=== PATIENT | female | born 1940 | race Caucasian/White ===

== ENCOUNTER 2018-02-16 20:41 | Inpatient (IN) | payer MEDICARE, MEDICAID ==
--- NOTE | 2018-02-16 21:35 | ED Physician Chart ---
ED Chief Complaint/HPI - Patient Information Date Seen:: 02/16/18 Time Seen:: 21:00 Chief Complaint:: POOR ORAL INTAKE FAILURE TO THRIVE History of Present Illness:: 77 YR OLD FEMALE WITH TWO DAUGHTERES WITH FAILURE TO THRIVE AND WEAKNESS POOR ORAL INTAKE Allergies:: Allergies Allergy/AdvReac Type Severity Reaction Status Date / Time Iodine and Iodide Containing Allergy Verified 02/16/18 21:01 Produc Vitals:: Vital Signs - 8 hr 02/16/18 20:45 Temp 98.3 F HR 62 RR 18 BP 157/52 O2 Sat % 96 Historian:: Family Member ED Review of Systems - Review of Systems General/Constitutional: No fever, No chills, No weight loss, No weakness, No diaphoresis, No edema, No loss of appetite Skin: No skin lesions, No rash, No bruising Head: No headache, No light-headedness Eyes: No loss of vision, No pain, No diplopia ENT: No earache, No nasal drainage, No sore throat, No tinnitus Neck: No neck pain, No swelling, No thyromegaly, No stiffness, No mass noted Cardio Vascular: No chest pain, No palpitations, No PND, No orthopnea, No edema Pulmonary: No SOB, No cough, No sputum, No wheezing GI: No nausea, No vomiting, No diarrhea, No pain, No melena, No hematochezia, No constipation, No hematemesis G/U: No dysuria, No frequency, No hematuria Musculoskeletal: No bone or joint pain, No back pain, No muscle pain, Other ( WEAKNESS LT LEG) Endocrine: No polyuria, No polydipsia Psychiatric: No prior psych history, No depression, No anxiety, No suicidal ideation Hematopoietic: No bruising, No lymphadenopathy Allergic/Immuno: No urticaria, No angioedema Neurological: No syncope, No focal symptoms, No weakness, No paresthesia, No headache, No seizure, No dizziness, No confusion, No vertigo ED Past Medical History - Past Medical History Past Medical History: DM Family Medical History - Family Member Mother History Unknown: Yes ED Physical Exam - Physical Examination General/Constitutional: Awake, Well-developed, well-nourished, Alert, No distress, GCS 15, Non-toxic appearing, Ambulatory Head: Atraumatic Eyes: Lids, conjuctiva normal, PERRL, EOMI Skin: Nl inspection, No rash, No skin lesions, No ecchymosis, Well hydrated, No lymphadenopathy ENMT: External ears, nose nl, Nasal exam nl, Lips, teeth, gums nl Neck: Nontender, Full ROM w/o pain, No JVD, No nuchal rigidity, No bruit, No mass, No stridor Respiratory: Nl effort/Exclusion, Clear to Auscultation, No Wheeze/Rhonchi/Rales Cardio Vascular: RRR, No murmur, gallop, rubs, NL S1 S2 GI: No tenderness/rebounding/guarding, No organomegaly, No hernia, Normal BS's, Nondistended, No mass/bruits, No McBurney tenderness : No CVA tenderness Extremities: No tenderness or effusion, No edema, Normal digits & nails Other Neuro/Psych comments:: PT HAS EPISODES OF CONFUSION AND LIMP LIKE EPISODES Misc: Normal back, No paraspinal tenderness ED Assessment - Assessment General Assessment: FAILURE TO THRIVE ED Septic Shock - . Is Septic Shock (SBP<90, OR Lactate>4 mmol\L) present?: No - <6hrs of presentation: Vital Signs: Vital Signs - 8 hr 02/16/18 20:45 Temp 98.3 F HR 62 RR 18 BP 157/52 O2 Sat % 96 ED Discharge Plan - Patient Disposition Admit/Discharge/Transfer: Acute Care w/in this hosp Condition at Disposition: Stable
[2018-02-16 22:12] LABS: ALB/GLOB RATIO 1.2 (1.0-1.8); ALBUMIN 3.7 gm/dL (3.7-5.3); ALKALINE PHOSPHATASE 90 U/L (34-104); ANION GAP 10.7 (7.0-16.0); BILIRUBIN,TOTAL 0.3 mg/dL (0.3-1.0); BUN - UREA NITROGEN 38 mg/dL (7-25); CALCIUM SERUM 9.1 mg/dL (8.6-10.3); CARBON DIOXIDE 24.9 mEq/L (21.0-31.0); CHLORIDE 104 mEq/L (98-107); CREATININE - SERUM 1.2 mg/dL (0.6-1.2); GLUCOSE 299 mg/dL (70-105); POTASSIUM SERUM 4.6 mEq/L (3.5-5.1); SGOT 16 U/L (13-39); SGPT/ALT 9 U/L (7-52); SODIUM SERUM 135 mEq/L (136-145); TOTAL PROTEIN,SERUM 6.8 gm/dL (6.0-8.3)
[2018-02-16] MEDS: Sodium Chloride 0.45% 1,000 ML IV SCH (23:46)
[2018-02-17] MEDS: INSULIN ASPART SLIDING SCALE 100 UNITS/ML UNIT SUBQ SCH ×4 (06:53→21:22)
[2018-02-17 07:35] LABS: % BASOPHILS 0.5 % (0.0-2.0); % EOSINOPHILS 2.6 % (0.0-5.0); % LYMPHOCYTES 42.4 % (20.0-50.0); % MONOCYTES 10.2 % (2.0-10.0); % NEUTROPHILS 44.3 % (40.0-80.0); EOSINOPHILE ABSOLUTE 0.2 Th/cmm (0.1-0.4); HEMATOCRIT 32.7 % (41.0-60); HEMOGLOBIN 11.2 gm/dL (12-16); LYMPHOCYTE ABSOLUTE 2.6 Th/cmm (1.5-3.0); MEAN CELL VOLUME 92.1 fl (81-100); MEAN CORPUSCULAR HEMOGLOBIN 31.6 pg (27.0-31.0); MEAN CORPUSCULAR HGB CONC 34.3 pg (28.0-36.0); MEAN PLATELET VOLUME 8.4 fl; MONOCYTE ABSOLUTE 0.6 Th/cmm (0.3-1.0); NEUTROPHILE ABSOLUTE 2.7 Th/cmm (1.8-8.0); PLATELET COUNT 221 Th/cmm (150-400); RED BLOOD COUNT 3.55 Mil/cmm (3.80-5.20); RED CELL DISTRIBUTION WIDTH 13.4 % (11.5-20.0); WHITE BLOOD COUNT 6.1 Th/cmm (4.8-10.8)
[2018-02-17 08:06] LABS: ANION GAP 9.9 (7.0-16.0); BUN - UREA NITROGEN 34 mg/dL (7-25); CALCIUM SERUM 9.1 mg/dL (8.6-10.3); CARBON DIOXIDE 23.2 mEq/L (21.0-31.0); CHLORIDE 107 mEq/L (98-107); CHOLESTEROL 116 mg/dL (<200); CREATININE - SERUM 1.1 mg/dL (0.6-1.2); HDL -HIGH DENSITY LIPOPROTEIN 43 mg/dL (23-92); POTASSIUM SERUM 4.1 mEq/L (3.5-5.1); SODIUM SERUM 136 mEq/L (136-145); TRIGLYCERIDES 73 mg/dL (<150)
[2018-02-17 08:25] LABS: GLUCOSE 130 mg/dL (70-105)
[2018-02-17] MEDS ORDERED: TOPIRAMATE 50 MG PO SCH (09:00)
[2018-02-17] MEDS ORDERED: ROSUVASTATIN CALCIUM 10 MG PO SCH (09:00)
[2018-02-17] MEDS ORDERED: Atenolol 100mg Tab PO SCH (09:00)
[2018-02-17] MEDS ORDERED: Non-Formulary Item 1 EA (Cholecalciferol (Vitamin D3) [Vitamin D3] 1 CAP) PO SCH (09:00)
[2018-02-17] MEDS ORDERED: INSULIN NPH HUMAN ISOPHANE 20 UNIT SQ SCH (09:00)
[2018-02-17] MEDS ORDERED: Non-Formulary Item 1 EA (Isosorbide Mononitrate [Isosorbide Mononitrate Er] 60 MG) PO SCH (09:00)
[2018-02-17] MEDS ORDERED: ATENOLOL 50 MG PO SCH (09:00)
[2018-02-17] MEDS: INSULIN HUMAN ISOPHANE (NPH) 100 UNITS/ML SUBQ SCH ×3 (09:27→21:21)
--- NOTE | 2018-02-17 10:34 | Diagnostic Imaging Report ---
CT scan of the brain without contrast History: ALOC Total DLP equals 647 CTDI equals 34.8 Axial sections were obtained from the base of the skull to the vertex. There is a normal ventricular system size. No focal parenchymal lesions are seen. No evidence of any mass effect or shift of midline structures. No extra-axial masses or abnormal fluid collections. Prominence of cerebral sulci and ventricles consistent with atrophy. Impression: Negative examination, atrophy.
[2018-02-17] MEDS ORDERED: INSULIN HUMAN REGULAR 100 UNITS/ML UNIT SUBQ SCH (11:30)
[2018-02-17] MEDS ORDERED: INSULIN ASPART, RECOMBINANT 100 UNITS/ML SUBQ SCH (11:30)
[2018-02-17] MEDS: Sodium Chloride 0.45% 1,000 ML IV SCH (12:58)
--- NOTE | 2018-02-17 17:05 | History and Physical ---
History of Present Illness - HPI Chief Complaint: poor oral intake HPI: This is a 77 year old female who is a resident of [facility] admitted to the telemetry unit due to a 1 day history of poor oral intake. Patient has been refusing to eat at the snf and was also noted with weakness. Vital Signs: Last Vital Signs Temp 97.2 F 02/17/18 16:00 Pulse 50 02/17/18 16:00 Resp 18 02/17/18 16:00 BP 132/49 02/17/18 16:00 Pulse Ox 97 02/17/18 04:00 Past Medical History Other History: dm htn hypercholesteremia dementia Family Medical History - Family Member Mother History Unknown: Yes Social History Smoke: No Alcohol: None Drugs: None Lives: Assisted - Medications Home Medications: Home Medication Medication Instructions Recorded Type Acetaminophen 650 mg PO Q6HR PRN 02/16/18 History Amlodipine Besylate 5 mg PO DAILY 02/16/18 History Aspirin [Adult Low Dose Aspirin EC] 81 mg PO DAILY 02/16/18 History Atenolol [Tenormin] 50 mg PO DAILY 02/16/18 History Cholecalciferol (Vitamin D3) 1 cap PO DAILY 02/16/18 History [Vitamin D3] DULoxetine DR [Cymbygta] 30 mg PO DAILY 02/16/[address] [Depakote DR] 250 mg PO HS 02/16/18 History Gabapentin 100 mg PO TID 02/16/18 History Insulin NPH Human Isophane 20 unit SQ QAM 02/16/18 History [Humulin N Kwikpen] Insulin NPH Human Isophane 30 unit SQ HS 02/16/18 History [Humulin N Kwikpen] Insulin Regular, Human [Humulin R] 1 unit SUBQ ACHS 02/16/18 History Isosorbide Mononitrate [Isosorbide 60 mg PO DAILY 02/16/18 History Mononitrate ER] Memantine [Namenda] 10 mg PO BID 02/16/18 History Nitroglycerin 0.4 mg SL Q5MIN PRN 02/16/18 History QUEtiapine Fumarate [SEROquel] 25 mg PO HS 02/16/18 History Rosuvastatin Calcium 10 mg PO DAILY 02/16/18 History Topiramate 50 mg PO BID 02/16/18 History Valsartan [Diovan] 80 mg PO DAILY 02/16/18 History lamoTRIgine [laMICtal] 25 mg PO HS 02/16/18 History - Allergies Allergies/Adverse Reactions: Allergies Allergy/AdvReac Type Severity Reaction Status Date / Time Iodine and Iodide Containing Allergy Verified 02/16/18 21:01 Produc Review of Systems - Review of Systems Constitutional: Report: Weakness Eyes: Report: No Significant ENT: Report: No Significant Respiratory: Report: No Significant Cardiovascular: Report: No Significant Neurological: Report: Weakness Physical Exam - Physical Exam HEENT: Report: Ears Nose Throat within normal limits Neck: Report: Within normal limits Cardiovascular Systems: Report: +s1/s2 noted, Regular, Rate and Rhythm Respiratory: Report: Breath Sounds are within normal limits Skin: Report: Color of skin is within normal limits Neuro/Psych: Report: Mood affect is within normal limits - Lab Results All Lab Results last 24 hours: Laboratory Results - last 24 hr 02/16/18 02/17/18 02/17/18 21:52 00:02 06:44 WBC RBC Hgb Hct MCV MCH MCHC Differential RDW Plt Count MPV Neutrophils % Lymphocytes % Monocytes % Eosinophils % Basophils % Sodium 135 L Potassium 4.6 Chloride 104 Carbon Dioxide 24.9 Anion Gap 10.7 BUN 38 H Creatinine 1.2 Est GFR ( Amer) TNP Est GFR (Non-Af Amer) TNP BUN/Creatinine Ratio 31.7 Glucose 299 H POC Glucose 261 H 135 H Calcium 9.1 Total Bilirubin 0.3 AST 16 ALT 9 Alkaline Phosphatase 90 Total Protein 6.8 Albumin 3.7 Globulin 3.1 Albumin/Globulin Ratio 1.2 Triglycerides Cholesterol LDL Cholesterol Direct HDL Cholesterol TSH 02/17/18 02/17/18 02/17/18 07:15 07:15 07:15 WBC 6.1 RBC 3.55 L Hgb 11.2 L Hct 32.7 L MCV 92.1 MCH 31.6 H MCHC Differential 34.3 RDW 13.4 Plt Count 221 MPV 8.4 Neutrophils % 44.3 Lymphocytes % 42.4 Monocytes % 10.2 H Eosinophils % 2.6 Basophils % 0.5 Sodium 136 Potassium 4.1 Chloride 107 Carbon Dioxide 23.2 Anion Gap 9.9 BUN 34 H Creatinine 1.1 Est GFR ( Amer) TNP Est GFR (Non-Af Amer) TNP BUN/Creatinine Ratio 30.9 Glucose 130 H D POC Glucose Calcium 9.1 Total Bilirubin AST ALT Alkaline Phosphatase Total Protein Albumin Globulin Albumin/Globulin Ratio Triglycerides 73 Cholesterol 116 LDL Cholesterol Direct 60 L HDL Cholesterol 43 TSH 0.65 02/17/18 12:23 WBC RBC Hgb Hct MCV MCH MCHC Differential RDW Plt Count MPV Neutrophils % Lymphocytes % Monocytes % Eosinophils % Basophils % Sodium Potassium Chloride Carbon Dioxide Anion Gap BUN Creatinine Est GFR ( Amer) Est GFR (Non-Af Amer) BUN/Creatinine Ratio Glucose POC Glucose 189 H Calcium Total Bilirubin AST ALT Alkaline Phosphatase Total Protein Albumin Globulin Albumin/Globulin Ratio Triglycerides Cholesterol LDL Cholesterol Direct HDL Cholesterol TSH - Assessment Assessment: failure to thrive htn hypercholesteremia dm dementia - Plan Plan: calorie count accucheck with sliding scale ivf for hydration monitor electrolytes gi consultation continue the rest of the orders
[2018-02-17 17:54] LABS: A1C % 7.2 % (4.0-6.0)
[2018-02-17] MEDS ORDERED: INSULIN NPH HUMAN ISOPHANE 30 UNIT SQ SCH (21:00)
[2018-02-18 05:58] LABS: % BASOPHILS 0.7 % (0.0-2.0); % EOSINOPHILS 2.6 % (0.0-5.0); % LYMPHOCYTES 41.6 % (20.0-50.0); % MONOCYTES 9.7 % (2.0-10.0); % NEUTROPHILS 45.4 % (40.0-80.0); EOSINOPHILE ABSOLUTE 0.2 Th/cmm (0.1-0.4); HEMATOCRIT 34.6 % (41.0-60); HEMOGLOBIN 11.5 gm/dL (12-16); LYMPHOCYTE ABSOLUTE 2.9 Th/cmm (1.5-3.0); MEAN CELL VOLUME 92.6 fl (81-100); MEAN CORPUSCULAR HEMOGLOBIN 30.8 pg (27.0-31.0); MEAN CORPUSCULAR HGB CONC 33.3 pg (28.0-36.0); MEAN PLATELET VOLUME 8.6 fl; MONOCYTE ABSOLUTE 0.7 Th/cmm (0.3-1.0); NEUTROPHILE ABSOLUTE 3.2 Th/cmm (1.8-8.0); PLATELET COUNT 229 Th/cmm (150-400); RED BLOOD COUNT 3.74 Mil/cmm (3.80-5.20); RED CELL DISTRIBUTION WIDTH 13.5 % (11.5-20.0)
[2018-02-18 06:26] LABS: BUN - UREA NITROGEN 30 mg/dL (7-25); CARBON DIOXIDE 21.2 mEq/L (21.0-31.0); CHLORIDE 105 mEq/L (98-107); CREATININE - SERUM 1.1 mg/dL (0.6-1.2); GLUCOSE 127 mg/dL (70-105); POTASSIUM SERUM 4.2 mEq/L (3.5-5.1); SODIUM SERUM 134 mEq/L (136-145)
[2018-02-18] MEDS: INSULIN ASPART SLIDING SCALE 100 UNITS/ML UNIT SUBQ SCH ×4 (07:51→23:37)
[2018-02-18] MEDS: INSULIN HUMAN ISOPHANE (NPH) 100 UNITS/ML SUBQ SCH ×2 (08:23→23:42)
--- NOTE | 2018-02-18 10:27 | General Progress Note ---
Subjective - Review of Systems Events since last encounter: patient with poor oral intake + generalized weakness Objective - Results Result Diagrams: 02/18/18 05:20 02/18/18 05:20 Recent Labs: Laboratory Last Values WBC 7.0 Th/cmm (4.8-10.8) 02/18/18 05:20 RBC 3.74 Mil/cmm (3.80-5.20) L 02/18/18 05:20 Hgb 11.5 gm/dL (12-16) L 02/18/18 05:20 Hct 34.6 % (41.0-60) L 02/18/18 05:20 MCV 92.6 fl (81-100) 02/18/18 05:20 MCH 30.8 pg (27.0-31.0) 02/18/18 05:20 MCHC Differential 33.3 pg (28.0-36.0) 02/18/18 05:20 RDW 13.5 % (11.5-20.0) 02/18/18 05:20 Plt Count 229 Th/cmm (150-400) 02/18/18 05:20 MPV 8.6 fl 02/18/18 05:20 Neutrophils % 45.4 % (40.0-80.0) 02/18/18 05:20 Lymphocytes % 41.6 % (20.0-50.0) 02/18/18 05:20 Monocytes % 9.7 % (2.0-10.0) 02/18/18 05:20 Eosinophils % 2.6 % (0.0-5.0) 02/18/18 05:20 Basophils % 0.7 % (0.0-2.0) 02/18/18 05:20 Sodium 134 mEq/L (136-145) L 02/18/18 05:20 Potassium 4.2 mEq/L (3.5-5.1) 02/18/18 05:20 Chloride 105 mEq/L (98-107) 02/18/18 05:20 Carbon Dioxide 21.2 mEq/L (21.0-31.0) 02/18/18 05:20 Anion Gap 12.0 (7.0-16.0) 02/18/18 05:20 BUN 30 mg/dL (7-25) H 02/18/18 05:20 Creatinine 1.1 mg/dL (0.6-1.2) 02/18/18 05:20 Est GFR ( Amer) TNP 02/18/18 05:20 Est GFR (Non-Af Amer) TNP 02/18/18 05:20 BUN/Creatinine Ratio 27.3 02/18/18 05:20 Glucose 127 mg/dL (70-105) H 02/18/18 05:20 POC Glucose 175 MG/DL (70 - 105) H 02/17/18 17:08 Hemoglobin A1c % 7.2 % (4.0-6.0) H 02/16/18 21:51 Calcium 9.0 mg/dL (8.6-10.3) 02/18/18 05:20 Total Bilirubin 0.3 mg/dL (0.3-1.0) 02/16/18 21:52 AST 16 U/L (13-39) 02/16/18 21:52 ALT 9 U/L (7-52) 02/16/18 21:52 Alkaline Phosphatase 90 U/L (34-104) 02/16/18 21:52 Total Protein 6.8 gm/dL (6.0-8.3) 02/16/18 21:52 Albumin 3.7 gm/dL (3.7-5.3) 02/16/18 21:52 Globulin 3.1 gm/dL 02/16/18 21:52 Albumin/Globulin Ratio 1.2 (1.0-1.8) 02/16/18 21:52 Triglycerides 73 mg/dL (<150) 02/17/18 07:15 Cholesterol 116 mg/dL (<200) 02/17/18 07:15 LDL Cholesterol Direct 60 mg/dL (75-193) L 02/17/18 07:15 HDL Cholesterol 43 mg/dL (23-92) 02/17/18 07:15 TSH 0.65 uIU/ml (0.34-5.60) 02/17/18 07:15 - Physical Exam Vitals and I&O: Vital Signs Temp 97.6 F 02/18/18 08:00 Pulse 56 02/18/18 09:59 Resp 18 02/18/18 08:00 BP 147/57 02/18/18 09:59 Pulse Ox 96 02/18/18 08:00 Intake & Output 02/17/18 02/18/18 02/18/18 18:59 06:59 18:59 Intake Total 1410 50 Balance 1410 50 Weight (lbs) 72.575 kg 72.575 kg Intake: Intake, IV Amount 990 Sodium Chloride 0.45% 1, 990 000 ml @ 75 mls/hr IV . [id number] [facility] Rx#:[id number] Oral 420 50 Other: # Voids 3 1 # Bowel Movements 0 0 Weight Source Bedscale Bedscale Active Medications: Current Medications Acetaminophen (Tylenol) 650 mg PO Q6HR PRN PRN Reason: Pain (Mild) Stop: 04/18/18 08:11 Amlodipine Besylate (Norvasc) 5 mg PO DAILY [facility] Stop: 04/18/18 08:59 Last Admin: 02/18/18 09:59 Dose: 5 mg Aspirin (Ecotrin) 81 mg PO DAILY [facility] Stop: 04/18/18 08:59 Last Admin: 02/18/18 09:59 Dose: 81 mg Atorvastatin Calcium (Lipitor) 40 mg PO [facility] Stop: 04/18/18 20:59 Last Admin: 02/17/18 21:11 Dose: 40 mg Cholecalciferol (Vitamin D3) 5,000 iu PO DAILY [facility] Stop: 04/18/18 08:59 Last Admin: 02/18/18 09:58 Dose: 5,000 iu Divalproex Sodium (Depakote Dr) 250 mg PO HS [facility]; Protocol Stop: 04/18/18 20:59 Duloxetine HCl (Cymbalta) 30 mg PO DAILY [facility]; Protocol Stop: 04/18/18 08:59 Last Admin: 02/18/18 09:58 Dose: 30 mg Gabapentin (Neurontin) 100 mg PO TID [facility] Stop: 04/18/18 08:59 Last Admin: 02/18/18 09:59 Dose: 100 mg Sodium Chloride (Nacl 0.45%) 1,000 mls @ 75 mls/hr IV .[id number] [facility] Stop: 04/17/18 23:26 Last Admin: 02/17/18 12:58 Dose: 75 mls/hr Insulin Aspart (Novolog Insulin Sliding Scale) 0 units SUBQ ACHS [facility]; Protocol Stop: 04/18/18 07:29 Last Admin: 02/18/18 07:51 Dose: Not Given Insulin Human NPH (Novolin N) 20 units SUBQ QAM [facility] Stop: 04/18/18 08:59 Last Admin: 02/18/18 08:23 Dose: Not Given Insulin Human NPH (Novolin N) 30 units SUBQ HS [facility] Stop: 04/18/18 20:59 Last Admin: 02/17/18 21:21 Dose: Not Given Lamotrigine (Lamictal) 25 mg PO [facility]; Protocol Stop: 04/18/18 20:59 Memantine (Namenda) 10 mg PO BID [facility] Stop: 04/18/18 08:59 Last Admin: 02/18/18 09:59 Dose: 10 mg Nitroglycerin (Nitrostat) 0.4 mg SL Q5MIN PRN PRN Reason: Chest Pain Stop: 04/18/18 08:11 Quetiapine Fumarate (Seroquel) 25 mg PO [facility]; Protocol Stop: 04/18/18 20:59 Valsartan (Diovan) 160 mg PO DAILY [facility] Stop: 04/19/18 08:59 Last Admin: 02/18/18 09:59 Dose: 160 mg General: No acute distress HEENT: Atraumatic Neck: Supple Cardiovascular: Regular rate, Normal S1, Normal S2 Lungs: Clear to auscultation Abdomen: Bowel sounds Extremities: no Clubbing Neurological: Normal gait Assessment/Plan - Problem List Patient Problems: All Active Problems Dementia (Acute) F03.90 Diabetes (Acute) E11.9 Failure to thrive (Acute) [id number] HTN (hypertension) (Acute) I10 - Plan Plan: cpm Nutritional Asmnt/Malnutr-PDOC - Dietary Evaluation Malnutrition Findings (Please click <Entered> for more info): Nutritional Asmnt/Malnutrition Start: 02/17/18 14: 03 Text: Status: Complete Freq: Protocol: Document 02/17/18 14:03 [facility] (Rec: 02/17/18 14:16 [email or web address]) Nutritional Asmnt/Malnutrition Patient General Information Nutritional Screening High Risk Consult Diagnosis Poor PO intake, Failure to Thrive Pertinent Medical Hx/Surgical Hx DM Subjective Information Consult received for BG 261 at admission; calorie count ordered. PO intake 50-75% per EMR. Patient seen in room; attempted to interview patient but patient turns away after a couple of minutes. Per RN, patient can communicate one minute but suddenly stops. Patient appears well-nourished but c/o no appetite and does not want to eat per family. Current Diet Order/ Nutrition Support CCHO - 45g Patient / S.O Not Indicated Pertinent Medications Vit D3, Novolog/Novolin, seroquel, NaCl Pertinent Labs 02/17/18: Gluc 130, POC 135-261, BUN 34, Cre 1.1 02/16/18: Gluc 299, Alb 3.1 Nutritional Hx/Data Height 1.55 m Height (Calculated Centimeters) 154.9 Current Weight (lbs) 72.575 kg Weight (Calculated Kilograms) 72.6 Weight (Calculated Grams) 50671.8 [place] Body Weight 105 % [place] Body Weight 152 Body Mass Index (BMI) 30.2 Weight Status Obese GI Symptoms Last BM none recorded in EMR Cultural/Ethnic/Advent Belief unknown Usual diet at home unknown Skin Integrity/Comment: Katherinedorothy 17 Current %PO Fair (50-74%) Estimated Nutritional Goals BEE in Kcals: Adj wt of IBW Calories/Kcals/Kg 25-30 Kcals/Kg Kcals Calculated 7736-0576 Kcals/day` Protein: Adj wt of IBW Protein g/k-1.2g/Kg Protein Calculated 54-65g/day Fluid: ml 5887-0212 mL/day (1mL/Kcal) Nutritional Problem 2. Problem Problem Altered nutrition-related labs Etiology insulin resistance Signs/Symptoms: hx DM, elevated POC 135-261 1. Problem Problem Obesity Etiology excessive Kcal intake Signs/Symptoms: BMI 30.2 Intervention/Recommendation Comments 1. Recommend continuing current diet order. Encourage adequate PO intake. 2. If PO intake <50% for more than 1 week, recommmend adding Boost Glucose control. 3. MD to adjust insulin regimen to minimize hyperglycemia. Expected Outcomes/Goals Expected Outcomes/Goals Goal: PO intake to meet at least 75% of nutritional needs . Monitor PO intake, wt, labs and skin integrity F/U as high risk in 2-3 days, 02/19-02/20
--- NOTE | 2018-02-18 10:28 | Diagnostic Imaging Report ---
CT abdomen and pelvis without intravenous contrast Indication: Abdominal pain Comparison: None, Technique: Axial images were obtained from the lung bases to the bilateral proximal femurs without IV contrast. Coronal reconstructions were made. total DLP: 670, CTDI12.5 FINDINGS: Hypoventilatory atelectatic changes of the lung bases are noted. Right basal subsegmental atelectasis versus scarring is noted. There is irregular 2.5 cm lesion within the left breast. Neoplastic process cannot be excluded. Assessment of the solid organs is limited due to lack of IV contrast. No nodes of focal hepatic or focal splenic lesions. Punctate calcification is seen along the pancreatic head measuring 3 mm. No evidence of adrenal lesions. No evidence of hydronephrosis. There is fullness of the right ureter. There is severely distended urinary bladder. A moderate stool is seen throughout the colon without evidence of bowel obstruction. The appendix is not well-visualized. No evidence of free fluid or free air. Moderate atherosclerosis is noted. Degenerative changes of the spine are noted. Osteopenia is noted. A few lucencies are seen within the vertebral bodies. IMPRESSION: Severely distended urinary bladder. Consider Wiseman catheter placement. There is also fullness of the right ureter. No evidence of hydronephrosis. Moderate stool throughout the colon. No evidence of bowel obstruction. 3 mm calcification along the pancreatic head. A 3 mm stone within the distal common bile duct in this region cannot be excluded. Incidentally noted 2.5 cm irregular lesion of the left breast. Neoplastic process cannot be excluded and correlation with ultrasound and mammograms is also recommended. Atherosclerotic vascular disease. A few lucencies within the vertebral bodies. Not findings are nonspecific and may be due to osteopenia, however other lesions such as hemangiomas or neoplastic process cannot be excluded. If indicated follow-up nuclear medicine bone scan may or MRI also be obtained for further assessment.
[2018-02-18 13:06] LABS: URINE MICROSCOPIC INDICATED? YES; URINE SOURCE CATH
[2018-02-18 13:10] LABS: URINE BILIRUBIN NEGATIVE (NEGATIVE); URINE BLOOD NEGATIVE (NEGATIVE); URINE GLUCOSE (UA) 100 mg/dL (NEGATIVE); URINE KETONE NEGATIVE (NEGATIVE); URINE LEUKOCYTE ESTERASE NEGATIVE (NEGATIVE); URINE NITRATE NEGATIVE (NEGATIVE); URINE PH 6.5 (4.6 - 8.0); URINE PROTEIN NEGATIVE (NEGATIVE); URINE UROBILINOGEN 0.2 E.U./dL (0.2 - 1.0)
[2018-02-18 13:14] LABS: URINE CLARITY CLEAR (CLEAR); URINE COLOR YELLOW
[2018-02-19 06:04] LABS: % BASOPHILS 0.8 % (0.0-2.0); % MONOCYTES 11.3 % (2.0-10.0); % NEUTROPHILS 54.9 % (40.0-80.0); BASOPHILE ABSOLUTE 0.1 Th/cumm (0-0.2); EOSINOPHILE ABSOLUTE 0.1 Th/cmm (0.1-0.4); HEMATOCRIT 29.6 % (41.0-60); LYMPHOCYTE ABSOLUTE 2.3 Th/cmm (1.5-3.0); MEAN CELL VOLUME 91.3 fl (81-100); MEAN CORPUSCULAR HEMOGLOBIN 30.7 pg (27.0-31.0); MEAN CORPUSCULAR HGB CONC 33.6 pg (28.0-36.0); MEAN PLATELET VOLUME 8.5 fl; MONOCYTE ABSOLUTE 0.8 Th/cmm (0.3-1.0); NEUTROPHILE ABSOLUTE 4.1 Th/cmm (1.8-8.0); PLATELET COUNT 188 Th/cmm (150-400); RED BLOOD COUNT 3.25 Mil/cmm (3.80-5.20); RED CELL DISTRIBUTION WIDTH 13.5 % (11.5-20.0); WHITE BLOOD COUNT 7.4 Th/cmm (4.8-10.8)
[2018-02-19 06:25] LABS: ALB/GLOB RATIO 1.2 (1.0-1.8); ALKALINE PHOSPHATASE 74 U/L (34-104); ANION GAP 9.6 (7.0-16.0); BILIRUBIN,TOTAL 0.4 mg/dL (0.3-1.0); BUN - UREA NITROGEN 28 mg/dL (7-25); CALCIUM SERUM 8.5 mg/dL (8.6-10.3); CARBON DIOXIDE 21.4 mEq/L (21.0-31.0); CHLORIDE 105 mEq/L (98-107); CREATININE - SERUM 1.1 mg/dL (0.6-1.2); GLUCOSE 127 mg/dL (70-105); LIPASE 9 U/L (11-82); SGOT 16 U/L (13-39); SGPT/ALT 5 U/L (7-52); SODIUM SERUM 132 mEq/L (136-145); TOTAL PROTEIN,SERUM 5.6 gm/dL (6.0-8.3)
[2018-02-19 07:20] LABS: INR 1.06 (0.5-1.4)
[2018-02-19 08:25] LABS: URINE BACTERIA OCCASIONAL /hpf (NONE SEEN); URINE EPITHELIAL CELLS FEW /lpf (FEW); URINE RBC 0-2 /hpf (0-5); URINE WBC 0-2 /hpf (0-5)
[2018-02-19] MEDS: INSULIN ASPART SLIDING SCALE 100 UNITS/ML UNIT SUBQ SCH ×4 (08:34→22:01)
[2018-02-19] MEDS: INSULIN HUMAN ISOPHANE (NPH) 100 UNITS/ML SUBQ SCH ×2 (08:36→22:01)
[2018-02-19] MEDS: D5-0.45NS 1,000 ML IV SCH (10:30)
--- NOTE | 2018-02-19 11:17 | General Progress Note ---
Subjective - Review of Systems Events since last encounter: no new changes weak Objective - Results Result Diagrams: 02/19/18 05:50 02/19/18 05:50 Recent Labs: Laboratory Last Values WBC 7.4 Th/cmm (4.8-10.8) 02/19/18 05:50 RBC 3.25 Mil/cmm (3.80-5.20) L 02/19/18 05:50 Hgb 10.0 gm/dL (12-16) L 02/19/18 05:50 Hct 29.6 % (41.0-60) L 02/19/18 05:50 MCV 91.3 fl (81-100) 02/19/18 05:50 MCH 30.7 pg (27.0-31.0) 02/19/18 05:50 MCHC Differential 33.6 pg (28.0-36.0) 02/19/18 05:50 RDW 13.5 % (11.5-20.0) 02/19/18 05:50 Plt Count 188 Th/cmm (150-400) 02/19/18 05:50 MPV 8.5 fl 02/19/18 05:50 Neutrophils % 54.9 % (40.0-80.0) 02/19/18 05:50 Lymphocytes % 31.0 % (20.0-50.0) 02/19/18 05:50 Monocytes % 11.3 % (2.0-10.0) H 02/19/18 05:50 Eosinophils % 2.0 % (0.0-5.0) 02/19/18 05:50 Basophils % 0.8 % (0.0-2.0) 02/19/18 05:50 PT 11.0 SECONDS (9.5-11.5) 02/19/18 05:50 INR 1.06 (0.5-1.4) 02/19/18 05:50 PTT (Actin FS) 25.0 SECONDS (26.0-38.0) L 02/19/18 05:50 Sodium 132 mEq/L (136-145) L 02/19/18 05:50 Potassium 4.0 mEq/L (3.5-5.1) 02/19/18 05:50 Chloride 105 mEq/L (98-107) 02/19/18 05:50 Carbon Dioxide 21.4 mEq/L (21.0-31.0) 02/19/18 05:50 Anion Gap 9.6 (7.0-16.0) 02/19/18 05:50 BUN 28 mg/dL (7-25) H 02/19/18 05:50 Creatinine 1.1 mg/dL (0.6-1.2) 02/19/18 05:50 Est GFR ( Amer) TNP 02/19/18 05:50 Est GFR (Non-Af Amer) TNP 02/19/18 05:50 BUN/Creatinine Ratio 25.5 02/19/18 05:50 Glucose 127 mg/dL (70-105) H 02/19/18 05:50 POC Glucose 175 MG/DL (70 - 105) H 02/17/18 17:08 Hemoglobin A1c % 7.2 % (4.0-6.0) H 02/16/18 21:51 Calcium 8.5 mg/dL (8.6-10.3) L 02/19/18 05:50 Total Bilirubin 0.4 mg/dL (0.3-1.0) 02/19/18 05:50 AST 16 U/L (13-39) 02/19/18 05:50 ALT 5 U/L (7-52) L 02/19/18 05:50 Alkaline Phosphatase 74 U/L (34-104) 02/19/18 05:50 Total Protein 5.6 gm/dL (6.0-8.3) L 02/19/18 05:50 Albumin 3.0 gm/dL (3.7-5.3) L 02/19/18 05:50 Globulin 2.6 gm/dL 02/19/18 05:50 Albumin/Globulin Ratio 1.2 (1.0-1.8) 02/19/18 05:50 Triglycerides 73 mg/dL (<150) 02/17/18 07:15 Cholesterol 116 mg/dL (<200) 02/17/18 07:15 LDL Cholesterol Direct 60 mg/dL (75-193) L 02/17/18 07:15 HDL Cholesterol 43 mg/dL (23-92) 02/17/18 07:15 Lipase 9 U/L (11-82) L 02/19/18 05:50 TSH 0.65 uIU/ml (0.34-5.60) 02/17/18 07:15 Urine Source CATH 02/18/18 12:00 Urine Color YELLOW 02/18/18 12:00 Urine Clarity CLEAR (CLEAR) 02/18/18 12:00 Urine pH 6.5 (4.6 - 8.0) 02/18/18 12:00 Ur Specific [place] 1.015 (1.005-1.030) 02/18/18 12:00 Urine Protein NEGATIVE mg/dL (NEGATIVE) 02/18/18 12:00 Urine Glucose (UA) 100 mg/dL (NEGATIVE) H 02/18/18 12:00 Urine Ketones NEGATIVE mg/dL (NEGATIVE) 02/18/18 12:00 Urine Blood NEGATIVE (NEGATIVE) 02/18/18 12:00 Urine Nitrate NEGATIVE (NEGATIVE) 02/18/18 12:00 Urine Bilirubin NEGATIVE (NEGATIVE) 02/18/18 12:00 Urine Urobilinogen 0.2 E.U./dL (0.2 - 1.0) 02/18/18 12:00 Ur Leukocyte Esterase NEGATIVE (NEGATIVE) 02/18/18 12:00 Urine RBC 0-2 /hpf (0-5) 02/18/18 12:00 Urine WBC 0-2 /hpf (0-5) 02/18/18 12:00 Ur Epithelial Cells FEW /lpf (FEW) 02/18/18 12:00 Urine Bacteria OCCASIONAL /hpf (NONE SEEN) 02/18/18 12:00 - Physical Exam Vitals and I&O: Vital Signs Temp 97.8 F 02/19/18 07:56 Pulse 79 02/19/18 08:41 Resp 18 02/19/18 10:00 BP 173/63 02/19/18 08:41 Pulse Ox 100 02/19/18 07:56 Intake & Output 02/18/18 02/19/18 02/19/18 18:59 06:59 18:59 Intake Total 400 1150 Output Total 1200 Balance -800 1150 Weight (lbs) 72.575 kg 72.575 kg Intake: Intake, IV Amount 1000 Sodium Chloride 0.45% 1, 1000 000 ml @ 75 mls/hr IV . [id number] [facility] Rx#:[id number] Oral 400 150 Output: Urine 1200 Other: # Voids 2 1 # Bowel Movements 0 Weight Source Bedscale Bedscale Active Medications: Current Medications Acetaminophen (Tylenol) 650 mg PO Q6HR PRN PRN Reason: Pain (Mild) Stop: 04/18/18 08:11 Amlodipine Besylate (Norvasc) 5 mg PO DAILY [facility] Stop: 04/18/18 08:59 Last Admin: 02/19/18 08:41 Dose: 5 mg Aspirin (Ecotrin) 81 mg PO DAILY [facility] Stop: 04/18/18 08:59 Last Admin: 02/19/18 08:36 Dose: Not Given Atorvastatin Calcium (Lipitor) 40 mg PO [facility] Stop: 04/18/18 20:59 Last Admin: 02/18/18 20:31 Dose: 40 mg Cholecalciferol (Vitamin D3) 5,000 iu PO DAILY [facility] Stop: 04/18/18 08:59 Last Admin: 02/19/18 08:36 Dose: Not Given Divalproex Sodium (Depakote Dr) 250 mg PO [facility]; Protocol Stop: 04/18/18 20:59 Last Admin: 02/18/18 20:33 Dose: 250 mg Duloxetine HCl (Cymbalta) 30 mg PO DAILY [facility]; Protocol Stop: 04/18/18 08:59 Last Admin: 02/19/18 08:37 Dose: Not Given Gabapentin (Neurontin) 100 mg PO TID [facility] Stop: 04/18/18 08:59 Last Admin: 02/19/18 08:35 Dose: Not Given Dextrose/Sodium Chloride (D5-0.45ns) 1,000 mls @ 50 mls/hr IV .Q20H [facility] Stop: 04/20/18 10:29 Insulin Aspart (Novolog Insulin Sliding Scale) 0 units SUBQ ACHS [facility]; Protocol Stop: 04/18/18 07:29 Last Admin: 02/19/18 08:34 Dose: Not Given Insulin Human NPH (Novolin N) 20 units SUBQ QAM [facility] Stop: 04/18/18 08:59 Last Admin: 02/19/18 08:36 Dose: Not Given Insulin Human NPH (Novolin N) 30 units SUBQ HS [facility] Stop: 04/18/18 20:59 Last Admin: 02/18/18 23:42 Dose: Not Given Lamotrigine (Lamictal) 25 mg PO [facility]; Protocol Stop: 04/18/18 20:59 Last Admin: 02/18/18 20:33 Dose: 25 mg Memantine (Namenda) 10 mg PO BID [facility] Stop: 04/18/18 08:59 Last Admin: 02/19/18 08:36 Dose: Not Given Nitroglycerin (Nitrostat) 0.4 mg SL Q5MIN PRN PRN Reason: Chest Pain Stop: 04/18/18 08:11 Quetiapine Fumarate (Seroquel) 25 mg PO HS [facility]; Protocol Stop: 04/18/18 20:59 Last Admin: 02/18/18 20:34 Dose: 25 mg Valsartan (Diovan) 160 mg PO DAILY [facility] Stop: 04/19/18 08:59 Last Admin: 02/19/18 08:40 Dose: 160 mg General: No acute distress HEENT: Atraumatic Neck: Supple Cardiovascular: Regular rate, Normal S1, Normal S2 Lungs: Clear to auscultation Abdomen: Bowel sounds Extremities: no Clubbing Neurological: Normal gait Assessment/Plan - Problem List Patient Problems: All Active Problems Dementia (Acute) F03.90 Diabetes (Acute) E11.9 Failure to thrive (Acute) [id number] HTN (hypertension) (Acute) I10 - Plan Plan: cpm Nutritional Asmnt/Malnutr-PDOC - Dietary Evaluation Malnutrition Findings (Please click <Entered> for more info): Nutritional Asmnt/Malnutrition Start: 02/17/18 14: 03 Text: Status: Complete Freq: Protocol: Document 02/17/18 14:03 [facility] (Rec: 02/17/18 14:16 [id number] [email or web address]) Nutritional Asmnt/Malnutrition Patient General Information Nutritional Screening High Risk Consult Diagnosis Poor PO intake, Failure to Thrive Pertinent Medical Hx/Surgical Hx DM Subjective Information Consult received for BG 261 at admission; calorie count ordered. PO intake 50-75% per EMR. Patient seen in room; attempted to interview patient but patient turns away after a couple of minutes. Per RN, patient can communicate one minute but suddenly stops. Patient appears well-nourished but c/o no appetite and does not want to eat per family. Current Diet Order/ Nutrition Support CCHO - 45g Patient / S.O Not Indicated Pertinent Medications Vit D3, Novolog/Novolin, seroquel, NaCl Pertinent Labs 02/17/18: Gluc 130, POC 135-261, BUN 34, Cre 1.1 02/16/18: Gluc 299, Alb 3.1 Nutritional Hx/Data Height 1.55 m Height (Calculated Centimeters) 154.9 Current Weight (lbs) 72.575 kg Weight (Calculated Kilograms) 72.6 Weight (Calculated Grams) 68248.8 [place] Body Weight 105 % [place] Body Weight 152 Body Mass Index (BMI) 30.2 Weight Status Obese GI Symptoms Last BM none recorded in EMR Cultural/Ethnic/Hoahaoism Belief unknown Usual diet at home unknown Skin Integrity/Comment: dorothy Murphy 17 Current %PO Fair (50-74%) Estimated Nutritional Goals BEE in Kcals: Adj wt of IBW Calories/Kcals/Kg 25-30 Kcals/Kg Kcals Calculated 4786-2474 Kcals/day` Protein: Adj wt of IBW Protein g/k-1.2g/Kg Protein Calculated 54-65g/day Fluid: ml 8874-7626 mL/day (1mL/Kcal) Nutritional Problem 2. Problem Problem Altered nutrition-related labs Etiology insulin resistance Signs/Symptoms: hx DM, elevated POC 135-261 1. Problem Problem Obesity Etiology excessive Kcal intake Signs/Symptoms: BMI 30.2 Intervention/Recommendation Comments 1. Recommend continuing current diet order. Encourage adequate PO intake. 2. If PO intake <50% for more than 1 week, recommmend adding Boost Glucose control. 3. MD to adjust insulin regimen to minimize hyperglycemia. Expected Outcomes/Goals Expected Outcomes/Goals Goal: PO intake to meet at least 75% of nutritional needs . Monitor PO intake, wt, labs and skin integrity F/U as high risk in 2-3 days, 02/19-02/20
[2018-02-19] MEDS ORDERED: ceFAZolin 1 GM in Sodium Chloride 0.9% 50 ML IV ONE (12:30)
[2018-02-19] MEDS ORDERED: Morphine 10 mg/5 ml 5mL UDC ONE (16:04)
[2018-02-19] MEDS: Morphine Sulfate 4 mg/mL 1mL Syr IVP PRN ×3 (16:12→23:54)
--- NOTE | 2018-02-19 19:19 | GI Progress Note ---
Subjective - Review of Systems Service Date: 02/19/18 Subjective: Pt unresponsive for short 3-5 min periods, followed by lucid intervals. Denies abd pain. Objective - Results Result Diagrams: 02/19/18 05:50 02/19/18 05:50 Recent Labs: Laboratory Last Values WBC 7.4 Th/cmm (4.8-10.8) 02/19/18 05:50 RBC 3.25 Mil/cmm (3.80-5.20) L 02/19/18 05:50 Hgb 10.0 gm/dL (12-16) L 02/19/18 05:50 Hct 29.6 % (41.0-60) L 02/19/18 05:50 MCV 91.3 fl (81-100) 02/19/18 05:50 MCH 30.7 pg (27.0-31.0) 02/19/18 05:50 MCHC Differential 33.6 pg (28.0-36.0) 02/19/18 05:50 RDW 13.5 % (11.5-20.0) 02/19/18 05:50 Plt Count 188 Th/cmm (150-400) 02/19/18 05:50 MPV 8.5 fl 02/19/18 05:50 Neutrophils % 54.9 % (40.0-80.0) 02/19/18 05:50 Lymphocytes % 31.0 % (20.0-50.0) 02/19/18 05:50 Monocytes % 11.3 % (2.0-10.0) H 02/19/18 05:50 Eosinophils % 2.0 % (0.0-5.0) 02/19/18 05:50 Basophils % 0.8 % (0.0-2.0) 02/19/18 05:50 PT 11.0 SECONDS (9.5-11.5) 02/19/18 05:50 INR 1.06 (0.5-1.4) 02/19/18 05:50 PTT (Actin FS) 25.0 SECONDS (26.0-38.0) L 02/19/18 05:50 Sodium 132 mEq/L (136-145) L 02/19/18 05:50 Potassium 4.0 mEq/L (3.5-5.1) 02/19/18 05:50 Chloride 105 mEq/L (98-107) 02/19/18 05:50 Carbon Dioxide 21.4 mEq/L (21.0-31.0) 02/19/18 05:50 Anion Gap 9.6 (7.0-16.0) 02/19/18 05:50 BUN 28 mg/dL (7-25) H 02/19/18 05:50 Creatinine 1.1 mg/dL (0.6-1.2) 02/19/18 05:50 Est GFR ( Amer) TNP 02/19/18 05:50 Est GFR (Non-Af Amer) TNP 02/19/18 05:50 BUN/Creatinine Ratio 25.5 02/19/18 05:50 Glucose 127 mg/dL (70-105) H 02/19/18 05:50 POC Glucose 175 MG/DL (70 - 105) H 02/17/18 17:08 Hemoglobin A1c % 7.2 % (4.0-6.0) H 02/16/18 21:51 Calcium 8.5 mg/dL (8.6-10.3) L 02/19/18 05:50 Total Bilirubin 0.4 mg/dL (0.3-1.0) 02/19/18 05:50 AST 16 U/L (13-39) 02/19/18 05:50 ALT 5 U/L (7-52) L 02/19/18 05:50 Alkaline Phosphatase 74 U/L (34-104) 02/19/18 05:50 Total Protein 5.6 gm/dL (6.0-8.3) L 02/19/18 05:50 Albumin 3.0 gm/dL (3.7-5.3) L 02/19/18 05:50 Globulin 2.6 gm/dL 02/19/18 05:50 Albumin/Globulin Ratio 1.2 (1.0-1.8) 02/19/18 05:50 Triglycerides 73 mg/dL (<150) 02/17/18 07:15 Cholesterol 116 mg/dL (<200) 02/17/18 07:15 LDL Cholesterol Direct 60 mg/dL (75-193) L 02/17/18 07:15 HDL Cholesterol 43 mg/dL (23-92) 02/17/18 07:15 Lipase 9 U/L (11-82) L 02/19/18 05:50 TSH 0.65 uIU/ml (0.34-5.60) 02/17/18 07:15 Urine Source CATH 02/18/18 12:00 Urine Color YELLOW 02/18/18 12:00 Urine Clarity CLEAR (CLEAR) 02/18/18 12:00 Urine pH 6.5 (4.6 - 8.0) 02/18/18 12:00 Ur Specific [place] 1.015 (1.005-1.030) 02/18/18 12:00 Urine Protein NEGATIVE mg/dL (NEGATIVE) 02/18/18 12:00 Urine Glucose (UA) 100 mg/dL (NEGATIVE) H 02/18/18 12:00 Urine Ketones NEGATIVE mg/dL (NEGATIVE) 02/18/18 12:00 Urine Blood NEGATIVE (NEGATIVE) 02/18/18 12:00 Urine Nitrate NEGATIVE (NEGATIVE) 02/18/18 12:00 Urine Bilirubin NEGATIVE (NEGATIVE) 02/18/18 12:00 Urine Urobilinogen 0.2 E.U./dL (0.2 - 1.0) 02/18/18 12:00 Ur Leukocyte Esterase NEGATIVE (NEGATIVE) 02/18/18 12:00 Urine RBC 0-2 /hpf (0-5) 02/18/18 12:00 Urine WBC 0-2 /hpf (0-5) 02/18/18 12:00 Ur Epithelial Cells FEW /lpf (FEW) 02/18/18 12:00 Urine Bacteria OCCASIONAL /hpf (NONE SEEN) 02/18/18 12:00 - Physical Exam Vitals and I&O: Vital Signs Temp 99.2 F 02/19/18 15:24 Pulse 65 02/19/18 15:24 Resp 20 02/19/18 17:38 BP 156/65 02/19/18 15:24 Pulse Ox 98 02/19/18 15:24 Intake & Output 02/19/18 02/19/18 02/20/18 06:59 18:59 06:59 Intake Total 1150 100 Balance 1150 100 Weight (lbs) 72.575 kg 86.183 kg Intake: Intake, IV Amount 1000 Sodium Chloride 0.45% 1, 1000 000 ml @ 75 mls/hr IV . [id number] [facility] Rx#:[id number] Oral 150 100 Other: # Voids 1 2 # Bowel Movements 0 Weight Source Bedscale Bedscale Active Medications: Current Medications Acetaminophen (Tylenol) 650 mg PO Q6HR PRN PRN Reason: Pain (Mild) Stop: 04/18/18 08:11 Amlodipine Besylate (Norvasc) 10 mg PO DAILY [facility] Stop: 04/21/18 08:59 Aspirin (Ecotrin) 81 mg PO DAILY [facility] Stop: 04/18/18 08:59 Last Admin: 02/19/18 08:36 Dose: Not Given Atorvastatin Calcium (Lipitor) 40 mg PO [facility] Stop: 04/18/18 20:59 Last Admin: 02/18/18 20:31 Dose: 40 mg Cholecalciferol (Vitamin D3) 5,000 iu PO DAILY [facility] Stop: 04/18/18 08:59 Last Admin: 02/19/18 08:36 Dose: Not Given Divalproex Sodium (Depakote Dr) 250 mg PO [facility]; Protocol Stop: 04/18/18 20:59 Last Admin: 02/18/18 20:33 Dose: 250 mg Duloxetine HCl (Cymbalta) 30 mg PO DAILY [facility]; Protocol Stop: 04/18/18 08:59 Last Admin: 02/19/18 08:37 Dose: Not Given Gabapentin (Neurontin) 100 mg PO TID [facility] Stop: 04/18/18 08:59 Last Admin: 02/19/18 16:13 Dose: Not Given Dextrose/Sodium Chloride (D5-0.45ns) 1,000 mls @ 50 mls/hr IV .Q20H [facility] Stop: 04/20/18 10:29 Last Admin: 02/19/18 10:30 Dose: 50 mls/hr Insulin Aspart (Novolog Insulin Sliding Scale) 0 units SUBQ ACHS [facility]; Protocol Stop: 04/18/18 07:29 Last Admin: 02/19/18 16:33 Dose: Not Given Insulin Human NPH (Novolin N) 20 units SUBQ QAM [facility] Stop: 04/18/18 08:59 Last Admin: 02/19/18 08:36 Dose: Not Given Insulin Human NPH (Novolin N) 30 units SUBQ HS [facility] Stop: 04/18/18 20:59 Last Admin: 02/18/18 23:42 Dose: Not Given Lamotrigine (Lamictal) 25 mg PO [facility]; Protocol Stop: 04/18/18 20:59 Last Admin: 02/18/18 20:33 Dose: 25 mg Memantine (Namenda) 10 mg PO BID [facility] Stop: 04/18/18 08:59 Last Admin: 02/19/18 16:12 Dose: Not Given Morphine Sulfate (Morphine) 2 mg IVP Q4HR PRN PRN Reason: moderate pain Stop: 04/20/18 15:57 Last Admin: 02/19/18 19:08 Dose: 2 mg Nitroglycerin (Nitrostat) 0.4 mg SL Q5MIN PRN PRN Reason: Chest Pain Stop: 04/18/18 08:11 Quetiapine Fumarate (Seroquel) 25 mg PO HS [facility]; Protocol Stop: 04/18/18 20:59 Last Admin: 02/18/18 20:34 Dose: 25 mg Valsartan (Diovan) 320 mg PO DAILY [facility] Stop: 04/21/18 08:59 General: Alert HEENT: Atraumatic Neck: Supple Cardiovascular: Regular rate Abdomen: Bowel sounds, Soft, no Tender, no Distended, no Rebound Extremities: no Clubbing Neurological: Normal gait Assessment/Plan - Problem List Patient Problems: All Active Problems Dementia (Acute) F03.90 Diabetes (Acute) E11.9 Failure to thrive (Acute) [id number] HTN (hypertension) (Acute) I10 - Assessment Assessment: # Abd pain # Poor oral intake # Altered mental status EGD initially planned today, but pt showed possible seizure activity this afternoon with cycling periods of unresponsiveness. Vitals stable, and neurology has been consulted by primary hospitalist. Plan: - will postpone EGD given she is unstable neurologically at the moment. Pt will be given one dose of Keppra now, and remaining management as per neuro - reschedule EGD once more stable from a neurological standpoint. - cont diet as tolerated
[2018-02-19] MEDS ORDERED: Levetiracetam 500 mg/5mL 5mL Vial IV ONE (23:24)
--- NOTE | 2018-02-20 05:20 | Consultation ---
DATE OF CONSULTATION: 02/17/[address] Cisneros. HISTORY AND PHYSICAL: This is a 77-year-old female patient who apparently stopped eating at the custodial. Hence, the patient was transferred to [facility]. In the hospital, the patient developed sinus bradycardia, rate of 46 per minute. Hence, cardiac consult is requested. PAST MEDICAL HISTORY: Hypertension, diabetes mellitus type 2, hyperlipidemia, dementia and osteoporosis. FAMILY HISTORY: Unremarkable. SOCIAL HISTORY: No history of smoking, alcohol abuse. ALLERGIES: No known allergies. PHYSICAL EXAMINATION: VITAL SIGNS: Blood pressure 170/60, pulse is 46, respirations 28. HEAD: Normocephalic. No lumps or bumps. EYES: Pupils equal, reactive to light. Fundi show AV nicking, sclerae white, conjunctivae pink. NECK: Carotid 2+. Normal upstroke. JVD flat. Thyroid not palpable. Lymph nodes not palpable. CHEST: Shows increased AP diameter. No kyphosis, scoliosis. LUNGS: Bilateral bronchovesicular breath sounds. HEART: PMI fifth intercostal space with lateral to midclavicular line. S1, S2. No S3, S4, soft systolic murmur. ABDOMEN: Soft. Liver, spleen not palpable. No organomegaly. Bowel sounds active. NEUROLOGIC: No focal neurological deficit. EXTREMITIES: Peripheral pulses 2+. No pedal edema. CLINICAL IMPRESSION: Bradycardia, most likely secondary to atenolol, hypertension, diabetes mellitus type 2, hyperlipidemia, dementia and osteoporosis. PLAN: At the present time, we will stop the atenolol and monitor the patient in view of arrhythmia. JOB# [id number]
[2018-02-20 07:10] LABS: BUN - UREA NITROGEN 27 mg/dL (7-25); CALCIUM SERUM 8.4 mg/dL (8.6-10.3); CARBON DIOXIDE 21.9 mEq/L (21.0-31.0); CHLORIDE 108 mEq/L (98-107); CREATININE - SERUM 1.1 mg/dL (0.6-1.2); GLUCOSE 217 mg/dL (70-105); POTASSIUM SERUM 3.9 mEq/L (3.5-5.1); SODIUM SERUM 135 mEq/L (136-145)
--- NOTE | 2018-02-20 09:30 | Consultation ---
DATE OF CONSULTATION: 02/20/2018 PSYCHIATRIC CONSULT PATIENT'S AGE: 77. SEX: Female. PHYSICIAN: Dr. Cisneros. CONDUCTOR/ENGINEER: Dr. Walton. TYPE OF THE REPORT: Psychiatric consult. REASON FOR THE CONSULT: Poor appetite and depression and adjusting psychotropic medications. HISTORY OF PRESENT ILLNESS: The patient is a 77-year-old female with history of depression and also history of dementia. The patient was admitted to the hospital because of failure to thrive as well as poor oral intake. The patient has been depressed and has been taking Cymbalta 30 mg with not much help. The patient also has been taking Seroquel, Depakote, Lamictal. She also has been taking Namenda because of her memory issues. The patient is still unable to eat and appetite is still poor. PAST PSYCHIATRIC HISTORY: The patient has dementia and depression. PAST MEDICAL HISTORY: As mentioned above. SOCIAL HISTORY: The patient lives in [facility]. No known alcohol or drug use. ALLERGIES: No known allergies. MENTAL STATUS EXAM: The patient appears his stated age. Forgetful. Anxious. Depressed mood. Thought processes are circumstantial. ASSESSMENT: Depressive disorder, severe, unspecified. TREATMENT PLAN: We will discontinue Depakote and we will also discontinue Cymbalta and will start the patient on Remeron in a dose of 15 mg at bedtime. Also, we will follow her behavior and her condition closely. Thanks to Dr. Cisneros and we will follow with you. [facility]# [id number]
[2018-02-20] MEDS: INSULIN ASPART SLIDING SCALE 100 UNITS/ML UNIT SUBQ SCH ×4 (11:28→21:04)
[2018-02-20] MEDS: INSULIN HUMAN ISOPHANE (NPH) 100 UNITS/ML SUBQ SCH ×2 (11:29→21:03)
--- NOTE | 2018-02-20 14:16 | GI Progress Note ---
Subjective - Review of Systems Service Date: 02/20/18 Events since last encounter: Few seizures Subjective: No abd pain, N/V Objective - Results Result Diagrams: 02/19/18 05:50 02/20/18 06:05 Recent Labs: Laboratory Last Values WBC 7.4 Th/cmm (4.8-10.8) 02/19/18 05:50 RBC 3.25 Mil/cmm (3.80-5.20) L 02/19/18 05:50 Hgb 10.0 gm/dL (12-16) L 02/19/18 05:50 Hct 29.6 % (41.0-60) L 02/19/18 05:50 MCV 91.3 fl (81-100) 02/19/18 05:50 MCH 30.7 pg (27.0-31.0) 02/19/18 05:50 MCHC Differential 33.6 pg (28.0-36.0) 02/19/18 05:50 RDW 13.5 % (11.5-20.0) 02/19/18 05:50 Plt Count 188 Th/cmm (150-400) 02/19/18 05:50 MPV 8.5 fl 02/19/18 05:50 Neutrophils % 54.9 % (40.0-80.0) 02/19/18 05:50 Lymphocytes % 31.0 % (20.0-50.0) 02/19/18 05:50 Monocytes % 11.3 % (2.0-10.0) H 02/19/18 05:50 Eosinophils % 2.0 % (0.0-5.0) 02/19/18 05:50 Basophils % 0.8 % (0.0-2.0) 02/19/18 05:50 PT 11.0 SECONDS (9.5-11.5) 02/19/18 05:50 INR 1.06 (0.5-1.4) 02/19/18 05:50 PTT (Actin FS) 25.0 SECONDS (26.0-38.0) L 02/19/18 05:50 Sodium 135 mEq/L (136-145) L 02/20/18 06:05 Potassium 3.9 mEq/L (3.5-5.1) 02/20/18 06:05 Chloride 108 mEq/L (98-107) H 02/20/18 06:05 Carbon Dioxide 21.9 mEq/L (21.0-31.0) 02/20/18 06:05 Anion Gap 9.0 (7.0-16.0) 02/20/18 06:05 BUN 27 mg/dL (7-25) H 02/20/18 06:05 Creatinine 1.1 mg/dL (0.6-1.2) 02/20/18 06:05 Est GFR ( Amer) TNP 02/20/18 06:05 Est GFR (Non-Af Amer) TNP 02/20/18 06:05 BUN/Creatinine Ratio 24.5 02/20/18 06:05 Glucose 217 mg/dL (70-105) H 02/20/18 06:05 POC Glucose 175 MG/DL (70 - 105) H 02/17/18 17:08 Hemoglobin A1c % 7.2 % (4.0-6.0) H 02/16/18 21:51 Calcium 8.4 mg/dL (8.6-10.3) L 02/20/18 06:05 Total Bilirubin 0.4 mg/dL (0.3-1.0) 02/19/18 05:50 AST 16 U/L (13-39) 02/19/18 05:50 ALT 5 U/L (7-52) L 02/19/18 05:50 Alkaline Phosphatase 74 U/L (34-104) 02/19/18 05:50 Total Protein 5.6 gm/dL (6.0-8.3) L 02/19/18 05:50 Albumin 3.0 gm/dL (3.7-5.3) L 02/19/18 05:50 Globulin 2.6 gm/dL 02/19/18 05:50 Albumin/Globulin Ratio 1.2 (1.0-1.8) 02/19/18 05:50 Triglycerides 73 mg/dL (<150) 02/17/18 07:15 Cholesterol 116 mg/dL (<200) 02/17/18 07:15 LDL Cholesterol Direct 60 mg/dL (75-193) L 02/17/18 07:15 HDL Cholesterol 43 mg/dL (23-92) 02/17/18 07:15 Lipase 9 U/L (11-82) L 02/19/18 05:50 TSH 0.65 uIU/ml (0.34-5.60) 02/17/18 07:15 Urine Source CATH 02/18/18 12:00 Urine Color YELLOW 02/18/18 12:00 Urine Clarity CLEAR (CLEAR) 02/18/18 12:00 Urine pH 6.5 (4.6 - 8.0) 02/18/18 12:00 Ur Specific [place] 1.015 (1.005-1.030) 02/18/18 12:00 Urine Protein NEGATIVE mg/dL (NEGATIVE) 02/18/18 12:00 Urine Glucose (UA) 100 mg/dL (NEGATIVE) H 02/18/18 12:00 Urine Ketones NEGATIVE mg/dL (NEGATIVE) 02/18/18 12:00 Urine Blood NEGATIVE (NEGATIVE) 02/18/18 12:00 Urine Nitrate NEGATIVE (NEGATIVE) 02/18/18 12:00 Urine Bilirubin NEGATIVE (NEGATIVE) 02/18/18 12:00 Urine Urobilinogen 0.2 E.U./dL (0.2 - 1.0) 02/18/18 12:00 Ur Leukocyte Esterase NEGATIVE (NEGATIVE) 02/18/18 12:00 Urine RBC 0-2 /hpf (0-5) 02/18/18 12:00 Urine WBC 0-2 /hpf (0-5) 02/18/18 12:00 Ur Epithelial Cells FEW /lpf (FEW) 02/18/18 12:00 Urine Bacteria OCCASIONAL /hpf (NONE SEEN) 02/18/18 12:00 - Physical Exam Vitals and I&O: Vital Signs Temp 97.2 F 02/20/18 12:02 Pulse 52 02/20/18 12:02 Resp 19 02/20/18 12:02 BP 117/65 02/20/18 12:02 Pulse Ox 99 02/20/18 12:02 Intake & Output 02/19/18 02/20/18 02/20/18 18:59 06:59 18:59 Intake Total 100 346 Output Total 1800 Balance 100 -1454 Weight (lbs) 86.183 kg 84.414 kg Intake: Intake, IV Amount 106 Levetiracetam 600 mg In 106 Sodium Chloride 0.9% 100 ml @ 400 mls/hr IV Q12HR [facility] Rx#:[id number] Oral 100 240 Output: Urine 1800 Other: # Voids 2 # Bowel Movements 0 1 Stool Characteristics Soft Formed Brown Weight Source Bedscale Bedscale Active Medications: Current Medications Acetaminophen (Tylenol) 650 mg PO Q6HR PRN PRN Reason: Pain (Mild) Stop: 04/18/18 08:11 Amlodipine Besylate (Norvasc) 10 mg PO DAILY [facility] Stop: 04/21/18 08:59 Last Admin: 02/20/18 09:13 Dose: 10 mg Aspirin (Ecotrin) 81 mg PO DAILY [facility] Stop: 04/18/18 08:59 Last Admin: 02/20/18 09:14 Dose: 81 mg Atorvastatin Calcium (Lipitor) 40 mg PO [facility] Stop: 04/18/18 20:59 Last Admin: 02/19/18 20:50 Dose: 40 mg Cholecalciferol (Vitamin D3) 5,000 iu PO DAILY [facility] Stop: 04/18/18 08:59 Last Admin: 02/20/18 09:15 Dose: 5,000 iu Docusate Sodium (Colace) 100 mg PO DAILY [facility] Stop: 04/20/18 19:29 Last Admin: 02/20/18 09:14 Dose: 100 mg Gabapentin (Neurontin) 100 mg PO TID [facility] Stop: 04/18/18 08:59 Last Admin: 02/20/18 11:26 Dose: Not Given Dextrose/Sodium Chloride (D5-0.45ns) 1,000 mls @ 50 mls/hr IV .Q20H [facility] Stop: 04/20/18 10:29 Last Admin: 02/19/18 10:30 Dose: 50 mls/hr Levetiracetam 600 mg/ Sodium (Chloride) 106 mls @ 400 mls/hr IV Q12HR [facility] Stop: 04/20/18 20:59 Last Admin: 02/20/18 09:23 Dose: 400 mls/hr Insulin Aspart (Novolog Insulin Sliding Scale) 0 units SUBQ ACHS [facility]; Protocol Stop: 04/18/18 07:29 Last Admin: 02/20/18 11:28 Dose: Not Given Insulin Human NPH (Novolin N) 20 units SUBQ QAM [facility] Stop: 04/18/18 08:59 Last Admin: 02/20/18 11:29 Dose: Not Given Insulin Human NPH (Novolin N) 30 units SUBQ HS [facility] Stop: 04/18/18 20:59 Last Admin: 02/19/18 22:01 Dose: Not Given Lamotrigine (Lamictal) 25 mg PO [facility]; Protocol Stop: 04/18/18 20:59 Last Admin: 02/19/18 20:49 Dose: 25 mg Memantine (Namenda) 10 mg PO BID [facility] Stop: 04/18/18 08:59 Last Admin: 02/20/18 09:14 Dose: 10 mg Mirtazapine (Remeron) 15 mg PO [facility]; Protocol Stop: 04/21/18 20:59 Morphine Sulfate (Morphine) 2 mg IVP Q4HR PRN PRN Reason: moderate pain Stop: 04/20/18 15:57 Last Admin: 02/19/18 23:54 Dose: 2 mg Nitroglycerin (Nitrostat) 0.4 mg SL Q5MIN PRN PRN Reason: Chest Pain Stop: 04/18/18 08:11 Quetiapine Fumarate (Seroquel) 25 mg PO [facility]; Protocol Stop: 04/18/18 20:59 Last Admin: 02/19/18 20:49 Dose: 25 mg Valsartan (Diovan) 320 mg PO DAILY [facility] Stop: 04/21/18 08:59 Last Admin: 02/20/18 09:14 Dose: 320 mg General: Alert HEENT: Atraumatic Neck: Supple Cardiovascular: Regular rate Lungs: Clear to auscultation Abdomen: Bowel sounds, Soft, no Tender, no Distended, no Rebound Extremities: no Clubbing Neurological: Normal gait Assessment/Plan - Problem List Patient Problems: All Active Problems Dementia (Acute) F03.90 Diabetes (Acute) E11.9 Failure to thrive (Acute) [id number] HTN (hypertension) (Acute) I10 - Assessment Assessment: Failure to thrive (Acute) [id number] # Abd pain # Poor oral intake # Altered mental status - Plan Plan: Dementia (Acute) F03.90 Diabetes (Acute) E11.9 Failure to thrive (Acute) [id number] HTN (hypertension) (Acute) I10 - Assessment Assessment: # Abd pain # Poor oral intake # Altered mental status EGD tomorrow D/W anaethesia - cont diet as tolerated
[2018-02-20] MEDS: D5-0.45NS 1,000 ML IV SCH (17:09)
--- NOTE | 2018-02-20 22:01 | General Progress Note ---
Subjective - Review of Systems Service Date: 02/20/18 Subjective: feels weak, nad Objective - Results Result Diagrams: 02/19/18 05:50 02/20/18 06:05 Recent Labs: Laboratory Last Values WBC 7.4 Th/cmm (4.8-10.8) 02/19/18 05:50 RBC 3.25 Mil/cmm (3.80-5.20) L 02/19/18 05:50 Hgb 10.0 gm/dL (12-16) L 02/19/18 05:50 Hct 29.6 % (41.0-60) L 02/19/18 05:50 MCV 91.3 fl (81-100) 02/19/18 05:50 MCH 30.7 pg (27.0-31.0) 02/19/18 05:50 MCHC Differential 33.6 pg (28.0-36.0) 02/19/18 05:50 RDW 13.5 % (11.5-20.0) 02/19/18 05:50 Plt Count 188 Th/cmm (150-400) 02/19/18 05:50 MPV 8.5 fl 02/19/18 05:50 Neutrophils % 54.9 % (40.0-80.0) 02/19/18 05:50 Lymphocytes % 31.0 % (20.0-50.0) 02/19/18 05:50 Monocytes % 11.3 % (2.0-10.0) H 02/19/18 05:50 Eosinophils % 2.0 % (0.0-5.0) 02/19/18 05:50 Basophils % 0.8 % (0.0-2.0) 02/19/18 05:50 PT 11.0 SECONDS (9.5-11.5) 02/19/18 05:50 INR 1.06 (0.5-1.4) 02/19/18 05:50 PTT (Actin FS) 25.0 SECONDS (26.0-38.0) L 02/19/18 05:50 Sodium 135 mEq/L (136-145) L 02/20/18 06:05 Potassium 3.9 mEq/L (3.5-5.1) 02/20/18 06:05 Chloride 108 mEq/L (98-107) H 02/20/18 06:05 Carbon Dioxide 21.9 mEq/L (21.0-31.0) 02/20/18 06:05 Anion Gap 9.0 (7.0-16.0) 02/20/18 06:05 BUN 27 mg/dL (7-25) H 02/20/18 06:05 Creatinine 1.1 mg/dL (0.6-1.2) 02/20/18 06:05 Est GFR ( Amer) TNP 02/20/18 06:05 Est GFR (Non-Af Amer) TNP 02/20/18 06:05 BUN/Creatinine Ratio 24.5 02/20/18 06:05 Glucose 217 mg/dL (70-105) H 02/20/18 06:05 POC Glucose 161 MG/DL (70 - 105) H 02/20/18 20:34 Hemoglobin A1c % 7.2 % (4.0-6.0) H 02/16/18 21:51 Calcium 8.4 mg/dL (8.6-10.3) L 02/20/18 06:05 Total Bilirubin 0.4 mg/dL (0.3-1.0) 02/19/18 05:50 AST 16 U/L (13-39) 02/19/18 05:50 ALT 5 U/L (7-52) L 02/19/18 05:50 Alkaline Phosphatase 74 U/L (34-104) 02/19/18 05:50 Total Protein 5.6 gm/dL (6.0-8.3) L 02/19/18 05:50 Albumin 3.0 gm/dL (3.7-5.3) L 02/19/18 05:50 Globulin 2.6 gm/dL 02/19/18 05:50 Albumin/Globulin Ratio 1.2 (1.0-1.8) 02/19/18 05:50 Triglycerides 73 mg/dL (<150) 02/17/18 07:15 Cholesterol 116 mg/dL (<200) 02/17/18 07:15 LDL Cholesterol Direct 60 mg/dL (75-193) L 02/17/18 07:15 HDL Cholesterol 43 mg/dL (23-92) 02/17/18 07:15 Lipase 9 U/L (11-82) L 02/19/18 05:50 TSH 0.65 uIU/ml (0.34-5.60) 02/17/18 07:15 Urine Source CATH 02/18/18 12:00 Urine Color YELLOW 02/18/18 12:00 Urine Clarity CLEAR (CLEAR) 02/18/18 12:00 Urine pH 6.5 (4.6 - 8.0) 02/18/18 12:00 Ur Specific [place] 1.015 (1.005-1.030) 02/18/18 12:00 Urine Protein NEGATIVE mg/dL (NEGATIVE) 02/18/18 12:00 Urine Glucose (UA) 100 mg/dL (NEGATIVE) H 02/18/18 12:00 Urine Ketones NEGATIVE mg/dL (NEGATIVE) 02/18/18 12:00 Urine Blood NEGATIVE (NEGATIVE) 02/18/18 12:00 Urine Nitrate NEGATIVE (NEGATIVE) 02/18/18 12:00 Urine Bilirubin NEGATIVE (NEGATIVE) 02/18/18 12:00 Urine Urobilinogen 0.2 E.U./dL (0.2 - 1.0) 02/18/18 12:00 Ur Leukocyte Esterase NEGATIVE (NEGATIVE) 02/18/18 12:00 Urine RBC 0-2 /hpf (0-5) 02/18/18 12:00 Urine WBC 0-2 /hpf (0-5) 02/18/18 12:00 Ur Epithelial Cells FEW /lpf (FEW) 02/18/18 12:00 Urine Bacteria OCCASIONAL /hpf (NONE SEEN) 02/18/18 12:00 - Physical Exam Vitals and I&O: Vital Signs Temp 97.7 F 02/20/18 20:00 Pulse 57 02/20/18 20:00 Resp 17 02/20/18 20:00 BP 168/42 02/20/18 20:00 Pulse Ox 100 02/20/18 20:00 Intake & Output 02/20/18 02/20/18 02/21/18 06:59 18:59 06:59 Intake Total 1346 106 50 Output Total 1800 Balance -454 106 50 Weight (lbs) 84.414 kg 84.368 kg 84.368 kg Intake: Intake, IV Amount 1106 106 D5-0.45NS 1,000 ml @ 50 1000 mls/hr IV .Q20H [facility] Rx#: [id number] Levetiracetam 600 mg In 106 106 Sodium Chloride 0.9% 100 ml @ 400 mls/hr IV Q12HR [facility] Rx#:[id number] Oral 240 50 Output: Urine 1800 Other: # Bowel Movements 1 Stool Characteristics Soft Soft Formed Formed Brown Brown Weight Source Bedscale Estimated Estimated Active Medications: Current Medications Acetaminophen (Tylenol) 650 mg PO Q6HR PRN PRN Reason: Pain (Mild) Stop: 04/18/18 08:11 Amlodipine Besylate (Norvasc) 10 mg PO DAILY [facility] Stop: 04/21/18 08:59 Last Admin: 02/20/18 09:13 Dose: 10 mg Aspirin (Ecotrin) 81 mg PO DAILY [facility] Stop: 04/18/18 08:59 Last Admin: 02/20/18 09:14 Dose: 81 mg Atorvastatin Calcium (Lipitor) 40 mg PO HS [facility] Stop: 04/18/18 20:59 Last Admin: 02/20/18 20:50 Dose: 40 mg Cholecalciferol (Vitamin D3) 5,000 iu PO DAILY [facility] Stop: 04/18/18 08:59 Last Admin: 02/20/18 09:15 Dose: 5,000 iu Docusate Sodium (Colace) 100 mg PO DAILY [facility] Stop: 04/20/18 19:29 Last Admin: 02/20/18 09:14 Dose: 100 mg Gabapentin (Neurontin) 100 mg PO TID [facility] Stop: 04/18/18 08:59 Last Admin: 02/20/18 20:49 Dose: 100 mg Dextrose/Sodium Chloride (D5-0.45ns) 1,000 mls @ 50 mls/hr IV .Q20H [facility] Stop: 04/20/18 10:29 Last Admin: 02/20/18 17:09 Dose: 50 mls/hr Levetiracetam 600 mg/ Sodium (Chloride) 106 mls @ 400 mls/hr IV Q12HR [facility] Stop: 04/20/18 20:59 Last Admin: 02/20/18 20:51 Dose: 400 mls/hr Insulin Aspart (Novolog Insulin Sliding Scale) 0 units SUBQ ACHS [facility]; Protocol Stop: 04/18/18 07:29 Last Admin: 02/20/18 21:04 Dose: Not Given Insulin Human NPH (Novolin N) 20 units SUBQ QAM [facility] Stop: 04/18/18 08:59 Last Admin: 02/20/18 11:29 Dose: Not Given Insulin Human NPH (Novolin N) [address] [facility] Stop: 04/18/18 20:59 Last Admin: 02/20/18 21:03 Dose: Not Given Lamotrigine (Lamictal) [address] [facility]; Protocol Stop: 04/18/18 20:59 Last Admin: 02/20/18 20:50 Dose: 25 mg Memantine (Namenda) 10 mg PO BID [facility] Stop: 04/18/18 08:59 Last Admin: 02/20/18 17:08 Dose: 10 mg Mirtazapine (Remeron) [address] [facility]; Protocol Stop: 04/21/18 20:59 Last Admin: 02/20/18 20:49 Dose: 15 mg Morphine Sulfate (Morphine) 2 mg IVP Q4HR PRN PRN Reason: moderate pain Stop: 04/20/18 15:57 Last Admin: 02/19/18 23:54 Dose: 2 mg Nitroglycerin (Nitrostat) 0.4 mg SL Q5MIN PRN PRN Reason: Chest Pain Stop: 04/18/18 08:11 Quetiapine Fumarate (Seroquel) [address] [facility]; Protocol Stop: 04/18/18 20:59 Last Admin: 02/20/18 20:50 Dose: 25 mg Valsartan (Diovan) 320 mg PO DAILY [facility] Stop: 04/21/18 08:59 Last Admin: 02/20/18 09:14 Dose: 320 mg General: Alert HEENT: Atraumatic Neck: Supple Cardiovascular: Regular rate Lungs: Clear to auscultation Abdomen: Bowel sounds, Soft, no Tender, no Distended, no Rebound Extremities: no Clubbing Neurological: Normal gait Assessment/Plan - Problem List Patient Problems: All Active Problems Dementia (Acute) F03.90 Diabetes (Acute) E11.9 Failure to thrive (Acute) [id number] HTN (hypertension) (Acute) I10 - Plan Plan: cpm Nutritional Asmnt/Malnutr-PDOC - Dietary Evaluation Malnutrition Findings (Please click <Entered> for more info): Nutritional Asmnt/Malnutrition Start: 02/17/18 14: 03 Text: Status: Complete Freq: Protocol: Document 02/17/18 14:03 [facility] (Rec: 02/17/18 14:16 [id number] [email or web address]) Nutritional Asmnt/Malnutrition Patient General Information Nutritional Screening High Risk Consult Diagnosis Poor PO intake, Failure to Thrive Pertinent Medical Hx/Surgical Hx DM Subjective Information Consult received for BG 261 at admission; calorie count ordered. PO intake 50-75% per EMR. Patient seen in room; attempted to interview patient but patient turns away after a couple of minutes. Per RN, patient can communicate one minute but suddenly stops. Patient appears well-nourished but c/o no appetite and does not want to eat per family. Current Diet Order/ Nutrition Support CCHO - 45g Patient / S.O Not Indicated Pertinent Medications Vit D3, Novolog/Novolin, seroquel, NaCl Pertinent Labs 02/17/18: Gluc 130, POC 135-261, BUN 34, Cre 1.1 02/16/18: Gluc 299, Alb 3.1 Nutritional Hx/Data Height 1.55 m Height (Calculated Centimeters) 154.9 Current Weight (lbs) 72.575 kg Weight (Calculated Kilograms) 72.6 Weight (Calculated Grams) 32313.8 [place] Body Weight 105 % [place] Body Weight 152 Body Mass Index (BMI) 30.2 Weight Status Obese GI Symptoms Last BM none recorded in EMR Cultural/Ethnic/Confucianist Belief unknown Usual diet at home unknown Skin Integrity/Comment: dorothy Murphy 17 Current %PO Fair (50-74%) Estimated Nutritional Goals BEE in Kcals: Adj wt of IBW Calories/Kcals/Kg 25-30 Kcals/Kg Kcals Calculated [id number] Kcals/day` Protein: Adj wt of IBW Protein g/k-1.2g/Kg Protein Calculated 54-65g/day Fluid: ml 6396-8900 mL/day (1mL/Kcal) Nutritional Problem 2. Problem Problem Altered nutrition-related labs Etiology insulin resistance Signs/Symptoms: hx DM, elevated POC 135-261 1. Problem Problem Obesity Etiology excessive Kcal intake Signs/Symptoms: BMI 30.2 Intervention/Recommendation Comments 1. Recommend continuing current diet order. Encourage adequate PO intake. 2. If PO intake <50% for more than 1 week, recommmend adding Boost Glucose control. 3. MD to adjust insulin regimen to minimize hyperglycemia. Expected Outcomes/Goals Expected Outcomes/Goals Goal: PO intake to meet at least 75% of nutritional needs . Monitor PO intake, wt, labs and skin integrity F/U as high risk in 2-3 days, 02/19-02/20
[2018-02-21] MEDS: INSULIN HUMAN ISOPHANE (NPH) 100 UNITS/ML SUBQ SCH ×2 (08:04→23:37)
[2018-02-21] MEDS: INSULIN ASPART SLIDING SCALE 100 UNITS/ML UNIT SUBQ SCH ×4 (08:04→23:32)
[2018-02-21 08:19] LABS: % BASOPHILS 0.8 % (0.0-2.0); % EOSINOPHILS 2.9 % (0.0-5.0); % LYMPHOCYTES 27.8 % (20.0-50.0); % NEUTROPHILS 59.5 % (40.0-80.0); BASOPHILE ABSOLUTE 0.1 Th/cumm (0-0.2); EOSINOPHILE ABSOLUTE 0.2 Th/cmm (0.1-0.4); HEMATOCRIT 32.4 % (41.0-60); HEMOGLOBIN 10.9 gm/dL (12-16); MEAN CELL VOLUME 91.9 fl (81-100); MEAN CORPUSCULAR HEMOGLOBIN 30.8 pg (27.0-31.0); MEAN CORPUSCULAR HGB CONC 33.6 pg (28.0-36.0); MEAN PLATELET VOLUME 8.7 fl; MONOCYTE ABSOLUTE 0.6 Th/cmm (0.3-1.0); NEUTROPHILE ABSOLUTE 4.3 Th/cmm (1.8-8.0); PLATELET COUNT 172 Th/cmm (150-400); RED BLOOD COUNT 3.53 Mil/cmm (3.80-5.20); RED CELL DISTRIBUTION WIDTH 13.3 % (11.5-20.0); WHITE BLOOD COUNT 7.2 Th/cmm (4.8-10.8)
[2018-02-21 08:50] LABS: ALB/GLOB RATIO 1.1 (1.0-1.8); ALKALINE PHOSPHATASE 82 U/L (34-104); ANION GAP 8.9 (7.0-16.0); BILIRUBIN,TOTAL 0.4 mg/dL (0.3-1.0); BUN - UREA NITROGEN 18 mg/dL (7-25); CALCIUM SERUM 8.6 mg/dL (8.6-10.3); CARBON DIOXIDE 21.9 mEq/L (21.0-31.0); CHLORIDE 110 mEq/L (98-107); CREATININE - SERUM 0.9 mg/dL (0.6-1.2); GLUCOSE 152 mg/dL (70-105); POTASSIUM SERUM 3.8 mEq/L (3.5-5.1); SGOT 17 U/L (13-39); SGPT/ALT 7 U/L (7-52); SODIUM SERUM 137 mEq/L (136-145); TOTAL PROTEIN,SERUM 5.7 gm/dL (6.0-8.3)
--- NOTE | 2018-02-21 09:40 | Consultation ---
DATE OF CONSULTATION: 02/20/2018 REASON FOR CONSULTATION: Abdominal pain, decreased oral intake. HISTORY OF PRESENT ILLNESS: This consult was obtained through the courtesy of Dr. Cisneros for this 77-year-old admitted to the hospital for poor oral intake and abdominal pain. Apparently, the patient stopped eating a day or two ago and was complaining of abdominal pain. The patient is not able to provide any history. Most of the information obtained through her sister who communicates with her. PAST MEDICAL HISTORY: Hypertension, diabetes, dementia, and hyperlipidemia. PAST SURGICAL HISTORY: Negative. SOCIAL HISTORY: Nonsmoker, nonalcoholic, non-IV drug abuser. FAMILY HISTORY: Noncontributory. MEDICATIONS: Tylenol, amlodipine, aspirin, atenolol, vitamin D, Cymbalta, gabapentin, Depakote, insulin, nitroglycerin, Namenda, topiramate, and valsartan. REVIEW OF SYSTEMS: No weight loss. No nausea or vomiting. There is abdominal pain. PHYSICAL EXAMINATION: GENERAL: The patient is awake, oriented to self, in no acute distress. VITAL SIGNS: Blood pressure was 126/59, heart rate was 56, respiratory rate was 18, and temperature was 98.3. HEAD AND NECK: Pupils reactive to light. Extraocular muscles could not be tested. Oral cavity, no lesion. NECK: Supple. CHEST: Good air entry. LUNGS: Clear to auscultation. CARDIOVASCULAR: Regular rate and rhythm. No murmur or gallop. ABDOMEN: Soft, positive bowel sounds. EXTREMITIES: Lower extremities, no edema. CENTRAL NERVOUS SYSTEM: Grossly nonfocal. LABORATORY DATA: H and H are 11.2 and 32.7. Glucose is 299. Hemoglobin A1c was 7.2. Liver enzymes were normal. IMPRESSION: A 77-year-old with abdominal pain, decreased oral intake. ASSESSMENT AND PLAN: 1. Abdominal pain could be peptic ulcer disease, could be upper GI malignancy, could be pancreatitis, pancreatic cancer, etc. RECOMMENDATIONS: 1. Recheck labs. 2. CT abdomen and pelvis. 3. If negative, then endoscopy. 4. Further recommendations to follow. 2. Decreased oral intake. RECOMMENDATIONS: 1. To encourage oral intake. 2. Repeat labs. 3. Check CT and then EGD on Monday. Other medical problems such as hypertension, diabetes, hyperlipidemia, etc., as per Dr. Cisneros. Thanks to Dr. Cisneros for allowing me to participate in the care of this patient. If you have any further questions, please let me know. JOB# [id number]
[2018-02-21] MEDS ORDERED: Lidocaine 2% Gel 5 mL TP ONE (14:40)
[2018-02-21] MEDS ORDERED: Propofol 10 mg/mL 20mL Vial **SURGERY USE ONLY IV ONE (14:40)
--- NOTE | 2018-02-21 15:48 | General Progress Note ---
Subjective - Review of Systems Service Date: 02/21/18 Subjective: alert feels weak, nad Objective - Results Result Diagrams: 02/21/18 07:35 02/21/18 07:35 Recent Labs: Laboratory Last Values WBC 7.2 Th/cmm (4.8-10.8) 02/21/18 07:35 RBC 3.53 Mil/cmm (3.80-5.20) L 02/21/18 07:35 Hgb 10.9 gm/dL (12-16) L 02/21/18 07:35 Hct 32.4 % (41.0-60) L 02/21/18 07:35 MCV 91.9 fl (81-100) 02/21/18 07:35 MCH 30.8 pg (27.0-31.0) 02/21/18 07:35 MCHC Differential 33.6 pg (28.0-36.0) 02/21/18 07:35 RDW 13.3 % (11.5-20.0) 02/21/18 07:35 Plt Count 172 Th/cmm (150-400) 02/21/18 07:35 MPV 8.7 fl 02/21/18 07:35 Neutrophils % 59.5 % (40.0-80.0) 02/21/18 07:35 Lymphocytes % 27.8 % (20.0-50.0) 02/21/18 07:35 Monocytes % 9.0 % (2.0-10.0) 02/21/18 07:35 Eosinophils % 2.9 % (0.0-5.0) 02/21/18 07:35 Basophils % 0.8 % (0.0-2.0) 02/21/18 07:35 PT 11.0 SECONDS (9.5-11.5) 02/19/18 05:50 INR 1.06 (0.5-1.4) 02/19/18 05:50 PTT (Actin FS) 25.0 SECONDS (26.0-38.0) L 02/19/18 05:50 Sodium 137 mEq/L (136-145) 02/21/18 07:35 Potassium 3.8 mEq/L (3.5-5.1) 02/21/18 07:35 Chloride 110 mEq/L (98-107) H 02/21/18 07:35 Carbon Dioxide 21.9 mEq/L (21.0-31.0) 02/21/18 07:35 Anion Gap 8.9 (7.0-16.0) 02/21/18 07:35 BUN 18 mg/dL (7-25) 02/21/18 07:35 Creatinine 0.9 mg/dL (0.6-1.2) 02/21/18 07:35 Est GFR ( Amer) TNP 02/21/18 07:35 Est GFR (Non-Af Amer) TNP 02/21/18 07:35 BUN/Creatinine Ratio 20.0 02/21/18 07:35 Glucose 152 mg/dL (70-105) H 02/21/18 07:35 POC Glucose 175 MG/DL (70 - 105) H 02/21/18 13:20 Hemoglobin A1c % 7.2 % (4.0-6.0) H 02/16/18 21:51 Calcium 8.6 mg/dL (8.6-10.3) 02/21/18 07:35 Total Bilirubin 0.4 mg/dL (0.3-1.0) 02/21/18 07:35 AST 17 U/L (13-39) 02/21/18 07:35 ALT 7 U/L (7-52) 02/21/18 07:35 Alkaline Phosphatase 82 U/L (34-104) 02/21/18 07:35 Total Protein 5.7 gm/dL (6.0-8.3) L 02/21/18 07:35 Albumin 3.0 gm/dL (3.7-5.3) L 02/21/18 07:35 Globulin 2.7 gm/dL 02/21/18 07:35 Albumin/Globulin Ratio 1.1 (1.0-1.8) 02/21/18 07:35 Triglycerides 73 mg/dL (<150) 02/17/18 07:15 Cholesterol 116 mg/dL (<200) 02/17/18 07:15 LDL Cholesterol Direct 60 mg/dL (75-193) L 02/17/18 07:15 HDL Cholesterol 43 mg/dL (23-92) 02/17/18 07:15 Lipase 9 U/L (11-82) L 02/19/18 05:50 TSH 0.65 uIU/ml (0.34-5.60) 02/17/18 07:15 Urine Source CATH 02/18/18 12:00 Urine Color YELLOW 02/18/18 12:00 Urine Clarity CLEAR (CLEAR) 02/18/18 12:00 Urine pH 6.5 (4.6 - 8.0) 02/18/18 12:00 Ur Specific [place] 1.015 (1.005-1.030) 02/18/18 12:00 Urine Protein NEGATIVE mg/dL (NEGATIVE) 02/18/18 12:00 Urine Glucose (UA) 100 mg/dL (NEGATIVE) H 02/18/18 12:00 Urine Ketones NEGATIVE mg/dL (NEGATIVE) 02/18/18 12:00 Urine Blood NEGATIVE (NEGATIVE) 02/18/18 12:00 Urine Nitrate NEGATIVE (NEGATIVE) 02/18/18 12:00 Urine Bilirubin NEGATIVE (NEGATIVE) 02/18/18 12:00 Urine Urobilinogen 0.2 E.U./dL (0.2 - 1.0) 02/18/18 12:00 Ur Leukocyte Esterase NEGATIVE (NEGATIVE) 02/18/18 12:00 Urine RBC 0-2 /hpf (0-5) 02/18/18 12:00 Urine WBC 0-2 /hpf (0-5) 02/18/18 12:00 Ur Epithelial Cells FEW /lpf (FEW) 02/18/18 12:00 Urine Bacteria OCCASIONAL /hpf (NONE SEEN) 02/18/18 12:00 - Physical Exam Vitals and I&O: Vital Signs Temp 97.8 F 02/21/18 12:08 Pulse 58 02/21/18 12:08 Resp 19 02/21/18 12:08 BP 148/70 02/21/18 12:08 Pulse Ox 99 02/21/18 12:08 Intake & Output 02/20/18 02/21/18 02/21/18 18:59 06:59 18:59 Intake Total 106 156 Balance 106 156 Weight (lbs) 84.368 kg 86.183 kg Intake: Intake, IV Amount 106 106 Levetiracetam 600 mg In 106 106 Sodium Chloride 0.9% 100 ml @ 400 mls/hr IV Q12HR [facility] Rx#:[id number] Oral 50 Other: Stool Characteristics Soft Formed Brown Weight Source Estimated Bedscale Active Medications: Current Medications Acetaminophen (Tylenol) 650 mg PO Q6HR PRN PRN Reason: Pain (Mild) Stop: 04/18/18 08:11 Amlodipine Besylate (Norvasc) 10 mg PO DAILY [facility] Stop: 04/21/18 08:59 Last Admin: 02/21/18 08:05 Dose: Not Given Aspirin (Ecotrin) 81 mg PO DAILY [facility] Stop: 04/18/18 08:59 Last Admin: 02/21/18 08:05 Dose: Not Given Atorvastatin Calcium (Lipitor) 40 mg PO [facility] Stop: 04/18/18 20:59 Last Admin: 02/20/18 20:50 Dose: 40 mg Cholecalciferol (Vitamin D3) 5,000 iu PO DAILY [facility] Stop: 04/18/18 08:59 Last Admin: 02/21/18 08:05 Dose: Not Given Docusate Sodium (Colace) 100 mg PO DAILY [facility] Stop: 04/20/18 19:29 Last Admin: 02/21/18 08:05 Dose: Not Given Gabapentin (Neurontin) 100 mg PO TID [facility] Stop: 04/18/18 08:59 Last Admin: 02/21/18 13:23 Dose: Not Given Dextrose/Sodium Chloride (D5-0.45ns) 1,000 mls @ 50 mls/hr IV .Q20H [facility] Stop: 04/20/18 10:29 Last Admin: 02/20/18 17:09 Dose: 50 mls/hr Insulin Aspart (Novolog Insulin Sliding Scale) 0 units SUBQ ACHS [facility]; Protocol Stop: 04/18/18 07:29 Last Admin: 02/21/18 13:23 Dose: Not Given Insulin Human NPH (Novolin N) 20 units SUBQ QAM [facility] Stop: 04/18/18 08:59 Last Admin: 02/21/18 08:04 Dose: Not Given Insulin Human NPH (Novolin N) 30 units SUBQ HS [facility] Stop: 04/18/18 20:59 Last Admin: 02/20/18 21:03 Dose: Not Given Lamotrigine (Lamictal) 25 mg PO [facility]; Protocol Stop: 04/18/18 20:59 Last Admin: 02/20/18 20:50 Dose: 25 mg Memantine (Namenda) 10 mg PO BID [facility] Stop: 04/18/18 08:59 Last Admin: 02/21/18 08:05 Dose: Not Given Mirtazapine (Remeron) 15 mg PO HS [facility]; Protocol Stop: 04/21/18 20:59 Last Admin: 02/20/18 20:49 Dose: 15 mg Morphine Sulfate (Morphine) 2 mg IVP Q4HR PRN PRN Reason: moderate pain Stop: 04/20/18 15:57 Last Admin: 02/19/18 23:54 Dose: 2 mg Nitroglycerin (Nitrostat) 0.4 mg SL Q5MIN PRN PRN Reason: Chest Pain Stop: 04/18/18 08:11 Quetiapine Fumarate (Seroquel) 25 mg PO HS [facility]; Protocol Stop: 04/18/18 20:59 Last Admin: 02/20/18 20:50 Dose: 25 mg Valsartan (Diovan) 320 mg PO DAILY [facility] Stop: 04/21/18 08:59 Last Admin: 02/21/18 08:06 Dose: Not Given General: Alert HEENT: Atraumatic Neck: Supple Cardiovascular: Regular rate Lungs: Clear to auscultation Abdomen: Bowel sounds, Soft, no Tender, no Distended, no Rebound Extremities: no Clubbing Neurological: Normal gait Assessment/Plan - Problem List Patient Problems: All Active Problems Dementia (Acute) F03.90 Diabetes (Acute) E11.9 Failure to thrive (Acute) [id number] HTN (hypertension) (Acute) I10 - Plan Plan: cpm monitor vitals Nutritional Asmnt/Malnutr-PDOC - Dietary Evaluation Malnutrition Findings (Please click <Entered> for more info): Nutritional Asmnt/Malnutrition Start: 02/17/18 14: 03 Text: Status: Complete Freq: Protocol: Document 02/17/18 14:03 [facility] (Rec: 02/17/18 14:16 [email or web address]) Nutritional Asmnt/Malnutrition Patient General Information Nutritional Screening High Risk Consult Diagnosis Poor PO intake, Failure to Thrive Pertinent Medical Hx/Surgical Hx DM Subjective Information Consult received for BG 261 at admission; calorie count ordered. PO intake 50-75% per EMR. Patient seen in room; attempted to interview patient but patient turns away after a couple of minutes. Per RN, patient can communicate one minute but suddenly stops. Patient appears well-nourished but c/o no appetite and does not want to eat per family. Current Diet Order/ Nutrition Support CCHO - 45g Patient / S.O Not Indicated Pertinent Medications Vit D3, Novolog/Novolin, seroquel, NaCl Pertinent Labs 02/17/18: Gluc 130, POC 135-261, BUN 34, Cre 1.1 02/16/18: Gluc 299, Alb 3.1 Nutritional Hx/Data Height 1.55 m Height (Calculated Centimeters) 154.9 Current Weight (lbs) 72.575 kg Weight (Calculated Kilograms) 72.6 Weight (Calculated Grams) 07606.8 [place] Body Weight 105 % [place] Body Weight 152 Body Mass Index (BMI) 30.2 Weight Status Obese GI Symptoms Last BM none recorded in EMR Cultural/Ethnic/Latter-Day Belief unknown Usual diet at home unknown Skin Integrity/Comment: dorothy Murphy 17 Current %PO Fair (50-74%) Estimated Nutritional Goals BEE in Kcals: Adj wt of IBW Calories/Kcals/Kg 25-30 Kcals/Kg Kcals Calculated 9571-1730 Kcals/day` Protein: Adj wt of IBW Protein g/k-1.2g/Kg Protein Calculated 54-65g/day Fluid: ml 9601-7999 mL/day (1mL/Kcal) Nutritional Problem 2. Problem Problem Altered nutrition-related labs Etiology insulin resistance Signs/Symptoms: hx DM, elevated POC 135-261 1. Problem Problem Obesity Etiology excessive Kcal intake Signs/Symptoms: BMI 30.2 Intervention/Recommendation Comments 1. Recommend continuing current diet order. Encourage adequate PO intake. 2. If PO intake <50% for more than 1 week, recommmend adding Boost Glucose control. 3. MD to adjust insulin regimen to minimize hyperglycemia. Expected Outcomes/Goals Expected Outcomes/Goals Goal: PO intake to meet at least 75% of nutritional needs . Monitor PO intake, wt, labs and skin integrity F/U as high risk in 2-3 days, 02/19-02/20
--- NOTE | 2018-02-21 18:17 | Operative Report ---
DATE OF SURGERY: 02/21/2018 PROCEDURE PERFORMED: EGD with biopsy. ENDOSCOPIST: Balwinder Cage MD PREOPERATIVE DIAGNOSIS: Abdominal pain. POSTOPERATIVE DIAGNOSIS: Gastritis, gastric polyps, and irregular Z-line. INDICATIONS: The patient is a 77-year-old female who has been admitted to the hospital with abdominal pain as well as seizure activity. The patient is scheduled for EGD today to further investigate her abdominal pain issues. CONSENT: Informed consent was obtained from the patient's family, namely the patient's son. Risks and benefits of the procedure were discussed include but not limited to infection, bleeding, perforation, need for surgery, cardiopulmonary complications, missed pathology, and . The patient's son indicated understanding of these risks and wished to go forward with the procedure and signed a consent form. ANESTHESIA: The procedure was performed in the main operating room under the care of the general anesthesiologist. PROCEDURE IN DETAIL: The patient was hooked up for the appropriate monitoring devices including blood pressure, pulse, and pulse oximetry. General anesthesia was applied. Next, the mouthpiece was inserted and secured, a gastroscope was introduced into the mouth and guided under direct visualization into the level of the esophagus, stomach, and duodenum. The scope was slowly and carefully withdrawn making sure to examine the entire mucosa in a careful and systematic fashion. Retroflexion was performed in the stomach prior to scope straightening and withdrawal from the body. There was no obvious sign of complication at the end the procedure. FINDINGS: ESOPHAGUS: The GE junction was located at 37 cm from the incisors. There were several tongues of columnar appearing mucosa that extended 1 cm from the GE junction and thus this area was biopsied in 4 quadrants for Ovalles's esophagus evaluation. There was no evidence of any esophagitis or esophageal lesion. STOMACH PORTION: There was mild gastritis and moderate amount of gastritis in the antrum. There were also scattered small gastric polyps along the lesser curve of the gastric body as well as the fundus. Several of these polyps were biopsied for histology, although she has had a benign fundic gland appearance. There was no discrete mass lesion and there was no stomach ulcer. DUODENUM: The duodenal bulb and second portion had a normal endoscopic appearance. Biopsies were taken from the second portion of the duodenum to evaluate for celiac disease. IMPRESSION: 1. Irregular Z line, status post biopsies. 2. Gastritis, most prominent in the antrum, status post biopsy. 3. Several gastric polyps, status post biopsy. RECOMMENDATIONS: 1. We will follow up the biopsy results. If there is any H. pylori found, the patient will be given appropriate amount of antibiotics. 2. If celiac disease is found, we will adjust the diet accordingly. 3. We will follow up the biopsy results of the polyps although expect these to be benign fundic gland polyps, needing no further action. 4. Can restart the patient's diet with full liquids and advance as tolerated by the patient. We will continue to follow this patient. Thank you for allowing us to participate in her care. Please call with any further questions. JOB# [id number]
--- NOTE | 2018-02-22 03:18 | Progress Notes ---
DATE: 02/21/2018 PSYCHIATRIC PROGRESS NOTE SUBJECTIVE: Chart reviewed and the patient interviewed. Also discussed the patient's condition with the staff and reviewed records and labs. The patient's affect is slightly brighter, but the patient still seems to be in a depressed mood. The patient also is interacting minimally with peers and with others. The patient started on Remeron yesterday, hopefully to help with her appetite. Otherwise, no behavioral issues. ASSESSMENT: The patient is still depressed. TREATMENT PLAN: Continue to monitor her behavior and continue Remeron same dose and we will continue to follow up with her behavior and her condition closely. [facility]# [id number]
[2018-02-22] MEDS: INSULIN ASPART SLIDING SCALE 100 UNITS/ML UNIT SUBQ SCH ×3 (07:32→17:04)
[2018-02-22] MEDS: INSULIN HUMAN ISOPHANE (NPH) 100 UNITS/ML SUBQ SCH (08:34)
--- NOTE | 2018-02-22 12:29 | General Progress Note ---
Subjective - Review of Systems Service Date: 02/22/18 Subjective: alert weakness no fever Objective - Results Result Diagrams: 02/21/18 07:35 02/21/18 07:35 Recent Labs: Laboratory Last Values WBC 7.2 Th/cmm (4.8-10.8) 02/21/18 07:35 RBC 3.53 Mil/cmm (3.80-5.20) L 02/21/18 07:35 Hgb 10.9 gm/dL (12-16) L 02/21/18 07:35 Hct 32.4 % (41.0-60) L 02/21/18 07:35 MCV 91.9 fl (81-100) 02/21/18 07:35 MCH 30.8 pg (27.0-31.0) 02/21/18 07:35 MCHC Differential 33.6 pg (28.0-36.0) 02/21/18 07:35 RDW 13.3 % (11.5-20.0) 02/21/18 07:35 Plt Count 172 Th/cmm (150-400) 02/21/18 07:35 MPV 8.7 fl 02/21/18 07:35 Neutrophils % 59.5 % (40.0-80.0) 02/21/18 07:35 Lymphocytes % 27.8 % (20.0-50.0) 02/21/18 07:35 Monocytes % 9.0 % (2.0-10.0) 02/21/18 07:35 Eosinophils % 2.9 % (0.0-5.0) 02/21/18 07:35 Basophils % 0.8 % (0.0-2.0) 02/21/18 07:35 PT 11.0 SECONDS (9.5-11.5) 02/19/18 05:50 INR 1.06 (0.5-1.4) 02/19/18 05:50 PTT (Actin FS) 25.0 SECONDS (26.0-38.0) L 02/19/18 05:50 Sodium 137 mEq/L (136-145) 02/21/18 07:35 Potassium 3.8 mEq/L (3.5-5.1) 02/21/18 07:35 Chloride 110 mEq/L (98-107) H 02/21/18 07:35 Carbon Dioxide 21.9 mEq/L (21.0-31.0) 02/21/18 07:35 Anion Gap 8.9 (7.0-16.0) 02/21/18 07:35 BUN 18 mg/dL (7-25) 02/21/18 07:35 Creatinine 0.9 mg/dL (0.6-1.2) 02/21/18 07:35 Est GFR ( Amer) TNP 02/21/18 07:35 Est GFR (Non-Af Amer) TNP 02/21/18 07:35 BUN/Creatinine Ratio 20.0 02/21/18 07:35 Glucose 152 mg/dL (70-105) H 02/21/18 07:35 POC Glucose 157 MG/DL (70 - 105) H 02/22/18 11:27 Hemoglobin A1c % 7.2 % (4.0-6.0) H 02/16/18 21:51 Calcium 8.6 mg/dL (8.6-10.3) 02/21/18 07:35 Total Bilirubin 0.4 mg/dL (0.3-1.0) 02/21/18 07:35 AST 17 U/L (13-39) 02/21/18 07:35 ALT 7 U/L (7-52) 02/21/18 07:35 Alkaline Phosphatase 82 U/L (34-104) 02/21/18 07:35 Total Protein 5.7 gm/dL (6.0-8.3) L 02/21/18 07:35 Albumin 3.0 gm/dL (3.7-5.3) L 02/21/18 07:35 Globulin 2.7 gm/dL 02/21/18 07:35 Albumin/Globulin Ratio 1.1 (1.0-1.8) 02/21/18 07:35 Triglycerides 73 mg/dL (<150) 02/17/18 07:15 Cholesterol 116 mg/dL (<200) 02/17/18 07:15 LDL Cholesterol Direct 60 mg/dL (75-193) L 02/17/18 07:15 HDL Cholesterol 43 mg/dL (23-92) 02/17/18 07:15 Lipase 9 U/L (11-82) L 02/19/18 05:50 TSH 0.65 uIU/ml (0.34-5.60) 02/17/18 07:15 Urine Source CATH 02/18/18 12:00 Urine Color YELLOW 02/18/18 12:00 Urine Clarity CLEAR (CLEAR) 02/18/18 12:00 Urine pH 6.5 (4.6 - 8.0) 02/18/18 12:00 Ur Specific [place] 1.015 (1.005-1.030) 02/18/18 12:00 Urine Protein NEGATIVE mg/dL (NEGATIVE) 02/18/18 12:00 Urine Glucose (UA) 100 mg/dL (NEGATIVE) H 02/18/18 12:00 Urine Ketones NEGATIVE mg/dL (NEGATIVE) 02/18/18 12:00 Urine Blood NEGATIVE (NEGATIVE) 02/18/18 12:00 Urine Nitrate NEGATIVE (NEGATIVE) 02/18/18 12:00 Urine Bilirubin NEGATIVE (NEGATIVE) 02/18/18 12:00 Urine Urobilinogen 0.2 E.U./dL (0.2 - 1.0) 02/18/18 12:00 Ur Leukocyte Esterase NEGATIVE (NEGATIVE) 02/18/18 12:00 Urine RBC 0-2 /hpf (0-5) 02/18/18 12:00 Urine WBC 0-2 /hpf (0-5) 02/18/18 12:00 Ur Epithelial Cells FEW /lpf (FEW) 02/18/18 12:00 Urine Bacteria OCCASIONAL /hpf (NONE SEEN) 02/18/18 12:00 - Physical Exam Vitals and I&O: Vital Signs Temp 97.4 F 02/22/18 11:35 Pulse 70 02/22/18 11:35 Resp 19 02/22/18 11:35 BP 126/71 02/22/18 11:35 Pulse Ox 98 02/22/18 11:35 Intake & Output 02/21/18 02/22/18 02/22/18 18:59 06:59 18:59 Intake Total 10 100 Output Total 1300 Balance -1290 100 Weight (lbs) 86.183 kg 86.183 kg Intake: Oral 10 100 Output: Urine 1300 Other: # Voids 2 # Bowel Movements 1 0 Weight Source Bedscale Bedscale Active Medications: Current Medications Acetaminophen (Tylenol) 650 mg PO Q6HR PRN PRN Reason: Pain (Mild) Stop: 04/18/18 08:11 Amlodipine Besylate (Norvasc) 10 mg PO DAILY [facility] Stop: 04/21/18 08:59 Last Admin: 02/22/18 08:07 Dose: 10 mg Aspirin (Ecotrin) 81 mg PO DAILY [facility] Stop: 04/18/18 08:59 Last Admin: 02/22/18 08:08 Dose: 81 mg Atorvastatin Calcium (Lipitor) 40 mg PO [facility] Stop: 04/18/18 20:59 Last Admin: 02/21/18 22:27 Dose: 40 mg Cholecalciferol (Vitamin D3) 5,000 iu PO DAILY [facility] Stop: 04/18/18 08:59 Last Admin: 02/22/18 08:07 Dose: 5,000 iu Docusate Sodium (Colace) 100 mg PO DAILY [facility] Stop: 04/20/18 19:29 Last Admin: 02/22/18 08:08 Dose: 100 mg Gabapentin (Neurontin) 100 mg PO TID [facility] Stop: 04/18/18 08:59 Last Admin: 02/22/18 08:07 Dose: 100 mg Dextrose/Sodium Chloride (D5-0.45ns) 1,000 mls @ 50 mls/hr IV .Q20H [facility] Stop: 04/20/18 10:29 Last Admin: 02/20/18 17:09 Dose: 50 mls/hr Insulin Aspart (Novolog Insulin Sliding Scale) 0 units SUBQ ACHS [facility]; Protocol Stop: 04/18/18 07:29 Last Admin: 02/22/18 07:32 Dose: Not Given Insulin Human NPH (Novolin N) 20 units SUBQ QAM [facility] Stop: 04/18/18 08:59 Last Admin: 02/22/18 08:34 Dose: 20 unit Insulin Human NPH (Novolin N) 30 units SUBQ HS [facility] Stop: 04/18/18 20:59 Last Admin: 02/21/18 23:37 Dose: 30 units Lamotrigine (Lamictal) 25 mg PO [facility]; Protocol Stop: 04/18/18 20:59 Last Admin: 02/21/18 22:27 Dose: 25 mg Memantine (Namenda) 10 mg PO BID [facility] Stop: 04/18/18 08:59 Last Admin: 02/22/18 08:08 Dose: 10 mg Mirtazapine (Remeron) 15 mg PO [facility]; Protocol Stop: 04/21/18 20:59 Last Admin: 02/21/18 22:28 Dose: 15 mg Morphine Sulfate (Morphine) 2 mg IVP Q4HR PRN PRN Reason: moderate pain Stop: 04/20/18 15:57 Last Admin: 02/19/18 23:54 Dose: 2 mg Nitroglycerin (Nitrostat) 0.4 mg SL Q5MIN PRN PRN Reason: Chest Pain Stop: 04/18/18 08:11 Quetiapine Fumarate (Seroquel) 25 mg PO HS [facility]; Protocol Stop: 04/18/18 20:59 Last Admin: 02/21/18 22:33 Dose: 25 mg Valsartan (Diovan) 320 mg PO DAILY [facility] Stop: 04/21/18 08:59 Last Admin: 02/22/18 08:07 Dose: 320 mg General: Alert HEENT: Atraumatic Neck: Supple Cardiovascular: Regular rate Lungs: Clear to auscultation Abdomen: Bowel sounds, Soft, no Tender, no Distended, no Rebound Extremities: no Clubbing Neurological: Normal gait Assessment/Plan - Problem List Patient Problems: All Active Problems Dementia (Acute) F03.90 Diabetes (Acute) E11.9 Failure to thrive (Acute) [id number] HTN (hypertension) (Acute) I10 - Plan Plan: monitor vitals cpm Nutritional Asmnt/Malnutr-PDOC - Dietary Evaluation Malnutrition Findings (Please click <Entered> for more info): Nutritional Asmnt/Malnutrition Start: 02/17/18 14: 03 Text: Status: Complete Freq: Protocol: Document 02/17/18 14:03 [facility] (Rec: 02/17/18 14:16 [email or web address]) Nutritional Asmnt/Malnutrition Patient General Information Nutritional Screening High Risk Consult Diagnosis Poor PO intake, Failure to Thrive Pertinent Medical Hx/Surgical Hx DM Subjective Information Consult received for BG 261 at admission; calorie count ordered. PO intake 50-75% per EMR. Patient seen in room; attempted to interview patient but patient turns away after a couple of minutes. Per RN, patient can communicate one minute but suddenly stops. Patient appears well-nourished but c/o no appetite and does not want to eat per family. Current Diet Order/ Nutrition Support CCHO - 45g Patient / S.O Not Indicated Pertinent Medications Vit D3, Novolog/Novolin, seroquel, NaCl Pertinent Labs 02/17/18: Gluc 130, POC 135-261, BUN 34, Cre 1.1 02/16/18: Gluc 299, Alb 3.1 Nutritional Hx/Data Height 1.55 m Height (Calculated Centimeters) 154.9 Current Weight (lbs) 72.575 kg Weight (Calculated Kilograms) 72.6 Weight (Calculated Grams) 04749.8 [place] Body Weight 105 % [place] Body Weight 152 Body Mass Index (BMI) 30.2 Weight Status Obese GI Symptoms Last BM none recorded in EMR Cultural/Ethnic/Zoroastrian Belief unknown Usual diet at home unknown Skin Integrity/Comment: Intact, dorothy 17 Current %PO Fair (50-74%) Estimated Nutritional Goals BEE in Kcals: Adj wt of IBW Calories/Kcals/Kg 25-30 Kcals/Kg Kcals Calculated 0450-7156 Kcals/day` Protein: Adj wt of IBW Protein g/k-1.2g/Kg Protein Calculated 54-65g/day Fluid: ml 0830-9931 mL/day (1mL/Kcal) Nutritional Problem 2. Problem Problem Altered nutrition-related labs Etiology insulin resistance Signs/Symptoms: hx DM, elevated POC 135-261 1. Problem Problem Obesity Etiology excessive Kcal intake Signs/Symptoms: BMI 30.2 Intervention/Recommendation Comments 1. Recommend continuing current diet order. Encourage adequate PO intake. 2. If PO intake <50% for more than 1 week, recommmend adding Boost Glucose control. 3. MD to adjust insulin regimen to minimize hyperglycemia. Expected Outcomes/Goals Expected Outcomes/Goals Goal: PO intake to meet at least 75% of nutritional needs . Monitor PO intake, wt, labs and skin integrity F/U as high risk in 2-3 days, 02/19-02/20
[2018-02-22] MEDS: Morphine Sulfate 4 mg/mL 1mL Syr IVP PRN (12:49)
--- NOTE | 2018-02-23 02:50 | Progress Notes ---
DATE: 02/22/2018 SUBJECTIVE: Chart reviewed and the patient interviewed. Also discussed the patient's condition with the staff and reviewed records and labs. The patient's affect is brighter. The patient seems to be sleeping slightly better and her appetite seems to be slightly improved. The patient also has been cooperative with the staff and has been compliant with taking her medications. The patient also is denying any intention to harm herself or others. ASSESSMENT: The patient is showing improvement. TREATMENT PLAN: We will continue to monitor her behavior and continue to work on her ineffective coping and adjusting psychotropic medications. JOB# [id number]
--- NOTE | 2018-02-23 08:51 | Diagnostic Imaging Report ---
MRI thoracic spine without IV contrast History: Mass. Comparison: CT abdomen and pelvis on 02/17/18 and MRI lumbar spine on 02/22/2018 Technique/procedure: Multiplanar T1, T2, and STIR-weighted sequences of the thoracic spine were obtained without IV contrast. Findings: No evidence of an acute compression fracture or subluxation. Multilevel mild disc desiccation is noted. No significant focal disc bulge identified. Multiple ill-defined low low T1 signal intensity lesions with high signal on STIR-weighted images are seen throughout the vertebral bodies the largest located T12 replacing most of the vertebral body at this level. No definite evidence of epidural extension. There also appears to be a vertebral body hemangioma at T10 measuring 1.2 cm. No focal spinal cord abnormality identified. No evidence of spinal stenosis. Incidentally noted are areas of signal loss along the dorsal subarachnoid space. Small bilateral pleural effusions are incidentally noted. There appears to be dilated common bile duct. IMPRESSION: Multiple ill-defined lesions throughout the vertebral bodies most pronounced at T12. Findings may be due to underlying osseous metastatic disease. Origin is uncertain. Clinical correlation and follow-up recommended Limited exam due to lack of IV contrast, however, no epidural extension identified. No evidence of spinal stenosis. Serpiginous areas of decreased signal seen along the dorsal subarachnoid space. Findings may be due to CSF flow artifact phenomena. Vascular anomaly is considered less likely. Consider follow-up if indicated. There appears to be dilated common bile duct. Please correlate with clinical findings.
--- NOTE | 2018-02-23 09:00 | Diagnostic Imaging Report ---
MRI lumbar spine without IV contrast History: Mass. Comparison: MRI thoracic spine performed the same day Technique: Multiplanar T1, T2, and STIR-weighted images of the lumbar spine were obtained without IV contrast. Findings: There are multiple ill-defined low T1 signal intensity lesions within the vertebral bodies the largest at L2 measuring 1.5 cm. No acute compression fracture identified. Multilevel disc desiccation is noted. There is focal high signal seen along the inferior endplate of the T12 vertebral body on fluid sensitive images which is probably due to edema. There is subtle linear signal along the inferior endplate of T12 which may be due to mild compression fracture. There is 2-3 and a 2 mm anterolisthesis of L4 on L5 likely due to facet arthropathy. Level by level: L1/L2: Mild facet degenerative changes. No spinal canal and neural foraminal narrowing L2/L3: Mild facet degenerative changes. No spinal canal and neural foraminal narrowing L3/L4: 1 to 2 mm broad-based disc bulge Mild facet degenerative changes. No spinal canal or neural foraminal narrowing. L4/L5: Moderate facet degenerative changes with fluid in the facet joints. 2 mm broad-based disc bulge. There is mild spinal canal narrowing and mild bilateral neural foraminal narrowing. L5/S1: 2 mm focal protrusion and mild to moderate facet degenerative changes. No spinal canal narrowing. There is mild bilateral neural foraminal narrowing. Exam is limited due to lack of IV contrast however no epidural lesions identified. Nerve root redundancy seen. There is also 2 cm cystic lesion at S3 with mild mass effect and slight scalloping of the posterior aspect S3 vertebral body likely due to a chronic etiology.. Incidentally noted is a dilated common bile duct. IMPRESSION: Multilevel ill-defined lesions of the lumbar spine suggestive of metastatic disease, origin uncertain, correlate clinically. Mild edema along the inferior aspect of the T12 vertebral body with mild compression along the endplate and linear line also noted. This may be due to a recent acute to subacute compression fracture, possibly pathologic. Moderate degenerative changes greatest at L4/L5 with 1-2 mm anterolisthesis at this level likely due to facet arthropathy. Please refer to above report for details. 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 Associated mass effect and slight scalloping of the anterior vertebral body is noted likely chronic in etiology. Mildly prominent common bile duct. Clinical correlation recommended.
--- NOTE | 2018-02-23 16:14 | Pathology Report ---
[id number] Collection Date: 02/21/2018 Surgeon: Dr. Ladarius Cage Specimen Description: 1. Duodenum biopsy 2. Antrum biopsy 3. Gastric polyp biopsy 4. Z-line biopsy Gross Description: Part I: Received in formalin is a 0.1 cm garsia soft tissue fragment. Totally submitted in one cassette labeled A. Gross Description: Part II: Received in formalin are three garsia soft tissue fragments, ranging from 0.1 to 0.2 cm in greatest dimension. Totally submitted in one cassette labeled B. Gross Description: Part III: Received in formalin are two garsia soft tissue fragments, ranging from 0.1 to 0.2 cm in greatest dimension. Totally submitted in one cassette labeled C. Gross Description: Part IV: Received in formalin are two garsia soft tissue fragments, ranging from 0.1 to 0.2 cm in greatest dimension. Totally submitted in one cassette labeled D. Microscopic Description: Part I: The histologic sections show duodenal mucosa with intact intestinal villi, showing no evidence for villous abnormality. Diagnosis: Part I: No evidence for celiac disease/sprue (duodenal biopsy). Microscopic Description: Part II: The histologic sections show gastric mucosa with mild to moderate chronic inflammation present, consisting of lymphocytes and plasma cells. The Giemsa stain shows no evidence for Helicobacter pylori. Diagnosis: Part II: 1. Chronic gastritis, antrum biopsy. 2. The Giemsa stain is negative for Helicobacter pylori. Microscopic Description: Part III: The histologic sections show polypoid fragments of gastric mucosa with several cystically dilated gastric glands identified, consistent with benign hyperplastic polyp. There is also chronic inflammation present consisting of lymphocytes and plasma cells. The Giemsa stain shows no evidence for Helicobacter pylori. Diagnosis: Part III: 1. Benign hyperplastic gastric polyp, gastric polyp biopsy. 2. There is also chronic gastritis present. 3. The Giemsa stain is negative for Helicobacter pylori. Microscopic Description: Part IV: The histologic sections show benign glandular mucosa with mild chronic inflammation present, consisting of lymphocytes and plasma cells. There is no evidence for ulceration. The Alcian blue stain shows no significant abnormalities. The PAS stain shows no evidence for fungal organisms. Diagnosis: Part IV: Benign glandular mucosa showing chronic inflammation, consistent with chronic esophagogastritis (Z-line biopsy). [facility]# [id number]
== END 2018-02-22 20:15 | DRG 393 ==
LOC: ER 20:41 → TELE 21:20 → MSI 02-22 17:12
PROVIDERS: ADMIT Internal Medicine; ATTEND Internal Medicine
PROC: 0DB98ZX Excision of Duodenum, Via Natural or Artificial Opening Endoscopic, Diagnostic (ICD-10-PCS; principal; 2018-02-21)
PROC: 0DB68ZX Excision of Stomach, Via Natural or Artificial Opening Endoscopic, Diagnostic (ICD-10-PCS; 2018-02-21)
PROC: 0DB48ZX Excision of Esophagogastric Junction, Via Natural or Artificial Opening Endoscopic, Diagnostic (ICD-10-PCS; 2018-02-21)
DX: K31.7 Polyp of stomach and duodenum (principal); G93.41 Metabolic encephalopathy; F32.2 Major depressive disorder, single episode, severe without psychotic features; K29.70 Gastritis, unspecified, without bleeding; R62.7 Adult failure to thrive; I10 Essential (primary) hypertension; E78.00 Pure hypercholesterolemia, unspecified; M81.0 Age-related osteoporosis without current pathological fracture; R00.1 Bradycardia, unspecified; E78.5 Hyperlipidemia, unspecified; E11.9 Type 2 diabetes mellitus without complications; F03.90 Unspecified dementia, unspecified severity, without behavioral disturbance, psychotic disturbance, mood disturbance, and anxiety; Z91.041 Radiographic dye allergy status; Z79.899 Other long term (current) drug therapy
CPT/HCPCS: 36415-UA; 70450-TC; 80048-TC; 80053-TC; 80061-TC; 81001-TC; 82948-90; 83036-90; 83690-TC; 84443-TC; 85025-TC; 85610-TC; 85730-TC; 87086-90; 88305-90; 88312-90; 90799; 93005; J0690; J1815; J1953; J2001; J2704; J7030; J7042; X3401; Z7610; Z7610-TC

== ENCOUNTER 2018-03-30 21:07 | Inpatient (IN) | payer MEDICARE, MEDICAID ==
[2018-03-30 22:33] LABS: % BASOPHILS 0.7 % (0.0-2.0); % EOSINOPHILS 4.5 % (0.0-5.0); % LYMPHOCYTES 26.9 % (20.0-50.0); % MONOCYTES 8.6 % (2.0-10.0); % NEUTROPHILS 59.3 % (40.0-80.0); BASOPHILE ABSOLUTE 0.1 Th/cumm (0-0.2); EOSINOPHILE ABSOLUTE 0.3 Th/cmm (0.1-0.4); HEMATOCRIT 29.2 % (41.0-60); HEMOGLOBIN 9.7 gm/dL (12-16); LYMPHOCYTE ABSOLUTE 2.1 Th/cmm (1.5-3.0); MEAN CELL VOLUME 88.8 fl (81-100); MEAN CORPUSCULAR HEMOGLOBIN 29.4 pg (27.0-31.0); MEAN CORPUSCULAR HGB CONC 33.1 pg (28.0-36.0); MEAN PLATELET VOLUME 7.5 fl; MONOCYTE ABSOLUTE 0.7 Th/cmm (0.3-1.0); NEUTROPHILE ABSOLUTE 4.5 Th/cmm (1.8-8.0); PLATELET COUNT 494 Th/cmm (150-400); RED BLOOD COUNT 3.29 Mil/cmm (3.80-5.20); RED CELL DISTRIBUTION WIDTH 14.2 % (11.5-20.0); WHITE BLOOD COUNT 7.7 Th/cmm (4.8-10.8)
--- NOTE | 2018-03-30 22:42 | ED Physician Chart ---
ED Chief Complaint/HPI - Patient Information Date Seen:: 03/30/18 Time Seen:: 22:00 Chief Complaint:: generalized weakness failure to thrive History of Present Illness:: 77 yr old female with failure to thrive Allergies:: Allergies Allergy/AdvReac Type Severity Reaction Status Date / Time Iodine and Iodide Containing Allergy Verified 02/16/18 21:01 Produc Vitals:: Vital Signs - 8 hr 03/30/18 21:10 Temp 98.2 F HR 85 RR 18 BP 145/62 O2 Sat % 98 ED Review of Systems - Review of Systems General/Constitutional: No fever, No chills, No weight loss, No weakness, No diaphoresis, No edema, No loss of appetite Skin: No skin lesions, No rash, No bruising Head: No headache, No light-headedness Eyes: No loss of vision, No pain, No diplopia ENT: No earache, No nasal drainage, No sore throat, No tinnitus Neck: No neck pain, No swelling, No thyromegaly, No stiffness, No mass noted Cardio Vascular: No chest pain, No palpitations, No PND, No orthopnea, No edema Pulmonary: No SOB, No cough, No sputum, No wheezing GI: Pain G/U: No dysuria, No frequency, No hematuria Musculoskeletal: No bone or joint pain, No back pain, No muscle pain Endocrine: No polyuria, No polydipsia Psychiatric: No prior psych history, No depression, No anxiety, No suicidal ideation Hematopoietic: No bruising, No lymphadenopathy Allergic/Immuno: No urticaria, No angioedema Neurological: No syncope, No focal symptoms, No weakness, No paresthesia, No headache, No seizure, No dizziness, No confusion, No vertigo ED Past Medical History - Past Medical History Obtainable: No Past Medical History: DM, Dementia (blood disorfer muscle wasting), Other ( muscle wais\\\\\\\\\\\\\\\\\\\\\\\\\\\\\\\\\\\\\\\\\\\\\\\\\\\\\\\\\\\\\\\\\\\\\ \\\\\\\\\\\\\\\\\\\\\\\\\\\\\\\\\\\\\\\\\\\\\\\\\\\\\\\\\\\\\\\\\\\\\\\\\\) Family Medical History - Family Member Mother History Unknown: Yes ED Physical Exam - Physical Examination General/Constitutional: Awake Skin: No rash, No skin lesions ENMT: External ears, nose nl Neck: Nontender, No JVD Respiratory: Nl effort/Exclusion ED Labs/Radiology/EKG Results - Lab Results Results: Laboratory Tests 03/30/18 22:24 WBC 7.7 RBC 3.29 L Hgb 9.7 L Hct 29.2 L MCV 88.8 MCH 29.4 MCHC Differential 33.1 RDW 14.2 Plt Count 494 H MPV 7.5 Neutrophils % 59.3 Lymphocytes % 26.9 Monocytes % 8.6 Eosinophils % 4.5 Basophils % 0.7 ED Assessment - Assessment General Assessment: UREO SEPSIS ED Septic Shock - . Is Septic Shock (SBP<90, OR Lactate>4 mmol\L) present?: No - <6hrs of presentation: Vital Signs: Vital Signs - 8 hr 03/30/18 21:10 Temp 98.2 F HR 85 RR 18 BP 145/62 O2 Sat % 98 ED Discharge Plan - Patient Disposition Admit/Discharge/Transfer: Acute Care w/in this hosp
[2018-03-30 22:57] LABS: URINE MICROSCOPIC INDICATED? YES; URINE SOURCE CLEAN C
[2018-03-30 22:59] LABS: URINE BILIRUBIN NEGATIVE (NEGATIVE); URINE BLOOD LARGE (NEGATIVE); URINE GLUCOSE (UA) NEGATIVE (NEGATIVE); URINE KETONE NEGATIVE (NEGATIVE); URINE LEUKOCYTE ESTERASE MODERATE (NEGATIVE); URINE NITRATE POSITIVE (NEGATIVE); URINE PH 5.5 (4.6 - 8.0); URINE PROTEIN 100 mg/dL (NEGATIVE); URINE UROBILINOGEN 0.2 E.U./dL (0.2 - 1.0)
[2018-03-30 23:10] LABS: URINE CLARITY CLOUDY (CLEAR); URINE COLOR YELLOW
[2018-03-30 23:11] LABS: URINE RBC 25-50 /hpf (0-5)
[2018-03-30 23:13] LABS: URINE BACTERIA MANY /hpf (NONE SEEN); URINE EPITHELIAL CELLS FEW /lpf (FEW); URINE WBC 25-50 /hpf (0-5)
[2018-03-30 23:32] LABS: ALBUMIN 3.2 gm/dL (3.7-5.3); ALKALINE PHOSPHATASE 66 U/L (34-104); ANION GAP 11.8 (7.0-16.0); BILIRUBIN,TOTAL 0.4 mg/dL (0.3-1.0); BUN - UREA NITROGEN 36 mg/dL (7-25); CALCIUM SERUM 8.9 mg/dL (8.6-10.3); CARBON DIOXIDE 17.5 mEq/L (21.0-31.0); CHLORIDE 110 mEq/L (98-107); CREATININE - SERUM 0.9 mg/dL (0.6-1.2); GLUCOSE 165 mg/dL (70-105); POTASSIUM SERUM 4.3 mEq/L (3.5-5.1); SGOT 20 U/L (13-39); SGPT/ALT 13 U/L (7-52); SODIUM SERUM 135 mEq/L (136-145); TOTAL PROTEIN,SERUM 6.5 gm/dL (6.0-8.3)
[2018-03-31] MEDS ORDERED: Sodium Chloride 0.45% 1,000 ML IV SCH ×2 (00:30→00:47)
[2018-03-31] MEDS ORDERED: Levofloxacin 500mg/100mL 500 MG/100 ML BAG IV ONE (02:00)
[2018-03-31] MEDS ORDERED: Pneumococcal Vaccine 0.5 mL Vial IM ONE (05:19)
[2018-03-31 05:56] LABS: % BASOPHILS 0.4 % (0.0-2.0); % EOSINOPHILS 4.4 % (0.0-5.0); % LYMPHOCYTES 29.9 % (20.0-50.0); % MONOCYTES 9.5 % (2.0-10.0); % NEUTROPHILS 55.8 % (40.0-80.0); EOSINOPHILE ABSOLUTE 0.3 Th/cmm (0.1-0.4); HEMATOCRIT 28.4 % (41.0-60); HEMOGLOBIN 9.5 gm/dL (12-16); LYMPHOCYTE ABSOLUTE 1.9 Th/cmm (1.5-3.0); MEAN CORPUSCULAR HEMOGLOBIN 29.6 pg (27.0-31.0); MEAN CORPUSCULAR HGB CONC 33.3 pg (28.0-36.0); MEAN PLATELET VOLUME 7.8 fl; MONOCYTE ABSOLUTE 0.6 Th/cmm (0.3-1.0); NEUTROPHILE ABSOLUTE 3.4 Th/cmm (1.8-8.0); PLATELET COUNT 468 Th/cmm (150-400); RED CELL DISTRIBUTION WIDTH 14.1 % (11.5-20.0); WHITE BLOOD COUNT 6.2 Th/cmm (4.8-10.8)
[2018-03-31 06:06] LABS: ALB/GLOB RATIO 0.9 (1.0-1.8); ALBUMIN 2.9 gm/dL (3.7-5.3); ALKALINE PHOSPHATASE 61 U/L (34-104); ANION GAP 11.8 (7.0-16.0); BILIRUBIN,TOTAL 0.4 mg/dL (0.3-1.0); BUN - UREA NITROGEN 34 mg/dL (7-25); CALCIUM SERUM 8.8 mg/dL (8.6-10.3); CARBON DIOXIDE 18.7 mEq/L (21.0-31.0); CHLORIDE 111 mEq/L (98-107); CREATININE - SERUM 0.9 mg/dL (0.6-1.2); GLUCOSE 137 mg/dL (70-105); POTASSIUM SERUM 4.5 mEq/L (3.5-5.1); SGOT 22 U/L (13-39); SGPT/ALT 12 U/L (7-52); SODIUM SERUM 137 mEq/L (136-145); TOTAL PROTEIN,SERUM 6.3 gm/dL (6.0-8.3)
--- NOTE | 2018-03-31 09:28 | Diagnostic Imaging Report ---
CHEST X-RAY: AP view INDICATION: Cough COMPARISON: CT abdomen and pelvis the same day FINDINGS: There is elevation of the right hemidiaphragm limiting assessment of the right lung base. Increased bibasilar lung markings are noted. No focal consolidation or gross effusions. Heart size is at the upper limits of normal. Degenerative changes of the spine are noted. IMPRESSION: Elevation of right hemidiaphragm limiting assessment of the right lung base. Increased bibasal lung markings are seen favoring atelectatic changes. No focal consolidation identified. If indicated, dedicated PA and lateral views may also be obtained.
--- NOTE | 2018-03-31 10:06 | Diagnostic Imaging Report ---
CT abdomen and pelvis without intravenous contrast Indication: Abdominal pain Comparison: CT abdomen and pelvis on 02/17/2018 Technique: Axial images were obtained from the lung bases to the bilateral proximal femurs without IV contrast. Coronal reconstructions were made. total DLP: [id number], [id number] FINDINGS: Chronic lung changes are seen with hypoventilatory and atelectatic changes. Exam is limited due to lack of IV contrast multiple and due to motion. There is elevation of the right hemidiaphragm. No evidence of focal hepatic or splenic lesions. No focal pancreatic or adrenal lesions. Nonspecific bilateral perinephric inflammatory changes noted. No renal stones. There is fullness of the bilateral renal collecting systems without vicki hydronephrosis. The urinary bladder is collapsed limiting its evaluation. There is suggestion of urinary bladder wall thickening with surrounding inflammatory changes. Mild edema is seen with small amount of fluid in the presacral soft tissues. Patient is status post hysterectomy. Moderate stool is seen with distal fecal impaction. A few pockets of gas are seen along the anterior subcutaneous moderate atherosclerotic vascular disease is noted. Degenerative changes of the spine and pelvis are noted. There is minimal anterolisthesis of L4 on L5 likely due to facet arthropathy. There is probably a Tarlov cyst of the sacrum. Mildly prominent left axillary lymph node is noted measuring 1.5 cm. Irregular breast nodule is also seen measuring 2.5 cm. IMPRESSION: Moderate amount of stool throughout the colon with mild distal fecal impaction. Presacral edema and trace free fluid in the pelvis in this region. Mildly prominent left axillary lymph node measuring 1.5 cm. Ill-defined Left breast nodule measuring 2.5 cm also seen on prior exam. Ultrasound and Mammography is recommended for further assessment of this finding. Neoplastic etiology cannot be excluded. Underdistended urinary with bladder probably urinary bladder wall thickening and inflammatory changes. Please correlate with clinical findings. Few pockets of air along the anterior abdominal wall which may be due to recent medication injection.
[2018-03-31] MEDS ORDERED: Fleet Enema 135 mL RC PRN (10:53)
[2018-03-31] MEDS ORDERED: Non-Formulary Item 1 EA (Non-Formulary Item [Non-Formulary Item] 1 EA) MC SCH (12:45)
[2018-03-31] MEDS: Multivitamin w/ Minerals Tab PO SCH (13:33)
[2018-03-31] MEDS: Enoxaparin 40 mg/0.4 mL 0.4mL Syr SUBQ SCH (13:33)
--- NOTE | 2018-03-31 14:38 | History & Physical ---
ADMIT DATE: 03/31/2018 CHIEF COMPLAINT: Generalized weakness and failure to thrive. HISTORY OF PRESENT ILLNESS: This is a 77-year-old female who was admitted from a nursing home facility to the Emergency Room due to failure to thrive with generalized weakness. REVIEW OF SYSTEMS: GENERAL: This is a 77-year-old female. Positive weakness. No fever. No chills. HEENT: No headache. No dizziness. EYES: No eye pain, no blurring of vision. NECK: No neck pain. No nuchal rigidity. CHEST: No chest pain. No palpitation. PULMONARY: No coughing. No shortness of breath. GASTROINTESTINAL: No vomiting. No constipation. No diarrhea. MUSCULOSKELETAL: No joint pain. No muscle pain. SOCIAL HISTORY: The patient lives in a nursing home facility prior to hospitalization. Denies smoking. Denies alcohol use. FAMILY HISTORY: Unremarkable. PAST SURGICAL HISTORY: Unremarkable. PAST MEDICAL HISTORY: Includes diabetes, osteoarthritis. PHYSICAL EXAMINATION: VITAL SIGNS: Temperature 97.3, heart rate of 70, blood pressure 121/61, respirations 17, 97% on room air. HEENT: Head is atraumatic, normocephalic. Eyes, bilateral conjunctivae are clear. Bilateral pupils are equally round and reactive. NECK: Supple. No JVD. CARDIOVASCULAR: S1 and S2, without murmur. PULMONARY: Clear to auscultation. GASTROINTESTINAL: Soft and nontender without guarding. Positive bowel sounds. MUSCULOSKELETAL: No clubbing. No cyanosis noted. ASSESSMENT: 1. Generalized weakness. 2. Failure to thrive. 3. Urinary retention. 4. Constipation. 5. Hyperlipidemia. 6. Hypertension. 7. Diabetes. 8. Dementia. PLAN: We will keep the patient inpatient to Med-Surg Unit. We will follow up with GI specialist and also with the urologist. We will put the patient on IV fluids and will do medication reconciliation accordingly. Treatment plans were discussed with the patient's nurse. Treatment plans were discussed with Dr. Cisneros. JOB# [id number]
[2018-03-31] MEDS: D5-0.45NS 1,000 ML IV SCH (15:29)
[2018-03-31] MEDS: INSULIN ASPART SLIDING SCALE 100 UNITS/ML UNIT SUBQ SCH ×2 (18:10→21:42)
[2018-03-31] MEDS: Levofloxacin 250mg/50mL 250 MG/50 ML BAG IV SCH (21:41)
[2018-04-01] MEDS: D5-0.45NS 1,000 ML IV SCH ×2 (04:49→19:47)
--- NOTE | 2018-04-01 07:47 | Diagnostic Imaging Report ---
Renal ultrasound HISTORY: Urinary retention COMPARISON: CT abdomen and pelvis on 03/30/2018 Technique: Sonography of the kidneys and urinary bladder was performed in multiple planes. FINDINGS: Exam is limited due to body habitus. The right kidney measures 9.2 x 4.8 cm. The right renal margin is not well-defined, however, no obvious focal lesions or evidence of hydronephrosis. The left kidney measures 9.8 x 4.8 cm. No evidence of focal lesions or hydronephrosis. Wiseman catheter seen within urinary bladder. The urinary bladder wall appears thickened measuring up to 9 mm. Prevoid bladder volume was 60 mL. IMPRESSION: Limited exam. No evidence of hydronephrosis. Thickened urinary bladder wall measuring up to 9 mm. Underlying infectious/inflammatory process cannot be excluded. Please correlate clinically. Wiseman catheter was also noted within the urinary bladder.
[2018-04-01] MEDS: INSULIN ASPART SLIDING SCALE 100 UNITS/ML UNIT SUBQ SCH ×4 (08:39→21:23)
[2018-04-01] MEDS: Enoxaparin 40 mg/0.4 mL 0.4mL Syr SUBQ SCH (08:39)
[2018-04-01] MEDS: Multivitamin w/ Minerals Tab PO SCH (08:47)
[2018-04-01] MEDS: INSULIN HUMAN ISOPHANE (NPH) 100 UNITS/ML SUBQ SCH (08:55)
[2018-04-01] MEDS ORDERED: VTE Chemical Prophylaxis Screen/Admission MC PRN (09:42)
[2018-04-01 12:22] LABS: INR 1.07 (0.5-1.4); PROTHROMBIN TIME (TEST) 11.1 SECONDS (9.5-11.5)
--- NOTE | 2018-04-01 13:09 | Consultation ---
DATE OF CONSULTATION: 04/01/2018 INPATIENT GASTROINTESTINAL CONSULTATION REFERRING PHYSICIAN: Dr. Cisneros. REASON FOR CONSULTATION: Failure to thrive. HISTORY OF PRESENT ILLNESS: A 77-year-old female from a skilled facility, she is not a great historian, but was not eating very much and they felt that she may need to go to the hospital for acute management. Again, she is a poor historian. PAST MEDICAL HISTORY: Include urinary retention, constipation, hyperlipidemia, hypertension, diabetes, dementia. PAST SURGICAL HISTORY: None to add recently. FAMILY HISTORY: Noncontributory. SOCIAL HISTORY: No tobacco, alcohol, or IV drug usage. Resident of skilled facility. ALLERGIES: Iodine. CURRENT MEDICATIONS: Tylenol, Norvasc, Ecotrin, Lipitor, vitamin D3, Colace, Lovenox, Neurontin, insulin, Lamictal, Levaquin, Namenda, Remeron, MS Contin, Nitrostat, Metamucil, Seroquel, Fleet Enema, Diovan. REVIEW OF SYSTEMS: Unobtainable. PHYSICAL EXAMINATION: VITAL SIGNS: Temperature is 97.3, breathing 17, pulse of 71, blood pressure 114/41, satting 97%. GENERAL: In no apparent distress. EYES: Anicteric. Normal conjunctivae. HEENT: Normocephalic and atraumatic. Moist mucous membranes. NECK: Soft, supple. CHEST: Clear. No effort. CARDIOVASCULAR: Regular rate and rhythm. ABDOMEN: Soft, nontender, nondistended. SKIN: Warm, dry. EXTREMITIES: Reveal no cyanosis. LABORATORY DATA: Labs show white count of 6.2, hemoglobin 9.5, platelets of 468. Creatinine 0.9. Total bilirubin 0.4, AST 22, ALT 12, alk phos 61. IMPRESSION: A 77-year-old female with failure to thrive, consider PEG if the agreeing libertarian would provide consent. Coags can be checked. The patient will also need antibiotics prior to the PEG. They also will need to hold the Lovenox. Thank you for allowing me to participate. Please call me if any questions. JOB# [id number]
--- NOTE | 2018-04-01 13:50 | General Progress Note ---
Subjective - Review of Systems Events since last encounter: in no distress admitted with failure to thrive Objective - Results Result Diagrams: 03/31/18 05:25 03/31/18 05:25 Recent Labs: Laboratory Last Values WBC 6.2 Th/cmm (4.8-10.8) 03/31/18 05:25 RBC 3.20 Mil/cmm (3.80-5.20) L 03/31/18 05:25 Hgb 9.5 gm/dL (12-16) L 03/31/18 05:25 Hct 28.4 % (41.0-60) L 03/31/18 05:25 MCV 89.0 fl (81-100) 03/31/18 05:25 MCH 29.6 pg (27.0-31.0) 03/31/18 05:25 MCHC Differential 33.3 pg (28.0-36.0) 03/31/18 05:25 RDW 14.1 % (11.5-20.0) 03/31/18 05:25 Plt Count 468 Th/cmm (150-400) H 03/31/18 05:25 MPV 7.8 fl 03/31/18 05:25 Neutrophils % 55.8 % (40.0-80.0) 03/31/18 05:25 Lymphocytes % 29.9 % (20.0-50.0) 03/31/18 05:25 Monocytes % 9.5 % (2.0-10.0) 03/31/18 05:25 Eosinophils % 4.4 % (0.0-5.0) 03/31/18 05:25 Basophils % 0.4 % (0.0-2.0) 03/31/18 05:25 PT 11.1 SECONDS (9.5-11.5) 04/01/18 12:06 INR 1.07 (0.5-1.4) 04/01/18 12:06 Sodium 137 mEq/L (136-145) 03/31/18 05:25 Potassium 4.5 mEq/L (3.5-5.1) 03/31/18 05:25 Chloride 111 mEq/L (98-107) H 03/31/18 05:25 Carbon Dioxide 18.7 mEq/L (21.0-31.0) L 03/31/18 05:25 Anion Gap 11.8 (7.0-16.0) 03/31/18 05:25 BUN 34 mg/dL (7-25) H 03/31/18 05:25 Creatinine 0.9 mg/dL (0.6-1.2) 03/31/18 05:25 Est GFR ( Amer) TNP 03/31/18 05:25 Est GFR (Non-Af Amer) TNP 03/31/18 05:25 BUN/Creatinine Ratio 37.8 03/31/18 05:25 Glucose 137 mg/dL (70-105) H 03/31/18 05:25 POC Glucose 148 MG/DL (70 - 105) H 04/01/18 11:24 Whole Bld Lactic Acid 1.06 mmol/L (0.60-1.99) 03/30/18 22:24 Calcium 8.8 mg/dL (8.6-10.3) 03/31/18 05:25 Total Bilirubin 0.4 mg/dL (0.3-1.0) 03/31/18 05:25 AST 22 U/L (13-39) 03/31/18 05:25 ALT 12 U/L (7-52) 03/31/18 05:25 Alkaline Phosphatase 61 U/L (34-104) 03/31/18 05:25 Total Protein 6.3 gm/dL (6.0-8.3) 03/31/18 05:25 Albumin 2.9 gm/dL (3.7-5.3) L 03/31/18 05:25 Globulin 3.4 gm/dL 03/31/18 05:25 Albumin/Globulin Ratio 0.9 (1.0-1.8) L 03/31/18 05:25 Urine Source CLEAN C 03/30/18 22:35 Urine Color YELLOW 03/30/18 22:35 Urine Clarity CLOUDY (CLEAR) H 03/30/18 22:35 Urine pH 5.5 (4.6 - 8.0) 03/30/18 22:35 Ur Specific [place] 1.025 (1.005-1.030) 03/30/18 22:35 Urine Protein 100 mg/dL (NEGATIVE) H 03/30/18 22:35 Urine Glucose (UA) NEGATIVE mg/dL (NEGATIVE) 03/30/18 22:35 Urine Ketones NEGATIVE mg/dL (NEGATIVE) 03/30/18 22:35 Urine Blood LARGE (NEGATIVE) H 03/30/18 22:35 Urine Nitrate POSITIVE (NEGATIVE) H 03/30/18 22:35 Urine Bilirubin NEGATIVE (NEGATIVE) 03/30/18 22:35 Urine Urobilinogen 0.2 E.U./dL (0.2 - 1.0) 03/30/18 22:35 Ur Leukocyte Esterase MODERATE (NEGATIVE) H 03/30/18 22:35 Urine RBC 25-50 /hpf (0-5) H 03/30/18 22:35 Urine WBC 25-50 /hpf (0-5) H 03/30/18 22:35 Ur Epithelial Cells FEW /lpf (FEW) 03/30/18 22:35 Urine Bacteria MANY /hpf (NONE SEEN) H 03/30/18 22:35 - Physical Exam Vitals and I&O: Vital Signs Temp 97.5 F 04/01/18 12:34 Pulse 67 04/01/18 12:34 Resp 17 04/01/18 12:34 BP 123/54 04/01/18 12:34 Pulse Ox 96 04/01/18 12:34 Intake & Output 03/31/18 04/01/18 04/01/18 18:59 06:59 18:59 Intake Total 1290 Output Total 1400 Balance -110 Weight (lbs) 78.925 kg Intake: Intake, IV Amount 1050 D5-0.45NS 1,000 ml @ 75 1000 mls/hr IV .[id number] ON LICENSE OF [facility] Rx #:[id number] Levofloxacin 250mg/50mL 50 250 mg In 50 ml @ 50 mls/ hr IV Q24HR@2100 ON LICENSE OF [facility] Rx#: [id number] Oral 240 Output: Urine 1400 Other: # Bowel Movements 0 Weight Source Bedscale Active Medications: Current Medications Acetaminophen (Tylenol) 650 mg PO Q6HR PRN PRN Reason: Pain (Mild) Stop: 05/30/18 12:38 Amlodipine Besylate (Norvasc) 10 mg PO DAILY ON LICENSE OF [facility] Stop: 05/30/18 12:44 Last Admin: 04/01/18 08:47 Dose: 10 mg Aspirin (Ecotrin) 81 mg PO QDPC ON LICENSE OF [facility] Stop: 05/30/18 12:44 Last Admin: 04/01/18 08:47 Dose: 81 mg Atorvastatin Calcium (Lipitor) 40 mg PO HS ON LICENSE OF [facility]; Protocol Stop: 05/30/18 20:59 Last Admin: 03/31/18 21:41 Dose: 40 mg Cholecalciferol (Vitamin D3) 5,000 iu PO DAILY ON [facility] OF [facility] Stop: 05/30/18 12:44 Last Admin: 04/01/18 08:45 Dose: 5,000 iu Docusate Sodium (Colace) 100 mg PO BID ON LICENSE OF [facility] Stop: 05/30/18 16:59 Last Admin: 04/01/18 08:47 Dose: 100 mg Enoxaparin Sodium (Lovenox) 40 mg SUBQ DAILY [facility] Stop: 05/30/18 12:44 Last Admin: 04/01/18 08:39 Dose: 40 mg Gabapentin (Neurontin) 100 mg PO TID ON LICENSE OF [facility] Stop: 05/30/18 13:59 Last Admin: 04/01/18 08:47 Dose: 100 mg Levofloxacin (Levaquin Pb) 250 mg in 50 mls @ 50 mls/hr IV Q24HR@2100 ON [facility] Stop: 05/30/18 20:59 Last Infusion: 04/01/18 05:54 Dose: Infused Dextrose/Sodium Chloride (D5-0.45ns) 1,000 mls @ 75 mls/hr IV .[id number] ON LICENSE OF [facility] Stop: 05/30/18 12:44 Last Admin: 04/01/18 04:49 Dose: 75 mls/hr Insulin Aspart (Novolog Insulin Sliding Scale) 0 units SUBQ ACHS ON LICENSE OF [facility]; Protocol Stop: 05/30/18 16:29 Last Admin: 04/01/18 12:02 Dose: Not Given Insulin Human NPH (Novolin N) 20 units SUBQ QAM ON LICENSE OF [facility]; Protocol Stop: 05/31/18 08:59 Last Admin: 04/01/18 08:55 Dose: 20 units Lamotrigine (Lamictal) 25 mg PO HS ON LICENSE OF [facility]; Protocol Stop: 05/30/18 20:59 Last Admin: 03/31/18 21:40 Dose: 25 mg Memantine (Namenda) 10 mg PO BID ON LICENSE OF [facility] Stop: 05/30/18 16:59 Last Admin: 04/01/18 08:47 Dose: 10 mg Mirtazapine (Remeron) 15 mg PO HS ON LICENSE OF [facility]; Protocol Stop: 09/12/18 20:59 Miscellaneous (Vte Chemical Prophylaxis Screen/ Admission) 1 ea MC PRN PRN PRN Reason: PROTOCOL Stop: 05/31/18 09:41 Morphine Sulfate (Ms-Contin) 15 mg PO Q4HR PRN PRN Reason: Pain (Moderate) Stop: 05/30/18 12:38 Last Admin: 04/01/18 08:52 Dose: 15 mg Nitroglycerin (Nitrostat) 0.4 mg SL Q5MIN PRN PRN Reason: Chest Pain Stop: 05/30/18 12:38 Psyllium Hydrophilic Mucilloid (Metamucil) 1 pkt PO HS ON LICENSE OF [facility] Stop: 05/30/18 20:59 Last Admin: 03/31/18 21:41 Dose: 1 pkt Quetiapine Fumarate (Seroquel) 12.5 mg PO HS [facility]; Protocol Stop: 05/30/18 20:59 Sodium Phosphate (Fleet Enema) 135 ml RC DAILY PRN PRN Reason: Constipation Stop: 05/30/18 10:52 Valsartan (Diovan) 320 mg PO DAILY ON LICENSE OF [facility] Stop: 05/30/18 12:44 Last Admin: 04/01/18 08:46 Dose: 320 mg - Procedures Procedures: Procedures Procedure Code Date EXCISION OF DUODENUM, ENDO, DIAGN [id number] 02/16/18 EXCISION OF ESOPHAGOGASTRIC JUNCTION, ENDO, DIAGN [id number] 02/16/18 EXCISION OF STOMACH, ENDO, DIAGN [id number] 02/16/18 Assessment/Plan - Problem List Patient Problems: All Active Problems Dementia (Acute) F03.90 Diabetes (Acute) E11.9 Failure to thrive (Acute) [id number] HTN (hypertension) (Acute) I10 - Plan Plan: cpm Nutritional Asmnt/Malnutr-PDOC - Dietary Evaluation Malnutrition Findings (Please click <Entered> for more info): Nutritional Asmnt/Malnutrition Start: 03/31/18 13: 02 Text: Status: Complete Freq: Protocol: Document 03/31/18 13:02 ALICIA (Rec: 03/31/18 13:11 ALICIA [email or web address]- FN) Nutritional Asmnt/Malnutrition Patient General Information Nutritional Screening High Risk Diagnosis Failure to thrive, UTI, inability to urinate Pertinent Medical Hx/Surgical Hx DEPRESSION DEMENTIA MOOD DISORDER PSYCHOSIS MUSCLE WASTING Subjective Information Patient [place] speaking. Admitted from SNF. Current Diet Order/ Nutrition Support Mechanical soft ground, BEBETO, CCD? Patient / S.O Not Indicated Pertinent Medications lipitor, vitamin D, D5-0.45 NS @ 75 ml/hr, colace, novolog, novolin, metamucil, fleet enema Pertinent Labs (03/31) BUN 34, albumin 2.9 Nutritional Hx/Data Height 1.63 m Height (Calculated Centimeters) 162.6 Current Weight (lbs) 78.925 kg Weight (Calculated Kilograms) 78.9 Weight (Calculated Grams) 64407.1 [place] Body Weight 120 % [place] Body Weight 145 Body Mass Index (BMI) 29.8 Recent Weight Change No Weight Status Overweight GI Symptoms GI Symptoms None Last BM prior to admission Difficult in: None Food Allergies Yes: fish Cultural/Ethnic/Buddhism Belief None indicated Usual diet at home unknown Skin Integrity/Comment: Intact, Yan 14 Current %PO Poor (25-49%) Estimated Nutritional Goals BEE in Kcals: Using Current wt Calories/Kcals/Kg 20-25 kcal/kg Kcals Calculated ~8354-6143 kcal/day Protein: Using Current wt Protein g/k.8 gm/kg Protein Calculated ~60 gm/day Fluid: ml ~5198-8713 ml/day (1 ml/kcal) Nutritional Problem 1. Problem Problem Inadequate oral intake related to Etiology possible poor appetite aeb Signs/Symptoms: oral intake <25% of meals Intervention/Recommendation Comments 1. Continue mechanical soft ground diet as tolerated by patient. 2. Consider checking HGA1C to determine need for 60 gm CCHO restriction. Remove BEBETO restriction. 3. Encourage oral intake and provide meal assistance as needed to improve intake. Expected Outcomes/Goals Expected Outcomes/Goals oral intake >75% of meals, weight stable or trend toward ideal body weight, nutrition related labs WNL F/U MR 04/03-
[2018-04-01] MEDS: Levofloxacin 250mg/50mL 250 MG/50 ML BAG IV SCH (21:14)
--- NOTE | 2018-04-02 00:04 | Consultation ---
Consult Note - Consult Note Service Date: 04/02/18 Referring Physician: Trish Cisneros Consult Note: PHYSICIAN Consultation Note: Date of Admission: 03/31/18 Purpose of Consultation: UTI. Chief Complaint: Patient GAREHT GABRIEL was admitted to location Medical/ Surgical Unit I with FAILURE TO THRIVE,UTI,INABILITY TO URINATE. History of Present Illness: 77 year old female with past medical history of diabetes mellitus type II, dementia, muscle weakness brought to the ER for failure to thrive. On initial evaluation, she was afebrile and WBC Count was 7,700. He urinalysis showed pyuria and bacteriuria. It has also showed hematuria. Renal US and CT abdomen and pelvis revealed some changes consistent of cystitis. Levaquin was started. Urine culture grew GNR. ID consult was called for antibiotic management. Past Medical History: diabetes mellitus type II, dementia, muscle weakness. Allergies Allergy/AdvReac Type Severity Reaction Status Date / Time Iodine and Iodide Containing Allergy Verified 02/16/18 21:01 Produc Vital Signs Temp 98.2 F 04/01/18 16:00 Pulse 65 04/01/18 16:00 Resp 17 04/01/18 16:00 BP 120/57 04/01/18 16:00 Pulse Ox 97 04/01/18 16:00 Intake & Output 04/01/18 04/01/18 04/02/18 06:59 18:59 06:59 Intake Total 1290 1050 Output Total 1400 1000 Balance -110 50 Weight (lbs) 78.925 kg 78.925 kg Intake: Intake, IV Amount 1050 1000 D5-0.45NS 1,000 ml @ 75 1000 1000 mls/hr IV .[id number] [facility] Rx #:[id number] Levofloxacin 250mg/50mL 50 250 mg In 50 ml @ 50 mls/ hr IV Q24HR@2100 [facility] Rx#: [id number] Oral 240 50 Output: Urine 1400 1000 Other: # Bowel Movements 0 0 Weight Source Bedscale Bedscale Laboratory Results - last 24 hr 04/01/18 04/01/18 04/01/18 06:32 11:24 12:06 PT 11.1 INR 1.07 POC Glucose 156 H 148 H 04/01/18 04/01/18 16:43 21:08 PT INR POC Glucose 143 H 165 H Home Medication Medication Instructions Recorded Type Acetaminophen [Tylenol] 650 mg PO Q6HR PRN tab 02/22/18 Rx Aspirin EC [Ecotrin] 81 mg PO DAILY ect 02/22/18 Rx Atorvastatin Calcium [Lipitor] 40 mg PO HS tab 02/22/18 Rx Cholecalciferol (Vit D3) [Vitamin 5,000 iu PO DAILY tab 02/22/18 Rx D3] Gabapentin [Neurontin*] 100 mg PO TID cap 02/22/18 Rx Insulin Aspart Sliding Scale 0 units SUBQ ACHS unit 02/22/18 Rx [NovoLOG INSULIN SLIDING SCALE] Insulin Human Isophane (NPH) 20 units SUBQ QAM unit 02/22/18 Rx [NovoLIN N] Insulin Human Isophane (NPH) 30 units SUBQ HS unit 02/22/18 Rx [NovoLIN N] Memantine [Namenda] 10 mg PO BID tab 02/22/18 Rx Mirtazapine [Remeron] 15 mg PO HS tab 02/22/18 Rx Nitroglycerin [Nitrostat*] 0.4 mg SL Q5MIN PRN tab 02/22/18 Rx Valsartan [Diovan] 320 mg PO DAILY tab 02/22/18 Rx amLODIPine Besylate [Norvasc*] 10 mg PO DAILY tab 02/22/18 Rx cloNIDine HCl [Catapres] 0.1 mg PO Q4H PRN tab 02/22/18 Rx lamoTRIgine [laMICtal] 25 mg PO HS tab 02/22/18 Rx Enoxaparin [Lovenox] 40 mg SUBQ DAILY 03/30/18 History Morphine ER [Ms-Contin*] 15 mg PO Q4HR PRN 03/30/18 History Multivitamin with Minerals 1 tab PO DAILY 03/30/18 History [Multivitamins with Minerals] Non-Formulary Item 1 ea MC DAILY 03/30/18 History QUEtiapine Fumarate [SEROquel] 12.5 mg PO HS 03/30/18 History Current Medications Generic Name Dose Route Start Last Admin Trade Name Freq PRN Reason Stop Dose Admin Acetaminophen 650 mg 03/31/18 12:39 Tylenol PO 05/30/18 12:38 Q6HR PRN Pain (Mild) Amlodipine Besylate 10 mg 03/31/18 12:45 04/01/18 08:47 Norvasc PO 05/30/18 12:44 10 mg DAILY [facility] Administration Aspirin 81 mg 03/31/18 12:45 04/01/18 08:47 Ecotrin PO 05/30/18 12:44 81 mg QDPC [facility] Administration Atorvastatin Calcium 40 mg 03/31/18 21:00 04/01/18 21:17 Lipitor PO 05/30/18 20:59 40 mg HS [facility] Administration Protocol Cholecalciferol 5,000 iu 03/31/18 12:45 04/01/18 08:45 Vitamin D3 PO 05/30/18 12:44 5,000 iu DAILY [facility] Administration Docusate Sodium 100 mg 03/31/18 17:00 04/01/18 16:27 Colace PO 05/30/18 16:59 100 mg BID [facility] Administration Enoxaparin Sodium 40 mg 03/31/18 12:45 04/01/18 08:39 Lovenox SUBQ 05/30/18 12:44 40 mg DAILY [facility] Administration Gabapentin 100 mg 03/31/18 14:00 04/01/18 21:17 Neurontin PO 05/30/18 13:59 100 mg TID [facility] Administration Levofloxacin 250 mg in 50 mls @ 50 mls/hr 03/31/18 21:00 04/01/18 21:14 Levaquin Pb IV 05/30/18 20:59 50 mls/hr Q24HR@2100 [facility] Administration Dextrose/Sodium Chloride 1,000 mls @ 75 mls/hr 03/31/18 12:45 04/01/18 19:47 D5-0.45ns IV 05/30/18 12:44 75 mls/hr .[id number] [facility] Administration Insulin Aspart 0 units 03/31/18 16:30 04/01/18 21:23 Novolog Insulin Sliding Scale SUBQ 05/30/18 16:29 2 units ACHS [facility] Administration Protocol Insulin Human NPH 20 units 04/01/18 09:00 04/01/18 08:55 Novolin N SUBQ 05/31/18 08:59 20 units QAM [facility] Administration Protocol Lamotrigine 25 mg 03/31/18 21:00 04/01/18 21:16 Lamictal PO 05/30/18 20:59 25 mg HS [facility] Administration Protocol Memantine 10 mg 03/31/18 17:00 04/01/18 16:27 Namenda PO 05/30/18 16:59 10 mg BID [facility] Administration Mirtazapine 15 mg 03/31/18 21:00 Remeron PO 05/30/18 20:59 HS [facility] Protocol Miscellaneous 1 ea 04/01/18 09:42 Vte Chemical Prophylaxis Screen/ Admission 05/31/18 09:41 PRN PRN PROTOCOL Morphine Sulfate 15 mg 03/31/18 12:39 04/01/18 08:52 Ms-Contin PO 05/30/18 12:38 15 mg Q4HR PRN Administration Pain (Moderate) Nitroglycerin 0.4 mg 03/31/18 12:39 Nitrostat SL 05/30/18 12:38 Q5MIN PRN Chest Pain Psyllium Hydrophilic Mucilloid 1 pkt 03/31/18 21:00 04/01/18 21:16 Metamucil PO 05/30/18 20:59 1 pkt HS [facility] Administration Quetiapine Fumarate 12.5 mg 03/31/18 21:00 Seroquel PO 05/30/18 20:59 HS [facility] Protocol Sodium Phosphate 135 ml 03/31/18 10:53 Fleet Enema RC 05/30/18 10:52 DAILY PRN Constipation Valsartan 320 mg 03/31/18 12:45 04/01/18 08:46 Diovan PO 05/30/18 12:44 320 mg DAILY [facility] Administration Review of Systems: A 12 point ROS was reviewed with the pertinent positive and negatives noted in the HPI. Social History Smoking Status Never smoker Drug Use No Alcohol Use No Family Medical History Family Medical History Start: 03/31/18 00: 23 Freq: ONCE Status: Active Protocol: Document 03/31/18 00:23 XHANG (Rec: 03/31/18 01:21 XHANG [id number]) Family Medical History Mother History Unknown Yes Physical Exam: General: Comfortable, not in an y acute distress. HEENT: HEAD: normocephalic, atraumatic. ORal cavity is moist, with pink tongue.EYE: Pallor absent. Pupil PERRLA. EOMI. Neck: Supple, no JVD, no Carotid bruit. Cardio: S1 and S2 WNL. no murmur, no gallope. Respiratory: CTAP Abdominal: Soft NT ND BS present. Genital/Urinary: Deferred Extremities: NCCE Neurological: AAOx3. Assessment: 1. UTI/Cystitis. Renal ultrasound negative for any acute abortive. 2. DM2. Plan: Continue levaquin. Thank you, Dr. Cisneros for involving me in taking care of this patient Signed, Tino Sommer M.D. 04/02/180002
[2018-04-02] MEDS: INSULIN ASPART SLIDING SCALE 100 UNITS/ML UNIT SUBQ SCH ×4 (08:22→22:00)
--- NOTE | 2018-04-02 08:24 | GI Progress Note ---
Subjective - Review of Systems Service Date: 04/02/18 Objective - Results Result Diagrams: 03/31/18 05:25 03/31/18 05:25 Recent Labs: Laboratory Last Values WBC 6.2 Th/cmm (4.8-10.8) 03/31/18 05:25 RBC 3.20 Mil/cmm (3.80-5.20) L 03/31/18 05:25 Hgb 9.5 gm/dL (12-16) L 03/31/18 05:25 Hct 28.4 % (41.0-60) L 03/31/18 05:25 MCV 89.0 fl (81-100) 03/31/18 05:25 MCH 29.6 pg (27.0-31.0) 03/31/18 05:25 MCHC Differential 33.3 pg (28.0-36.0) 03/31/18 05:25 RDW 14.1 % (11.5-20.0) 03/31/18 05:25 Plt Count 468 Th/cmm (150-400) H 03/31/18 05:25 MPV 7.8 fl 03/31/18 05:25 Neutrophils % 55.8 % (40.0-80.0) 03/31/18 05:25 Lymphocytes % 29.9 % (20.0-50.0) 03/31/18 05:25 Monocytes % 9.5 % (2.0-10.0) 03/31/18 05:25 Eosinophils % 4.4 % (0.0-5.0) 03/31/18 05:25 Basophils % 0.4 % (0.0-2.0) 03/31/18 05:25 PT 11.1 SECONDS (9.5-11.5) 04/01/18 12:06 INR 1.07 (0.5-1.4) 04/01/18 12:06 Sodium 137 mEq/L (136-145) 03/31/18 05:25 Potassium 4.5 mEq/L (3.5-5.1) 03/31/18 05:25 Chloride 111 mEq/L (98-107) H 03/31/18 05:25 Carbon Dioxide 18.7 mEq/L (21.0-31.0) L 03/31/18 05:25 Anion Gap 11.8 (7.0-16.0) 03/31/18 05:25 BUN 34 mg/dL (7-25) H 03/31/18 05:25 Creatinine 0.9 mg/dL (0.6-1.2) 03/31/18 05:25 Est GFR ( Amer) TNP 03/31/18 05:25 Est GFR (Non-Af Amer) TNP 03/31/18 05:25 BUN/Creatinine Ratio 37.8 03/31/18 05:25 Glucose 137 mg/dL (70-105) H 03/31/18 05:25 POC Glucose 133 MG/DL (70 - 105) H 04/02/18 05:40 Whole Bld Lactic Acid 1.06 mmol/L (0.60-1.99) 03/30/18 22:24 Calcium 8.8 mg/dL (8.6-10.3) 03/31/18 05:25 Total Bilirubin 0.4 mg/dL (0.3-1.0) 03/31/18 05:25 AST 22 U/L (13-39) 03/31/18 05:25 ALT 12 U/L (7-52) 03/31/18 05:25 Alkaline Phosphatase 61 U/L (34-104) 03/31/18 05:25 Total Protein 6.3 gm/dL (6.0-8.3) 03/31/18 05:25 Albumin 2.9 gm/dL (3.7-5.3) L 03/31/18 05:25 Globulin 3.4 gm/dL 03/31/18 05:25 Albumin/Globulin Ratio 0.9 (1.0-1.8) L 03/31/18 05:25 Urine Source CLEAN C 03/30/18 22:35 Urine Color YELLOW 03/30/18 22:35 Urine Clarity CLOUDY (CLEAR) H 03/30/18 22:35 Urine pH 5.5 (4.6 - 8.0) 03/30/18 22:35 Ur Specific [place] 1.025 (1.005-1.030) 03/30/18 22:35 Urine Protein 100 mg/dL (NEGATIVE) H 03/30/18 22:35 Urine Glucose (UA) NEGATIVE mg/dL (NEGATIVE) 03/30/18 22:35 Urine Ketones NEGATIVE mg/dL (NEGATIVE) 03/30/18 22:35 Urine Blood LARGE (NEGATIVE) H 03/30/18 22:35 Urine Nitrate POSITIVE (NEGATIVE) H 03/30/18 22:35 Urine Bilirubin NEGATIVE (NEGATIVE) 03/30/18 22:35 Urine Urobilinogen 0.2 E.U./dL (0.2 - 1.0) 03/30/18 22:35 Ur Leukocyte Esterase MODERATE (NEGATIVE) H 03/30/18 22:35 Urine RBC 25-50 /hpf (0-5) H 03/30/18 22:35 Urine WBC 25-50 /hpf (0-5) H 03/30/18 22:35 Ur Epithelial Cells FEW /lpf (FEW) 03/30/18 22:35 Urine Bacteria MANY /hpf (NONE SEEN) H 03/30/18 22:35 - Physical Exam Vitals and I&O: Vital Signs Temp 97.3 F 04/02/18 07:59 Pulse 81 04/02/18 07:59 Resp 18 04/02/18 07:59 BP 157/71 04/02/18 07:59 Pulse Ox 100 04/02/18 07:59 Intake & Output 04/01/18 04/02/18 04/02/18 18:59 06:59 18:59 Intake Total 1050 300 Output Total 1000 1100 Balance 50 -800 Weight (lbs) 78.925 kg 78.925 kg Intake: Intake, IV Amount 1000 50 D5-0.45NS 1,000 ml @ 75 1000 mls/hr IV .[id number] [facility] Rx #:[id number] Levofloxacin 250mg/50mL 50 250 mg In 50 ml @ 50 mls/ hr IV Q24HR@2100 [facility] Rx#: [id number] Oral 50 250 Output: Urine 1000 1100 Other: # Bowel Movements 0 Weight Source Bedscale Bedscale Active Medications: Current Medications Acetaminophen (Tylenol) 650 mg PO Q6HR PRN PRN Reason: Pain (Mild) Stop: 05/30/18 12:38 Amlodipine Besylate (Norvasc) 10 mg PO DAILY [facility] Stop: 05/30/18 12:44 Last Admin: 04/01/18 08:47 Dose: 10 mg Aspirin (Ecotrin) 81 mg PO QDPC [facility] Stop: 05/30/18 12:44 Last Admin: 04/01/18 08:47 Dose: 81 mg Atorvastatin Calcium (Lipitor) 40 mg PO HS [facility]; Protocol Stop: 05/30/18 20:59 Last Admin: 04/01/18 21:17 Dose: 40 mg Cholecalciferol (Vitamin D3) 5,000 iu PO DAILY [facility] Stop: 05/30/18 12:44 Last Admin: 04/01/18 08:45 Dose: 5,000 iu Docusate Sodium (Colace) 100 mg PO BID [facility] Stop: 05/30/18 16:59 Last Admin: 04/01/18 16:27 Dose: 100 mg Enoxaparin Sodium (Lovenox) 40 mg SUBQ DAILY [facility] Stop: 05/30/18 12:44 Last Admin: 04/01/18 08:39 Dose: 40 mg Gabapentin (Neurontin) 100 mg PO TID [facility] Stop: 05/30/18 13:59 Last Admin: 04/01/18 21:17 Dose: 100 mg Levofloxacin (Levaquin Pb) 250 mg in 50 mls @ 50 mls/hr IV Q24HR@2100 [facility] Stop: 05/30/18 20:59 Last Infusion: 04/01/18 22:14 Dose: Infused Dextrose/Sodium Chloride (D5-0.45ns) 1,000 mls @ 75 mls/hr IV .[id number] [facility] Stop: 05/30/18 12:44 Last Admin: 04/01/18 19:47 Dose: 75 mls/hr Insulin Aspart (Novolog Insulin Sliding Scale) 0 units SUBQ ACHS [facility]; Protocol Stop: 05/30/18 16:29 Last Admin: 04/01/18 21:23 Dose: 2 units Insulin Human NPH (Novolin N) 20 units SUBQ QAM [facility]; Protocol Stop: 05/31/18 08:59 Last Admin: 04/01/18 08:55 Dose: 20 units Lamotrigine (Lamictal) 25 mg PO HS [facility]; Protocol Stop: 05/30/18 20:59 Last Admin: 04/01/18 21:16 Dose: 25 mg Memantine (Namenda) 10 mg PO BID [facility] Stop: 05/30/18 16:59 Last Admin: 04/01/18 16:27 Dose: 10 mg Mirtazapine (Remeron) 15 mg PO HS [facility]; Protocol Stop: 05/30/18 20:59 Miscellaneous (Vte Chemical Prophylaxis Screen/ Admission) 1 ea MC PRN PRN PRN Reason: PROTOCOL Stop: 05/31/18 09:41 Morphine Sulfate (Ms-Contin) 15 mg PO Q4HR PRN PRN Reason: Pain (Moderate) Stop: 05/30/18 12:38 Last Admin: 04/01/18 08:52 Dose: 15 mg Nitroglycerin (Nitrostat) 0.4 mg SL Q5MIN PRN PRN Reason: Chest Pain Stop: 05/30/18 12:38 Psyllium Hydrophilic Mucilloid (Metamucil) 1 pkt PO HS [facility] Stop: 05/30/18 20:59 Last Admin: 04/01/18 21:16 Dose: 1 pkt Quetiapine Fumarate (Seroquel) 12.5 mg PO HS [facility]; Protocol Stop: 05/30/18 20:59 Sodium Phosphate (Fleet Enema) 135 ml RC DAILY PRN PRN Reason: Constipation Stop: 05/30/18 10:52 Valsartan (Diovan) 320 mg PO DAILY [facility] Stop: 05/30/18 12:44 Last Admin: 04/01/18 08:46 Dose: 320 mg General: Alert HEENT: Atraumatic Neck: Supple Cardiovascular: Regular rate Abdomen: Bowel sounds, Soft, no Tender, no Hepatomegaly, no Splenomegaly, no Distended, no Rebound Extremities: no Clubbing - Procedures Procedures: Procedures Procedure Code Date EXCISION OF DUODENUM, ENDO, DIAGN [id number] 02/16/18 EXCISION OF ESOPHAGOGASTRIC JUNCTION, ENDO, DIAGN [id number] 02/16/18 EXCISION OF STOMACH, ENDO, DIAGN [id number] 02/16/18 Assessment/Plan - Problem List Patient Problems: All Active Problems Dementia (Acute) F03.90 Diabetes (Acute) E11.9 Failure to thrive (Acute) [id number] HTN (hypertension) (Acute) I10 - Assessment Assessment: # Anorexia # Dementia Pt not eating well at her [facility] facility, noted to not be taking in adequate nutrition. Family is hesitant about alternative forms of feeding (ie G tube or NG tube), but are considering this Plan: - f/u swallow eval - G tube if family and patient consent (would need ancef prior to procedure) - mgmt of other chronic issues as per primary
[2018-04-02] MEDS: D5-0.45NS 1,000 ML IV SCH (09:39)
[2018-04-02] MEDS: Multivitamin w/ Minerals Tab PO SCH (09:41)
[2018-04-02] MEDS: Enoxaparin 40 mg/0.4 mL 0.4mL Syr SUBQ SCH (09:42)
[2018-04-02] MEDS: INSULIN HUMAN ISOPHANE (NPH) 100 UNITS/ML SUBQ SCH (09:42)
--- NOTE | 2018-04-02 16:13 | General Progress Note ---
Subjective - Review of Systems Events since last encounter: failure to thrive no signs of pain Objective - Results Result Diagrams: 03/31/18 05:25 03/31/18 05:25 Recent Labs: Laboratory Last Values WBC 6.2 Th/cmm (4.8-10.8) 03/31/18 05:25 RBC 3.20 Mil/cmm (3.80-5.20) L 03/31/18 05:25 Hgb 9.5 gm/dL (12-16) L 03/31/18 05:25 Hct 28.4 % (41.0-60) L 03/31/18 05:25 MCV 89.0 fl (81-100) 03/31/18 05:25 MCH 29.6 pg (27.0-31.0) 03/31/18 05:25 MCHC Differential 33.3 pg (28.0-36.0) 03/31/18 05:25 RDW 14.1 % (11.5-20.0) 03/31/18 05:25 Plt Count 468 Th/cmm (150-400) H 03/31/18 05:25 MPV 7.8 fl 03/31/18 05:25 Neutrophils % 55.8 % (40.0-80.0) 03/31/18 05:25 Lymphocytes % 29.9 % (20.0-50.0) 03/31/18 05:25 Monocytes % 9.5 % (2.0-10.0) 03/31/18 05:25 Eosinophils % 4.4 % (0.0-5.0) 03/31/18 05:25 Basophils % 0.4 % (0.0-2.0) 03/31/18 05:25 PT 11.1 SECONDS (9.5-11.5) 04/01/18 12:06 INR 1.07 (0.5-1.4) 04/01/18 12:06 Sodium 137 mEq/L (136-145) 03/31/18 05:25 Potassium 4.5 mEq/L (3.5-5.1) 03/31/18 05:25 Chloride 111 mEq/L (98-107) H 03/31/18 05:25 Carbon Dioxide 18.7 mEq/L (21.0-31.0) L 03/31/18 05:25 Anion Gap 11.8 (7.0-16.0) 03/31/18 05:25 BUN 34 mg/dL (7-25) H 03/31/18 05:25 Creatinine 0.9 mg/dL (0.6-1.2) 03/31/18 05:25 Est GFR ( Amer) TNP 03/31/18 05:25 Est GFR (Non-Af Amer) TNP 03/31/18 05:25 BUN/Creatinine Ratio 37.8 03/31/18 05:25 Glucose 137 mg/dL (70-105) H 03/31/18 05:25 POC Glucose 238 MG/DL (70 - 105) H 04/02/18 11:49 Whole Bld Lactic Acid 1.06 mmol/L (0.60-1.99) 03/30/18 22:24 Calcium 8.8 mg/dL (8.6-10.3) 03/31/18 05:25 Total Bilirubin 0.4 mg/dL (0.3-1.0) 03/31/18 05:25 AST 22 U/L (13-39) 03/31/18 05:25 ALT 12 U/L (7-52) 03/31/18 05:25 Alkaline Phosphatase 61 U/L (34-104) 03/31/18 05:25 Total Protein 6.3 gm/dL (6.0-8.3) 03/31/18 05:25 Albumin 2.9 gm/dL (3.7-5.3) L 03/31/18 05:25 Globulin 3.4 gm/dL 03/31/18 05:25 Albumin/Globulin Ratio 0.9 (1.0-1.8) L 03/31/18 05:25 Urine Source CLEAN C 03/30/18 22:35 Urine Color YELLOW 03/30/18 22:35 Urine Clarity CLOUDY (CLEAR) H 03/30/18 22:35 Urine pH 5.5 (4.6 - 8.0) 03/30/18 22:35 Ur Specific [place] 1.025 (1.005-1.030) 03/30/18 22:35 Urine Protein 100 mg/dL (NEGATIVE) H 03/30/18 22:35 Urine Glucose (UA) NEGATIVE mg/dL (NEGATIVE) 03/30/18 22:35 Urine Ketones NEGATIVE mg/dL (NEGATIVE) 03/30/18 22:35 Urine Blood LARGE (NEGATIVE) H 03/30/18 22:35 Urine Nitrate POSITIVE (NEGATIVE) H 03/30/18 22:35 Urine Bilirubin NEGATIVE (NEGATIVE) 03/30/18 22:35 Urine Urobilinogen 0.2 E.U./dL (0.2 - 1.0) 03/30/18 22:35 Ur Leukocyte Esterase MODERATE (NEGATIVE) H 03/30/18 22:35 Urine RBC 25-50 /hpf (0-5) H 03/30/18 22:35 Urine WBC 25-50 /hpf (0-5) H 03/30/18 22:35 Ur Epithelial Cells FEW /lpf (FEW) 03/30/18 22:35 Urine Bacteria MANY /hpf (NONE SEEN) H 03/30/18 22:35 - Physical Exam Vitals and I&O: Vital Signs Temp 97.6 F 04/02/18 12:00 Pulse 77 04/02/18 12:00 Resp 18 04/02/18 12:00 BP 132/64 04/02/18 12:00 Pulse Ox 98 04/02/18 12:00 Intake & Output 04/01/18 04/02/18 04/02/18 18:59 06:59 18:59 Intake Total 6171 219 5445 Output Total 1000 1100 Balance 50 -800 1000 Weight (lbs) 78.925 kg 78.925 kg Intake: Intake, IV Amount 1000 50 1000 D5-0.45NS 1,000 ml @ 75 1000 1000 mls/hr IV .[id number] [facility] Rx #:[id number] Levofloxacin 250mg/50mL 50 250 mg In 50 ml @ 50 mls/ hr IV Q24HR@2100 [facility] Rx#: [id number] Oral 50 250 Output: Urine 1000 1100 Other: # Bowel Movements 0 Weight Source Bedscale Bedscale Active Medications: Current Medications Acetaminophen (Tylenol) 650 mg PO Q6HR PRN PRN Reason: Pain (Mild) Stop: 05/30/18 12:38 Amlodipine Besylate (Norvasc) 10 mg PO DAILY [facility] Stop: 05/30/18 12:44 Last Admin: 04/02/18 09:41 Dose: 10 mg Aspirin (Ecotrin) 81 mg PO QDPC [facility] Stop: 05/30/18 12:44 Last Admin: 04/02/18 09:41 Dose: 81 mg Atorvastatin Calcium (Lipitor) 40 mg PO HS [facility]; Protocol Stop: 05/30/18 20:59 Last Admin: 04/01/18 21:17 Dose: 40 mg Cholecalciferol (Vitamin D3) 5,000 iu PO DAILY [facility] Stop: 05/30/18 12:44 Last Admin: 04/02/18 09:41 Dose: 5,000 iu Docusate Sodium (Colace) 100 mg PO BID T[facility]ELA Stop: 05/30/18 16:59 Last Admin: 04/02/18 09:42 Dose: 100 mg Enoxaparin Sodium (Lovenox) 40 mg SUBQ DAILY T[facility]ELA Stop: 05/30/18 12:44 Last Admin: 04/02/18 09:42 Dose: 40 mg Gabapentin (Neurontin) 100 mg PO TID [facility] Stop: 05/30/18 13:59 Last Admin: 04/02/18 14:23 Dose: 100 mg Levofloxacin (Levaquin Pb) 250 mg in 50 mls @ 50 mls/hr IV Q24HR@2100 [facility] Stop: 05/30/18 20:59 Last Infusion: 04/01/18 22:14 Dose: Infused Dextrose/Sodium Chloride (D5-0.45ns) 1,000 mls @ 75 mls/hr IV .[id number] [facility] Stop: 05/30/18 12:44 Last Admin: 04/02/18 09:39 Dose: 75 mls/hr Insulin Aspart (Novolog Insulin Sliding Scale) 0 units SUBQ ACHS [facility]; Protocol Stop: 05/30/18 16:29 Last Admin: 04/02/18 12:48 Dose: 4 units Insulin Human NPH (Novolin N) 20 units SUBQ QAM [facility]; Protocol Stop: 05/31/18 08:59 Last Admin: 04/02/18 09:42 Dose: 20 units Lamotrigine (Lamictal) 25 mg PO HS [facility]; Protocol Stop: 05/30/18 20:59 Last Admin: 04/01/18 21:16 Dose: 25 mg Memantine (Namenda) 10 mg PO BID [facility] Stop: 05/30/18 16:59 Last Admin: 04/02/18 09:41 Dose: 10 mg Mirtazapine (Remeron) 15 mg PO HS [facility]; Protocol Stop: 05/30/18 20:59 Miscellaneous (Vte Chemical Prophylaxis Screen/ Admission) 1 ea MC PRN PRN PRN Reason: PROTOCOL Stop: 05/31/18 09:41 Morphine Sulfate (Ms-Contin) 15 mg PO Q4HR PRN PRN Reason: Pain (Moderate) Stop: 05/30/18 12:38 Last Admin: 04/01/18 08:52 Dose: 15 mg Nitroglycerin (Nitrostat) 0.4 mg SL Q5MIN PRN PRN Reason: Chest Pain Stop: 05/30/18 12:38 Psyllium Hydrophilic Mucilloid (Metamucil) 1 pkt PO HS [facility] Stop: 05/30/18 20:59 Last Admin: 04/01/18 21:16 Dose: 1 pkt Quetiapine Fumarate (Seroquel) 12.5 mg PO HS [facility]; Protocol Stop: 05/30/18 20:59 Sodium Phosphate (Fleet Enema) 135 ml RC DAILY PRN PRN Reason: Constipation Stop: 05/30/18 10:52 Valsartan (Diovan) 320 mg PO DAILY [facility] Stop: 05/30/18 12:44 Last Admin: 04/02/18 09:40 Dose: 320 mg General: Alert HEENT: Atraumatic Neck: Supple Cardiovascular: Regular rate Abdomen: Bowel sounds, Soft, no Tender, no Hepatomegaly, no Splenomegaly, no Distended, no Rebound Extremities: no Clubbing - Procedures Procedures: Procedures Procedure Code Date EXCISION OF DUODENUM, ENDO, DIAGN [id number] 02/16/18 EXCISION OF ESOPHAGOGASTRIC JUNCTION, ENDO, DIAGN [id number] 02/16/18 EXCISION OF STOMACH, ENDO, DIAGN [id number] 02/16/18 Assessment/Plan - Problem List Patient Problems: All Active Problems Dementia (Acute) F03.90 Diabetes (Acute) E11.9 Failure to thrive (Acute) [id number] HTN (hypertension) (Acute) I10 - Plan Plan: cpm Nutritional Asmnt/Malnutr-PDOC - Dietary Evaluation Malnutrition Findings (Please click <Entered> for more info): Nutritional Asmnt/Malnutrition Start: 03/31/18 13: 02 Text: Status: Complete Freq: Protocol: Document 03/31/18 13:02 ALICIA (Rec: 03/31/18 13:11 ALICIA SEGURA- [email or web address]) Nutritional Asmnt/Malnutrition Patient General Information Nutritional Screening High Risk Diagnosis Failure to thrive, UTI, inability to urinate Pertinent Medical Hx/Surgical Hx DEPRESSION DEMENTIA MOOD DISORDER PSYCHOSIS MUSCLE WASTING Subjective Information Patient Vietnamese speaking. Admitted from SNF. Current Diet Order/ Nutrition Support Mechanical soft ground, BEBETO, CCD? Patient / S.O Not Indicated Pertinent Medications lipitor, vitamin D, D5-0.45 NS @ 75 ml/hr, colace, novolog, novolin, metamucil, fleet enema Pertinent Labs (03/31) BUN 34, albumin 2.9 Nutritional Hx/Data Height 1.63 m Height (Calculated Centimeters) 162.6 Current Weight (lbs) 78.925 kg Weight (Calculated Kilograms) 78.9 Weight (Calculated Grams) 96947.1 [place] Body Weight 120 % [place] Body Weight 145 Body Mass Index (BMI) 29.8 Recent Weight Change No Weight Status Overweight GI Symptoms GI Symptoms None Last BM prior to admission Difficult in: None Food Allergies Yes: fish Cultural/Ethnic/Taoism Belief None indicated Usual diet at home unknown Skin Integrity/Comment: Intact, Yan 14 Current %PO Poor (25-49%) Estimated Nutritional Goals BEE in Kcals: Using Current wt Calories/Kcals/Kg 20-25 kcal/kg Kcals Calculated ~7505-6887 kcal/day Protein: Using Current wt Protein g/k.8 gm/kg Protein Calculated ~60 gm/day Fluid: ml ~8984-8191 ml/day (1 ml/kcal) Nutritional Problem 1. Problem Problem Inadequate oral intake related to Etiology possible poor appetite aeb Signs/Symptoms: oral intake <25% of meals Intervention/Recommendation Comments 1. Continue mechanical soft ground diet as tolerated by patient. 2. Consider checking HGA1C to determine need for 60 gm CCHO restriction. Remove BEBETO restriction. 3. Encourage oral intake and provide meal assistance as needed to improve intake. Expected Outcomes/Goals Expected Outcomes/Goals oral intake >75% of meals, weight stable or trend toward ideal body weight, nutrition related labs WNL F/U MR 04/03-
[2018-04-02] MEDS: Levofloxacin 250mg/50mL 250 MG/50 ML BAG IV SCH (22:40)
[2018-04-03] MEDS: D5-0.45NS 1,000 ML IV SCH ×2 (01:22→15:52)
[2018-04-03] MEDS: INSULIN ASPART SLIDING SCALE 100 UNITS/ML UNIT SUBQ SCH ×3 (07:33→17:16)
--- NOTE | 2018-04-03 08:56 | Infectious Disease Prog Note ---
Infectious Disease Subjective - Review of Systems Service Date: 04/03/18 Subjective: No change, clinically, no fever. Infectious Disease Objective - Results Result Diagrams: 03/31/18 05:25 03/31/18 05:25 Recent Labs: Laboratory Last Values WBC 6.2 Th/cmm (4.8-10.8) 03/31/18 05:25 RBC 3.20 Mil/cmm (3.80-5.20) L 03/31/18 05:25 Hgb 9.5 gm/dL (12-16) L 03/31/18 05:25 Hct 28.4 % (41.0-60) L 03/31/18 05:25 MCV 89.0 fl (81-100) 03/31/18 05:25 MCH 29.6 pg (27.0-31.0) 03/31/18 05:25 MCHC Differential 33.3 pg (28.0-36.0) 03/31/18 05:25 RDW 14.1 % (11.5-20.0) 03/31/18 05:25 Plt Count 468 Th/cmm (150-400) H 03/31/18 05:25 MPV 7.8 fl 03/31/18 05:25 Neutrophils % 55.8 % (40.0-80.0) 03/31/18 05:25 Lymphocytes % 29.9 % (20.0-50.0) 03/31/18 05:25 Monocytes % 9.5 % (2.0-10.0) 03/31/18 05:25 Eosinophils % 4.4 % (0.0-5.0) 03/31/18 05:25 Basophils % 0.4 % (0.0-2.0) 03/31/18 05:25 PT 11.1 SECONDS (9.5-11.5) 04/01/18 12:06 INR 1.07 (0.5-1.4) 04/01/18 12:06 Sodium 137 mEq/L (136-145) 03/31/18 05:25 Potassium 4.5 mEq/L (3.5-5.1) 03/31/18 05:25 Chloride 111 mEq/L (98-107) H 03/31/18 05:25 Carbon Dioxide 18.7 mEq/L (21.0-31.0) L 03/31/18 05:25 Anion Gap 11.8 (7.0-16.0) 03/31/18 05:25 BUN 34 mg/dL (7-25) H 03/31/18 05:25 Creatinine 0.9 mg/dL (0.6-1.2) 03/31/18 05:25 Est GFR ( Amer) TNP 03/31/18 05:25 Est GFR (Non-Af Amer) TNP 03/31/18 05:25 BUN/Creatinine Ratio 37.8 03/31/18 05:25 Glucose 137 mg/dL (70-105) H 03/31/18 05:25 POC Glucose 138 MG/DL (70 - 105) H 04/03/18 06:52 Whole Bld Lactic Acid 1.06 mmol/L (0.60-1.99) 03/30/18 22:24 Calcium 8.8 mg/dL (8.6-10.3) 03/31/18 05:25 Total Bilirubin 0.4 mg/dL (0.3-1.0) 03/31/18 05:25 AST 22 U/L (13-39) 03/31/18 05:25 ALT 12 U/L (7-52) 03/31/18 05:25 Alkaline Phosphatase 61 U/L (34-104) 03/31/18 05:25 Total Protein 6.3 gm/dL (6.0-8.3) 03/31/18 05:25 Albumin 2.9 gm/dL (3.7-5.3) L 03/31/18 05:25 Globulin 3.4 gm/dL 03/31/18 05:25 Albumin/Globulin Ratio 0.9 (1.0-1.8) L 03/31/18 05:25 Urine Source CLEAN C 03/30/18 22:35 Urine Color YELLOW 03/30/18 22:35 Urine Clarity CLOUDY (CLEAR) H 03/30/18 22:35 Urine pH 5.5 (4.6 - 8.0) 03/30/18 22:35 Ur Specific [place] 1.025 (1.005-1.030) 03/30/18 22:35 Urine Protein 100 mg/dL (NEGATIVE) H 03/30/18 22:35 Urine Glucose (UA) NEGATIVE mg/dL (NEGATIVE) 03/30/18 22:35 Urine Ketones NEGATIVE mg/dL (NEGATIVE) 03/30/18 22:35 Urine Blood LARGE (NEGATIVE) H 03/30/18 22:35 Urine Nitrate POSITIVE (NEGATIVE) H 03/30/18 22:35 Urine Bilirubin NEGATIVE (NEGATIVE) 03/30/18 22:35 Urine Urobilinogen 0.2 E.U./dL (0.2 - 1.0) 03/30/18 22:35 Ur Leukocyte Esterase MODERATE (NEGATIVE) H 03/30/18 22:35 Urine RBC 25-50 /hpf (0-5) H 03/30/18 22:35 Urine WBC 25-50 /hpf (0-5) H 03/30/18 22:35 Ur Epithelial Cells FEW /lpf (FEW) 03/30/18 22:35 Urine Bacteria MANY /hpf (NONE SEEN) H 03/30/18 22:35 - Physical Exam Vitals and I&O: Vital Signs Temp 98.4 F 04/03/18 07:59 Pulse 69 04/03/18 07:59 Resp 19 04/03/18 07:59 BP 128/58 04/03/18 07:59 Pulse Ox 98 04/03/18 07:59 Intake & Output 04/02/18 04/03/18 04/03/18 18:59 06:59 18:59 Intake Total 1600 1000 Output Total 1100 Balance 500 1000 Weight (lbs) 77.247 kg Intake: Intake, IV Amount 1000 1000 D5-0.45NS 1,000 ml @ 75 1000 1000 mls/hr IV .[id number] [facility] Rx #:[id number] Oral 600 Output: Urine 1100 Other: # Bowel Movements 0 Weight Source Bedscale Active Medications: Current Medications Acetaminophen (Tylenol) 650 mg PO Q6HR PRN PRN Reason: Pain (Mild) Stop: 05/30/18 12:38 Amlodipine Besylate (Norvasc) 10 mg PO DAILY [facility] Stop: 05/30/18 12:44 Last Admin: 04/02/18 09:41 Dose: 10 [facility]: 05/30/18 12:44 Last Admin: 04/02/18 09:41 Dose: 81 mg Atorvastatin Calcium (Lipitor) 40 mg PO HS [facility]; Protocol Stop: 05/30/18 20:59 Last Admin: 04/02/18 22:43 Dose: 40 mg Cholecalciferol (Vitamin D3) 5,000 iu PO DAILY [facility] Stop: 05/30/18 12:44 Last Admin: 04/02/18 09:41 Dose: 5,000 iu Docusate Sodium (Colace) 100 mg PO BID T[facility]ELA Stop: 05/30/18 16:59 Last Admin: 04/02/18 16:51 Dose: 100 mg Enoxaparin Sodium (Lovenox) 40 mg SUBQ DAILY [facility] Stop: 05/30/18 12:44 Last Admin: 04/02/18 09:42 Dose: 40 mg Gabapentin (Neurontin) 100 mg PO TID [facility] Stop: 05/30/18 13:59 Last Admin: 04/02/18 22:44 Dose: 100 mg Levofloxacin (Levaquin Pb) 250 mg in 50 mls @ 50 mls/hr IV Q24HR@2100 [facility] Stop: 05/30/18 20:59 Last Admin: 04/02/18 22:40 Dose: 50 mls/hr Dextrose/Sodium Chloride (D5-0.45ns) 1,000 mls @ 75 mls/hr IV .[id number] [facility] Stop: 05/30/18 12:44 Last Admin: 04/03/18 01:22 Dose: 75 mls/hr Insulin Aspart (Novolog Insulin Sliding Scale) 0 units SUBQ ACHS [facility]; Protocol Stop: 05/30/18 16:29 Last Admin: 04/03/18 07:33 Dose: Not Given Insulin Human NPH (Novolin N) 20 units SUBQ QAM [facility]; Protocol Stop: 05/31/18 08:59 Last Admin: 04/02/18 09:42 Dose: 20 units Lamotrigine (Lamictal) 25 mg PO HS [facility]; Protocol Stop: 05/30/18 20:59 Last Admin: 04/02/18 22:44 Dose: 25 mg Memantine (Namenda) 10 mg PO BID [facility] Stop: 05/30/18 16:59 Last Admin: 04/02/18 16:51 Dose: 10 mg Mirtazapine (Remeron) 15 mg PO HS [facility]; Protocol Stop: 05/30/18 20:59 Miscellaneous (Vte Chemical Prophylaxis Screen/ Admission) 1 ea MC PRN PRN PRN Reason: PROTOCOL Stop: 05/31/18 09:41 Morphine Sulfate (Ms-Contin) 15 mg PO Q4HR PRN PRN Reason: Pain (Moderate) Stop: 05/30/18 12:38 Last Admin: 04/01/18 08:52 Dose: 15 mg Nitroglycerin (Nitrostat) 0.4 mg SL Q5MIN PRN PRN Reason: Chest Pain Stop: 05/30/18 12:38 Psyllium Hydrophilic Mucilloid (Metamucil) 1 pkt PO HS [facility] Stop: 05/30/18 20:59 Last Admin: 04/02/18 22:43 Dose: 1 pkt Quetiapine Fumarate (Seroquel) 12.5 mg PO HS [facility]; Protocol Stop: 05/30/18 20:59 Sodium Phosphate (Fleet Enema) 135 ml RC DAILY PRN PRN Reason: Constipation Stop: 05/30/18 10:52 Valsartan (Diovan) 320 mg PO DAILY [facility] Stop: 05/30/18 12:44 Last Admin: 04/02/18 09:40 Dose: 320 mg General: no acute distress, well developed, well nourished HEENT: atraumatic, normocephalic, PERRLA, EOMI Neck: supple, no thyromegaly Cardiovascular: S1S2, regular Lungs: clear to auscultation bilaterally, clear to percussion Abdomen: soft, no tender Extremities: no cyanosis, no clubbing, no edema - Procedures Procedures: Procedures Procedure Code Date EXCISION OF DUODENUM, ENDO, DIAGN [id number] 02/16/18 EXCISION OF ESOPHAGOGASTRIC JUNCTION, ENDO, DIAGN [id number] 02/16/18 EXCISION OF STOMACH, ENDO, DIAGN [id number] 02/16/18 Infectious Disease Assmt/Plan - Problem List Patient Problems: All Active Problems Dementia (Acute) F03.90 Diabetes (Acute) E11.9 Failure to thrive (Acute) [id number] HTN (hypertension) (Acute) I10 - Assessment Assessment: UTI - Plan Plan: CPm. Nutritional Asmnt/Malnutr-PDOC - Dietary Evaluation Malnutrition Findings (Please click <Entered> for more info): Nutritional Asmnt/Malnutrition Start: 03/31/18 13: 02 Text: Status: Complete Freq: Protocol: Document 03/31/18 13:02 [email or web address] (Rec: 03/31/18 13:11 ALICIA COLTON- [email or web address]) Nutritional Asmnt/Malnutrition Patient General Information Nutritional Screening High Risk Diagnosis Failure to thrive, UTI, inability to urinate Pertinent Medical Hx/Surgical Hx DEPRESSION DEMENTIA MOOD DISORDER PSYCHOSIS MUSCLE WASTING Subjective Information Patient Slovak speaking. Admitted from SNF. Current Diet Order/ Nutrition Support Mechanical soft ground, BEBETO, CCD? Patient / S.O Not Indicated Pertinent Medications lipitor, vitamin D, D5-0.45 NS @ 75 ml/hr, colace, novolog, novolin, metamucil, fleet enema Pertinent Labs (03/31) BUN 34, albumin 2.9 Nutritional Hx/Data Height 1.63 m Height (Calculated Centimeters) 162.6 Current Weight (lbs) 78.925 kg Weight (Calculated Kilograms) 78.9 Weight (Calculated Grams) 41239.1 [place] Body Weight 120 % [place] Body Weight 145 Body Mass Index (BMI) 29.8 Recent Weight Change No Weight Status Overweight GI Symptoms GI Symptoms None Last BM prior to admission Difficult in: None Food Allergies Yes: fish Cultural/Ethnic/Latter Day Belief None indicated Usual diet at home unknown Skin Integrity/Comment: [place] 14 Current %PO Poor (25-49%) Estimated Nutritional Goals BEE in Kcals: Using Current wt Calories/Kcals/Kg 20-25 kcal/kg Kcals Calculated ~8567-9055 kcal/day Protein: Using Current wt Protein g/k.8 gm/kg Protein Calculated ~60 gm/day Fluid: ml ~3572-1181 ml/day (1 ml/kcal) Nutritional Problem 1. Problem Problem Inadequate oral intake related to Etiology possible poor appetite aeb Signs/Symptoms: oral intake <25% of meals Intervention/Recommendation Comments 1. Continue mechanical soft ground diet as tolerated by patient. 2. Consider checking HGA1C to determine need for 60 gm CCHO restriction. Remove BEBETO restriction. 3. Encourage oral intake and provide meal assistance as needed to improve intake. Expected Outcomes/Goals Expected Outcomes/Goals oral intake >75% of meals, weight stable or trend toward ideal body weight, nutrition related labs WNL F/U MR 04/03-
--- NOTE | 2018-04-03 09:06 | GI Progress Note ---
Subjective - Review of Systems Service Date: 04/03/18 Subjective: Eating better by report. Refusing G tube Objective - Results Result Diagrams: 03/31/18 05:25 03/31/18 05:25 Recent Labs: Laboratory Last Values WBC 6.2 Th/cmm (4.8-10.8) 03/31/18 05:25 RBC 3.20 Mil/cmm (3.80-5.20) L 03/31/18 05:25 Hgb 9.5 gm/dL (12-16) L 03/31/18 05:25 Hct 28.4 % (41.0-60) L 03/31/18 05:25 MCV 89.0 fl (81-100) 03/31/18 05:25 MCH 29.6 pg (27.0-31.0) 03/31/18 05:25 MCHC Differential 33.3 pg (28.0-36.0) 03/31/18 05:25 RDW 14.1 % (11.5-20.0) 03/31/18 05:25 Plt Count 468 Th/cmm (150-400) H 03/31/18 05:25 MPV 7.8 fl 03/31/18 05:25 Neutrophils % 55.8 % (40.0-80.0) 03/31/18 05:25 Lymphocytes % 29.9 % (20.0-50.0) 03/31/18 05:25 Monocytes % 9.5 % (2.0-10.0) 03/31/18 05:25 Eosinophils % 4.4 % (0.0-5.0) 03/31/18 05:25 Basophils % 0.4 % (0.0-2.0) 03/31/18 05:25 PT 11.1 SECONDS (9.5-11.5) 04/01/18 12:06 INR 1.07 (0.5-1.4) 04/01/18 12:06 Sodium 137 mEq/L (136-145) 03/31/18 05:25 Potassium 4.5 mEq/L (3.5-5.1) 03/31/18 05:25 Chloride 111 mEq/L (98-107) H 03/31/18 05:25 Carbon Dioxide 18.7 mEq/L (21.0-31.0) L 03/31/18 05:25 Anion Gap 11.8 (7.0-16.0) 03/31/18 05:25 BUN 34 mg/dL (7-25) H 03/31/18 05:25 Creatinine 0.9 mg/dL (0.6-1.2) 03/31/18 05:25 Est GFR ( Amer) TNP 03/31/18 05:25 Est GFR (Non-Af Amer) TNP 03/31/18 05:25 BUN/Creatinine Ratio 37.8 03/31/18 05:25 Glucose 137 mg/dL (70-105) H 03/31/18 05:25 POC Glucose 138 MG/DL (70 - 105) H 04/03/18 06:52 Whole Bld Lactic Acid 1.06 mmol/L (0.60-1.99) 03/30/18 22:24 Calcium 8.8 mg/dL (8.6-10.3) 03/31/18 05:25 Total Bilirubin 0.4 mg/dL (0.3-1.0) 03/31/18 05:25 AST 22 U/L (13-39) 03/31/18 05:25 ALT 12 U/L (7-52) 03/31/18 05:25 Alkaline Phosphatase 61 U/L (34-104) 03/31/18 05:25 Total Protein 6.3 gm/dL (6.0-8.3) 03/31/18 05:25 Albumin 2.9 gm/dL (3.7-5.3) L 03/31/18 05:25 Globulin 3.4 gm/dL 03/31/18 05:25 Albumin/Globulin Ratio 0.9 (1.0-1.8) L 03/31/18 05:25 Urine Source CLEAN C 03/30/18 22:35 Urine Color YELLOW 03/30/18 22:35 Urine Clarity CLOUDY (CLEAR) H 03/30/18 22:35 Urine pH 5.5 (4.6 - 8.0) 03/30/18 22:35 Ur Specific [place] 1.025 (1.005-1.030) 03/30/18 22:35 Urine Protein 100 mg/dL (NEGATIVE) H 03/30/18 22:35 Urine Glucose (UA) NEGATIVE mg/dL (NEGATIVE) 03/30/18 22:35 Urine Ketones NEGATIVE mg/dL (NEGATIVE) 03/30/18 22:35 Urine Blood LARGE (NEGATIVE) H 03/30/18 22:35 Urine Nitrate POSITIVE (NEGATIVE) H 03/30/18 22:35 Urine Bilirubin NEGATIVE (NEGATIVE) 03/30/18 22:35 Urine Urobilinogen 0.2 E.U./dL (0.2 - 1.0) 03/30/18 22:35 Ur Leukocyte Esterase MODERATE (NEGATIVE) H 03/30/18 22:35 Urine RBC 25-50 /hpf (0-5) H 03/30/18 22:35 Urine WBC 25-50 /hpf (0-5) H 03/30/18 22:35 Ur Epithelial Cells FEW /lpf (FEW) 03/30/18 22:35 Urine Bacteria MANY /hpf (NONE SEEN) H 03/30/18 22:35 - Physical Exam Vitals and I&O: Vital Signs Temp 98.4 F 04/03/18 07:59 Pulse 69 04/03/18 07:59 Resp 19 04/03/18 07:59 BP 128/58 04/03/18 07:59 Pulse Ox 98 04/03/18 07:59 Intake & Output 04/02/18 04/03/18 04/03/18 18:59 06:59 18:59 Intake Total 1600 1000 Output Total 1100 Balance 500 1000 Weight (lbs) 77.247 kg Intake: Intake, IV Amount 1000 1000 D5-0.45NS 1,000 ml @ 75 1000 1000 mls/hr IV .[id number] [facility] Rx #:[id number] Oral 600 Output: Urine 1100 Other: # Bowel Movements 0 Weight Source Bedscale Active Medications: Current Medications Acetaminophen (Tylenol) 650 mg PO Q6HR PRN PRN Reason: Pain (Mild) Stop: 05/30/18 12:38 Amlodipine Besylate (Norvasc) 10 mg PO DAILY [facility] Stop: 05/30/18 12:44 Last Admin: 04/02/18 09:41 Dose: 10 mg Aspirin (Ecotrin) 81 mg PO QDPC [facility] Stop: 05/30/18 12:44 Last Admin: 04/02/18 09:41 Dose: 81 mg Atorvastatin Calcium (Lipitor) 40 mg PO [facility]; Protocol Stop: 05/30/18 20:59 Last Admin: 04/02/18 22:43 Dose: 40 mg Cholecalciferol (Vitamin D3) 5,000 iu PO DAILY [facility] Stop: 05/30/18 12:44 Last Admin: 04/02/18 09:41 Dose: 5,000 iu Docusate Sodium (Colace) 100 mg PO BID [facility] Stop: 05/30/18 16:59 Last Admin: 04/02/18 16:51 Dose: 100 mg Enoxaparin Sodium (Lovenox) 40 mg SUBQ DAILY [facility] Stop: 05/30/18 12:44 Last Admin: 04/02/18 09:42 Dose: 40 mg Gabapentin (Neurontin) 100 mg PO TID [facility] Stop: 05/30/18 13:59 Last Admin: 04/02/18 22:44 Dose: 100 mg Levofloxacin (Levaquin Pb) 250 mg in 50 mls @ 50 mls/hr IV Q24HR@2100 [facility] Stop: 05/30/18 20:59 Last Admin: 04/02/18 22:40 Dose: 50 mls/hr Dextrose/Sodium Chloride (D5-0.45ns) 1,000 mls @ 75 mls/hr IV .[id number] [facility] Stop: 05/30/18 12:44 Last Admin: 04/03/18 01:22 Dose: 75 mls/hr Insulin Aspart (Novolog Insulin Sliding Scale) 0 units SUBQ ACHS [facility]; Protocol Stop: 05/30/18 16:29 Last Admin: 04/03/18 07:33 Dose: Not Given Insulin Human NPH (Novolin N) 20 units SUBQ QAM [facility]; Protocol Stop: 05/31/18 08:59 Last Admin: 04/02/18 09:42 Dose: 20 units Lamotrigine (Lamictal) 25 mg PO HS [facility]; Protocol Stop: 05/30/18 20:59 Last Admin: 04/02/18 22:44 Dose: 25 mg Memantine (Namenda) 10 mg PO BID [facility] Stop: 05/30/18 16:59 Last Admin: 04/02/18 16:51 Dose: 10 mg Mirtazapine (Remeron) 15 mg PO HS [facility]; Protocol Stop: 05/30/18 20:59 Miscellaneous (Vte Chemical Prophylaxis Screen/ Admission) 1 ea [facility] PRN PRN PRN Reason: PROTOCOL Stop: 05/31/18 09:41 Morphine Sulfate (Ms-Contin) 15 mg PO Q4HR PRN PRN Reason: Pain (Moderate) Stop: 05/30/18 12:38 Last Admin: 04/01/18 08:52 Dose: 15 mg Nitroglycerin (Nitrostat) 0.4 mg SL Q5MIN PRN PRN Reason: Chest Pain Stop: 05/30/18 12:38 Psyllium Hydrophilic Mucilloid (Metamucil) 1 pkt PO HS [facility] Stop: 05/30/18 20:59 Last Admin: 04/02/18 22:43 Dose: 1 pkt Quetiapine Fumarate (Seroquel) 12.5 mg PO HS [facility]; Protocol Stop: 05/30/18 20:59 Sodium Phosphate (Fleet Enema) 135 ml RC DAILY PRN PRN Reason: Constipation Stop: 05/30/18 10:52 Valsartan (Diovan) 320 mg PO DAILY [facility] Stop: 05/30/18 12:44 Last Admin: 04/02/18 09:40 Dose: 320 mg General: Alert HEENT: Atraumatic Neck: Supple Cardiovascular: Regular rate Abdomen: Bowel sounds, Soft, no Tender, no Hepatomegaly, no Splenomegaly, no Distended, no Rebound Extremities: no Clubbing - Procedures Procedures: Procedures Procedure Code Date EXCISION OF DUODENUM, ENDO, DIAGN 0SS50UM 02/16/18 EXCISION OF ESOPHAGOGASTRIC JUNCTION, ENDO, DIAGN 2MF39UM 02/16/18 EXCISION OF STOMACH, ENDO, DIAGN [id number] 02/16/18 Assessment/Plan - Problem List Patient Problems: All Active Problems Dementia (Acute) F03.90 Diabetes (Acute) E11.9 Failure to thrive (Acute) [id number] HTN (hypertension) (Acute) I10 - Assessment Assessment: # Anorexia # Dementia Pt not eating well at her long term facility, noted to not be taking in adequate nutrition. Family is hesitant about alternative forms of feeding (ie G tube or NG tube), but are considering this. Pt now refusing G tube outright, but is eating better. Plan: - no G tube as pt and family have refused - encourage po intake as tolerated - GI available if a G tube is needed and there is consent - mgmt of other chronic issues as per primary GI to see intermittently, please call with any questions
[2018-04-03] MEDS: Enoxaparin 40 mg/0.4 mL 0.4mL Syr SUBQ SCH (09:55)
[2018-04-03] MEDS: Multivitamin w/ Minerals Tab PO SCH (09:55)
[2018-04-03] MEDS: INSULIN HUMAN ISOPHANE (NPH) 100 UNITS/ML SUBQ SCH (09:56)
--- NOTE | 2018-04-03 23:40 | Consultation ---
DATE OF CONSULTATION: UROLOGY CONSULTATION REASON FOR CONSULTATION: Seen for urinary retention and Wiseman catheter status. HISTORY OF PRESENT ILLNESS: This is a 77-year-old female who was admitted for failure to thrive and weakness. She has had a Wiseman catheter off and on this admission. Once again it was placed when she was unable to urinate, draining more than 800 mL of urine. She has had this issue in a detention as well, requiring multiple catheterizations. No definitive urologic history is known or available. PAST MEDICAL HISTORY: 1. Diabetes. 2. History of hyperlipidemia. 3. She has hypertension as well. 4. Dementia. 5. Frequent urinary tract infections. HOME MEDICATIONS: Valsartan, Remeron, Namenda, Lamictal, insulin, gabapentin, clonidine, vitamin D3, Lipitor, aspirin, Norvasc, p.r.n. Tylenol, Nitrostat, Seroquel, vitamins, Lovenox, and morphine. ALLERGIES: IODINE. PAST SURGICAL HISTORY: Not available. Daughter and granddaughter at the bedside, did not have any knowledge about her surgical history or medical problems. REVIEW OF SYSTEMS: Failure to thrive and weight loss. No headache or seizures. Some degree of altered level of consciousness. No chest pain, coughing, or shortness of breath. No sore throat or vision change. No abdominal pain, vomiting, or diarrhea. No dysuria or hematuria, but incontinence and use of diapers before the Wiseman was placed. History of dementia. PHYSICAL EXAMINATION: GENERAL: She is awake, alert. She is somewhat confused. VITAL SIGNS: Temperature 97.7, heart rate 78, and blood pressure 111/56. HEAD AND NECK: Normocephalic. Trachea central. Pupils equal and reactive. No jaundice. Thyroid and lymph nodes not palpable. Carotid bruit absent. CHEST: Symmetrical. LUNGS: Clear. No rales or rhonchi. HEART: Sounds normal in sinus rhythm, no murmur. ABDOMEN: Soft and nontender. No organomegaly, mass, or hernia. Bladder decompressed. A Wiseman catheter draining clear urine. EXTREMITIES: No edema or lymphadenopathy. NEUROLOGIC: Nonfocal. Moves all 4 limbs. LABORATORY DATA: White count 6.2 remained normal, hemoglobin 9.5, and platelet 468. PT and PTT are normal. Glucose 172 and 209. Chemistries from 03/31/2018; sodium and potassium are normal, chloride 111, CO2 18.7, BUN 34, and creatinine 0.9. Liver functions are normal. Urine showed a large amount of blood and nitrites, white cells, red cells. Urine culture grew out Klebsiella and E. coli sensitive to multiple antibiotics. CT scan of abdomen and pelvis showed a moderate amount of stool in the colon with fecal impaction presacral edema, prominent axillary node, urinary bladder thickened with inflammatory changes, and pockets of air along the anterior abdominal wall. Bilateral renal collecting system normal without any hydronephrosis, no renal stones or masses in the kidneys. Renal ultrasound showed thickening of the bladder once again and inflammation. IMPRESSION: 1. Chronic urinary retention, possibly neurogenic bladder from diabetes, fecal impaction, anticholinergic type medications, and sedentary and bedridden lifestyle. Recommend indwelling Wiseman for an indefinite period of time versus in and out catheterization, which is going to be difficult to carry out in a detention setting. Discussed with her daughter who is a power of customer success representative or custody of her care and explained this recommendation to avoid multiple episodes of retention, infections, and potential sepsis or injury to the kidneys. The Wiseman catheter care was explained in great detail to the family and the nurses to be implemented at the detention as well. This includes changing the catheter once in 3-4 weeks and keeping the catheter away from the stools and perineal area as well as irrigating it every 2 days with 200 mL of normal saline to prevent incrustation, sedimentation, stone formation, and infection. 2. Failure to thrive, seems to have improved after admission, may have been related to repeated urinary tract infections. 3. History of dementia, also improved. 4. Hypertension, stable. 5. Diabetes, fair control. 6. Chronic constipation and stool impaction, significantly improved. JOB# [id number]
== END 2018-04-03 20:00 | DRG 689 ==
LOC: ER 21:07 → MSI 03-31 00:12
PROVIDERS: ADMIT Internal Medicine; ATTEND Internal Medicine
DX: N39.0 Urinary tract infection, site not specified (principal); R53.2 Functional quadriplegia; E44.0 Moderate protein-calorie malnutrition; E78.5 Hyperlipidemia, unspecified; R33.9 Retention of urine, unspecified; I10 Essential (primary) hypertension; E11.9 Type 2 diabetes mellitus without complications; F03.90 Unspecified dementia, unspecified severity, without behavioral disturbance, psychotic disturbance, mood disturbance, and anxiety; R62.7 Adult failure to thrive; R31.9 Hematuria, unspecified; K56.41 Fecal impaction; Z68.29 Body mass index [BMI] 29.0-29.9, adult; Z79.4 Long term (current) use of insulin; Z91.041 Radiographic dye allergy status; Z74.01 Bed confinement status
CPT/HCPCS: 36415-UA; 71045-TC; 76770-TC; 80053-TC; 81001-TC; 82948-90; 83605; 85025-TC; 85610-TC; 87086-90; 93005; J1650; J1815; J1956; Z7610

== ENCOUNTER 2018-04-21 20:31 | Inpatient (IN) | payer MEDICARE, MEDICAID ==
--- NOTE | 2018-04-21 20:55 | ED Physician Chart ---
ED Chief Complaint/HPI - Patient Information Date Seen:: 04/21/18 Time Seen:: 20:40 Chief Complaint:: dizziness History of Present Illness:: THIS IS A 77 YO FEMALE WHO WAS SENT FROM THE INTERMEDIATE FOR AN EVALUATION AND TREATMENT FOR HER DIZZINESS. SHE IS CHRONICALLY ILL FROM DIABETES MELLITUS AND EXTREMITY WEAKNESS. Allergies:: Allergies Allergy/AdvReac Type Severity Reaction Status Date / Time Iodine and Iodide Containing Allergy Verified 02/16/18 21:01 Produc Vitals:: Vital Signs - 8 hr 04/21/18 20:35 Temp 98.2 F HR 95 RR 16 BP 154/63 O2 Sat % 97 Historian:: Patient, Medical Records Review:: Nurse's Note Reviewed, Old Chart Reviewed, Transfer documents Reviewed ED Review of Systems - Review of Systems General/Constitutional: No fever, No chills, No weight loss, Weakness, No diaphoresis, No edema, No loss of appetite Skin: No skin lesions, No rash, No bruising Head: No headache, No light-headedness Eyes: No loss of vision, No pain, No diplopia ENT: No earache, No nasal drainage, No sore throat, No tinnitus Neck: No neck pain, No swelling, No thyromegaly, No stiffness, No mass noted Cardio Vascular: No chest pain, No palpitations, No PND, No orthopnea, No edema Pulmonary: No SOB, No cough, No sputum, No wheezing GI: No nausea, No vomiting, No diarrhea, No pain, No melena, No hematochezia, No constipation, No hematemesis G/U: No dysuria, No frequency, No hematuria Musculoskeletal: No bone or joint pain, No back pain, No muscle pain Endocrine: No polyuria, No polydipsia Psychiatric: No prior psych history, No depression, No anxiety, No suicidal ideation Hematopoietic: No bruising, No lymphadenopathy Allergic/Immuno: No urticaria, No angioedema Neurological: No syncope, No focal symptoms, No weakness, No paresthesia, No headache, No seizure, Dizziness, No confusion, No vertigo ED Past Medical History - Past Medical History Obtainable: Yes Past Medical History: HTN, DM, CVA/TIA, Arthritis Family History: None Social History: Non Smoker, No Alcohol, No Drug Use, Care Facility Surgical History: None Psychiatricy History: Depression Medication: Reviewed Family Medical History - Family Member Mother History Unknown: Yes ED Physical Exam - Physical Examination General/Constitutional: Awake, Well-developed, well-nourished, Alert, No distress, GCS 15, Non-toxic appearing, Ambulatory Other Gen/Cons comments:: LETHARGIC Head: Atraumatic Eyes: Lids, conjuctiva normal, PERRL, EOMI Skin: Nl inspection, No rash, No skin lesions, No ecchymosis, Well hydrated, No lymphadenopathy ENMT: External ears, nose nl, Nasal exam nl, Lips, teeth, gums nl Neck: Nontender, Full ROM w/o pain, No JVD, No nuchal rigidity, No bruit, No mass, No stridor Respiratory: Nl effort/Exclusion, Clear to Auscultation, No Wheeze/Rhonchi/Rales Cardio Vascular: RRR, No murmur, gallop, rubs, NL S1 S2 GI: No tenderness/rebounding/guarding (GENERALIZE TENDERNESS), No organomegaly, No hernia, Normal BS's, Nondistended, No mass/bruits, No McBurney tenderness : No CVA tenderness Extremities: No tenderness or effusion, Full ROM, normal strength in all extremities, No edema, Normal digits & nails Neuro/Psych: Alert/oriented, DTR's symmetric, Normal sensory exam, Normal motor strength, Judgement/insight normal, Mood normal, Normal gait, No focal deficits Misc: Normal back, No paraspinal tenderness ED Labs/Radiology/EKG Results - Radiology Results Results: chest x-ray = right side - EKG Interpretations EKG Time:: 20:44 Rate & Rhythm: RATE=94, SINUS [place]: LEFT ED Assessment - Assessment General Assessment: procitis urinary tract infection intermittent aloc ED Septic Shock - . Is Septic Shock (SBP<90, OR Lactate>4 mmol\L) present?: No - <6hrs of presentation: Vital Signs: Vital Signs - 8 hr 04/21/18 20:35 Temp 98.2 F HR 95 RR 16 BP 154/63 O2 Sat % 97 ED Reassessment (Disposition) - Reassessment Reassessment Condition:: Improved - Diagnosis Diagnosis:: procitis urinary tract infection intermittent aloc - Patient Disposition Discharge/Transfer:: Acute Care w/in this hosp Admitting Medical Physician:: Trish Cisneros
[2018-04-21 20:56] LABS: % BASOPHILS 0.6 % (0.0-2.0); % EOSINOPHILS 3.1 % (0.0-5.0); % MONOCYTES 9.9 % (2.0-10.0); % NEUTROPHILS 48.4 % (40.0-80.0); EOSINOPHILE ABSOLUTE 0.2 Th/cmm (0.1-0.4); MEAN CELL VOLUME 86.8 fl (81-100); MEAN CORPUSCULAR HEMOGLOBIN 29.8 pg (27.0-31.0); MEAN CORPUSCULAR HGB CONC 34.4 pg (28.0-36.0); MONOCYTE ABSOLUTE 0.8 Th/cmm (0.3-1.0); PLATELET COUNT 342 Th/cmm (150-400); RED BLOOD COUNT 3.68 Mil/cmm (3.80-5.20); RED CELL DISTRIBUTION WIDTH 14.6 % (11.5-20.0)
[2018-04-21 21:06] LABS: INR 0.95 (0.5-1.4); PROTHROMBIN TIME (TEST) 9.9 SECONDS (9.5-11.5)
[2018-04-21 21:10] LABS: ALBUMIN 3.3 gm/dL (3.7-5.3); ALKALINE PHOSPHATASE 70 U/L (34-104); ANION GAP 12.2 (7.0-16.0); BILIRUBIN,TOTAL 0.3 mg/dL (0.3-1.0); BUN - UREA NITROGEN 16 mg/dL (7-25); CALCIUM SERUM 8.9 mg/dL (8.6-10.3); CARBON DIOXIDE 21.6 mEq/L (21.0-31.0); CHLORIDE 100 mEq/L (98-107); CREATININE - SERUM 0.8 mg/dL (0.6-1.2); GLUCOSE 238 mg/dL (70-105); POTASSIUM SERUM 3.8 mEq/L (3.5-5.1); SGOT 23 U/L (13-39); SGPT/ALT 15 U/L (7-52); SODIUM SERUM 130 mEq/L (136-145); TOTAL PROTEIN,SERUM 6.7 gm/dL (6.0-8.3)
[2018-04-21 22:46] LABS: URINE SOURCE FOLEY PORT
[2018-04-21 22:47] LABS: URINE BILIRUBIN NEGATIVE (NEGATIVE); URINE BLOOD NEGATIVE (NEGATIVE); URINE GLUCOSE (UA) 100 mg/dL (NEGATIVE); URINE KETONE NEGATIVE (NEGATIVE); URINE LEUKOCYTE ESTERASE SMALL (NEGATIVE); URINE NITRATE NEGATIVE (NEGATIVE); URINE PH 5.5 (4.6 - 8.0); URINE PROTEIN NEGATIVE (NEGATIVE); URINE UROBILINOGEN 0.2 E.U./dL (0.2 - 1.0)
[2018-04-21 23:21] LABS: URINE CLARITY CLEAR (CLEAR); URINE COLOR YELLOW
[2018-04-21 23:22] LABS: URINE BACTERIA OCCASIONAL /hpf (NONE SEEN); URINE EPITHELIAL CELLS FEW /lpf (FEW); URINE RBC 0-2 /hpf (0-5)
[2018-04-22 02:06] VITALS: BP 132/54
[2018-04-22] MEDS: cefTRIAXone 1 GM in Sodium Chloride 0.9% 50 ML IV SCH (04:17)
[2018-04-22 06:19] LABS: % BASOPHILS 1.3 % (0.0-2.0); % LYMPHOCYTES 43.3 % (20.0-50.0); % MONOCYTES 11.3 % (2.0-10.0); % NEUTROPHILS 39.1 % (40.0-80.0); BASOPHILE ABSOLUTE 0.1 Th/cumm (0-0.2); EOSINOPHILE ABSOLUTE 0.3 Th/cmm (0.1-0.4); HEMATOCRIT 29.1 % (41.0-60); HEMOGLOBIN 9.7 gm/dL (12-16); LYMPHOCYTE ABSOLUTE 2.8 Th/cmm (1.5-3.0); MEAN CELL VOLUME 87.1 fl (81-100); MEAN CORPUSCULAR HGB CONC 33.3 pg (28.0-36.0); MONOCYTE ABSOLUTE 0.7 Th/cmm (0.3-1.0); NEUTROPHILE ABSOLUTE 2.5 Th/cmm (1.8-8.0); PLATELET COUNT 353 Th/cmm (150-400); RED BLOOD COUNT 3.35 Mil/cmm (3.80-5.20); RED CELL DISTRIBUTION WIDTH 14.7 % (11.5-20.0); WHITE BLOOD COUNT 6.4 Th/cmm (4.8-10.8)
[2018-04-22] MEDS: INSULIN ASPART SLIDING SCALE 100 UNITS/ML UNIT SUBQ SCH ×4 (06:30→22:10)
[2018-04-22 06:32] LABS: ANION GAP 11.6 (7.0-16.0); BUN - UREA NITROGEN 14 mg/dL (7-25); CALCIUM SERUM 8.4 mg/dL (8.6-10.3); CARBON DIOXIDE 21.5 mEq/L (21.0-31.0); CHLORIDE 105 mEq/L (98-107); CHOLESTEROL 122 mg/dL (<200); CREATININE - SERUM 0.7 mg/dL (0.6-1.2); HDL -HIGH DENSITY LIPOPROTEIN 31 mg/dL (23-92); POTASSIUM SERUM 4.1 mEq/L (3.5-5.1); SODIUM SERUM 134 mEq/L (136-145); TRIGLYCERIDES 54 mg/dL (<150)
[2018-04-22 06:35] LABS: GLUCOSE 141 mg/dL (70-105)
[2018-04-22] MEDS ORDERED: VTE Chemical Prophylaxis Screen/Admission MC PRN (07:45)
--- NOTE | 2018-04-22 09:06 | Diagnostic Imaging Report ---
CHEST X-RAY: AP view INDICATION: Shortness of breath COMPARISON: Chest x-ray 03/30/2018 FINDINGS: There is mild elevation of the right hemidiaphragm. Low lung volumes are seen with increased right basal lung markings. No focal consolidation or effusions. Heart size is normal. Degenerative changes of the spine are noted. Gas distended stomach is noted. IMPRESSION: Suboptimal lung volumes with increased right basal lung markings which may be due to atelectasis. Infiltrate is less likely. No focal consolidation is identified.
--- NOTE | 2018-04-22 09:11 | Diagnostic Imaging Report ---
Head CT without intravenous contrast Indication: pain Comparison: 02/17/2018 Technique: Axial images were obtained from the vertex to the skull base without IV contrast. Coronal reconstructions were made. Total DLP: 661, [id number] FINDINGS: Images of the brain obtained without contrast demonstrate no evidence of an acute hemorrhage. Atrophy is noted. Mild white matter disease is noted. The ventricles and basal cisterns are patent. No mass effect or midline shift. No evidence of a skull fracture or focal soft tissue swelling. The visualized paranasal sinuses demonstrate minimal mucosal thickening. IMPRESSION: No evidence of acute intracranial hemorrhage. Atrophy. Mild supratentorial white matter disease which is nonspecific and may be due to chronic microvessel ischemia.
--- NOTE | 2018-04-22 09:36 | Diagnostic Imaging Report ---
CT abdomen and pelvis without intravenous contrast Indication: Abdominal pain Comparison: CT abdomen and pelvis on 03/30/2019, Technique: Axial images were obtained from the lung bases to the bilateral proximal femurs without IV contrast. Coronal reconstructions were made. total DLP: 694, CTDI13.6 FINDINGS: Hypoventilatory and atelectatic changes of the lungs are noted. Small 2 to 3 mm nodules of the lung bases are seen. There is probable bibasal scarring. Assessment of solid organs is limited that lack of IV contrast. No focal hepatic or splenic lesions. Small calcification region of the head of the pancreas may be due to old inflammatory process. No surrounding inflammatory changes. No focal lesions. Nonspecific bilateral perinephric inflammatory changes are noted. No renal stones. There is fullness of bilateral renal collecting systems ureters. Urinary bladder is underdistended containing a Wiseman catheter. Small amount of free fluid is seen within the pelvis with presacral edema. Distal fecal impaction is also noted with rectal wall thickening. Few borderline prominent perirectal lymph nodes are noted the largest measuring 7mm (image 69, series 2). Copious stool is seen throughout the colon. Appendix is not visualized. No evidence of small bowel obstruction. Moderate atherosclerosis is noted. Ill defined left breast tissue measuring 2.5 x 1.5 cm is again noted. Degenerative changes of the spine are noted. Mild compression deformity of T12 is seen along the inferior endplate with mild sclerotic change in this region as seen on prior examination. There may be a Tarlov cyst along the mid sacrum. Osteopenia and lucencies are seen throughout the bones. IMPRESSION: Inflammatory changes along the posterior pelvis and presacral region with few mildly prominent lymph nodes the largest along the perirectal region measuring 0.7 cm. Rectal wall thickening is also noted. This may be due to inflammatory process and proctitis. Infiltrative/ neoplastic process is less likely cannot be excluded. Distal fecal impaction is also noted. Additional copious stool throughout the colon. Underdistended urinary bladder containing for catheter. Urinary bladder wall thickening and inflammation cannot be excluded Fullness of the bilateral renal collecting systems without vicki hydronephrosis or evidence of renal stones. Redemonstration of left breast ill-defined nodule measuring 2.5 x 1.5 cm. Again correlation with mammography and ultrasound is suggested. Degenerative change of the spine. Mild compression deformity of the inferior endplate of T12 is again noted with sclerotic changes in this region. Findings favor osteoporotic compression deformity, Lucency is also seen throughout the bones. This may be due to osteoporosis, however, other etiologies such as multiple myeloma cannot be excluded. Clinical correlation and follow-up is needed. Atherosclerotic vascular disease. Please refer above for details.
[2018-04-22] MEDS ORDERED: Morphine 10 mg/5 ml 5mL UDC PO PRN (11:38)
[2018-04-22] MEDS ORDERED: metroNIDAZOLE 500mg/NS 100mL 500 MG/100 ML BAG IV SCH (13:00)
[2018-04-22] MEDS ORDERED: Piperacillin/Tazobact 2.25 gm in 0.9% NS 50 ML IV SCH (14:00)
--- NOTE | 2018-04-22 18:42 | Consultation ---
DATE OF CONSULTATION: 04/22/2018 INFECTIOUS DISEASE CONSULTATION CHIEF COMPLAINT: Dizziness and weakness. HISTORY OF PRESENT ILLNESS: The patient is a 77-year-old female with a past medical history of hypertension, diabetes mellitus type 2 with severe arthritis, dementia, brought in from nursing facility for evaluation of dizziness. She was also complained of generalized weakness. On initial evaluation, the patient's temperature was 98.2 degrees Fahrenheit, pulse was 95, respirations 16, blood pressure 154/63. CT of the head was performed and it was showing no evidence of any acute abnormality. CT scan of the abdomen and pelvis had shown inflammation of the posterior pelvic and presacral region with a few mildly prominent lymph nodes, the largest the perirectal region measuring 0.7 cm, rectal wall thickening is also noted. Inflammatory neoplastic process less likely cannot be excluded. Distal fecal impaction. There is no copious stool throughout the colon. Under distended urinary bladder containing Wiseman catheter, urinary bladder wall thickening, fullness of bilateral renal collecting system without vicki hydronephrosis. It demonstrates left breast ill-defined nodule 2.5 x 1.5 cm, DJD of the spine, compression deformity of the T12. Urinalysis showed small leukocyte esterase and wbc's 2-5 ALLERGIES: IODINE CONTAINING PRODUCTS. PAST MEDICAL HISTORY: Includes as mentioned above, hypertension, diabetes mellitus type 2, severe arthritis, dementia. SOCIAL HISTORY: The patient lives in a nursing facility. No history of smoking, alcohol or drug use. PSYCHIATRIC HISORY: Depression. FAMILY HISTORY: Not available. REVIEW OF SYSTEMS: GENERAL: The patient has no fever, no chills. Has generalized weakness. HEENT: No diplopia, no photophobia, no sore throat. RESPIRATORY: No cough, no shortness of breath. CARDIOVASCULAR: No chest pain or palpitation. GASTROINTESTINAL: No nausea, no vomiting, no diarrhea, no constipation. GENITOURINARY: No dysuria. NEUROLOGIC: No headache, no dizziness, no focal weakness. PHYSICAL EXAMINATION: CURRENT VITAL SIGNS: Shows temperature 98.8 degrees Fahrenheit, pulse 62, respirations 18 and blood pressure 133/47, oxygen 96%. GENERAL: The patient is comfortable. HEENT: Head is normocephalic, atraumatic. Oral cavity moist, pink tongue. Eyes: No pallor, no icterus. Pupils are PERRLA. EOMI. NECK: Supple, no JVD, no carotid bruit. Trachea in midline. CHEST: Bilateral vesicular sounds. No crackles or wheezing. HEART: S1, S2 within normal limits. Regular rhythm. No murmur, no gallop. ABDOMEN: Soft, nontender, nondistended. Bowel sounds present. EXTREMITIES: No cyanosis, no clubbing, no edema. NEUROLOGIC: Alert, awake, oriented x 3. Speech is clear. LABORATORY DATA: Current lab shows WBC count 6400, hemoglobin 9.7, hematocrit 29.1, platelets are 353,000, neutrophil is 39%. Sodium is 134, potassium 4.1, chloride 105, bicarbonate is 21.5, BUN is 14, creatinine 0.7, glucose is 141. Urinalysis negative nitrite, leukocyte esterase small, WBC 2-5, occasional bacteria. CT scan of the head showed no evidence any acute abnormality. Chest x-ray shows no evidence of acute abnormality, there is some atelectasis. No focal consolidation. CT scan of abdomen and pelvis has revealed proctitis and adjoining lymphadenopathy. Inflammatory changes of the posterior pelvis presacral region. Urinary bladder wall thickening, fullness of bilateral renal pelvis and ill-defined nodules in the left breast. Lucency also seen throughout the bone may be due to osteoporosis, but multiple cannot be excluded. Copious amount of stool throughout the colon with the distal fecal impaction. IMPRESSION: 1. Proctitis. 2. Urinary tract infection. 3. Fecal impaction. 4. Breast nodule in the left. 5. Anemia. 6. Diabetes mellitus type 2. 7. Hypertension. 8. Dementia. 9. Depression. 10. Arthritis. PLAN: We will consult GI and surgery. Antibiotic olson we will continue Rocephin and continue the patient's home medications. Medications includes Tylenol 650 mg p.o. daily, amlodipine 10 mg p.o. daily, aspirin 81 mg p.o. daily, Lipitor 40 mg p.o. daily, vitamin D3 one tab p.o. daily, Catapres 0.1 mg p.o. q.4 hourly p.r.n., Lovenox 40 mg p.o. subcutaneously daily, NPH insulin 20 units in the morning and 30 units at night, Namenda 10 mg p.o. b.i.d., Lamictal 25 mg p.o. at bedtime, Remeron 15 mg p.o. daily, morphine 15 mg p.o. q.4 hours p.r.n., multivitamin 1 tab p.o. daily, valsartan 325 mg p.o. daily. [facility]# [id number]
[2018-04-22] MEDS ORDERED: Non-Formulary Item 1 EA (Atorvastatin Calcium [Lipitor] 40 MG) PO SCH (21:00)
[2018-04-22] MEDS ORDERED: INSULIN HUMAN ISOPHANE (NPH) 100 UNITS/ML SUBQ SCH (21:00)
[2018-04-22] MEDS ORDERED: Magnesium Hydroxide (MOM) 30 mL UDC PO ONE (21:00)
[2018-04-22] MEDS: INSULIN HUMAN ISOPHANE (NPH) 100 UNITS/ML SUBQ SCH (22:13)
--- NOTE | 2018-04-22 22:35 | Consultation ---
DATE OF CONSULTATION: 04/22/[address] Cisneros. HISTORY AND PHYSICAL: This is a 77-year-old female patient who was brought to the hospital complaining of vertigo, dizziness, nausea. The patient has sinus tachycardia. PAST MEDICAL HISTORY: Diabetes mellitus type 2, hypertension, vertigo, osteoporosis, proctitis, iron deficiency anemia, major depression, fecal impaction. FAMILY HISTORY: Unremarkable. SOCIAL HISTORY: No history of smoking, alcohol abuse. ALLERGIES: No known allergies. PHYSICAL EXAMINATION: VITAL SIGNS: Blood pressure 130/80, pulse 70, respirations 20. HEAD: Normocephalic. No lumps or bumps. EYES: Pupils equal, reactive to light. Fundi show AV nicking, sclerae white, conjunctivae pink. NECK: Carotid 2+. Normal upstroke. JVD flat. Thyroid not palpable. Lymph nodes not palpable. CHEST: Shows increased AP diameter. No kyphosis, scoliosis. LUNGS: Bilateral bronchovesicular breath sounds. HEART: PMI fifth intercostal space with lateral to midclavicular line. S1, S2, S3, S4, soft systolic murmur. ABDOMEN: Soft. Liver and spleen not palpable. No organomegaly. Bowel sounds active. NEUROLOGIC: Unremarkable. EXTREMITIES: Peripheral pulses 2+. No pedal edema. CLINICAL IMPRESSION: Diabetes mellitus type 2, insulin-dependent, hypertension, vertigo, osteoporosis, proctitis, iron deficiency anemia, depression, fecal impaction. PLAN: Admit the patient. We will continue present management, monitor the patient closely, have Infectious Disease consult. [facility]# [id number]
[2018-04-23] MEDS: cefTRIAXone 1 GM in Sodium Chloride 0.9% 50 ML IV SCH (04:00)
[2018-04-23 05:47] LABS: ANION GAP 10.3 (7.0-16.0); BUN - UREA NITROGEN 12 mg/dL (7-25); CALCIUM SERUM 8.7 mg/dL (8.6-10.3); CARBON DIOXIDE 23.9 mEq/L (21.0-31.0); CHLORIDE 107 mEq/L (98-107); CREATININE - SERUM 0.8 mg/dL (0.6-1.2); GLUCOSE 117 mg/dL (70-105); POTASSIUM SERUM 4.2 mEq/L (3.5-5.1); SODIUM SERUM 137 mEq/L (136-145)
[2018-04-23] MEDS: INSULIN HUMAN ISOPHANE (NPH) 100 UNITS/ML SUBQ SCH ×2 (07:16→21:53)
[2018-04-23] MEDS: INSULIN ASPART SLIDING SCALE 100 UNITS/ML UNIT SUBQ SCH ×4 (07:16→21:52)
[2018-04-23] MEDS ORDERED: INSULIN HUMAN ISOPHANE (NPH) 100 UNITS/ML SUBQ SCH (07:30)
--- NOTE | 2018-04-23 08:12 | Diagnostic Imaging Report ---
Left breast ultrasound HISTORY: Mass. Sonographic sector images obtained about the quadrants of the left breast. The exam demonstrates an approximate 2.6 cm somewhat ill-defined predominantly hypoechoic focus within the 12:00 region of the left breast. The appearance is nonspecific. Inflammatory or neoplastic change cannot be excluded. Mammographic correlation would provide additional assessment. Multiple hypoechoic nodules are seen in the left axillary region. The largest measures 1.8 cm. The appearances are somewhat atypical for lymph nodes. Again, mammographic correlation would provide additional assessment. IMPRESSION: 1. Approximate 2.6 cm ill-defined hypoechoic lesion within the 12:00 region of the left breast. The appearance is nonspecific. Neoplastic or inflammatory etiologies cannot be excluded. Mammographic correlation is recommended. 2. Multiple nodular densities in the left axillary region. Though atypical, findings are probably related to lymph nodes. Again, mammographic correlation would provide for further assessment.
--- NOTE | 2018-04-23 08:17 | Diagnostic Imaging Report ---
Renal ultrasound HISTORY: Pain The right kidney measures 9.8 x 5.1 x 5.1 cm. No focal lesions. No hydronephrosis. The left kidney measures 11.5 x 5.8 x 6.0 cm. No focal lesions. No hydronephrosis. Evaluation of the urinary bladder is limited due to lack of distention and presence of a Wiseman catheter. However, a 1.0 cm echogenic density is seen within the region. Calcification cannot be excluded. IMPRESSION: 1. Negative examination the kidneys 2. Limited evaluation of the urinary bladder. Question 1.0 cm calcification in the vicinity of the urinary bladder.
--- NOTE | 2018-04-23 08:18 | General Progress Note ---
Subjective - Review of Systems Service Date: 04/23/18 Events since last encounter: large mass left breast with axillary nodes daughter may have breast CA too Plan: modified radical mastectomy, discussed with daughter Objective - Results Result Diagrams: 04/22/18 06:00 04/23/18 04:45 Recent Labs: Laboratory Last Values WBC 6.4 Th/cmm (4.8-10.8) 04/22/18 06:00 RBC 3.35 Mil/cmm (3.80-5.20) L 04/22/18 06:00 Hgb 9.7 gm/dL (12-16) L 04/22/18 06:00 Hct 29.1 % (41.0-60) L 04/22/18 06:00 MCV 87.1 fl (81-100) 04/22/18 06:00 MCH 29.0 pg (27.0-31.0) 04/22/18 06:00 MCHC Differential 33.3 pg (28.0-36.0) 04/22/18 06:00 RDW 14.7 % (11.5-20.0) 04/22/18 06:00 Plt Count 353 Th/cmm (150-400) 04/22/18 06:00 MPV 7.0 fl 04/22/18 06:00 Neutrophils % 39.1 % (40.0-80.0) L 04/22/18 06:00 Lymphocytes % 43.3 % (20.0-50.0) 04/22/18 06:00 Monocytes % 11.3 % (2.0-10.0) H 04/22/18 06:00 Eosinophils % 5.0 % (0.0-5.0) 04/22/18 06:00 Basophils % 1.3 % (0.0-2.0) 04/22/18 06:00 PT 9.9 SECONDS (9.5-11.5) 04/21/18 20:50 INR 0.95 (0.5-1.4) 04/21/18 20:50 PTT (Actin FS) 27.9 SECONDS (26.0-38.0) 04/21/18 20:50 Sodium 137 mEq/L (136-145) 04/23/18 04:45 Potassium 4.2 mEq/L (3.5-5.1) 04/23/18 04:45 Chloride 107 mEq/L (98-107) 04/23/18 04:45 Carbon Dioxide 23.9 mEq/L (21.0-31.0) 04/23/18 04:45 Anion Gap 10.3 (7.0-16.0) 04/23/18 04:45 BUN 12 mg/dL (7-25) 04/23/18 04:45 Creatinine 0.8 mg/dL (0.6-1.2) 04/23/18 04:45 Est GFR ( Amer) TNP 04/23/18 04:45 Est GFR (Non-Af Amer) TNP 04/23/18 04:45 BUN/Creatinine Ratio 15.0 04/23/18 04:45 Glucose 117 mg/dL (70-105) H 04/23/18 04:45 POC Glucose 130 MG/DL (70 - 105) H 04/23/18 06:39 Calcium 8.7 mg/dL (8.6-10.3) 04/23/18 04:45 Total Bilirubin 0.3 mg/dL (0.3-1.0) 04/21/18 20:50 AST 23 U/L (13-39) 04/21/18 20:50 ALT 15 U/L (7-52) 04/21/18 20:50 Alkaline Phosphatase 70 U/L (34-104) 04/21/18 20:50 Troponin I < 0.01 ng/mL (0.01-0.05) L 04/21/18 20:50 B-Natriuretic Peptide 41.1 pg/mL (5.0-100.0) 04/23/18 04:45 Total Protein 6.7 gm/dL (6.0-8.3) 04/21/18 20:50 Albumin 3.3 gm/dL (3.7-5.3) L 04/21/18 20:50 Globulin 3.4 gm/dL 04/21/18 20:50 Albumin/Globulin Ratio 1.0 (1.0-1.8) 04/21/18 20:50 Triglycerides 54 mg/dL (<150) 04/22/18 06:00 Cholesterol 122 mg/dL (<200) 04/22/18 06:00 LDL Cholesterol Direct 85 mg/dL (75-193) 04/22/18 06:00 HDL Cholesterol 31 mg/dL (23-92) 04/22/18 06:00 TSH 1.25 uIU/ml (0.34-5.60) 04/22/18 06:00 Urine Source [place] 04/21/18 22:10 Urine Color YELLOW 04/21/18 22:10 Urine Clarity CLEAR (CLEAR) 04/21/18 22:10 Urine pH 5.5 (4.6 - 8.0) 04/21/18 22:10 Ur Specific [place] <= 1.005 (1.005-1.030) 04/21/18 22:10 Urine Protein NEGATIVE mg/dL (NEGATIVE) 04/21/18 22:10 Urine Glucose (UA) 100 mg/dL (NEGATIVE) H 04/21/18 22:10 Urine Ketones NEGATIVE mg/dL (NEGATIVE) 04/21/18 22:10 Urine Blood NEGATIVE (NEGATIVE) 04/21/18 22:10 Urine Nitrate NEGATIVE (NEGATIVE) 04/21/18 22:10 Urine Bilirubin NEGATIVE (NEGATIVE) 04/21/18 22:10 Urine Urobilinogen 0.2 E.U./dL (0.2 - 1.0) 04/21/18 22:10 Ur Leukocyte Esterase SMALL (NEGATIVE) H 04/21/18 22:10 Urine RBC 0-2 /hpf (0-5) 04/21/18 22:10 Urine WBC 2-5 /hpf (0-5) 04/21/18 22:10 Ur Epithelial Cells FEW /lpf (FEW) 04/21/18 22:10 Urine Bacteria OCCASIONAL /hpf (NONE SEEN) 04/21/18 22:10 - Physical Exam Vitals and I&O: Vital Signs Temp 97.3 F 04/23/18 03:47 Pulse 63 04/23/18 03:47 Resp 18 04/23/18 03:47 BP 118/57 04/23/18 03:47 Pulse Ox 96 04/23/18 03:47 Intake & Output 04/22/18 04/23/18 04/23/18 18:59 06:59 18:59 Intake Total 600 Output Total 600 800 Balance 0 -800 Weight (lbs) 81.647 kg 79.379 kg Intake: Oral 600 Output: Urine 600 800 Other: # Bowel Movements 1 Weight Source Bedscale Bedscale Active Medications: Current Medications Acetaminophen (Tylenol) 650 mg PO Q6H PRN PRN Reason: Fever > 101 Stop: 06/21/18 11:32 Amlodipine Besylate (Norvasc) 10 mg PO DAILY [facility] Stop: 06/22/18 08:59 Aspirin (Aspirin Chewable) 81 mg PO DAILY [facility] Stop: 06/22/18 08:59 Atorvastatin Calcium (Lipitor) 40 mg PO HS [facility]; Protocol Stop: 06/21/18 20:59 Last Admin: 04/22/18 21:24 Dose: 40 mg Cholecalciferol (Vitamin D3) 1,000 iu PO DAILY [facility] Stop: 06/22/18 08:59 Docusate Sodium (Colace) 100 mg PO BID [facility] Stop: 06/21/18 16:59 Last Admin: 04/22/18 16:33 Dose: 100 mg Enoxaparin Sodium (Lovenox) 40 mg SUBQ DAILY [facility] Stop: 06/22/18 08:59 Heparin Sodium (Porcine) (Heparin) 5,000 units SUBQ Q12HR [facility] Stop: 06/21/18 08:59 Last Admin: 04/22/18 21:24 Dose: 5,000 units Ceftriaxone Sodium 1 gm/ (Sodium Chloride) 50 mls @ 100 mls/hr IV Q24HR [facility] Stop: 06/21/18 03:59 Last Admin: 04/23/18 04:00 Dose: 100 mls/hr Insulin Aspart (Novolog Insulin Sliding Scale) 0 units SUBQ ACHS [facility]; Protocol Stop: 06/21/18 07:29 Last Admin: 04/23/18 07:16 Dose: Not Given Insulin Human NPH (Novolin N) 20 units SUBQ QDAC [facility]; Protocol Stop: 06/22/18 07:29 Last Admin: 04/23/18 07:16 Dose: Not Given Insulin Human NPH (Novolin N) 30 units SUBQ HS [facility]; Protocol Stop: 06/21/18 20:59 Last Admin: 04/22/18 22:13 Dose: Not Given Lamotrigine (Lamictal) 25 mg PO HS [facility]; Protocol Stop: 06/21/18 20:59 Last Admin: 04/22/18 21:23 Dose: 25 mg Memantine (Namenda) 10 mg PO BID [facility] Stop: 06/21/18 16:59 Last Admin: 04/22/18 16:33 Dose: 10 mg Mirtazapine (Remeron) 15 mg PO HS [facility]; Protocol Stop: 06/21/18 20:59 Last Admin: 04/22/18 21:24 Dose: 15 mg Miscellaneous (Vte Chemical Prophylaxis Screen/ Admission) 1 ea [facility] PRN PRN PRN Reason: PROTOCOL Stop: 06/21/18 07:44 Morphine Sulfate (Morphine) 15 mg PO Q4H PRN PRN Reason: Pain (Moderate) Stop: 06/21/18 11:37 Multivitamins/Vitamin C (Theragran) 1 tab PO DAILY [facility] Stop: 06/22/18 08:59 Nitroglycerin (Nitrostat) 0.4 mg SL Q5MIN PRN PRN Reason: Chest Pain Stop: 06/21/18 11:34 Valsartan (Diovan) 320 mg PO DAILY [facility] Stop: 06/22/18 08:59 - Procedures Procedures: Procedures Procedure Code Date EXCISION OF DUODENUM, ENDO, DIAGN [id number] 02/16/18 EXCISION OF ESOPHAGOGASTRIC JUNCTION, ENDO, DIAGN [id number] 02/16/18 EXCISION OF STOMACH, ENDO, DIAGN [id number] 02/16/18
[2018-04-23] MEDS: Aspirin 81mg Chewable Tab PO SCH (08:23)
[2018-04-23] MEDS: Enoxaparin 40 mg/0.4 mL 0.4mL Syr SUBQ SCH (08:24)
[2018-04-23] MEDS: Multivitamin Tab PO SCH (08:25)
[2018-04-23 08:53] LABS: URINE MICROSCOPIC INDICATED? YES
[2018-04-23] MEDS ORDERED: Aspirin 81mg Chewable Tab PO SCH (09:00)
[2018-04-23] MEDS ORDERED: Non-Formulary Item 1 EA (Multivitamin [Multivitamins] 1 TAB) PO SCH (09:00)
[2018-04-23] MEDS ORDERED: VALSARTAN 320 MG PO SCH (09:00)
[2018-04-23] MEDS ORDERED: Non-Formulary Item 1 EA (Cholecalciferol (Vitamin D3) [Vitamin D3] 1 TAB) PO SCH (09:00)
[2018-04-23] MEDS ORDERED: Enoxaparin 40 mg/0.4 mL 0.4mL Syr SUBQ SCH (09:00)
[2018-04-23] MEDS ORDERED: Probiotic Screen MC PRN (09:29)
--- NOTE | 2018-04-23 09:58 | Consultation ---
DATE OF CONSULTATION: 04/23/2018 SURGICAL CONSULTATION REFERRING PHYSICIAN: Dr. Cisneros. REASON FOR CONSULTATION: Mass, left breast. Thank you for referring this patient to me. HISTORY OF PRESENT ILLNESS: This is a 77-year-old female who was admitted from senior living because of dizziness. The patient had slight anemia at 9.[address] scan of the head was done, which was negative. CT scan of the abdomen also was done and this showed a undistended bladder with a catheter, left breast mass measuring 2.5 x 1.5 cm, degenerative changes in the spine. She underwent ultrasound study of the breast and this showed a mass to be at 2.6 cm at 12 o'clock with multiple nodular densities in the left axillary region. CBC is normal except for slight hemoglobin drop of 9.7. Electrolytes are within normal limits with blood sugar 131. PHYSICAL EXAMINATION: The patient is alert and awake. The daughter is at bedside. There is a large mass around the 1 o'clock location with skin retraction and palpable nodes in the left axilla. Informed consent discussed with daughter regarding need for excisional biopsy and mastectomy as this is extremely suspicious for malignancy. Risks and complications were discussed and daughter understands and consent was given. JOB# [id number]
[2018-04-23] MEDS ORDERED: fentaNYL Citrate 100 mcg/2mL Vial ONE (10:09)
[2018-04-23] MEDS ORDERED: Propofol **SURGERY USE ONLY** 20 ML IV ONE (10:49)
[2018-04-23] MEDS ORDERED: HYDROmorphone 1 mg/mL 1mL Syr ONE (10:57)
[2018-04-23] MEDS ORDERED: Labetalol 5 mg/mL 20 mL Vial ONE (10:59)
--- NOTE | 2018-04-23 11:08 | Consultation ---
DATE OF CONSULTATION: 04/23/2018 REQUESTING PHYSICIAN: Dr. Miller. REASON FOR CONSULTATION: Concern for proctitis and stool impaction. HISTORY OF PRESENT ILLNESS: Thank you for asking me to see this patient in consultation. This is an elderly female, 77 years old with history of dementia, diabetes type 2, vertigo, and osteoporosis, who presents to the hospital with increased dizziness, nausea as well as overall discomfort. The patient was found on CAT scan to have evidence of fecal impaction as well as proctitis. According to the patient's daughter, patient has had a colonoscopy; however, this was probably likely about 8-9 years ago was reportedly normal. The patient has been evaluated here by Surgery who has noticed a left-sided breast mass as well as some possible axillary lymph nodes and the patient is going for a radical mastectomy with lymph node dissection this morning. The patient's CT of the abdomen and pelvis showed inflammation of the posterior pelvic and presacral region with mildly prominent lymph nodes, the largest around the perirectal region measuring 0.7 cm along with rectal thickening. We have been asked to comment further on this. Currently, the patient's family is coping with the fact the patient has to go for a surgery today. PAST MEDICAL HISTORY: As above, hypertension, diabetes type 2, severe arthritis and dementia. SOCIAL HISTORY: The patient lives in a nursing facility. No history of smoking, alcohol, or drugs. FAMILY HISTORY: Not available for review given the patient's current state. MEDICATIONS: Have been reviewed. ALLERGIES: None known. REVIEW OF SYSTEMS: As in HPI. All other 12-point systems are negative. PHYSICAL EXAMINATION: VITAL SIGNS: Temperature 98.8, pulse 60, respirations 18, blood pressure is 133/47, oxygen saturation 96%. GENERAL: She is comfortable, in no acute distress. HEENT: Normocephalic, atraumatic. PERRL positive. CARDIOVASCULAR: Regular rate and rhythm, normal S1, S2, no murmurs, rubs or gallops. LUNGS: Clear bilaterally. No wheezes, rales, or rhonchi. ABDOMEN: Soft, nontender, nondistended. Bowel sounds are present. EXTREMITIES: Show no cyanosis, no clubbing and no edema. NEUROLOGIC: No gross deficits. LABORATORY DATA: Showed hemoglobin 9.7, platelet count of 353,000. Sodium 134, potassium 4.1, MCV is 87, creatinine was 0.7. IMAGING: CT of the abdomen and pelvis performed on 04/21/2018 showed inflammatory changes along the posterior pelvis and presacral region with few mildly prominent lymph nodes, the largest along the perirectal region measuring 0.7 cm, rectal wall thickening was also noted, which may be due to inflammatory process and proctitis. Infiltrative neoplastic process is less likely; however, cannot be excluded. Distal fecal impaction is also noted. ASSESSMENT AND PLAN: This is a 77-year-old female who resides in a senior care with a history of dementia, osteoporosis, and arthritis, who presents with general feeling of malaise, weakness, and dizziness, found to have an ill-defined breast mass as well as nodules in this region as well as perirectal stranding. 1. Acute on chronic constipation. 2. Perirectal stranding and concern for proctitis. 3. Rule out neoplastic rectal process. 4. Breast mass. 5. Dementia. At this point, we would recommend good bowel regimen for the patient including MiraLax or milk of magnesia as well as tap water enemas to help with assist with bowel movement. Noted that the patient has plans to go for surgery today and we will likely have these medications administered after patient returns and is starting to eat well and doing well postoperatively. We would recommend after the patient recovers from her General Surgery that she undergo at least a flexible sigmoidoscopy to evaluate the perirectal area. Family was not ready to consent for any endoscopic workup at this time given the nature of everything going on there little overwhelmed. Can just recommend conservative management with bowel regimen and enemas for now and will discuss an impending flexible sigmoidoscopy based on the patient's clinical status throughout the hospitalization. Thank you for involving us in this patient's care. We will continue to follow alongside with you. JOB# [id number]
[2018-04-23] MEDS ORDERED: HYDROmorphone 1 mg/mL 1mL Syr IVP PRN (11:55)
--- NOTE | 2018-04-23 16:08 | General Progress Note ---
Subjective - Review of Systems Events since last encounter: patient has large mass in left breast with axillary nodes Objective - Results Result Diagrams: 04/22/18 06:00 04/23/18 04:45 Recent Labs: Laboratory Last Values WBC 6.4 Th/cmm (4.8-10.8) 04/22/18 06:00 RBC 3.35 Mil/cmm (3.80-5.20) L 04/22/18 06:00 Hgb 9.7 gm/dL (12-16) L 04/22/18 06:00 Hct 29.1 % (41.0-60) L 04/22/18 06:00 MCV 87.1 fl (81-100) 04/22/18 06:00 MCH 29.0 pg (27.0-31.0) 04/22/18 06:00 MCHC Differential 33.3 pg (28.0-36.0) 04/22/18 06:00 RDW 14.7 % (11.5-20.0) 04/22/18 06:00 Plt Count 353 Th/cmm (150-400) 04/22/18 06:00 MPV 7.0 fl 04/22/18 06:00 Neutrophils % 39.1 % (40.0-80.0) L 04/22/18 06:00 Lymphocytes % 43.3 % (20.0-50.0) 04/22/18 06:00 Monocytes % 11.3 % (2.0-10.0) H 04/22/18 06:00 Eosinophils % 5.0 % (0.0-5.0) 04/22/18 06:00 Basophils % 1.3 % (0.0-2.0) 04/22/18 06:00 PT 9.9 SECONDS (9.5-11.5) 04/21/18 20:50 INR 0.95 (0.5-1.4) 04/21/18 20:50 PTT (Actin FS) 27.9 SECONDS (26.0-38.0) 04/21/18 20:50 Sodium 137 mEq/L (136-145) 04/23/18 04:45 Potassium 4.2 mEq/L (3.5-5.1) 04/23/18 04:45 Chloride 107 mEq/L (98-107) 04/23/18 04:45 Carbon Dioxide 23.9 mEq/L (21.0-31.0) 04/23/18 04:45 Anion Gap 10.3 (7.0-16.0) 04/23/18 04:45 BUN 12 mg/dL (7-25) 04/23/18 04:45 Creatinine 0.8 mg/dL (0.6-1.2) 04/23/18 04:45 Est GFR ( Amer) TNP 04/23/18 04:45 Est GFR (Non-Af Amer) TNP 04/23/18 04:45 BUN/Creatinine Ratio 15.0 04/23/18 04:45 Glucose 117 mg/dL (70-105) H 04/23/18 04:45 POC Glucose 163 MG/DL (70 - 105) H 04/23/18 14:01 Calcium 8.7 mg/dL (8.6-10.3) 04/23/18 04:45 Total Bilirubin 0.3 mg/dL (0.3-1.0) 04/21/18 20:50 AST 23 U/L (13-39) 04/21/18 20:50 ALT 15 U/L (7-52) 04/21/18 20:50 Alkaline Phosphatase 70 U/L (34-104) 04/21/18 20:50 Troponin I < 0.01 ng/mL (0.01-0.05) L 04/21/18 20:50 B-Natriuretic Peptide 41.1 pg/mL (5.0-100.0) 04/23/18 04:45 Total Protein 6.7 gm/dL (6.0-8.3) 04/21/18 20:50 Albumin 3.3 gm/dL (3.7-5.3) L 04/21/18 20:50 Globulin 3.4 gm/dL 04/21/18 20:50 Albumin/Globulin Ratio 1.0 (1.0-1.8) 04/21/18 20:50 Triglycerides 54 mg/dL (<150) 04/22/18 06:00 Cholesterol 122 mg/dL (<200) 04/22/18 06:00 LDL Cholesterol Direct 85 mg/dL (75-193) 04/22/18 06:00 HDL Cholesterol 31 mg/dL (23-92) 04/22/18 06:00 TSH 1.25 uIU/ml (0.34-5.60) 04/22/18 06:00 Urine Source [place] 04/21/18 22:10 Urine Color YELLOW 04/21/18 22:10 Urine Clarity CLEAR (CLEAR) 04/21/18 22:10 Urine pH 5.5 (4.6 - 8.0) 04/21/18 22:10 Ur Specific [place] <= 1.005 (1.005-1.030) 04/21/18 22:10 Urine Protein NEGATIVE mg/dL (NEGATIVE) 04/21/18 22:10 Urine Glucose (UA) 100 mg/dL (NEGATIVE) H 04/21/18 22:10 Urine Ketones NEGATIVE mg/dL (NEGATIVE) 04/21/18 22:10 Urine Blood NEGATIVE (NEGATIVE) 04/21/18 22:10 Urine Nitrate NEGATIVE (NEGATIVE) 04/21/18 22:10 Urine Bilirubin NEGATIVE (NEGATIVE) 04/21/18 22:10 Urine Urobilinogen 0.2 E.U./dL (0.2 - 1.0) 04/21/18 22:10 Ur Leukocyte Esterase SMALL (NEGATIVE) H 04/21/18 22:10 Urine RBC 0-2 /hpf (0-5) 04/21/18 22:10 Urine WBC 2-5 /hpf (0-5) 04/21/18 22:10 Ur Epithelial Cells FEW /lpf (FEW) 04/21/18 22:10 Urine Bacteria OCCASIONAL /hpf (NONE SEEN) 04/21/18 22:10 - Physical Exam Vitals and I&O: Vital Signs Temp 97.6 F 04/23/18 13:20 Pulse 76 04/23/18 13:20 Resp 18 04/23/18 13:20 BP 116/54 04/23/18 13:20 Pulse Ox 94 04/23/18 13:20 Intake & Output 04/22/18 04/23/18 04/23/18 18:59 06:59 18:59 Intake Total 600 Output Total 600 800 Balance 0 -800 Weight (lbs) 81.647 kg 79.379 kg Intake: Oral 600 Output: Urine 600 800 Other: # Bowel Movements 1 Weight Source Bedscale Bedscale Active Medications: Current Medications Acetaminophen (Tylenol) 650 mg PO Q6H PRN PRN Reason: Fever > 101 Stop: 06/21/18 11:32 Amlodipine Besylate (Norvasc) 10 mg PO DAILY [facility] Stop: 06/22/18 08:59 Last Admin: 04/23/18 08:23 Dose: Not Given Aspirin (Aspirin Chewable) 81 mg PO DAILY [facility] Stop: 06/22/18 08:59 Last Admin: 04/23/18 08:23 Dose: Not Given Atorvastatin Calcium (Lipitor) 40 mg PO HS [facility]; Protocol Stop: 06/21/18 20:59 Last Admin: 04/22/18 21:24 Dose: 40 mg Cholecalciferol (Vitamin D3) 1,000 iu PO DAILY [facility] Stop: 06/22/18 08:59 Last Admin: 04/23/18 08:24 Dose: Not Given Docusate Sodium (Colace) 100 mg PO BID [facility] Stop: 06/21/18 16:59 Last Admin: 04/23/18 08:24 Dose: Not Given Enoxaparin Sodium (Lovenox) 40 mg SUBQ DAILY [facility] Stop: 06/22/18 08:59 Last Admin: 04/23/18 08:24 Dose: Not Given Heparin Sodium (Porcine) (Heparin) 5,000 units SUBQ Q12HR [facility] Stop: 06/21/18 08:59 Last Admin: 04/23/18 08:24 Dose: Not Given Hydromorphone HCl (Dilaudid) 1 mg IVP Q4H PRN PRN Reason: Pain (Moderate) Stop: 04/23/18 23:59 Ceftriaxone Sodium 1 gm/ (Sodium Chloride) 50 mls @ 100 mls/hr IV Q24HR [facility] Stop: 06/21/18 03:59 Last Admin: 04/23/18 04:00 Dose: 100 mls/hr Insulin Aspart (Novolog Insulin Sliding Scale) 0 units SUBQ ACHS [facility]; Protocol Stop: 06/21/18 07:29 Last Admin: 04/23/18 14:02 Dose: Not Given Insulin Human NPH (Novolin N) 20 units SUBQ QDAC [facility]; Protocol Stop: 06/22/18 07:29 Last Admin: 04/23/18 07:16 Dose: Not Given Insulin Human NPH (Novolin N) 30 units SUBQ HS [facility]; Protocol Stop: 06/21/18 20:59 Last Admin: 04/22/18 22:13 Dose: Not Given Lactobacillus Rhamnosus (Culturelle 15b) 1 each PO DAILY [facility] Stop: 06/22/18 13:59 Lamotrigine (Lamictal) 25 mg PO HS [facility]; Protocol Stop: 06/21/18 20:59 Last Admin: 04/22/18 21:23 Dose: 25 mg Memantine (Namenda) 10 mg PO BID [facility] Stop: 06/21/18 16:59 Last Admin: 04/23/18 08:24 Dose: Not Given Mirtazapine (Remeron) 15 mg PO HS [facility]; Protocol Stop: 06/21/18 20:59 Last Admin: 04/22/18 21:24 Dose: 15 mg Miscellaneous (Vte Chemical Prophylaxis Screen/ Admission) 1 ea PRN PRN PRN Reason: PROTOCOL Stop: 06/21/18 07:44 Miscellaneous (Probiotic Screen) 1 ea PRN PRN PRN Reason: PROTOCOL Stop: 06/22/18 09:28 Morphine Sulfate (Morphine) 15 mg PO Q4H PRN PRN Reason: Pain (Moderate) Stop: 06/21/18 11:37 Multivitamins/Vitamin C (Theragran) 1 tab PO DAILY [facility] Stop: 06/22/18 08:59 Last Admin: 04/23/18 08:25 Dose: Not Given Nitroglycerin (Nitrostat) 0.4 mg SL Q5MIN PRN PRN Reason: Chest Pain Stop: 06/21/18 11:34 Valsartan (Diovan) 320 mg PO DAILY [facility] Stop: 06/22/18 08:59 Last Admin: 04/23/18 08:25 Dose: Not Given General: No acute distress HEENT: Atraumatic Neck: Supple Cardiovascular: Regular rate, Normal S1, Normal S2 - Procedures Procedures: Procedures Procedure Code Date EXCISION OF DUODENUM, ENDO, DIAGN [id number] 02/16/18 EXCISION OF ESOPHAGOGASTRIC JUNCTION, ENDO, DIAGN [id number] 02/16/18 EXCISION OF STOMACH, ENDO, DIAGN [id number] 02/16/18 Assessment/Plan - Plan Plan: as per order sheet
[2018-04-23] MEDS: Lactobacillus Rhamnosus GG 15 Billion CFU CAP.SPRINK PO SCH (16:31)
--- NOTE | 2018-04-23 23:57 | Infectious Disease Prog Note ---
Infectious Disease Subjective - Review of Systems Service Date: 04/23/18 Subjective: There is no new change, no fever. Infectious Disease Objective - Results Result Diagrams: 04/25/18 05:20 04/25/18 05:20 Recent Labs: Laboratory Last Values WBC 6.4 Th/cmm (4.8-10.8) 04/22/18 06:00 RBC 3.35 Mil/cmm (3.80-5.20) L 04/22/18 06:00 Hgb 9.7 gm/dL (12-16) L 04/22/18 06:00 Hct 29.1 % (41.0-60) L 04/22/18 06:00 MCV 87.1 fl (81-100) 04/22/18 06:00 MCH 29.0 pg (27.0-31.0) 04/22/18 06:00 MCHC Differential 33.3 pg (28.0-36.0) 04/22/18 06:00 RDW 14.7 % (11.5-20.0) 04/22/18 06:00 Plt Count 353 Th/cmm (150-400) 04/22/18 06:00 MPV 7.0 fl 04/22/18 06:00 Neutrophils % 39.1 % (40.0-80.0) L 04/22/18 06:00 Lymphocytes % 43.3 % (20.0-50.0) 04/22/18 06:00 Monocytes % 11.3 % (2.0-10.0) H 04/22/18 06:00 Eosinophils % 5.0 % (0.0-5.0) 04/22/18 06:00 Basophils % 1.3 % (0.0-2.0) 04/22/18 06:00 PT 9.9 SECONDS (9.5-11.5) 04/21/18 20:50 INR 0.95 (0.5-1.4) 04/21/18 20:50 PTT (Actin FS) 27.9 SECONDS (26.0-38.0) 04/21/18 20:50 Sodium 137 mEq/L (136-145) 04/23/18 04:45 Potassium 4.2 mEq/L (3.5-5.1) 04/23/18 04:45 Chloride 107 mEq/L (98-107) 04/23/18 04:45 Carbon Dioxide 23.9 mEq/L (21.0-31.0) 04/23/18 04:45 Anion Gap 10.3 (7.0-16.0) 04/23/18 04:45 BUN 12 mg/dL (7-25) 04/23/18 04:45 Creatinine 0.8 mg/dL (0.6-1.2) 04/23/18 04:45 Est GFR ( Amer) TNP 04/23/18 04:45 Est GFR (Non-Af Amer) TNP 04/23/18 04:45 BUN/Creatinine Ratio 15.0 04/23/18 04:45 Glucose 117 mg/dL (70-105) H 04/23/18 04:45 POC Glucose 146 MG/DL (70 - 105) H 04/23/18 21:51 Calcium 8.7 mg/dL (8.6-10.3) 04/23/18 04:45 Total Bilirubin 0.3 mg/dL (0.3-1.0) 04/21/18 20:50 AST 23 U/L (13-39) 04/21/18 20:50 ALT 15 U/L (7-52) 04/21/18 20:50 Alkaline Phosphatase 70 U/L (34-104) 04/21/18 20:50 Troponin I < 0.01 ng/mL (0.01-0.05) L 04/21/18 20:50 B-Natriuretic Peptide 41.1 pg/mL (5.0-100.0) 04/23/18 04:45 Total Protein 6.7 gm/dL (6.0-8.3) 04/21/18 20:50 Albumin 3.3 gm/dL (3.7-5.3) L 04/21/18 20:50 Globulin 3.4 gm/dL 04/21/18 20:50 Albumin/Globulin Ratio 1.0 (1.0-1.8) 04/21/18 20:50 Triglycerides 54 mg/dL (<150) 04/22/18 06:00 Cholesterol 122 mg/dL (<200) 04/22/18 06:00 LDL Cholesterol Direct 85 mg/dL (75-193) 04/22/18 06:00 HDL Cholesterol 31 mg/dL (23-92) 04/22/18 06:00 TSH 1.25 uIU/ml (0.34-5.60) 04/22/18 06:00 Urine Source [place] 04/21/18 22:10 Urine Color YELLOW 04/21/18 22:10 Urine Clarity CLEAR (CLEAR) 04/21/18 22:10 Urine pH 5.5 (4.6 - 8.0) 04/21/18 22:10 Ur Specific [place] <= 1.005 (1.005-1.030) 04/21/18 22:10 Urine Protein NEGATIVE mg/dL (NEGATIVE) 04/21/18 22:10 Urine Glucose (UA) 100 mg/dL (NEGATIVE) H 04/21/18 22:10 Urine Ketones NEGATIVE mg/dL (NEGATIVE) 04/21/18 22:10 Urine Blood NEGATIVE (NEGATIVE) 04/21/18 22:10 Urine Nitrate NEGATIVE (NEGATIVE) 04/21/18 22:10 Urine Bilirubin NEGATIVE (NEGATIVE) 04/21/18 22:10 Urine Urobilinogen 0.2 E.U./dL (0.2 - 1.0) 04/21/18 22:10 Ur Leukocyte Esterase SMALL (NEGATIVE) H 04/21/18 22:10 Urine RBC 0-2 /hpf (0-5) 04/21/18 22:10 Urine WBC 2-5 /hpf (0-5) 04/21/18 22:10 Ur Epithelial Cells FEW /lpf (FEW) 04/21/18 22:10 Urine Bacteria OCCASIONAL /hpf (NONE SEEN) 04/21/18 22:10 - Physical Exam Vitals and I&O: Vital Signs Temp 98.6 F 04/23/18 20:00 Pulse 80 04/23/18 20:00 Resp 18 04/23/18 20:00 BP 113/53 04/23/18 20:00 Pulse Ox 97 04/23/18 20:00 Intake & Output 04/23/18 04/23/18 04/24/18 06:59 18:59 06:59 Intake Total 500 Output Total 800 630 Balance -800 -130 Weight (lbs) 79.379 kg 79.379 kg Intake: Oral 500 Output: Drainage 30 Left Chest 30 Urine 800 600 Other: Weight Source Bedscale Bedscale Active Medications: Current Medications Acetaminophen (Tylenol) 650 mg PO Q6H PRN PRN Reason: Fever > 101 Stop: 06/21/18 11:32 Amlodipine Besylate (Norvasc) 10 mg PO DAILY [facility] Stop: 06/22/18 08:59 Last Admin: 04/23/18 08:23 Dose: Not Given Aspirin (Aspirin Chewable) 81 mg PO DAILY [facility] Stop: 06/22/18 08:59 Last Admin: 04/23/18 08:23 Dose: Not Given Atorvastatin Calcium (Lipitor) 40 mg PO HS [facility]; Protocol Stop: 06/21/18 20:59 Last Admin: 04/23/18 21:45 Dose: Not Given Cholecalciferol (Vitamin D3) 1,000 iu PO DAILY [facility] Stop: 06/22/18 08:59 Last Admin: 04/23/18 08:24 Dose: Not Given Docusate Sodium (Colace) 100 mg PO BID [facility] Stop: 06/21/18 16:59 Last Admin: 04/23/18 16:31 Dose: 100 mg Enoxaparin Sodium (Lovenox) 40 mg SUBQ DAILY [facility] Stop: 06/22/18 08:59 Last Admin: 04/23/18 08:24 Dose: Not Given Heparin Sodium (Porcine) (Heparin) 5,000 units SUBQ Q12HR [facility] Stop: 06/21/18 08:59 Last Admin: 04/23/18 21:36 Dose: 5,000 units Hydromorphone HCl (Dilaudid) 1 mg IVP Q4H PRN PRN Reason: Pain (Moderate) Stop: 04/23/18 23:59 Ceftriaxone Sodium 1 gm/ (Sodium Chloride) 50 mls @ 100 mls/hr IV Q24HR [facility] Stop: 06/21/18 03:59 Last Admin: 04/23/18 04:00 Dose: 100 mls/hr Insulin Aspart (Novolog Insulin Sliding Scale) 0 units SUBQ ACHS [facility]; Protocol Stop: 06/21/18 07:29 Last Admin: 04/23/18 21:52 Dose: Not Given Insulin Human NPH (Novolin N) 20 units SUBQ QDAC [facility]; Protocol Stop: 06/22/18 07:29 Last Admin: 04/23/18 07:16 Dose: Not Given Insulin Human NPH (Novolin N) 30 units SUBQ HS [facility]; Protocol Stop: 06/21/18 20:59 Last Admin: 04/23/18 21:53 Dose: Not Given Lactobacillus Rhamnosus (Culturelle 15b) 1 each PO DAILY [facility] Stop: 06/22/18 13:59 Last Admin: 04/23/18 16:31 Dose: 1 each Lamotrigine (Lamictal) 25 mg PO HS [facility]; Protocol Stop: 06/21/18 20:59 Last Admin: 04/23/18 21:48 Dose: Not Given Memantine (Namenda) 10 mg PO BID [facility] Stop: 06/21/18 16:59 Last Admin: 04/23/18 16:32 Dose: 10 mg Mirtazapine (Remeron) 15 mg PO HS [facility]; Protocol Stop: 06/21/18 20:59 Last Admin: 04/23/18 21:49 Dose: Not Given Miscellaneous (Vte Chemical Prophylaxis Screen/ Admission) 1 ea PRN PRN PRN Reason: PROTOCOL Stop: 06/21/18 07:44 Miscellaneous (Probiotic Screen) 1 [facility] PRN PRN PRN Reason: PROTOCOL Stop: 06/22/18 09:28 Morphine Sulfate (Morphine) 15 mg PO Q4H PRN PRN Reason: Pain (Moderate) Stop: 06/21/18 11:37 Multivitamins/Vitamin C (Theragran) 1 tab PO DAILY [facility] Stop: 06/22/18 08:59 Last Admin: 04/23/18 08:25 Dose: Not Given Nitroglycerin (Nitrostat) 0.4 mg SL Q5MIN PRN PRN Reason: Chest Pain Stop: 06/21/18 11:34 Valsartan (Diovan) 320 mg PO DAILY [facility] Stop: 06/22/18 08:59 Last Admin: 04/23/18 08:25 Dose: Not Given General: no acute distress, well developed, well nourished HEENT: atraumatic, normocephalic, PERRLA Neck: supple, no thyromegaly Cardiovascular: S1S2, regular Lungs: clear to auscultation bilaterally, clear to percussion Abdomen: soft, no tender, no distended Extremities: no cyanosis, no clubbing, no edema Neurological: awake, alert, oriented Skin: intact - Procedures Procedures: Procedures Procedure Code Date EXCISION OF DUODENUM, ENDO, DIAGN [id number] 02/16/18 EXCISION OF ESOPHAGOGASTRIC JUNCTION, ENDO, DIAGN [id number] 02/16/18 EXCISION OF STOMACH, ENDO, DIAGN [id number] 02/16/18 Infectious Disease Assmt/Plan - Problem List Patient Problems: All Active Problems Mass of colon (Acute) K63.9 - Assessment Assessment: 1. Proctitis. 2. Urinary tract infection. 3. Fecal impaction. 4. Breast nodule in the left. 5. Anemia. 6. Diabetes mellitus type 2. 7. Hypertension. 8. Dementia. 9. Depression. 10. Arthritis. - Plan Plan: continue Rocephin and continue the patient's home medications. Nutritional Asmnt/Malnutr-PDOC - Dietary Evaluation Malnutrition Findings (Please click <Entered> for more info): Nutritional Asmnt/Malnutrition Start: 04/23/18 15: 42 Text: Status: Complete Freq: Protocol: Document 04/23/18 15:50 LCHENG (Rec: 04/23/18 16:18 [email or web address]) Nutritional Asmnt/Malnutrition Patient General Information Nutritional Screening High Risk Consult Diagnosis proctitis, UTI, intermittent ALOC Pertinent Medical Hx/Surgical Hx HTN, DM, CVA/TIA, arthritis, depression Subjective Information Consult received for elevated BS. Pt was sent to OR for mastectomy surgery this morning. Pt kept on NPO. Current Diet Order/ Nutrition Support NPO Pertinent Medications aspirin, lipitor, vit D3, colace, novolog, novolin, culturelle, remeron, theragran Pertinent Labs 8/6 glucose 117, POC 123-163 8/5 Na 134, glucose 141, POC 111-166, Ca 8.4 8/4 Na 130, Glucose 238, POC 133 Nutritional Hx/Data Height 1.63 m Height (Calculated Centimeters) 162.6 Current Weight (lbs) 79.379 kg Weight (Calculated Kilograms) 79.4 Weight (Calculated Grams) 97868.7 [place] Body Weight 120 Body Mass Index (BMI) 30.0 Weight Status Obese GI Symptoms GI Symptoms None Last BM 8/5 x 2 Difficult in: None Skin Integrity/Comment: BROWNISH DISCOLORATION/FADING ECCHYMOSIS Estimated Nutritional Goals Calories/Kcals/Kg 27-32 based on IBW 55kg Kcals Calculated 3900-1855 Protein g/k.2 Protein Calculated 66 Fluid: ml 1485-1760ml (1ml/kcal) Nutritional Problem 1. Problem Problem altered nutrition related labs Etiology hx of DM Signs/Symptoms: glucose 117-238, POC 123-166 Malnutrition Alert Is there a minimum of two criteria No selected? Query Text:Check all the applicable criteria. A minimum of two criteria are recommended for diagnosis of either severe or non-severe malnutrition. Malnutrition Related to Morbid Obesity Malnutrition related to morbid obesity No Intervention/Recommendation Comments 1. Monitor NPO status. Advance to [facility] diet when medically appropriate. 2. Monitor PO intake, wt, labs and skin integrity 3. F/U as high risk in 2-3 days, 04/25-04/26 Expected Outcomes/Goals Expected Outcomes/Goals 1. PO intake to meet at least 75% of nutritional needs. 2. Wt stability, skin to remain intact, labs to approach WNL.
[2018-04-24] MEDS ORDERED: Fleet Enema 135 mL RC PRN (02:09)
[2018-04-24] MEDS: cefTRIAXone 1 GM in Sodium Chloride 0.9% 50 ML IV SCH (04:10)
[2018-04-24] MEDS: INSULIN HUMAN ISOPHANE (NPH) 100 UNITS/ML SUBQ SCH ×2 (06:46→20:51)
[2018-04-24] MEDS: INSULIN ASPART SLIDING SCALE 100 UNITS/ML UNIT SUBQ SCH ×4 (06:46→20:51)
[2018-04-24] MEDS: Aspirin 81mg Chewable Tab PO SCH (09:22)
[2018-04-24] MEDS: Lactobacillus Rhamnosus GG 15 Billion CFU CAP.SPRINK PO SCH (09:23)
[2018-04-24] MEDS: Multivitamin Tab PO SCH (09:23)
[2018-04-24] MEDS: Enoxaparin 40 mg/0.4 mL 0.4mL Syr SUBQ SCH (09:33)
--- NOTE | 2018-04-24 09:55 | GI Progress Note ---
Subjective - Review of Systems Service Date: 04/24/18 Subjective: Pt appears very depressed. Not willing to take enemas, s/p surgery yesterday Objective - Results Result Diagrams: 04/22/18 06:00 04/23/18 04:45 Recent Labs: Laboratory Last Values WBC 6.4 Th/cmm (4.8-10.8) 04/22/18 06:00 RBC 3.35 Mil/cmm (3.80-5.20) L 04/22/18 06:00 Hgb 9.7 gm/dL (12-16) L 04/22/18 06:00 Hct 29.1 % (41.0-60) L 04/22/18 06:00 MCV 87.1 fl (81-100) 04/22/18 06:00 MCH 29.0 pg (27.0-31.0) 04/22/18 06:00 MCHC Differential 33.3 pg (28.0-36.0) 04/22/18 06:00 RDW 14.7 % (11.5-20.0) 04/22/18 06:00 Plt Count 353 Th/cmm (150-400) 04/22/18 06:00 MPV 7.0 fl 04/22/18 06:00 Neutrophils % 39.1 % (40.0-80.0) L 04/22/18 06:00 Lymphocytes % 43.3 % (20.0-50.0) 04/22/18 06:00 Monocytes % 11.3 % (2.0-10.0) H 04/22/18 06:00 Eosinophils % 5.0 % (0.0-5.0) 04/22/18 06:00 Basophils % 1.3 % (0.0-2.0) 04/22/18 06:00 PT 9.9 SECONDS (9.5-11.5) 04/21/18 20:50 INR 0.95 (0.5-1.4) 04/21/18 20:50 PTT (Actin FS) 27.9 SECONDS (26.0-38.0) 04/21/18 20:50 Sodium 137 mEq/L (136-145) 04/23/18 04:45 Potassium 4.2 mEq/L (3.5-5.1) 04/23/18 04:45 Chloride 107 mEq/L (98-107) 04/23/18 04:45 Carbon Dioxide 23.9 mEq/L (21.0-31.0) 04/23/18 04:45 Anion Gap 10.3 (7.0-16.0) 04/23/18 04:45 BUN 12 mg/dL (7-25) 04/23/18 04:45 Creatinine 0.8 mg/dL (0.6-1.2) 04/23/18 04:45 Est GFR ( Amer) TNP 04/23/18 04:45 Est GFR (Non-Af Amer) TNP 04/23/18 04:45 BUN/Creatinine Ratio 15.0 04/23/18 04:45 Glucose 117 mg/dL (70-105) H 04/23/18 04:45 POC Glucose 119 MG/DL (70 - 105) H 04/24/18 06:36 Calcium 8.7 mg/dL (8.6-10.3) 04/23/18 04:45 Total Bilirubin 0.3 mg/dL (0.3-1.0) 04/21/18 20:50 AST 23 U/L (13-39) 04/21/18 20:50 ALT 15 U/L (7-52) 04/21/18 20:50 Alkaline Phosphatase 70 U/L (34-104) 04/21/18 20:50 Troponin I < 0.01 ng/mL (0.01-0.05) L 04/21/18 20:50 B-Natriuretic Peptide 41.1 pg/mL (5.0-100.0) 04/23/18 04:45 Total Protein 6.7 gm/dL (6.0-8.3) 04/21/18 20:50 Albumin 3.3 gm/dL (3.7-5.3) L 04/21/18 20:50 Globulin 3.4 gm/dL 04/21/18 20:50 Albumin/Globulin Ratio 1.0 (1.0-1.8) 04/21/18 20:50 Triglycerides 54 mg/dL (<150) 04/22/18 06:00 Cholesterol 122 mg/dL (<200) 04/22/18 06:00 LDL Cholesterol Direct 85 mg/dL (75-193) 08/05/18 06:00 HDL Cholesterol 31 mg/dL (23-92) 04/22/18 06:00 TSH 1.25 uIU/ml (0.34-5.60) 04/22/18 06:00 Urine Source [place] 04/21/18 22:10 Urine Color YELLOW 04/21/18 22:10 Urine Clarity CLEAR (CLEAR) 04/21/18 22:10 Urine pH 5.5 (4.6 - 8.0) 04/21/18 22:10 Ur Specific [place] <= 1.005 (1.005-1.030) 04/21/18 22:10 Urine Protein NEGATIVE mg/dL (NEGATIVE) 04/21/18 22:10 Urine Glucose (UA) 100 mg/dL (NEGATIVE) H 04/21/18 22:10 Urine Ketones NEGATIVE mg/dL (NEGATIVE) 04/21/18 22:10 Urine Blood NEGATIVE (NEGATIVE) 04/21/18 22:10 Urine Nitrate NEGATIVE (NEGATIVE) 04/21/18 22:10 Urine Bilirubin NEGATIVE (NEGATIVE) 04/21/18 22:10 Urine Urobilinogen 0.2 E.U./dL (0.2 - 1.0) 04/21/18 22:10 Ur Leukocyte Esterase SMALL (NEGATIVE) H 04/21/18 22:10 Urine RBC 0-2 /hpf (0-5) 04/21/18 22:10 Urine WBC 2-5 /hpf (0-5) 04/21/18 22:10 Ur Epithelial Cells FEW /lpf (FEW) 04/21/18 22:10 Urine Bacteria OCCASIONAL /hpf (NONE SEEN) 04/21/18 22:10 - Physical Exam Vitals and I&O: Vital Signs Temp 98.6 F 04/24/18 08:24 Pulse 74 04/24/18 09:34 Resp 18 04/24/18 08:24 BP 123/50 04/24/18 09:34 Pulse Ox 97 04/24/18 08:24 Intake & Output 04/23/18 04/24/18 04/24/18 18:59 06:59 18:59 Intake Total 500 50 Output Total 630 100 Balance -130 -50 Weight (lbs) 79.379 kg 77.882 kg Intake: Intake, IV Amount 50 cefTRIAXone 1 gm In 50 Sodium Chloride 0.9% 50 ml @ 100 mls/hr IV Q24HR [facility] Rx#:[id number] Oral 500 Output: Drainage 30 Left Chest 30 Urine 600 100 Other: Weight Source Bedscale Bedscale Active Medications: Current Medications Acetaminophen (Tylenol) 650 mg PO Q6H PRN PRN Reason: Fever > 101 Stop: 06/21/18 11:32 Amlodipine Besylate (Norvasc) 10 mg PO DAILY [facility] Stop: 06/22/18 08:59 Last Admin: 04/24/18 09:23 Dose: 10 mg Aspirin (Aspirin Chewable) 81 mg PO DAILY [facility] Stop: 06/22/18 08:59 Last Admin: 04/24/18 09:22 Dose: 81 mg Atorvastatin Calcium (Lipitor) 40 mg PO HS [facility]; Protocol Stop: 06/21/18 20:59 Last Admin: 04/23/18 21:45 Dose: Not Given Cholecalciferol (Vitamin D3) 1,000 iu PO DAILY [facility] Stop: 06/22/18 08:59 Last Admin: 04/24/18 09:23 Dose: 1,000 iu Docusate Sodium (Colace) 100 mg PO BID [facility] Stop: 06/21/18 16:59 Last Admin: 04/24/18 09:22 Dose: 100 mg Heparin Sodium (Porcine) (Heparin) 5,000 units SUBQ Q12HR [facility] Stop: 06/21/18 08:59 Last Admin: 04/23/18 21:36 Dose: 5,000 units Ceftriaxone Sodium 1 gm/ (Sodium Chloride) 50 mls @ 100 mls/hr IV Q24HR [facility] Stop: 06/21/18 03:59 Last Infusion: 04/24/18 06:47 Dose: Infused Insulin Aspart (Novolog Insulin Sliding Scale) 0 units SUBQ ACHS [facility]; Protocol Stop: 06/21/18 07:29 Last Admin: 04/24/18 06:46 Dose: Not Given Insulin Human NPH (Novolin N) 20 units SUBQ QDAC [facility]; Protocol Stop: 06/22/18 07:29 Last Admin: 04/24/18 06:46 Dose: Not Given Insulin Human NPH (Novolin N) 30 units SUBQ HS [facility]; Protocol Stop: 06/21/18 20:59 Last Admin: 04/23/18 21:53 Dose: Not Given Lactobacillus Rhamnosus (Culturelle 15b) 1 each PO DAILY [facility] Stop: 06/22/18 13:59 Last Admin: 04/24/18 09:23 Dose: 1 each Lamotrigine (Lamictal) 25 mg PO HS [facility]; Protocol Stop: 06/21/18 20:59 Last Admin: 04/23/18 21:48 Dose: Not Given Memantine (Namenda) 10 mg PO BID [facility] Stop: 06/21/18 16:59 Last Admin: 04/24/18 09:23 Dose: 10 mg Mirtazapine (Remeron) 15 mg PO HS [facility]; Protocol Stop: 06/21/18 20:59 Last Admin: 04/23/18 21:49 Dose: Not Given Miscellaneous (Vte Chemical Prophylaxis Screen/ Admission) 1 ea PRN PRN PRN Reason: PROTOCOL Stop: 06/21/18 07:44 Miscellaneous (Probiotic Screen) 1 ea PRN PRN PRN Reason: PROTOCOL Stop: 06/22/18 09:28 Morphine Sulfate (Morphine) 15 mg PO Q4H PRN PRN Reason: Pain (Moderate) Stop: 06/21/18 11:37 Multivitamins/Vitamin C (Theragran) 1 tab PO DAILY [facility] Stop: 06/22/18 08:59 Last Admin: 04/24/18 09:23 Dose: 1 tab Nitroglycerin (Nitrostat) 0.4 mg SL Q5MIN PRN PRN Reason: Chest Pain Stop: 06/21/18 11:34 Sodium Phosphate (Fleet Enema) 135 ml RC PRN PRN PRN Reason: Constipation Stop: 06/23/18 02:08 Valsartan (Diovan) 320 mg PO DAILY [facility] Stop: 06/22/18 08:59 Last Admin: 04/24/18 09:34 Dose: Not Given General: Alert, No acute distress, Mild distress HEENT: Atraumatic, PERRLA, EOMI Neck: Supple Cardiovascular: Regular rate, Normal S1, Normal S2 Lungs: Clear to auscultation, Normal air movement Abdomen: Bowel sounds - Procedures Procedures: Procedures Procedure Code Date EXCISION OF DUODENUM, ENDO, DIAGN [id number] 02/16/18 EXCISION OF ESOPHAGOGASTRIC JUNCTION, ENDO, DIAGN [id number] 02/16/18 EXCISION OF STOMACH, ENDO, DIAGN [id number] 02/16/18 Assessment/Plan - Problem List Patient Problems: All Active Problems Mass of colon (Acute) K63.9 - Assessment Assessment: plan for colonoscopy when patient can demonstrate willingness to take prep Will start with small bowel regimen to see if patient can have a bowel movement Plan for possible colonoscopy toward end of the week Just had major surgery
--- NOTE | 2018-04-24 10:01 | General Progress Note ---
Subjective - Review of Systems Service Date: 04/24/18 Events since last encounter: Jabier drainage 30 cc overnight dressing dry patient not communicative Objective - Results Result Diagrams: 04/22/18 06:00 04/23/18 04:45 Recent Labs: Laboratory Last Values WBC 6.4 Th/cmm (4.8-10.8) 04/22/18 06:00 RBC 3.35 Mil/cmm (3.80-5.20) L 04/22/18 06:00 Hgb 9.7 gm/dL (12-16) L 04/22/18 06:00 Hct 29.1 % (41.0-60) L 04/22/18 06:00 MCV 87.1 fl (81-100) 04/22/18 06:00 MCH 29.0 pg (27.0-31.0) 04/22/18 06:00 MCHC Differential 33.3 pg (28.0-36.0) 04/22/18 06:00 RDW 14.7 % (11.5-20.0) 04/22/18 06:00 Plt Count 353 Th/cmm (150-400) 04/22/18 06:00 MPV 7.0 fl 04/22/18 06:00 Neutrophils % 39.1 % (40.0-80.0) L 04/22/18 06:00 Lymphocytes % 43.3 % (20.0-50.0) 04/22/18 06:00 Monocytes % 11.3 % (2.0-10.0) H 04/22/18 06:00 Eosinophils % 5.0 % (0.0-5.0) 04/22/18 06:00 Basophils % 1.3 % (0.0-2.0) 04/22/18 06:00 PT 9.9 SECONDS (9.5-11.5) 04/21/18 20:50 INR 0.95 (0.5-1.4) 04/21/18 20:50 PTT (Actin FS) 27.9 SECONDS (26.0-38.0) 04/21/18 20:50 Sodium 137 mEq/L (136-145) 04/23/18 04:45 Potassium 4.2 mEq/L (3.5-5.1) 04/23/18 04:45 Chloride 107 mEq/L (98-107) 04/23/18 04:45 Carbon Dioxide 23.9 mEq/L (21.0-31.0) 04/23/18 04:45 Anion Gap 10.3 (7.0-16.0) 04/23/18 04:45 BUN 12 mg/dL (7-25) 04/23/18 04:45 Creatinine 0.8 mg/dL (0.6-1.2) 04/23/18 04:45 Est GFR ( Amer) TNP 04/23/18 04:45 Est GFR (Non-Af Amer) TNP 04/23/18 04:45 BUN/Creatinine Ratio 15.0 04/23/18 04:45 Glucose 117 mg/dL (70-105) H 04/23/18 04:45 POC Glucose 119 MG/DL (70 - 105) H 04/24/18 06:36 Calcium 8.7 mg/dL (8.6-10.3) 04/23/18 04:45 Total Bilirubin 0.3 mg/dL (0.3-1.0) 04/21/18 20:50 AST 23 U/L (13-39) 04/21/18 20:50 ALT 15 U/L (7-52) 04/21/18 20:50 Alkaline Phosphatase 70 U/L (34-104) 04/21/18 20:50 Troponin I < 0.01 ng/mL (0.01-0.05) L 04/21/18 20:50 B-Natriuretic Peptide 41.1 pg/mL (5.0-100.0) 04/23/18 04:45 Total Protein 6.7 gm/dL (6.0-8.3) 04/21/18 20:50 Albumin 3.3 gm/dL (3.7-5.3) L 04/21/18 20:50 Globulin 3.4 gm/dL 04/21/18 20:50 Albumin/Globulin Ratio 1.0 (1.0-1.8) 04/21/18 20:50 Triglycerides 54 mg/dL (<150) 04/22/18 06:00 Cholesterol 122 mg/dL (<200) 04/22/18 06:00 LDL Cholesterol Direct 85 mg/dL (75-193) 04/22/18 06:00 HDL Cholesterol 31 mg/dL (23-92) 04/22/18 06:00 TSH 1.25 uIU/ml (0.34-5.60) 04/22/18 06:00 Urine Source [place] 04/21/18 22:10 Urine Color YELLOW 04/21/18 22:10 Urine Clarity CLEAR (CLEAR) 04/21/18 22:10 Urine pH 5.5 (4.6 - 8.0) 04/21/18 22:10 Ur Specific [place] <= 1.005 (1.005-1.030) 04/21/18 22:10 Urine Protein NEGATIVE mg/dL (NEGATIVE) 04/21/18 22:10 Urine Glucose (UA) 100 mg/dL (NEGATIVE) H 04/21/18 22:10 Urine Ketones NEGATIVE mg/dL (NEGATIVE) 04/21/18 22:10 Urine Blood NEGATIVE (NEGATIVE) 04/21/18 22:10 Urine Nitrate NEGATIVE (NEGATIVE) 04/21/18 22:10 Urine Bilirubin NEGATIVE (NEGATIVE) 04/21/18 22:10 Urine Urobilinogen 0.2 E.U./dL (0.2 - 1.0) 04/21/18 22:10 Ur Leukocyte Esterase SMALL (NEGATIVE) H 04/21/18 22:10 Urine RBC 0-2 /hpf (0-5) 04/21/18 22:10 Urine WBC 2-5 /hpf (0-5) 04/21/18 22:10 Ur Epithelial Cells FEW /lpf (FEW) 04/21/18 22:10 Urine Bacteria OCCASIONAL /hpf (NONE SEEN) 04/21/18 22:10 - Physical Exam Vitals and I&O: Vital Signs Temp 98.6 F 04/24/18 08:24 Pulse 74 04/24/18 09:34 Resp 18 04/24/18 08:24 BP 123/50 04/24/18 09:34 Pulse Ox 97 04/24/18 08:24 Intake & Output 04/23/18 04/24/18 04/24/18 18:59 06:59 18:59 Intake Total 500 50 Output Total 630 100 Balance -130 -50 Weight (lbs) 79.379 kg 77.882 kg Intake: Intake, IV Amount 50 cefTRIAXone 1 gm In 50 Sodium Chloride 0.9% 50 ml @ 100 mls/hr IV Q24HR [facility] Rx#:[id number] Oral 500 Output: Drainage 30 Left Chest 30 Urine 600 100 Other: Weight Source Bedscale Bedscale Active Medications: Current Medications Acetaminophen (Tylenol) 650 mg PO Q6H PRN PRN Reason: Fever > 101 Stop: 06/21/18 11:32 Al Hydrox/Mg Hydrox/Simethicone (Maalox) 30 ml PO DAILY [facility] Stop: 06/23/18 09:59 Amlodipine Besylate (Norvasc) 10 mg PO DAILY [facility] Stop: 06/22/18 08:59 Last Admin: 04/24/18 09:23 Dose: 10 mg Aspirin (Aspirin Chewable) 81 mg PO DAILY [facility] Stop: 06/22/18 08:59 Last Admin: 04/24/18 09:22 Dose: 81 mg Atorvastatin Calcium (Lipitor) 40 mg PO HS [facility]; Protocol Stop: 06/21/18 20:59 Last Admin: 04/23/18 21:45 Dose: Not Given Cholecalciferol (Vitamin D3) 1,000 iu PO DAILY [facility] Stop: 06/22/18 08:59 Last Admin: 04/24/18 09:23 Dose: 1,000 iu Docusate Sodium (Colace) 100 mg PO BID [facility] Stop: 06/21/18 16:59 Last Admin: 04/24/18 09:22 Dose: 100 mg Heparin Sodium (Porcine) (Heparin) 5,000 units SUBQ Q12HR [facility] Stop: 06/21/18 08:59 Last Admin: 04/23/18 21:36 Dose: 5,000 units Ceftriaxone Sodium 1 gm/ (Sodium Chloride) 50 mls @ 100 mls/hr IV Q24HR [facility] Stop: 06/21/18 03:59 Last Infusion: 04/24/18 06:47 Dose: Infused Insulin Aspart (Novolog Insulin Sliding Scale) 0 units SUBQ ACHS [facility]; Protocol Stop: 06/21/18 07:29 Last Admin: 04/24/18 06:46 Dose: Not Given Insulin Human NPH (Novolin N) 20 units SUBQ QDAC [facility]; Protocol Stop: 06/22/18 07:29 Last Admin: 04/24/18 06:46 Dose: Not Given Insulin Human NPH (Novolin N) 30 units SUBQ HS [facility]; Protocol Stop: 06/21/18 20:59 Last Admin: 04/23/18 21:53 Dose: Not Given Lactobacillus Rhamnosus (Culturelle 15b) 1 each PO DAILY [facility] Stop: 06/22/18 13:59 Last Admin: 04/24/18 09:23 Dose: 1 each Lamotrigine (Lamictal) 25 mg PO HS [facility]; Protocol Stop: 06/21/18 20:59 Last Admin: 04/23/18 21:48 Dose: Not Given Memantine (Namenda) 10 mg PO BID [facility] Stop: 06/21/18 16:59 Last Admin: 04/24/18 09:23 Dose: 10 mg Mirtazapine (Remeron) 15 mg PO HS [facility]; Protocol Stop: 06/21/18 20:59 Last Admin: 04/23/18 21:49 Dose: Not Given Miscellaneous (Vte Chemical Prophylaxis Screen/ Admission) 1 ea PRN PRN PRN Reason: PROTOCOL Stop: 06/21/18 07:44 Miscellaneous (Probiotic Screen) 1 ea PRN PRN PRN Reason: PROTOCOL Stop: 06/22/18 09:28 Morphine Sulfate (Morphine) 15 mg PO Q4H PRN PRN Reason: Pain (Moderate) Stop: 06/21/18 11:37 Multivitamins/Vitamin C (Theragran) 1 tab PO DAILY [facility] Stop: 06/22/18 08:59 Last Admin: 04/24/18 09:23 Dose: 1 tab Nitroglycerin (Nitrostat) 0.4 mg SL Q5MIN PRN PRN Reason: Chest Pain Stop: 06/21/18 11:34 Sodium Phosphate (Fleet Enema) 135 ml RC PRN PRN PRN Reason: Constipation Stop: 06/23/18 02:08 Valsartan (Diovan) 320 mg PO DAILY [facility] Stop: 06/22/18 08:59 Last Admin: 04/24/18 09:34 Dose: Not Given General: Alert, No acute distress, Mild distress HEENT: Atraumatic, PERRLA, EOMI Neck: Supple Cardiovascular: Regular rate, Normal S1, Normal S2 Lungs: Clear to auscultation, Normal air movement Abdomen: Bowel sounds - Procedures Procedures: Procedures Procedure Code Date EXCISION OF DUODENUM, ENDO, DIAGN [id number] 02/16/18 EXCISION OF ESOPHAGOGASTRIC JUNCTION, ENDO, DIAGN [id number] 02/16/18 EXCISION OF STOMACH, ENDO, DIAGN [id number] 02/16/18 Assessment/Plan - Problem List Patient Problems: All Active Problems Mass of colon (Acute) K63.9 Nutritional Asmnt/Malnutr-PDOC - Dietary Evaluation Malnutrition Findings (Please click <Entered> for more info): Nutritional Asmnt/Malnutrition Start: 04/23/18 15: 42 Text: Status: Complete Freq: Protocol: Document 04/23/18 15:50 [place] (Rec: 04/23/18 16:18 [facility] Nutritional Asmnt/Malnutrition Patient General Information Nutritional Screening High Risk Consult Diagnosis proctitis, UTI, intermittent ALOC Pertinent Medical Hx/Surgical Hx HTN, DM, CVA/TIA, arthritis, depression Subjective Information Consult received for elevated BS. Pt was sent to OR for mastectomy surgery this morning. Pt kept on NPO. Current Diet Order/ Nutrition Support NPO Pertinent Medications aspirin, lipitor, vit D3, colace, novolog, novolin, culturelle, remeron, theragran Pertinent Labs 8/6 glucose 117, POC 123-163 8/5 Na 134, glucose 141, POC 111-166, Ca 8.4 8/4 Na 130, Glucose 238, POC 133 Nutritional Hx/Data Height 1.63 m Height (Calculated Centimeters) 162.6 Current Weight (lbs) 79.379 kg Weight (Calculated Kilograms) 79.4 Weight (Calculated Grams) 58211.7 [place] Body Weight 120 Body Mass Index (BMI) 30.0 Weight Status Obese GI Symptoms GI Symptoms None Last BM 8/5 x 2 Difficult in: None Skin Integrity/Comment: BROWNISH DISCOLORATION/FADING ECCHYMOSIS Estimated Nutritional Goals Calories/Kcals/Kg 27-32 based on IBW 55kg Kcals Calculated 2277-4494 Protein g/k.2 Protein Calculated 66 Fluid: ml 1485-1760ml (1ml/kcal) Nutritional Problem 1. Problem Problem altered nutrition related labs Etiology hx of DM Signs/Symptoms: glucose 117-238, POC 123-166 Malnutrition Alert Is there a minimum of two criteria No selected? Query Text:Check all the applicable criteria. A minimum of two criteria are recommended for diagnosis of either severe or non-severe malnutrition. Malnutrition Related to Morbid Obesity Malnutrition related to morbid obesity No Intervention/Recommendation Comments 1. Monitor NPO status. Advance to CCHO diet when medically appropriate. 2. Monitor PO intake, wt, labs and skin integrity 3. F/U as high risk in 2-3 days, 04/25-04/26 Expected Outcomes/Goals Expected Outcomes/Goals 1. PO intake to meet at least 75% of nutritional needs. 2. Wt stability, skin to remain intact, labs to approach WNL.
[2018-04-24 10:21] LABS: % BASOPHILS 0.6 % (0.0-2.0); % EOSINOPHILS 2.8 % (0.0-5.0); % LYMPHOCYTES 31.4 % (20.0-50.0); % MONOCYTES 8.4 % (2.0-10.0); % NEUTROPHILS 56.8 % (40.0-80.0); EOSINOPHILE ABSOLUTE 0.2 Th/cmm (0.1-0.4); HEMATOCRIT 30.3 % (41.0-60); HEMOGLOBIN 10.1 gm/dL (12-16); LYMPHOCYTE ABSOLUTE 2.6 Th/cmm (1.5-3.0); MEAN CELL VOLUME 87.4 fl (81-100); MEAN CORPUSCULAR HEMOGLOBIN 29.3 pg (27.0-31.0); MEAN CORPUSCULAR HGB CONC 33.5 pg (28.0-36.0); MEAN PLATELET VOLUME 6.9 fl; MONOCYTE ABSOLUTE 0.7 Th/cmm (0.3-1.0); NEUTROPHILE ABSOLUTE 4.8 Th/cmm (1.8-8.0); PLATELET COUNT 358 Th/cmm (150-400); RED BLOOD COUNT 3.46 Mil/cmm (3.80-5.20); RED CELL DISTRIBUTION WIDTH 15.1 % (11.5-20.0); WHITE BLOOD COUNT 8.3 Th/cmm (4.8-10.8)
[2018-04-24 10:46] LABS: ALB/GLOB RATIO 0.9 (1.0-1.8); ALBUMIN 2.9 gm/dL (3.7-5.3); ALKALINE PHOSPHATASE 66 U/L (34-104); ANION GAP 10.8 (7.0-16.0); BILIRUBIN,TOTAL 0.4 mg/dL (0.3-1.0); BUN - UREA NITROGEN 15 mg/dL (7-25); CALCIUM SERUM 8.3 mg/dL (8.6-10.3); CARBON DIOXIDE 20.7 mEq/L (21.0-31.0); CHLORIDE 108 mEq/L (98-107); GLUCOSE 138 mg/dL (70-105); POTASSIUM SERUM 4.5 mEq/L (3.5-5.1); SGOT 21 U/L (13-39); SGPT/ALT 14 U/L (7-52); SODIUM SERUM 135 mEq/L (136-145)
[2018-04-24] MEDS: Maalox 30 mL Cup PO SCH (11:03)
--- NOTE | 2018-04-24 11:04 | Operative Report ---
DATE OF SURGERY: 04/23/2018 PREOPERATIVE DIAGNOSES: 1. Mass, left breast with axillary node. 2. CT scan showing enlarged nodes in the perirectal area. 3. CT scan of the head, no acute stroke. 4. History of depression. 5. Diabetes mellitus. 6. Dementia. POSTOPERATIVE DIAGNOSES: 1. Mass, left breast with axillary node. 2. CT scan showing enlarged nodes in the perirectal area. 3. CT scan of the head, no acute stroke. 4. History of depression. 5. Diabetes mellitus. 6. Dementia. 7. 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 OPERATION DONE: 1. Modified left radical mastectomy with axillary node enlargement 2. Axillary node dissection. SURGEON: Lois Sandoval M.D. ANESTHESIA: General. ANESTHESIOLOGIST: Dr. Lim. ESTIMATED BLOOD LOSS: 20 mL. OPERATIVE FINDINGS: On frozen section, infiltrating carcinoma of the left breast. Lymph nodes were not done as a frozen section, but as permanent. Informed consent discussed with the patient and family prior to the surgery and possible complications. DESCRIPTION OF PROCEDURE: The patient was given general anesthesia. The left breast and axilla were prepped with Betadine and draped in appropriate manner. An incision was made on the operative border of the mass and this incision was carried all the way down to the subcutaneous tissues and to the muscle. Lower incision forming an elliptical incision around the mass was then done including the areola. This dissection was carried all the way down to the muscle and the whole mass was excised and sent for frozen section, which proved to be an infiltrating carcinoma. The rest of the axillary dissection was carried out exposing the neurovascular bundle with preservation of all tributaries of the vein and the nerve supply to the left isthmus. Large nodes were encountered. All of this was sent for permanent section. Following satisfactory hemostasis, a Jabier drain was placed in the incision. The wound was closed with interrupted sutures of 0 Vicryl for the subcutaneous tissues and the skin was closed with subcuticular suture of 4-0 Vicryl. Sterile dressing was placed over this. The patient tolerated the procedure well. JOB# [id number] [facility]
[2018-04-24 19:24] LABS: A1C % 6.9 % (4.0-6.0)
[2018-04-25] MEDS: cefTRIAXone 1 GM in Sodium Chloride 0.9% 50 ML IV SCH (03:52)
[2018-04-25 05:52] LABS: % BASOPHILS 1.1 % (0.0-2.0); % EOSINOPHILS 5.6 % (0.0-5.0); % LYMPHOCYTES 35.4 % (20.0-50.0); % MONOCYTES 8.3 % (2.0-10.0); % NEUTROPHILS 49.6 % (40.0-80.0); BASOPHILE ABSOLUTE 0.1 Th/cumm (0-0.2); EOSINOPHILE ABSOLUTE 0.5 Th/cmm (0.1-0.4); HEMATOCRIT 29.3 % (41.0-60); HEMOGLOBIN 9.8 gm/dL (12-16); LYMPHOCYTE ABSOLUTE 3.3 Th/cmm (1.5-3.0); MEAN CELL VOLUME 87.3 fl (81-100); MEAN CORPUSCULAR HEMOGLOBIN 29.2 pg (27.0-31.0); MEAN CORPUSCULAR HGB CONC 33.4 pg (28.0-36.0); MEAN PLATELET VOLUME 7.3 fl; MONOCYTE ABSOLUTE 0.8 Th/cmm (0.3-1.0); NEUTROPHILE ABSOLUTE 4.5 Th/cmm (1.8-8.0); PLATELET COUNT 319 Th/cmm (150-400); RED BLOOD COUNT 3.35 Mil/cmm (3.80-5.20); WHITE BLOOD COUNT 9.2 Th/cmm (4.8-10.8)
[2018-04-25 06:26] LABS: ALB/GLOB RATIO 0.9 (1.0-1.8); ALBUMIN 2.7 gm/dL (3.7-5.3); ALKALINE PHOSPHATASE 60 U/L (34-104); ANION GAP 9.5 (7.0-16.0); BILIRUBIN,TOTAL 0.4 mg/dL (0.3-1.0); BUN - UREA NITROGEN 12 mg/dL (7-25); CALCIUM SERUM 8.2 mg/dL (8.6-10.3); CARBON DIOXIDE 22.5 mEq/L (21.0-31.0); CHLORIDE 107 mEq/L (98-107); CREATININE - SERUM 0.8 mg/dL (0.6-1.2); GLUCOSE 129 mg/dL (70-105); SGOT 20 U/L (13-39); SGPT/ALT 13 U/L (7-52); SODIUM SERUM 135 mEq/L (136-145); TOTAL PROTEIN,SERUM 5.6 gm/dL (6.0-8.3)
[2018-04-25] MEDS: INSULIN HUMAN ISOPHANE (NPH) 100 UNITS/ML SUBQ SCH ×2 (06:49→20:42)
[2018-04-25] MEDS: INSULIN ASPART SLIDING SCALE 100 UNITS/ML UNIT SUBQ SCH ×4 (06:49→20:41)
--- NOTE | 2018-04-25 07:25 | Infectious Disease Prog Note ---
Infectious Disease Subjective - Review of Systems Service Date: 04/25/18 Subjective: Left sided mastectomy performed by dr Sandoval. Infectious Disease Objective - Results Result Diagrams: 04/25/18 05:20 04/25/18 05:20 Recent Labs: Laboratory Last Values WBC 9.2 Th/cmm (4.8-10.8) 04/25/18 05:20 RBC 3.35 Mil/cmm (3.80-5.20) L 04/25/18 05:20 Hgb 9.8 gm/dL (12-16) L 04/25/18 05:20 Hct 29.3 % (41.0-60) L 04/25/18 05:20 MCV 87.3 fl (81-100) 04/25/18 05:20 MCH 29.2 pg (27.0-31.0) 04/25/18 05:20 MCHC Differential 33.4 pg (28.0-36.0) 04/25/18 05:20 RDW 15.0 % (11.5-20.0) 04/25/18 05:20 Plt Count 319 Th/cmm (150-400) 04/25/18 05:20 MPV 7.3 fl 04/25/18 05:20 Neutrophils % 49.6 % (40.0-80.0) 04/25/18 05:20 Lymphocytes % 35.4 % (20.0-50.0) 04/25/18 05:20 Monocytes % 8.3 % (2.0-10.0) 04/25/18 05:20 Eosinophils % 5.6 % (0.0-5.0) H 04/25/18 05:20 Basophils % 1.1 % (0.0-2.0) 04/25/18 05:20 PT 9.9 SECONDS (9.5-11.5) 04/21/18 20:50 INR 0.95 (0.5-1.4) 04/21/18 20:50 PTT (Actin FS) 27.9 SECONDS (26.0-38.0) 04/21/18 20:50 Sodium 135 mEq/L (136-145) L 04/25/18 05:20 Potassium 4.0 mEq/L (3.5-5.1) 04/25/18 05:20 Chloride 107 mEq/L (98-107) 04/25/18 05:20 Carbon Dioxide 22.5 mEq/L (21.0-31.0) 04/25/18 05:20 Anion Gap 9.5 (7.0-16.0) 04/25/18 05:20 BUN 12 mg/dL (7-25) 04/25/18 05:20 Creatinine 0.8 mg/dL (0.6-1.2) 04/25/18 05:20 Est GFR ( Amer) TNP 04/25/18 05:20 Est GFR (Non-Af Amer) TNP 04/25/18 05:20 BUN/Creatinine Ratio 15.0 04/25/18 05:20 Glucose 129 mg/dL (70-105) H 04/25/18 05:20 POC Glucose 135 MG/DL (70 - 105) H 04/25/18 06:09 Hemoglobin A1c % 6.9 % (4.0-6.0) H 04/21/18 20:50 Calcium 8.2 mg/dL (8.6-10.3) L 04/25/18 05:20 Total Bilirubin 0.4 mg/dL (0.3-1.0) 04/25/18 05:20 AST 20 U/L (13-39) 04/25/18 05:20 ALT 13 U/L (7-52) 04/25/18 05:20 Alkaline Phosphatase 60 U/L (34-104) 04/25/18 05:20 Troponin I < 0.01 ng/mL (0.01-0.05) L 04/21/18 20:50 B-Natriuretic Peptide 41.1 pg/mL (5.0-100.0) 04/23/18 04:45 Total Protein 5.6 gm/dL (6.0-8.3) L 04/25/18 05:20 Albumin 2.7 gm/dL (3.7-5.3) L 04/25/18 05:20 Globulin 2.9 gm/dL 04/25/18 05:20 Albumin/Globulin Ratio 0.9 (1.0-1.8) L 04/25/18 05:20 Triglycerides 54 mg/dL (<150) 04/22/18 06:00 Cholesterol 122 mg/dL (<200) 04/22/18 06:00 LDL Cholesterol Direct 85 mg/dL (75-193) 04/22/18 06:00 HDL Cholesterol 31 mg/dL (23-92) 04/22/18 06:00 TSH 1.25 uIU/ml (0.34-5.60) 04/22/18 06:00 Urine Source [place] 04/21/18 22:10 Urine Color YELLOW 04/21/18 22:10 Urine Clarity CLEAR (CLEAR) 04/21/18 22:10 Urine pH 5.5 (4.6 - 8.0) 04/21/18 22:10 Ur Specific [place] <= 1.005 (1.005-1.030) 04/21/18 22:10 Urine Protein NEGATIVE mg/dL (NEGATIVE) 04/21/18 22:10 Urine Glucose (UA) 100 mg/dL (NEGATIVE) H 04/21/18 22:10 Urine Ketones NEGATIVE mg/dL (NEGATIVE) 04/21/18 22:10 Urine Blood NEGATIVE (NEGATIVE) 04/21/18 22:10 Urine Nitrate NEGATIVE (NEGATIVE) 04/21/18 22:10 Urine Bilirubin NEGATIVE (NEGATIVE) 04/21/18 22:10 Urine Urobilinogen 0.2 E.U./dL (0.2 - 1.0) 04/21/18 22:10 Ur Leukocyte Esterase SMALL (NEGATIVE) H 04/21/18 22:10 Urine RBC 0-2 /hpf (0-5) 04/21/18 22:10 Urine WBC 2-5 /hpf (0-5) 04/21/18 22:10 Ur Epithelial Cells FEW /lpf (FEW) 04/21/18 22:10 Urine Bacteria OCCASIONAL /hpf (NONE SEEN) 04/21/18 22:10 - Physical Exam Vitals and I&O: Vital Signs Temp 98.2 F 04/25/18 04:00 Pulse 86 04/25/18 04:00 Resp 19 04/25/18 04:00 BP 119/67 04/25/18 04:00 Pulse Ox 98 04/25/18 04:00 Intake & Output 04/24/18 04/25/18 04/25/18 18:59 06:59 18:59 Intake Total 800 290 Output Total 575 570 Balance 225 -280 Weight (lbs) 77.882 kg 77.564 kg Intake: Intake, IV Amount 50 cefTRIAXone 1 gm In 50 Sodium Chloride 0.9% 50 ml @ 100 mls/hr IV Q24HR [facility] Rx#:[id number] Oral 800 240 Output: Drainage 25 20 Left Chest 25 20 Urine 550 550 Other: # Bowel Movements 1 Weight Source Bedscale Bedscale Active Medications: Current Medications Acetaminophen (Tylenol) 650 mg PO Q6H PRN PRN Reason: Fever > 101 Stop: 06/21/18 11:32 Al Hydrox/Mg Hydrox/Simethicone (Maalox) 30 ml PO DAILY [facility] Stop: 06/23/18 09:59 Last Admin: 04/24/18 11:03 Dose: 30 ml Amlodipine Besylate (Norvasc) 10 mg PO DAILY [facility] Stop: 06/22/18 08:59 Last Admin: 04/24/18 09:23 Dose: 10 mg Aspirin (Aspirin Chewable) 81 mg PO DAILY [facility] Stop: 06/22/18 08:59 Last Admin: 04/24/18 09:22 Dose: 81 mg Atorvastatin Calcium (Lipitor) 40 mg PO HS [facility]; Protocol Stop: 06/21/18 20:59 Last Admin: 04/24/18 20:50 Dose: 40 mg Cholecalciferol (Vitamin D3) 1,000 iu PO DAILY [facility] Stop: 06/22/18 08:59 Last Admin: 04/24/18 09:23 Dose: 1,000 iu Docusate Sodium (Colace) 100 mg PO BID [facility] Stop: 06/21/18 16:59 Last Admin: 04/24/18 16:23 Dose: 100 mg Heparin Sodium (Porcine) (Heparin) 5,000 units SUBQ Q12HR [facility] Stop: 06/21/18 08:59 Last Admin: 04/24/18 20:50 Dose: 5,000 units Ceftriaxone Sodium 1 gm/ (Sodium Chloride) 50 mls @ 100 mls/hr IV Q24HR [facility] Stop: 06/21/18 03:59 Last Infusion: 04/25/18 04:22 Dose: Infused Insulin Aspart (Novolog Insulin Sliding Scale) 0 units SUBQ ACHS [facility]; Protocol Stop: 06/21/18 07:29 Last Admin: 04/25/18 06:49 Dose: Not Given Insulin Human NPH (Novolin N) 20 units SUBQ QDAC [facility]; Protocol Stop: 06/22/18 07:29 Last Admin: 04/25/18 06:49 Dose: Not Given Insulin Human NPH (Novolin N) 30 units SUBQ HS [facility]; Protocol Stop: 06/21/18 20:59 Last Admin: 04/24/18 20:51 Dose: Not Given Lactobacillus Rhamnosus (Culturelle 15b) 1 each PO DAILY [facility] Stop: 06/22/18 13:59 Last Admin: 04/24/18 09:23 Dose: 1 each Lamotrigine (Lamictal) 25 mg PO HS [facility]; Protocol Stop: 06/21/18 20:59 Last Admin: 04/24/18 20:50 Dose: 25 mg Memantine (Namenda) 10 mg PO BID [facility] Stop: 06/21/18 16:59 Last Admin: 04/24/18 16:24 Dose: 10 mg Mirtazapine (Remeron) 15 mg PO HS [facility]; Protocol Stop: 06/21/18 20:59 Last Admin: 04/24/18 20:50 Dose: 15 mg Miscellaneous (Vte Chemical Prophylaxis Screen/ Admission) 1 ea PRN PRN PRN Reason: PROTOCOL Stop: 06/21/18 07:44 Miscellaneous (Probiotic Screen) 1 ea MC PRN PRN PRN Reason: PROTOCOL Stop: 06/22/18 09:28 Morphine Sulfate (Morphine) 15 mg PO Q4H PRN PRN Reason: Pain (Moderate) Stop: 06/21/18 11:37 Multivitamins/Vitamin C (Theragran) 1 tab PO DAILY [facility] Stop: 06/22/18 08:59 Last Admin: 04/24/18 09:23 Dose: 1 tab Nitroglycerin (Nitrostat) 0.4 mg SL Q5MIN PRN PRN Reason: Chest Pain Stop: 06/21/18 11:34 Sodium Phosphate (Fleet Enema) 135 ml RC PRN PRN PRN Reason: Constipation Stop: 06/23/18 02:08 Valsartan (Diovan) 320 mg PO DAILY [facility] Stop: 06/22/18 08:59 Last Admin: 04/24/18 09:34 Dose: Not Given General: no acute distress, well developed, well nourished HEENT: atraumatic, normocephalic, PERRLA, EOMI Neck: supple, no thyromegaly Cardiovascular: S1S2, regular Lungs: clear to auscultation bilaterally, clear to percussion Abdomen: soft, no tender, no distended Extremities: no cyanosis, no clubbing, no edema Neurological: awake, alert, oriented - Procedures Procedures: Procedures Procedure Code Date EXCISION OF DUODENUM, ENDO, DIAGN [id number] 02/16/18 EXCISION OF ESOPHAGOGASTRIC JUNCTION, ENDO, DIAGN [id number] 02/16/18 EXCISION OF LEFT AXILLARY LYMPHATIC, OPEN APPROACH, DIAGN [id number] 04/22/18 EXCISION OF STOMACH, ENDO, DIAGN [id number] 02/16/18 RESECTION OF LEFT BREAST, OPEN APPROACH [id number] 04/22/18 Infectious Disease Assmt/Plan - Problem List Patient Problems: All Active Problems Mass of colon (Acute) K63.9 - Assessment Assessment: 1. Proctitis. 2. Urinary tract infection. 3. Fecal impaction. 4. Left sided breast CA with axillary lymph node involvement. 5. Anemia. 6. Diabetes mellitus type 2. 7. Hypertension. 8. Dementia. 9. Depression. 10. Arthritis. - Plan Plan: Continue same treatment. Will ask for oncology consult. Nutritional Asmnt/Malnutr-PDOC - Dietary Evaluation Malnutrition Findings (Please click <Entered> for more info): Nutritional Asmnt/Malnutrition Start: 04/23/18 15: 42 Text: Status: Complete Freq: Protocol: Document 04/23/18 15:50 LCHENG (Rec: 04/23/18 16:18 LCHENG [email or web address]) Nutritional Asmnt/Malnutrition Patient General Information Nutritional Screening High Risk Consult Diagnosis proctitis, UTI, intermittent ALOC Pertinent Medical Hx/Surgical Hx HTN, DM, CVA/TIA, arthritis, depression Subjective Information Consult received for elevated BS. Pt was sent to OR for mastectomy surgery this morning. Pt kept on NPO. Current Diet Order/ Nutrition Support NPO Pertinent Medications aspirin, lipitor, vit D3, colace, novolog, novolin, culturelle, remeron, theragran Pertinent Labs 8/6 glucose 117, POC 123-163 8/5 Na 134, glucose 141, POC 111-166, Ca 8.4 8/4 Na 130, Glucose 238, POC 133 Nutritional Hx/Data Height 1.63 m Height (Calculated Centimeters) 162.6 Current Weight (lbs) 79.379 kg Weight (Calculated Kilograms) 79.4 Weight (Calculated Grams) 15227.7 [place] Body Weight 120 Body Mass Index (BMI) 30.0 Weight Status Obese GI Symptoms GI Symptoms None Last BM 04/22 x 2 Difficult in: None Skin Integrity/Comment: BROWNISH DISCOLORATION/FADING ECCHYMOSIS Estimated Nutritional Goals Calories/Kcals/Kg 27-32 based on IBW 55kg Kcals Calculated 7304-2828 Protein g/k.2 Protein Calculated 66 Fluid: ml 1485-1760ml (1ml/kcal) Nutritional Problem 1. Problem Problem altered nutrition related labs Etiology hx of DM Signs/Symptoms: glucose 117-238, POC 123-166 Malnutrition Alert Is there a minimum of two criteria No selected? Query Text:Check all the applicable criteria. A minimum of two criteria are recommended for diagnosis of either severe or non-severe malnutrition. Malnutrition Related to Morbid Obesity Malnutrition related to morbid obesity No Intervention/Recommendation Comments 1. Monitor NPO status. [facility]. 2. Monitor PO intake, wt, labs and skin integrity 3. F/U as high risk in 2-3 days, 04/25-04/26 Expected Outcomes/Goals Expected Outcomes/Goals 1. PO intake to meet at least 75% of nutritional needs. 2. Wt stability, skin to remain intact, labs to approach WNL.
[2018-04-25] MEDS: Multivitamin Tab PO SCH (08:45)
[2018-04-25] MEDS: Maalox 30 mL Cup PO SCH (08:46)
[2018-04-25] MEDS: Aspirin 81mg Chewable Tab PO SCH (08:46)
[2018-04-25] MEDS: Lactobacillus Rhamnosus GG 15 Billion CFU CAP.SPRINK PO SCH (08:47)
--- NOTE | 2018-04-25 09:03 | General Progress Note ---
Subjective - Review of Systems Events since last encounter: in no acute distress no fever Objective - Results Result Diagrams: 04/25/18 05:20 04/25/18 05:20 Recent Labs: Laboratory Last Values WBC 9.2 Th/cmm (4.8-10.8) 04/25/18 05:20 RBC 3.35 Mil/cmm (3.80-5.20) L 04/25/18 05:20 Hgb 9.8 gm/dL (12-16) L 04/25/18 05:20 Hct 29.3 % (41.0-60) L 04/25/18 05:20 MCV 87.3 fl (81-100) 04/25/18 05:20 MCH 29.2 pg (27.0-31.0) 04/25/18 05:20 MCHC Differential 33.4 pg (28.0-36.0) 04/25/18 05:20 RDW 15.0 % (11.5-20.0) 04/25/18 05:20 Plt Count 319 Th/cmm (150-400) 04/25/18 05:20 MPV 7.3 fl 04/25/18 05:20 Neutrophils % 49.6 % (40.0-80.0) 04/25/18 05:20 Lymphocytes % 35.4 % (20.0-50.0) 04/25/18 05:20 Monocytes % 8.3 % (2.0-10.0) 04/25/18 05:20 Eosinophils % 5.6 % (0.0-5.0) H 04/25/18 05:20 Basophils % 1.1 % (0.0-2.0) 04/25/18 05:20 PT 9.9 SECONDS (9.5-11.5) 04/21/18 20:50 INR 0.95 (0.5-1.4) 04/21/18 20:50 PTT (Actin FS) 27.9 SECONDS (26.0-38.0) 04/21/18 20:50 Sodium 135 mEq/L (136-145) L 04/25/18 05:20 Potassium 4.0 mEq/L (3.5-5.1) 04/25/18 05:20 Chloride 107 mEq/L (98-107) 04/25/18 05:20 Carbon Dioxide 22.5 mEq/L (21.0-31.0) 04/25/18 05:20 Anion Gap 9.5 (7.0-16.0) 04/25/18 05:20 BUN 12 mg/dL (7-25) 04/25/18 05:20 Creatinine 0.8 mg/dL (0.6-1.2) 04/25/18 05:20 Est GFR ( Amer) TNP 04/25/18 05:20 Est GFR (Non-Af Amer) TNP 04/25/18 05:20 BUN/Creatinine Ratio 15.0 04/25/18 05:20 Glucose 129 mg/dL (70-105) H 04/25/18 05:20 POC Glucose 135 MG/DL (70 - 105) H 04/25/18 06:09 Hemoglobin A1c % 6.9 % (4.0-6.0) H 04/21/18 20:50 Calcium 8.2 mg/dL (8.6-10.3) L 04/25/18 05:20 Total Bilirubin 0.4 mg/dL (0.3-1.0) 04/25/18 05:20 AST 20 U/L (13-39) 04/25/18 05:20 ALT 13 U/L (7-52) 04/25/18 05:20 Alkaline Phosphatase 60 U/L (34-104) 04/25/18 05:20 Troponin I < 0.01 ng/mL (0.01-0.05) L 04/21/18 20:50 B-Natriuretic Peptide 41.1 pg/mL (5.0-100.0) 04/23/18 04:45 Total Protein 5.6 gm/dL (6.0-8.3) L 04/25/18 05:20 Albumin 2.7 gm/dL (3.7-5.3) L 04/25/18 05:20 Globulin 2.9 gm/dL 04/25/18 05:20 Albumin/Globulin Ratio 0.9 (1.0-1.8) L 04/25/18 05:20 Triglycerides 54 mg/dL (<150) 04/22/18 06:00 Cholesterol 122 mg/dL (<200) 04/22/18 06:00 LDL Cholesterol Direct 85 mg/dL (75-193) 04/22/18 06:00 HDL Cholesterol 31 mg/dL (23-92) 04/22/18 06:00 TSH 1.25 uIU/ml (0.34-5.60) 04/22/18 06:00 Urine Source [place] 04/21/18 22:10 Urine Color YELLOW 04/21/18 22:10 Urine Clarity CLEAR (CLEAR) 04/21/18 22:10 Urine pH 5.5 (4.6 - 8.0) 04/21/18 22:10 Ur Specific [place] <= 1.005 (1.005-1.030) 04/21/18 22:10 Urine Protein NEGATIVE mg/dL (NEGATIVE) 04/21/18 22:10 Urine Glucose (UA) 100 mg/dL (NEGATIVE) H 04/21/18 22:10 Urine Ketones NEGATIVE mg/dL (NEGATIVE) 04/21/18 22:10 Urine Blood NEGATIVE (NEGATIVE) 04/21/18 22:10 Urine Nitrate NEGATIVE (NEGATIVE) 04/21/18 22:10 Urine Bilirubin NEGATIVE (NEGATIVE) 04/21/18 22:10 Urine Urobilinogen 0.2 E.U./dL (0.2 - 1.0) 04/21/18 22:10 Ur Leukocyte Esterase SMALL (NEGATIVE) H 04/21/18 22:10 Urine RBC 0-2 /hpf (0-5) 04/21/18 22:10 Urine WBC 2-5 /hpf (0-5) 04/21/18 22:10 Ur Epithelial Cells FEW /lpf (FEW) 04/21/18 22:10 Urine Bacteria OCCASIONAL /hpf (NONE SEEN) 04/21/18 22:10 - Physical Exam Vitals and I&O: Vital Signs Temp 96.7 F 04/25/18 08:00 Pulse 80 04/25/18 08:45 Resp 17 04/25/18 08:00 BP 127/61 04/25/18 08:45 Pulse Ox 98 04/25/18 08:00 Intake & Output 04/24/18 04/25/18 04/25/18 18:59 06:59 18:59 Intake Total 800 290 Output Total 575 570 Balance 225 -280 Weight (lbs) 77.882 kg 77.564 kg Intake: Intake, IV Amount 50 cefTRIAXone 1 gm In 50 Sodium Chloride 0.9% 50 ml @ 100 mls/hr IV Q24HR [facility] Rx#:[id number] Oral 800 240 Output: Drainage 25 20 Left Chest 25 20 Urine 550 550 Other: # Bowel Movements 1 Weight Source Bedscale Bedscale Active Medications: Current Medications Acetaminophen (Tylenol) 650 mg PO Q6H PRN PRN Reason: Fever > 101 Stop: 06/21/18 11:32 Al Hydrox/Mg Hydrox/Simethicone (Maalox) 30 ml PO DAILY [facility] Stop: 06/23/18 09:59 Last Admin: 04/25/18 08:46 Dose: 30 ml Amlodipine Besylate (Norvasc) 10 mg PO DAILY [facility] Stop: 06/22/18 08:59 Last Admin: 04/25/18 08:45 Dose: 10 mg Aspirin (Aspirin Chewable) 81 mg PO DAILY [facility] Stop: 06/22/18 08:59 Last Admin: 04/25/18 08:46 Dose: 81 mg Atorvastatin Calcium (Lipitor) 40 mg PO HS [facility]; Protocol Stop: 06/21/18 20:59 Last Admin: 04/24/18 20:50 Dose: 40 mg Cholecalciferol (Vitamin D3) 1,000 iu PO DAILY [facility] Stop: 06/22/18 08:59 Last Admin: 04/25/18 08:45 Dose: 1,000 iu Docusate Sodium (Colace) 100 mg PO BID [facility] Stop: 06/21/18 16:59 Last Admin: 04/25/18 08:45 Dose: 100 mg Heparin Sodium (Porcine) (Heparin) 5,000 units SUBQ Q12HR [facility] Stop: 06/21/18 08:59 Last Admin: 04/25/18 08:47 Dose: 5,000 units Ceftriaxone Sodium 1 gm/ (Sodium Chloride) 50 mls @ 100 mls/hr IV Q24HR [facility] Stop: 06/21/18 03:59 Last Infusion: 04/25/18 04:22 Dose: Infused Insulin Aspart (Novolog Insulin Sliding Scale) 0 units SUBQ ACHS [facility]; Protocol Stop: 06/21/18 07:29 Last Admin: 04/25/18 06:49 Dose: Not Given Insulin Human NPH (Novolin N) 20 units SUBQ QDAC [facility]; Protocol Stop: 06/22/18 07:29 Last Admin: 04/25/18 06:49 Dose: Not Given Insulin Human NPH (Novolin N) 30 units SUBQ HS [facility]; Protocol Stop: 06/21/18 20:59 Last Admin: 04/24/18 20:51 Dose: Not Given Lactobacillus Rhamnosus (Culturelle 15b) 1 each PO DAILY [facility] Stop: 06/22/18 13:59 Last Admin: 04/25/18 08:47 Dose: 1 each Lamotrigine (Lamictal) 25 mg PO HS [facility]; Protocol Stop: 06/21/18 20:59 Last Admin: 04/24/18 20:50 Dose: 25 mg Memantine (Namenda) 10 mg PO BID [facility] Stop: 06/21/18 16:59 Last Admin: 04/25/18 08:47 Dose: 10 mg Mirtazapine (Remeron) 15 mg PO [facility]; Protocol Stop: 06/21/18 20:59 Last Admin: 04/24/18 20:50 Dose: 15 mg Miscellaneous (Vte Chemical Prophylaxis Screen/ Admission) 1 ea PRN PRN PRN Reason: PROTOCOL Stop: 06/21/18 07:44 Miscellaneous (Probiotic Screen) 1 ea PRN PRN PRN Reason: PROTOCOL Stop: 06/22/18 09:28 Morphine Sulfate (Morphine) 15 mg PO Q4H PRN PRN Reason: Pain (Moderate) Stop: 06/21/18 11:37 Multivitamins/Vitamin C (Theragran) 1 tab PO DAILY [facility] Stop: 06/22/18 08:59 Last Admin: 04/25/18 08:45 Dose: 1 tab Nitroglycerin (Nitrostat) 0.4 mg SL Q5MIN PRN PRN Reason: Chest Pain Stop: 06/21/18 11:34 Sodium Phosphate (Fleet Enema) 135 ml RC PRN PRN PRN Reason: Constipation Stop: 06/23/18 02:08 Valsartan (Diovan) 320 mg PO DAILY [facility] Stop: 06/22/18 08:59 Last Admin: 04/24/18 09:34 Dose: Not Given General: Alert, No acute distress, Mild distress HEENT: Atraumatic, PERRLA, EOMI Neck: Supple Cardiovascular: Regular rate, Normal S1, Normal S2 Lungs: Clear to auscultation, Normal air movement Abdomen: Bowel sounds - Procedures Procedures: Procedures Procedure Code Date EXCISION OF DUODENUM, ENDO, DIAGN [id number] 02/16/18 EXCISION OF ESOPHAGOGASTRIC JUNCTION, ENDO, DIAGN [id number] 02/16/18 EXCISION OF LEFT AXILLARY LYMPHATIC, OPEN APPROACH, DIAGN [id number] 04/22/18 EXCISION OF STOMACH, ENDO, DIAGN [id number] 02/16/18 RESECTION OF LEFT BREAST, OPEN APPROACH [id number] 04/22/18 Assessment/Plan - Problem List Patient Problems: All Active Problems Mass of colon (Acute) K63.9 - Plan Plan: as per order sheet Nutritional Asmnt/Malnutr-PDOC - Dietary Evaluation Malnutrition Findings (Please click <Entered> for more info): Nutritional Asmnt/Malnutrition Start: 04/23/18 15: 42 Text: Status: Complete Freq: Protocol: Document 04/23/18 15:50 HENG (Rec: 04/23/18 16:18 LCHENG [email or web address]) Nutritional Asmnt/Malnutrition Patient General Information Nutritional Screening High Risk Consult Diagnosis proctitis, UTI, intermittent ALOC Pertinent Medical Hx/Surgical Hx HTN, DM, CVA/TIA, arthritis, depression Subjective Information Consult received for elevated BS. Pt was sent to OR for mastectomy surgery this morning. Pt kept on NPO. Current Diet Order/ Nutrition Support NPO Pertinent Medications aspirin, lipitor, vit D3, colace, novolog, novolin, culturelle, remeron, theragran Pertinent Labs 8/6 glucose 117, POC 123-163 8/5 Na 134, glucose 141, POC 111-166, Ca 8.4 8/4 Na 130, Glucose 238, POC 133 Nutritional Hx/Data Height 1.63 m Height (Calculated Centimeters) 162.6 Current Weight (lbs) 79.379 kg Weight (Calculated Kilograms) 79.4 Weight (Calculated Grams) 90936.7 [place] Body Weight 120 Body Mass Index (BMI) 30.0 Weight Status Obese GI Symptoms GI Symptoms None Last BM 8/5 x 2 Difficult in: None Skin Integrity/Comment: BROWNISH DISCOLORATION/FADING ECCHYMOSIS Estimated Nutritional Goals Calories/Kcals/Kg 27-32 based on IBW 55kg Kcals Calculated 4935-1382 Protein g/k.2 Protein Calculated 66 Fluid: ml 1485-1760ml (1ml/kcal) Nutritional Problem 1. Problem Problem altered nutrition related labs Etiology hx of DM Signs/Symptoms: glucose 117-238, POC 123-166 Malnutrition Alert Is there a minimum of two criteria No selected? Query Text:Check all the applicable criteria. A minimum of two criteria are recommended for diagnosis of either severe or non-severe malnutrition. Malnutrition Related to Morbid Obesity Malnutrition related to morbid obesity No Intervention/Recommendation Comments 1. Monitor NPO status. Advance to [facility] diet when medically appropriate. 2. Monitor PO intake, wt, labs and skin integrity 3. F/U as high risk in 2-3 days, 04/25-04/26 Expected Outcomes/Goals Expected Outcomes/Goals 1. PO intake to meet at least 75% of nutritional needs. 2. Wt stability, skin to remain intact, labs to approach WNL.
--- NOTE | 2018-04-25 12:29 | General Progress Note ---
Subjective - Review of Systems Service Date: 04/25/18 Events since last encounter: labs ok Jabier drainage 30 cc overnight await final path report Objective - Results Result Diagrams: 04/25/18 05:20 04/25/18 05:20 Recent Labs: Laboratory Last Values WBC 9.2 Th/cmm (4.8-10.8) 04/25/18 05:20 RBC 3.35 Mil/cmm (3.80-5.20) L 04/25/18 05:20 Hgb 9.8 gm/dL (12-16) L 04/25/18 05:20 Hct 29.3 % (41.0-60) L 04/25/18 05:20 MCV 87.3 fl (81-100) 04/25/18 05:20 MCH 29.2 pg (27.0-31.0) 04/25/18 05:20 MCHC Differential 33.4 pg (28.0-36.0) 04/25/18 05:20 RDW 15.0 % (11.5-20.0) 04/25/18 05:20 Plt Count 319 Th/cmm (150-400) 04/25/18 05:20 MPV 7.3 fl 04/25/18 05:20 Neutrophils % 49.6 % (40.0-80.0) 04/25/18 05:20 Lymphocytes % 35.4 % (20.0-50.0) 04/25/18 05:20 Monocytes % 8.3 % (2.0-10.0) 04/25/18 05:20 Eosinophils % 5.6 % (0.0-5.0) H 04/25/18 05:20 Basophils % 1.1 % (0.0-2.0) 04/25/18 05:20 PT 9.9 SECONDS (9.5-11.5) 04/21/18 20:50 INR 0.95 (0.5-1.4) 04/21/18 20:50 PTT (Actin FS) 27.9 SECONDS (26.0-38.0) 04/21/18 20:50 Sodium 135 mEq/L (136-145) L 04/25/18 05:20 Potassium 4.0 mEq/L (3.5-5.1) 04/25/18 05:20 Chloride 107 mEq/L (98-107) 04/25/18 05:20 Carbon Dioxide 22.5 mEq/L (21.0-31.0) 04/25/18 05:20 Anion Gap 9.5 (7.0-16.0) 04/25/18 05:20 BUN 12 mg/dL (7-25) 04/25/18 05:20 Creatinine 0.8 mg/dL (0.6-1.2) 04/25/18 05:20 Est GFR ( Amer) TNP 04/25/18 05:20 Est GFR (Non-Af Amer) TNP 04/25/18 05:20 BUN/Creatinine Ratio 15.0 04/25/18 05:20 Glucose 129 mg/dL (70-105) H 04/25/18 05:20 POC Glucose 246 MG/DL (70 - 105) H 04/25/18 11:32 Hemoglobin A1c % 6.9 % (4.0-6.0) H 04/21/18 20:50 Calcium 8.2 mg/dL (8.6-10.3) L 04/25/18 05:20 Total Bilirubin 0.4 mg/dL (0.3-1.0) 04/25/18 05:20 AST 20 U/L (13-39) 04/25/18 05:20 ALT 13 U/L (7-52) 04/25/18 05:20 Alkaline Phosphatase 60 U/L (34-104) 04/25/18 05:20 Troponin I < 0.01 ng/mL (0.01-0.05) L 04/21/18 20:50 B-Natriuretic Peptide 41.1 pg/mL (5.0-100.0) 04/23/18 04:45 Total Protein 5.6 gm/dL (6.0-8.3) L 04/25/18 05:20 Albumin 2.7 gm/dL (3.7-5.3) L 04/25/18 05:20 Globulin 2.9 gm/dL 04/25/18 05:20 Albumin/Globulin Ratio 0.9 (1.0-1.8) L 04/25/18 05:20 Triglycerides 54 mg/dL (<150) 04/22/18 06:00 Cholesterol 122 mg/dL (<200) 04/22/18 06:00 LDL Cholesterol Direct 85 mg/dL (75-193) 04/22/18 06:00 HDL Cholesterol 31 mg/dL (23-92) 04/22/18 06:00 TSH 1.25 uIU/ml (0.34-5.60) 04/22/18 06:00 Urine Source [place] 04/21/18 22:10 Urine Color YELLOW 04/21/18 22:10 Urine Clarity CLEAR (CLEAR) 04/21/18 22:10 Urine pH 5.5 (4.6 - 8.0) 04/21/18 22:10 Ur Specific [place] <= 1.005 (1.005-1.030) 04/21/18 22:10 Urine Protein NEGATIVE mg/dL (NEGATIVE) 04/21/18 22:10 Urine Glucose (UA) 100 mg/dL (NEGATIVE) H 04/21/18 22:10 Urine Ketones NEGATIVE mg/dL (NEGATIVE) 04/21/18 22:10 Urine Blood NEGATIVE (NEGATIVE) 04/21/18 22:10 Urine Nitrate NEGATIVE (NEGATIVE) 04/21/18 22:10 Urine Bilirubin NEGATIVE (NEGATIVE) 04/21/18 22:10 Urine Urobilinogen 0.2 E.U./dL (0.2 - 1.0) 04/21/18 22:10 Ur Leukocyte Esterase SMALL (NEGATIVE) H 04/21/18 22:10 Urine RBC 0-2 /hpf (0-5) 04/21/18 22:10 Urine WBC 2-5 /hpf (0-5) 04/21/18 22:10 Ur Epithelial Cells FEW /lpf (FEW) 04/21/18 22:10 Urine Bacteria OCCASIONAL /hpf (NONE SEEN) 04/21/18 22:10 - Physical Exam Vitals and I&O: Vital Signs Temp 99.0 F 04/25/18 12:00 Pulse 72 04/25/18 12:00 Resp 17 04/25/18 12:00 BP 116/48 04/25/18 12:00 Pulse Ox 98 04/25/18 12:00 Intake & Output 04/24/18 04/25/18 04/25/18 18:59 06:59 18:59 Intake Total 800 290 Output Total 575 570 Balance 225 -280 Weight (lbs) 77.882 kg 77.564 kg Intake: Intake, IV Amount 50 cefTRIAXone 1 gm In 50 Sodium Chloride 0.9% 50 ml @ 100 mls/hr IV Q24HR [facility] Rx#:[id number] Oral 800 240 Output: Drainage 25 20 Left Chest 25 20 Urine 550 550 Other: # Bowel Movements 1 Weight Source Bedscale Bedscale Active Medications: Current Medications Acetaminophen (Tylenol) 650 mg PO Q6H PRN PRN Reason: Fever > 101 Stop: 06/21/18 11:32 Al Hydrox/Mg Hydrox/Simethicone (Maalox) 30 ml PO DAILY [facility] Stop: 06/23/18 09:59 Last Admin: 04/25/18 08:46 Dose: Not Given Amlodipine Besylate (Norvasc) 10 mg PO DAILY [facility] Stop: 06/22/18 08:59 Last Admin: 04/25/18 08:45 Dose: Not Given Aspirin (Aspirin Chewable) 81 mg PO DAILY [facility] Stop: 06/22/18 08:59 Last Admin: 04/25/18 08:46 Dose: Not Given Atorvastatin Calcium (Lipitor) 40 mg PO HS [facility]; Protocol Stop: 06/21/18 20:59 Last Admin: 04/24/18 20:50 Dose: 40 mg Cholecalciferol (Vitamin D3) 1,000 iu PO DAILY [facility] Stop: 06/22/18 08:59 Last Admin: 04/25/18 08:45 Dose: Not Given Docusate Sodium (Colace) 100 mg PO BID [facility] Stop: 06/21/18 16:59 Last Admin: 04/25/18 08:45 Dose: Not Given Heparin Sodium (Porcine) (Heparin) 5,000 units SUBQ Q12HR [facility] Stop: 06/21/18 08:59 Last Admin: 04/25/18 08:47 Dose: 5,000 units Ceftriaxone Sodium 1 gm/ (Sodium Chloride) 50 mls @ 100 mls/hr IV Q24HR [facility] Stop: 06/21/18 03:59 Last Infusion: 04/25/18 04:22 Dose: Infused Insulin Aspart (Novolog Insulin Sliding Scale) 0 units SUBQ ACHS [facility]; Protocol Stop: 06/21/18 07:29 Last Admin: 04/25/18 06:49 Dose: Not Given Insulin Human NPH (Novolin N) 20 units SUBQ QDAC [facility]; Protocol Stop: 06/22/18 07:29 Last Admin: 04/25/18 06:49 Dose: Not Given Insulin Human NPH (Novolin N) 30 units SUBQ [facility]; Protocol Stop: 06/21/18 20:59 Last Admin: 04/24/18 20:51 Dose: Not Given Lactobacillus Rhamnosus (Culturelle 15b) 1 each PO DAILY [facility] Stop: 06/22/18 13:59 Last Admin: 04/25/18 08:47 Dose: Not Given Lamotrigine (Lamictal) 25 mg PO [facility]; Protocol Stop: 06/21/18 20:59 Last Admin: 04/24/18 20:50 Dose: 25 mg Memantine (Namenda) 10 mg PO BID [facility] Stop: 06/21/18 16:59 Last Admin: 04/25/18 08:47 Dose: Not Given Mirtazapine (Remeron) 15 mg PO [facility]; Protocol Stop: 06/21/18 20:59 Last Admin: 04/24/18 20:50 Dose: 15 mg Miscellaneous (Vte Chemical Prophylaxis Screen/ Admission) 1 ea [facility] PRN PRN PRN Reason: PROTOCOL Stop: 06/21/18 07:44 Miscellaneous (Probiotic Screen) 1 ea MC PRN PRN PRN Reason: PROTOCOL Stop: 06/22/18 09:28 Morphine Sulfate (Morphine) 15 mg PO Q4H PRN PRN Reason: Pain (Moderate) Stop: 06/21/18 11:37 Multivitamins/Vitamin C (Theragran) 1 tab PO DAILY [facility] Stop: 06/22/18 08:59 Last Admin: 04/25/18 08:45 Dose: Not Given Nitroglycerin (Nitrostat) 0.4 mg SL Q5MIN PRN PRN Reason: Chest Pain Stop: 06/21/18 11:34 Sodium Phosphate (Fleet Enema) 135 ml RC PRN PRN PRN Reason: Constipation Stop: 06/23/18 02:08 Valsartan (Diovan) 320 mg PO DAILY [facility] Stop: 06/22/18 08:59 Last Admin: 04/25/18 09:05 Dose: Not Given General: Alert, No acute distress, Mild distress HEENT: Atraumatic, PERRLA, EOMI Neck: Supple Cardiovascular: Regular rate, Normal S1, Normal S2 Lungs: Clear to auscultation, Normal air movement Abdomen: Bowel sounds - Procedures Procedures: Procedures Procedure Code Date EXCISION OF DUODENUM, ENDO, DIAGN [id number] 02/16/18 EXCISION OF ESOPHAGOGASTRIC JUNCTION, ENDO, DIAGN [id number] 02/16/18 EXCISION OF LEFT AXILLARY LYMPHATIC, OPEN APPROACH, DIAGN [id number] 04/22/18 EXCISION OF STOMACH, ENDO, DIAGN [id number] 02/16/18 RESECTION OF LEFT BREAST, OPEN APPROACH [id number] 04/22/18 Assessment/Plan - Problem List Patient Problems: All Active Problems Mass of colon (Acute) K63.9 Nutritional Asmnt/Malnutr-PDOC - Dietary Evaluation Malnutrition Findings (Please click <Entered> for more info): Nutritional Asmnt/Malnutrition Start: 04/23/18 15: 42 Text: Status: Complete Freq: Protocol: Document 04/23/18 15:50 LCHENG (Rec: 04/23/18 16:18 [email or web address] [email or web address]) Nutritional Asmnt/Malnutrition Patient General Information Nutritional Screening High Risk Consult Diagnosis proctitis, UTI, intermittent ALOC Pertinent Medical Hx/Surgical Hx HTN, DM, CVA/TIA, arthritis, depression Subjective Information Consult received for elevated BS. Pt was sent to OR for mastectomy surgery this morning. Pt kept on NPO. Current Diet Order/ Nutrition Support NPO Pertinent Medications aspirin, lipitor, vit D3, colace, novolog, novolin, culturelle, remeron, theragran Pertinent Labs 8/6 glucose 117, POC 123-163 8/5 Na 134, glucose 141, POC 111-166, Ca 8.4 8/4 Na 130, Glucose 238, POC 133 Nutritional Hx/Data Height 1.63 m Height (Calculated Centimeters) 162.6 Current Weight (lbs) 79.379 kg Weight (Calculated Kilograms) 79.4 Weight (Calculated Grams) 80379.7 [place] Body Weight 120 Body Mass Index (BMI) 30.0 Weight Status Obese GI Symptoms GI Symptoms None Last BM 8/5 x 2 Difficult in: None Skin Integrity/Comment: BROWNISH DISCOLORATION/FADING ECCHYMOSIS Estimated Nutritional Goals Calories/Kcals/Kg 27-32 based on IBW 55kg Kcals Calculated 1290-3042 Protein g/k.2 Protein Calculated 66 Fluid: ml 1485-1760ml (1ml/kcal) Nutritional Problem 1. Problem Problem altered nutrition related labs Etiology hx of DM Signs/Symptoms: glucose 117-238, POC 123-166 Malnutrition Alert Is there a minimum of two criteria No selected? Query Text:Check all the applicable criteria. A minimum of two criteria are recommended for diagnosis of either severe or non-severe malnutrition. Malnutrition Related to Morbid Obesity Malnutrition related to morbid obesity No Intervention/Recommendation Comments 1. Monitor NPO status. Advance to CCHO diet when medically appropriate. 2. Monitor PO intake, wt, labs and skin integrity 3. F/U as high risk in 2-3 days, 04/25-04/26 Expected Outcomes/Goals Expected Outcomes/Goals 1. PO intake to meet at least 75% of nutritional needs. 2. Wt stability, skin to remain intact, labs to approach WNL.
--- NOTE | 2018-04-25 14:45 | GI Progress Note ---
Subjective - Review of Systems Service Date: 04/25/18 Subjective: Pt appears comfortable, no events Objective - Results Result Diagrams: 04/25/18 05:20 04/25/18 05:20 Recent Labs: Laboratory Last Values WBC 9.2 Th/cmm (4.8-10.8) 04/25/18 05:20 RBC 3.35 Mil/cmm (3.80-5.20) L 04/25/18 05:20 Hgb 9.8 gm/dL (12-16) L 04/25/18 05:20 Hct 29.3 % (41.0-60) L 04/25/18 05:20 MCV 87.3 fl (81-100) 04/25/18 05:20 MCH 29.2 pg (27.0-31.0) 04/25/18 05:20 MCHC Differential 33.4 pg (28.0-36.0) 04/25/18 05:20 RDW 15.0 % (11.5-20.0) 04/25/18 05:20 Plt Count 319 Th/cmm (150-400) 04/25/18 05:20 MPV 7.3 fl 04/25/18 05:20 Neutrophils % 49.6 % (40.0-80.0) 04/25/18 05:20 Lymphocytes % 35.4 % (20.0-50.0) 04/25/18 05:20 Monocytes % 8.3 % (2.0-10.0) 04/25/18 05:20 Eosinophils % 5.6 % (0.0-5.0) H 04/25/18 05:20 Basophils % 1.1 % (0.0-2.0) 04/25/18 05:20 PT 9.9 SECONDS (9.5-11.5) 04/21/18 20:50 INR 0.95 (0.5-1.4) 04/21/18 20:50 PTT (Actin FS) 27.9 SECONDS (26.0-38.0) 04/21/18 20:50 Sodium 135 mEq/L (136-145) L 04/25/18 05:20 Potassium 4.0 mEq/L (3.5-5.1) 04/25/18 05:20 Chloride 107 mEq/L (98-107) 04/25/18 05:20 Carbon Dioxide 22.5 mEq/L (21.0-31.0) 04/25/18 05:20 Anion Gap 9.5 (7.0-16.0) 04/25/18 05:20 BUN 12 mg/dL (7-25) 04/25/18 05:20 Creatinine 0.8 mg/dL (0.6-1.2) 04/25/18 05:20 Est GFR ( Amer) TNP 04/25/18 05:20 Est GFR (Non-Af Amer) TNP 04/25/18 05:20 BUN/Creatinine Ratio 15.0 04/25/18 05:20 Glucose 129 mg/dL (70-105) H 04/25/18 05:20 POC Glucose 246 MG/DL (70 - 105) H 04/25/18 11:32 Hemoglobin A1c % 6.9 % (4.0-6.0) H 04/21/18 20:50 Calcium 8.2 mg/dL (8.6-10.3) L 04/25/18 05:20 Total Bilirubin 0.4 mg/dL (0.3-1.0) 04/25/18 05:20 AST 20 U/L (13-39) 04/25/18 05:20 ALT 13 U/L (7-52) 04/25/18 05:20 Alkaline Phosphatase 60 U/L (34-104) 04/25/18 05:20 Troponin I < 0.01 ng/mL (0.01-0.05) L 04/21/18 20:50 B-Natriuretic Peptide 41.1 pg/mL (5.0-100.0) 04/23/18 04:45 Total Protein 5.6 gm/dL (6.0-8.3) L 04/25/18 05:20 Albumin 2.7 gm/dL (3.7-5.3) L 04/25/18 05:20 Globulin 2.9 gm/dL 04/25/18 05:20 Albumin/Globulin Ratio 0.9 (1.0-1.8) L 04/25/18 05:20 Triglycerides 54 mg/dL (<150) 04/22/18 06:00 Cholesterol 122 mg/dL (<200) 04/22/18 06:00 LDL Cholesterol Direct 85 mg/dL (75-193) 04/22/18 06:00 HDL Cholesterol 31 mg/dL (23-92) 04/22/18 06:00 TSH 1.25 uIU/ml (0.34-5.60) 04/22/18 06:00 Urine Source [place] 04/21/18 22:10 Urine Color YELLOW 04/21/18 22:10 Urine Clarity CLEAR (CLEAR) 04/21/18 22:10 Urine pH 5.5 (4.6 - 8.0) 04/21/18 22:10 Ur Specific [place] <= 1.005 (1.005-1.030) 04/21/18 22:10 Urine Protein NEGATIVE mg/dL (NEGATIVE) 04/21/18 22:10 Urine Glucose (UA) 100 mg/dL (NEGATIVE) H 04/21/18 22:10 Urine Ketones NEGATIVE mg/dL (NEGATIVE) 04/21/18 22:10 Urine Blood NEGATIVE (NEGATIVE) 04/21/18 22:10 Urine Nitrate NEGATIVE (NEGATIVE) 04/21/18 22:10 Urine Bilirubin NEGATIVE (NEGATIVE) 04/21/18 22:10 Urine Urobilinogen 0.2 E.U./dL (0.2 - 1.0) 04/21/18 22:10 Ur Leukocyte Esterase SMALL (NEGATIVE) H 04/21/18 22:10 Urine RBC 0-2 /hpf (0-5) 04/21/18 22:10 Urine WBC 2-5 /hpf (0-5) 04/21/18 22:10 Ur Epithelial Cells FEW /lpf (FEW) 04/21/18 22:10 Urine Bacteria OCCASIONAL /hpf (NONE SEEN) 04/21/18 22:10 - Physical Exam Vitals and I&O: Vital Signs Temp 99.0 F 04/25/18 12:00 Pulse 72 04/25/18 12:00 Resp 17 04/25/18 12:00 BP 116/48 04/25/18 12:00 Pulse Ox 98 04/25/18 12:00 Intake & Output 04/24/18 04/25/18 04/25/18 18:59 06:59 18:59 Intake Total 800 290 Output Total 574 570 Balance 225 -280 Weight (lbs) 77.882 kg 77.564 kg Intake: Intake, IV Amount 50 cefTRIAXone 1 gm In 50 Sodium Chloride 0.9% 50 ml @ 100 mls/hr IV Q24HR [facility] Rx#:[id number] Oral 800 240 Output: Drainage 25 20 Left Chest 25 20 Urine 550 550 Other: # Bowel Movements 1 Weight Source Bedscale Bedscale Active Medications: Current Medications Acetaminophen (Tylenol) 650 mg PO Q6H PRN PRN Reason: Fever > 101 Stop: 06/21/18 11:32 Al Hydrox/Mg Hydrox/Simethicone (Maalox) 30 ml PO DAILY [facility] Stop: 06/23/18 09:59 Last Admin: 04/25/18 08:46 Dose: Not Given Amlodipine Besylate (Norvasc) 10 mg PO DAILY [facility] Stop: 06/22/18 08:59 Last Admin: 04/25/18 08:45 Dose: Not Given Aspirin (Aspirin Chewable) 81 mg PO DAILY [facility] Stop: 06/22/18 08:59 Last Admin: 04/25/18 08:46 Dose: Not Given Atorvastatin Calcium (Lipitor) 40 mg PO HS [facility]; Protocol Stop: 06/21/18 20:59 Last Admin: 04/24/18 20:50 Dose: 40 mg Cholecalciferol (Vitamin D3) 1,000 iu PO DAILY [facility] Stop: 06/22/18 08:59 Last Admin: 04/25/18 08:45 Dose: Not Given Docusate Sodium (Colace) 100 mg PO BID [facility] Stop: 06/21/18 16:59 Last Admin: 04/25/18 08:45 Dose: Not Given Heparin Sodium (Porcine) (Heparin) 5,000 units SUBQ Q12HR [facility] Stop: 06/21/18 08:59 Last Admin: 04/25/18 08:47 Dose: 5,000 units Ceftriaxone Sodium 1 gm/ (Sodium Chloride) 50 mls @ 100 mls/hr IV Q24HR [facility] Stop: 06/21/18 03:59 Last Infusion: 04/25/18 04:22 Dose: Infused Insulin Aspart (Novolog Insulin Sliding Scale) 0 units SUBQ ACHS [facility]; Protocol Stop: 06/21/18 07:29 Last Admin: 04/25/18 06:49 Dose: Not Given Insulin Human NPH (Novolin N) 20 units SUBQ QDAC [facility]; Protocol Stop: 06/22/18 07:29 Last Admin: 04/25/18 06:49 Dose: Not Given Insulin Human NPH (Novolin N) 30 units SUBQ [facility]; Protocol Stop: 06/21/18 20:59 Last Admin: 04/24/18 20:51 Dose: Not Given Lactobacillus Rhamnosus (Culturelle 15b) 1 each PO DAILY [facility] Stop: 06/22/18 13:59 Last Admin: 04/25/18 08:47 Dose: Not Given Lamotrigine (Lamictal) 25 mg PO [facility]; Protocol Stop: 06/21/18 20:59 Last Admin: 04/24/18 20:50 Dose: 25 mg Memantine (Namenda) 10 mg PO BID [facility] Stop: 06/21/18 16:59 Last Admin: 04/25/18 08:47 Dose: Not Given Mirtazapine (Remeron) 15 mg PO [facility]; Protocol Stop: 06/21/18 20:59 Last Admin: 04/24/18 20:50 Dose: 15 mg Miscellaneous (Vte Chemical Prophylaxis Screen/ Admission) 1 ea PRN PRN PRN Reason: PROTOCOL Stop: 06/21/18 07:44 Miscellaneous (Probiotic Screen) 1 ea PRN PRN PRN Reason: PROTOCOL Stop: 06/22/18 09:28 Morphine Sulfate (Morphine) 15 mg PO Q4H PRN PRN Reason: Pain (Moderate) Stop: 06/21/18 11:37 Multivitamins/Vitamin C (Theragran) 1 tab PO DAILY [facility] Stop: 06/22/18 08:59 Last Admin: 04/25/18 08:45 Dose: Not Given Nitroglycerin (Nitrostat) 0.4 mg SL Q5MIN PRN PRN Reason: Chest Pain Stop: 06/21/18 11:34 Sodium Phosphate (Fleet Enema) 135 ml RC PRN PRN PRN Reason: Constipation Stop: 06/23/18 02:08 Valsartan (Diovan) 320 mg PO DAILY [facility] Stop: 06/22/18 08:59 Last Admin: 04/25/18 09:05 Dose: Not Given General: Alert, No acute distress, Mild distress HEENT: Atraumatic, PERRLA, EOMI Neck: Supple Cardiovascular: Regular rate, Normal S1, Normal S2 Lungs: Clear to auscultation, Normal air movement Abdomen: Bowel sounds - Procedures Procedures: Procedures Procedure Code Date EXCISION OF DUODENUM, ENDO, DIAGN [id number] 02/16/18 EXCISION OF ESOPHAGOGASTRIC JUNCTION, ENDO, DIAGN [id number] 02/16/18 EXCISION OF LEFT AXILLARY LYMPHATIC, OPEN APPROACH, DIAGN [id number] 04/22/18 EXCISION OF STOMACH, ENDO, DIAGN [id number] 02/16/18 RESECTION OF LEFT BREAST, OPEN APPROACH [id number] 04/22/18 Assessment/Plan - Problem List Patient Problems: All Active Problems Mass of colon (Acute) K63.9 - Assessment Assessment: Will plan for flexible sigmoidoscopy tomorrow CLD Tap water enemas prior to procedure give patient only 2L of angela consent for flex sigmoidoscopy/colonoscopy
--- NOTE | 2018-04-25 16:19 | Pathology Report ---
[id number] Collection Date: 04/23/2018 Surgeon: Dr. Michel Sandoval Specimen Description: 1. Left modified radical mastectomy 2. Left axillary dissection Gross Description: Part I: Received in formalin is a left breast mastectomy specimen measuring 22 x 10.5 x 5.0 cm with a transversely oriented ellipse of garsia skin on the surface of the specimen, measuring 16 x 7.5 cm. The left nipple measures 1.0 cm and is surrounded by a 1.5 cm areola, located in the medial aspect of the skin ellipse. The deep and lateral margins of the specimen consist of yellow fatty tissue that is inked in blue color. Sectioning reveals a 3.5 cm garsia, firm tumor mass in the middle portion of the specimen, approximately 2 cm below the skin surface and 2 cm from the deep margin. This tumor has an irregular infiltrative border, surrounded by mostly yellow fatty breast tissue. Random sections throughout the four quadrants show no other mass lesions with only focal areas of fibrosis identified. Examination of the nearest cutaneous and soft tissue margins shows no gross evidence for tumor involvement. A small portion of the tumor is submitted for frozen section. C[employer] Brick sections are submitted in 12 cassettes labeled A1 to A12. Cassette A1 shows the frozen section, cassettes A2 to A5 show the tumor, cassette A6 shows the adjacent breast tissue, cassettes A7 through A10 show the random four quadrant sections, cassette A11 shows the nearest skin margin, cassette A12 shows the nearest deep margin. Frozen Section Diagnosis: Infiltrating breast carcinoma. Gross Description: Part II: Received in formalin is an 11.5 x 8.5 x 3.5 cm portion of yellow fatty tissue consistent with axillary dissection. Multiple enlarged, garsia lymph nodes are identified measuring up to 2.3 cm in greatest dimension. Sectioning of these enlarged nodes shows multiple areas of garsia tumor replacement. Cutter [employer] Brick sections are submitted in nine cassettes labeled B1 to B9. Microscopic Description: Part I: The histologic sections show a mastectomy specimen with infiltrating poorly differentiated breast carcinoma identified. The tumor cells show nuclear enlargement and pleomorphism, growing in mostly solid infiltrative sheets with focal areas of extension into ductal structures (cancerization of ducts). There is also focal intravascular tumor involvement. Focal areas of in situ breast carcinoma are also appreciated in the random sections taken. There is no evidence for tumor in the cutaneous or deep margins. Diagnosis: Part I: 1. Infiltrating poorly differentiated breast carcinoma (measuring 3.5 cm in greatest dimension). 2. Areas of intravascular tumor involvement are identified. 3. There is extension of tumor into ducts and areas of intraductal carcinoma in situ. 4. There is no evidence for tumor in the cutaneous and deep surgical margins. Microscopic Description: Part II: The histologic sections show multiple lymph nodes that show extensive tumor replacement with poorly differentiated breast carcinoma. The tumor cells show marked nuclear enlargement and pleomorphism with many cells having abundant eosinophilic cytoplasm. Eighteen out of 20 lymph nodes examined are positive for lymph node involvement. Diagnosis: Part II: Metastatic poorly differentiated breast carcinoma, involving 18 out of 20 axillary lymph nodes examined. [facility]# [id number]
--- NOTE | 2018-04-25 20:47 | Consultation ---
DATE OF CONSULTATION: 04/25/2018 REFERRING PHYSICIAN: Dr. Cisneros. REASON FOR CONSULTATION: Breast mass. HISTORY OF PRESENT ILLNESS: The patient is a 77-year-old female, who resides in a nursing facility. She was admitted with dizziness and on imaging, she was found to have left breast mass. Ultrasound of the breast on 04/22 showed 2.6 cm left breast lesion at 12 o'clock position with multiple lymph nodes in left axilla. The patient was taken to Surgery and underwent left modified radical mastectomy and axillary lymph node dissection by Dr. Sandoval on 04/24/2018. CT scan of the abdomen and pelvis also reported perirectal lymph node measuring 0.7 cm and rectal wall thickening and the patient is scheduled to have colonoscopy in the morning. PAST MEDICAL HISTORY: Diabetes, hypertension, dementia, arthritis. SOCIAL HISTORY: Resides in nursing facility. PSYCH HISTORY: Depression. FAMILY HISTORY: No breast cancer or multiple other cancers. The daughter was not able to specifically mention the diagnosis of the family members. PHYSICAL EXAMINATION: GENERAL: The patient is awake, not in distress. VITAL SIGNS: Stable. HEENT: Atraumatic, no peripheral lymphadenopathy. CHEST: Clear with dressing on left breast. No bleeding. ABDOMEN: Soft. EXTREMITIES: Unremarkable. NERVOUS SYSTEM: No focal deficits. LABORATORY DATA: White count 9.2, hemoglobin 9.8, platelets 319. Liver functions normal. CT scan of the abdomen and pelvis as reported above. An ultrasound of the breast as reported above. ASSESSMENT AND PLAN: 1. Left breast mass, status post left modified radical mastectomy with axillary lymph node dissection. Awaiting final pathology report for further recommendation. 2. Rectal thickening with perirectal subcentimeter lymph for colonoscopy evaluation in the morning. 3. Anemia. I will obtain comprehensive workup. The case was discussed with the daughter at bedside. Thank you, Dr. Cisneros, for the opportunity to participate in the care of this interesting case with you. JOB# [id number]
[2018-04-25] MEDS: D5-0.9%NS 1,000 ML IV SCH (21:00)
[2018-04-26] MEDS: cefTRIAXone 1 GM in Sodium Chloride 0.9% 50 ML IV SCH (04:00)
[2018-04-26 06:28] LABS: INR 0.97 (0.5-1.4); PROTHROMBIN TIME (TEST) 10.1 SECONDS (9.5-11.5)
[2018-04-26] MEDS: INSULIN ASPART SLIDING SCALE 100 UNITS/ML UNIT SUBQ SCH ×4 (06:31→21:36)
[2018-04-26] MEDS: INSULIN HUMAN ISOPHANE (NPH) 100 UNITS/ML SUBQ SCH ×2 (06:31→21:06)
--- NOTE | 2018-04-26 08:35 | General Progress Note ---
Subjective - Review of Systems Service Date: 04/26/18 Events since last encounter: AXEL drainage overnight 30 cc dressings dry, minimal pain colonoscopy today Objective - Results Result Diagrams: 04/25/18 05:20 04/25/18 05:20 Recent Labs: Laboratory Last Values WBC 9.2 Th/cmm (4.8-10.8) 04/25/18 05:20 RBC 3.35 Mil/cmm (3.80-5.20) L 04/25/18 05:20 Hgb 9.8 gm/dL (12-16) L 04/25/18 05:20 Hct 29.3 % (41.0-60) L 04/25/18 05:20 MCV 87.3 fl (81-100) 04/25/18 05:20 MCH 29.2 pg (27.0-31.0) 04/25/18 05:20 MCHC Differential 33.4 pg (28.0-36.0) 04/25/18 05:20 RDW 15.0 % (11.5-20.0) 04/25/18 05:20 Plt Count 319 Th/cmm (150-400) 04/25/18 05:20 MPV 7.3 fl 04/25/18 05:20 Neutrophils % 49.6 % (40.0-80.0) 04/25/18 05:20 Lymphocytes % 35.4 % (20.0-50.0) 04/25/18 05:20 Monocytes % 8.3 % (2.0-10.0) 04/25/18 05:20 Eosinophils % 5.6 % (0.0-5.0) H 04/25/18 05:20 Basophils % 1.1 % (0.0-2.0) 04/25/18 05:20 PT 10.1 SECONDS (9.5-11.5) 04/26/18 05:40 INR 0.97 (0.5-1.4) 04/26/18 05:40 PTT (Actin FS) 27.9 SECONDS (26.0-38.0) 04/21/18 20:50 Sodium 135 mEq/L (136-145) L 04/25/18 05:20 Potassium 4.0 mEq/L (3.5-5.1) 04/25/18 05:20 Chloride 107 mEq/L (98-107) 04/25/18 05:20 Carbon Dioxide 22.5 mEq/L (21.0-31.0) 04/25/18 05:20 Anion Gap 9.5 (7.0-16.0) 04/25/18 05:20 BUN 12 mg/dL (7-25) 04/25/18 05:20 Creatinine 0.8 mg/dL (0.6-1.2) 04/25/18 05:20 Est GFR ( Amer) TNP 04/25/18 05:20 Est GFR (Non-Af Amer) TNP 04/25/18 05:20 BUN/Creatinine Ratio 15.0 04/25/18 05:20 Glucose 129 mg/dL (70-105) H 04/25/18 05:20 POC Glucose 153 MG/DL (70 - 105) H 04/26/18 05:20 Hemoglobin A1c % 6.9 % (4.0-6.0) H 04/21/18 20:50 Calcium 8.2 mg/dL (8.6-10.3) L 04/25/18 05:20 Total Bilirubin 0.4 mg/dL (0.3-1.0) 04/25/18 05:20 AST 20 U/L (13-39) 04/25/18 05:20 ALT 13 U/L (7-52) 04/25/18 05:20 Alkaline Phosphatase 60 U/L (34-104) 04/25/18 05:20 Troponin I < 0.01 ng/mL (0.01-0.05) L 04/21/18 20:50 B-Natriuretic Peptide 41.1 pg/mL (5.0-100.0) 04/23/18 04:45 Total Protein 5.6 gm/dL (6.0-8.3) L 04/25/18 05:20 Albumin 2.7 gm/dL (3.7-5.3) L 04/25/18 05:20 Globulin 2.9 gm/dL 04/25/18 05:20 Albumin/Globulin Ratio 0.9 (1.0-1.8) L 04/25/18 05:20 Triglycerides 54 mg/dL (<150) 04/22/18 06:00 Cholesterol 122 mg/dL (<200) 04/22/18 06:00 LDL Cholesterol Direct 85 mg/dL (75-193) 04/22/18 06:00 HDL Cholesterol 31 mg/dL (23-92) 04/22/18 06:00 TSH 1.25 uIU/ml (0.34-5.60) 04/22/18 06:00 Urine Source [place] 04/21/18 22:10 Urine Color YELLOW 04/21/18 22:10 Urine Clarity CLEAR (CLEAR) 04/21/18 22:10 Urine pH 5.5 (4.6 - 8.0) 04/21/18 22:10 Ur Specific [place] <= 1.005 (1.005-1.030) 04/21/18 22:10 Urine Protein NEGATIVE mg/dL (NEGATIVE) 04/21/18 22:10 Urine Glucose (UA) 100 mg/dL (NEGATIVE) H 04/21/18 22:10 Urine Ketones NEGATIVE mg/dL (NEGATIVE) 04/21/18 22:10 Urine Blood NEGATIVE (NEGATIVE) 04/21/18 22:10 Urine Nitrate NEGATIVE (NEGATIVE) 04/21/18 22:10 Urine Bilirubin NEGATIVE (NEGATIVE) 04/21/18 22:10 Urine Urobilinogen 0.2 E.U./dL (0.2 - 1.0) 04/21/18 22:10 Ur Leukocyte Esterase SMALL (NEGATIVE) H 04/21/18 22:10 Urine RBC 0-2 /hpf (0-5) 04/21/18 22:10 Urine WBC 2-5 /hpf (0-5) 04/21/18 22:10 Ur Epithelial Cells FEW /lpf (FEW) 04/21/18 22:10 Urine Bacteria OCCASIONAL /hpf (NONE SEEN) 04/21/18 22:10 - Physical Exam Vitals and I&O: Vital Signs Temp 98.8 F 04/26/18 04:00 Pulse 76 04/26/18 04:00 Resp 19 04/26/18 04:00 BP 128/41 04/26/18 04:00 Pulse Ox 100 04/26/18 04:00 Intake & Output 04/25/18 04/26/18 04/26/18 18:59 06:59 18:59 Intake Total 120 170 Output Total 630 9020 Balance -510 -3110 Weight (lbs) 74.707 kg 73.936 kg Intake: Intake, IV Amount 50 cefTRIAXone 1 gm In 50 Sodium Chloride 0.9% 50 ml @ 100 mls/hr IV Q24HR [facility] Rx#:[id number] Oral 120 120 Output: Drainage 30 30 Left Chest 30 30 Urine 600 1250 Other 2000 Other: # Bowel Movements 1 Weight Source Bedscale Bedscale Active Medications: Current Medications Acetaminophen (Tylenol) 650 mg PO Q6H PRN PRN Reason: Fever > 101 Stop: 06/21/18 11:32 Al Hydrox/Mg Hydrox/Simethicone (Maalox) 30 ml PO DAILY [facility] Stop: 06/23/18 09:59 Last Admin: 04/25/18 08:46 Dose: Not Given Amlodipine Besylate (Norvasc) 10 mg PO DAILY [facility] Stop: 06/22/18 08:59 Last Admin: 04/25/18 08:45 Dose: Not Given Aspirin (Aspirin Chewable) 81 mg PO DAILY [facility] Stop: 06/22/18 08:59 Last Admin: 04/25/18 08:46 Dose: Not Given Atorvastatin Calcium (Lipitor) 40 mg PO HS [facility]; Protocol Stop: 06/21/18 20:59 Last Admin: 04/25/18 20:45 Dose: Not Given Cholecalciferol (Vitamin D3) 1,000 iu PO DAILY [facility] Stop: 06/22/18 08:59 Last Admin: 04/25/18 08:45 Dose: Not Given Docusate Sodium (Colace) 100 mg PO BID [facility] Stop: 06/21/18 16:59 Last Admin: 04/25/18 17:16 Dose: 100 mg Heparin Sodium (Porcine) (Heparin) 5,000 units SUBQ Q12HR [facility] Stop: 06/21/18 08:59 Last Admin: 04/25/18 20:41 Dose: Not Given Ceftriaxone Sodium 1 gm/ (Sodium Chloride) 50 mls @ 100 mls/hr IV Q24HR [facility] Stop: 06/21/18 03:59 Last Infusion: 04/26/18 04:30 Dose: Infused Dextrose/Sodium Chloride (D5-0.9%Ns) 1,000 mls @ 50 mls/hr IV .Q20H [facility] Stop: 06/24/18 20:59 Last Admin: 04/25/18 21:00 Dose: 50 mls/hr Insulin Aspart (Novolog Insulin Sliding Scale) 0 units SUBQ ACHS [facility]; Protocol Stop: 06/21/18 07:29 Last Admin: 04/26/18 06:31 Dose: Not Given Insulin Human NPH (Novolin N) 20 units SUBQ QDAC [facility]; Protocol Stop: 06/22/18 07:29 Last Admin: 04/26/18 06:31 Dose: Not Given Insulin Human NPH (Novolin N) 30 units SUBQ HS [facility]; Protocol Stop: 06/21/18 20:59 Last Admin: 04/25/18 20:42 Dose: Not Given Lactobacillus Rhamnosus (Culturelle 15b) 1 each PO DAILY [facility] Stop: 06/22/18 13:59 Last Admin: 04/25/18 08:47 Dose: Not Given Lamotrigine (Lamictal) 25 mg PO HS [facility]; Protocol Stop: 06/21/18 20:59 Last Admin: 04/25/18 20:45 Dose: Not Given Memantine (Namenda) 10 mg PO BID [facility] Stop: 06/21/18 16:59 Last Admin: 04/25/18 17:16 Dose: 10 mg Mirtazapine (Remeron) 15 mg PO [facility]; Protocol Stop: 06/21/18 20:59 Last Admin: 04/25/18 20:45 Dose: Not Given Miscellaneous (Vte Chemical Prophylaxis Screen/ Admission) 1 ea MC PRN PRN PRN Reason: PROTOCOL Stop: 06/21/18 07:44 Miscellaneous (Probiotic Screen) 1 ea MC PRN PRN PRN Reason: PROTOCOL Stop: 06/22/18 09:28 Morphine Sulfate (Morphine) 15 mg PO Q4H PRN PRN Reason: Pain (Moderate) Stop: 06/21/18 11:37 Multivitamins/Vitamin C (Theragran) 1 tab PO DAILY [facility] Stop: 06/22/18 08:59 Last Admin: 04/25/18 08:45 Dose: Not Given Nitroglycerin (Nitrostat) 0.4 mg SL Q5MIN PRN PRN Reason: Chest Pain Stop: 06/21/18 11:34 Sodium Phosphate (Fleet Enema) 135 ml RC PRN PRN PRN Reason: Constipation Stop: 06/23/18 02:08 Valsartan (Diovan) 320 mg PO DAILY [facility] Stop: 06/22/18 08:59 Last Admin: 04/25/18 09:05 Dose: Not Given General: Alert, No acute distress, Mild distress HEENT: Atraumatic, PERRLA, EOMI Neck: Supple Cardiovascular: Regular rate, Normal S1, Normal S2 Lungs: Clear to auscultation, Normal air movement Abdomen: Bowel sounds - Procedures Procedures: Procedures Procedure Code Date EXCISION OF DUODENUM, ENDO, DIAGN [id number] 02/16/18 EXCISION OF ESOPHAGOGASTRIC JUNCTION, ENDO, DIAGN [id number] 02/16/18 EXCISION OF LEFT AXILLARY LYMPHATIC, OPEN APPROACH, DIAGN 50I00CY 04/22/18 EXCISION OF STOMACH, ENDO, DIAGN [id number] 02/16/18 RESECTION OF LEFT BREAST, OPEN APPROACH [id number] 04/22/18 Assessment/Plan - Problem List Patient Problems: All Active Problems Mass of colon (Acute) K63.9 Nutritional Asmnt/Malnutr-PDOC - Dietary Evaluation Malnutrition Findings (Please click <Entered> for more info): Nutritional Asmnt/Malnutrition Start: 04/23/18 15: 42 Text: Status: Complete Freq: Protocol: Document 04/23/18 15:50 LCHENG (Rec: 04/23/18 16:18 LCHENG [email or web address]) Nutritional Asmnt/Malnutrition Patient General Information Nutritional Screening High Risk Consult Diagnosis proctitis, UTI, intermittent ALOC Pertinent Medical Hx/Surgical Hx HTN, DM, CVA/TIA, arthritis, depression Subjective Information Consult received for elevated BS. Pt was sent to OR for mastectomy surgery this morning. Pt kept on NPO. Current Diet Order/ Nutrition Support NPO Pertinent Medications aspirin, lipitor, vit D3, colace, novolog, novolin, culturelle, remeron, theragran Pertinent Labs 8/6 glucose 117, POC 123-163 8/5 Na 134, glucose 141, POC 111-166, Ca 8.4 8/4 Na 130, Glucose 238, POC 133 Nutritional Hx/Data Height 1.63 m Height (Calculated Centimeters) 162.6 Current Weight (lbs) 79.379 kg Weight (Calculated Kilograms) 79.4 Weight (Calculated Grams) 18460.7 [place] Body Weight 120 Body Mass Index (BMI) 30.0 Weight Status Obese GI Symptoms GI Symptoms None Last BM 8/5 x 2 Difficult in: None Skin Integrity/Comment: BROWNISH DISCOLORATION/FADING ECCHYMOSIS Estimated Nutritional Goals Calories/Kcals/Kg 27-32 based on IBW 55kg Kcals Calculated 5268-2884 Protein g/k.2 Protein Calculated 66 Fluid: ml 1485-1760ml (1ml/kcal) Nutritional Problem 1. Problem Problem altered nutrition related labs Etiology hx of DM Signs/Symptoms: glucose 117-238, POC 123-166 Malnutrition Alert Is there a minimum of two criteria No selected? Query Text:Check all the applicable criteria. A minimum of two criteria are recommended for diagnosis of either severe or non-severe malnutrition. Malnutrition Related to Morbid Obesity Malnutrition related to morbid obesity No Intervention/Recommendation Comments 1. Monitor NPO status. Advance to [facility] diet when medically appropriate. 2. Monitor PO intake, wt, labs and skin integrity 3. F/U as high risk in 2-3 days, 04/25-04/26 Expected Outcomes/Goals Expected Outcomes/Goals 1. PO intake to meet at least 75% of nutritional needs. 2. Wt stability, skin to remain intact, labs to approach WNL.
[2018-04-26] MEDS: Maalox 30 mL Cup PO SCH (09:02)
[2018-04-26] MEDS: Aspirin 81mg Chewable Tab PO SCH (09:02)
[2018-04-26] MEDS: Multivitamin Tab PO SCH (09:03)
[2018-04-26] MEDS: Lactobacillus Rhamnosus GG 15 Billion CFU CAP.SPRINK PO SCH (09:03)
--- NOTE | 2018-04-26 09:39 | Infectious Disease Prog Note ---
Infectious Disease Subjective - Review of Systems Service Date: 04/26/18 Subjective: There is no new change, no fever. Infectious Disease Objective - Results Result Diagrams: 04/27/18 06:33 04/25/18 05:20 Recent Labs: Laboratory Last Values WBC 9.2 Th/cmm (4.8-10.8) 04/25/18 05:20 RBC 3.35 Mil/cmm (3.80-5.20) L 04/25/18 05:20 Hgb 9.8 gm/dL (12-16) L 04/25/18 05:20 Hct 29.3 % (41.0-60) L 04/25/18 05:20 MCV 87.3 fl (81-100) 04/25/18 05:20 MCH 29.2 pg (27.0-31.0) 04/25/18 05:20 MCHC Differential 33.4 pg (28.0-36.0) 04/25/18 05:20 RDW 15.0 % (11.5-20.0) 04/25/18 05:20 Plt Count 319 Th/cmm (150-400) 04/25/18 05:20 MPV 7.3 fl 04/25/18 05:20 Neutrophils % 49.6 % (40.0-80.0) 04/25/18 05:20 Lymphocytes % 35.4 % (20.0-50.0) 04/25/18 05:20 Monocytes % 8.3 % (2.0-10.0) 04/25/18 05:20 Eosinophils % 5.6 % (0.0-5.0) H 04/25/18 05:20 Basophils % 1.1 % (0.0-2.0) 04/25/18 05:20 PT 10.1 SECONDS (9.5-11.5) 04/26/18 05:40 INR 0.97 (0.5-1.4) 04/26/18 05:40 PTT (Actin FS) 27.9 SECONDS (26.0-38.0) 04/21/18 20:50 Sodium 135 mEq/L (136-145) L 04/25/18 05:20 Potassium 4.0 mEq/L (3.5-5.1) 04/25/18 05:20 Chloride 107 mEq/L (98-107) 04/25/18 05:20 Carbon Dioxide 22.5 mEq/L (21.0-31.0) 04/25/18 05:20 Anion Gap 9.5 (7.0-16.0) 04/25/18 05:20 BUN 12 mg/dL (7-25) 04/25/18 05:20 Creatinine 0.8 mg/dL (0.6-1.2) 04/25/18 05:20 Est GFR ( Amer) TNP 04/25/18 05:20 Est GFR (Non-Af Amer) TNP 04/25/18 05:20 BUN/Creatinine Ratio 15.0 04/25/18 05:20 Glucose 129 mg/dL (70-105) H 04/25/18 05:20 POC Glucose 153 MG/DL (70 - 105) H 04/26/18 05:20 Hemoglobin A1c % 6.9 % (4.0-6.0) H 04/21/18 20:50 Calcium 8.2 mg/dL (8.6-10.3) L 04/25/18 05:20 Total Bilirubin 0.4 mg/dL (0.3-1.0) 04/25/18 05:20 AST 20 U/L (13-39) 04/25/18 05:20 ALT 13 U/L (7-52) 04/25/18 05:20 Alkaline Phosphatase 60 U/L (34-104) 04/25/18 05:20 Troponin I < 0.01 ng/mL (0.01-0.05) L 04/21/18 20:50 B-Natriuretic Peptide 41.1 pg/mL (5.0-100.0) 04/23/18 04:45 Total Protein 5.6 gm/dL (6.0-8.3) L 04/25/18 05:20 Albumin 2.7 gm/dL (3.7-5.3) L 04/25/18 05:20 Globulin 2.9 gm/dL 04/25/18 05:20 Albumin/Globulin Ratio 0.9 (1.0-1.8) L 04/25/18 05:20 Triglycerides 54 mg/dL (<150) 04/22/18 06:00 Cholesterol 122 mg/dL (<200) 04/22/18 06:00 LDL Cholesterol Direct 85 mg/dL (75-193) 04/22/18 06:00 HDL Cholesterol 31 mg/dL (23-92) 04/22/18 06:00 TSH 1.25 uIU/ml (0.34-5.60) 04/22/18 06:00 Urine Source [place] 04/21/18 22:10 Urine Color YELLOW 04/21/18 22:10 Urine Clarity CLEAR (CLEAR) 04/21/18 22:10 Urine pH 5.5 (4.6 - 8.0) 04/21/18 22:10 Ur Specific [place] <= 1.005 (1.005-1.030) 04/21/18 22:10 Urine Protein NEGATIVE mg/dL (NEGATIVE) 04/21/18 22:10 Urine Glucose (UA) 100 mg/dL (NEGATIVE) H 04/21/18 22:10 Urine Ketones NEGATIVE mg/dL (NEGATIVE) 04/21/18 22:10 Urine Blood NEGATIVE (NEGATIVE) 04/21/18 22:10 Urine Nitrate NEGATIVE (NEGATIVE) 04/21/18 22:10 Urine Bilirubin NEGATIVE (NEGATIVE) 04/21/18 22:10 Urine Urobilinogen 0.2 E.U./dL (0.2 - 1.0) 04/21/18 22:10 Ur Leukocyte Esterase SMALL (NEGATIVE) H 04/21/18 22:10 Urine RBC 0-2 /hpf (0-5) 04/21/18 22:10 Urine WBC 2-5 /hpf (0-5) 04/21/18 22:10 Ur Epithelial Cells FEW /lpf (FEW) 04/21/18 22:10 Urine Bacteria OCCASIONAL /hpf (NONE SEEN) 04/21/18 22:10 - Physical Exam Vitals and I&O: Vital Signs Temp 98.9 F 04/26/18 09:27 Pulse 76 04/26/18 09:27 Resp 18 04/26/18 09:27 BP 159/53 04/26/18 09:27 Pulse Ox 100 04/26/18 09:27 Intake & Output 04/25/18 04/26/18 04/26/18 18:59 06:59 18:59 Intake Total 120 170 Output Total 630 3280 Balance -510 -3110 Weight (lbs) 74.707 kg 73.936 kg Intake: Intake, IV Amount 50 cefTRIAXone 1 gm In 50 Sodium Chloride 0.9% 50 ml @ 100 mls/hr IV Q24HR [facility] Rx#:[id number] Oral 120 120 Output: Drainage 30 30 Left Chest 30 30 Urine 600 1250 Other 2000 Other: # Bowel Movements 1 Weight Source Bedscale Bedscale Active Medications: Current Medications Acetaminophen (Tylenol) 650 mg PO Q6H PRN PRN Reason: Fever > 101 Stop: 06/21/18 11:32 Al Hydrox/Mg Hydrox/Simethicone (Maalox) 30 ml PO DAILY [facility] Stop: 06/23/18 09:59 Last Admin: 04/26/18 09:02 Dose: Not Given Amlodipine Besylate (Norvasc) 10 mg PO DAILY [facility] Stop: 06/22/18 08:59 Last Admin: 04/26/18 09:02 Dose: Not Given Aspirin (Aspirin Chewable) 81 mg PO DAILY [facility] Stop: 06/22/18 08:59 Last Admin: 04/26/18 09:02 Dose: Not Given Atorvastatin Calcium (Lipitor) 40 mg PO HS [facility]; Protocol Stop: 06/21/18 20:59 Last Admin: 04/25/18 20:45 Dose: Not Given Cholecalciferol (Vitamin D3) 1,000 iu PO DAILY [facility] Stop: 06/22/18 08:59 Last Admin: 04/26/18 09:02 Dose: Not Given Docusate Sodium (Colace) 100 mg PO BID [facility] Stop: 06/21/18 16:59 Last Admin: 04/26/18 09:02 Dose: Not Given Heparin Sodium (Porcine) (Heparin) 5,000 units SUBQ Q12HR [facility] Stop: 06/21/18 08:59 Last Admin: 04/26/18 09:03 Dose: Not Given Ceftriaxone Sodium 1 gm/ (Sodium Chloride) 50 mls @ 100 mls/hr IV Q24HR [facility] Stop: 06/21/18 03:59 Last Infusion: 04/26/18 04:30 Dose: Infused Dextrose/Sodium Chloride (D5-0.9%Ns) 1,000 mls @ 50 mls/hr IV .Q20H [facility] Stop: 06/24/18 20:59 Last Admin: 04/25/18 21:00 Dose: 50 mls/hr Insulin Aspart (Novolog Insulin Sliding Scale) 0 units SUBQ ACHS [facility]; Protocol Stop: 06/21/18 07:29 Last Admin: 04/26/18 06:31 Dose: Not Given Insulin Human NPH (Novolin N) 20 units SUBQ QDAC [facility]; Protocol Stop: 06/22/18 07:29 Last Admin: 04/26/18 06:31 Dose: Not Given Insulin Human NPH (Novolin N) 30 units SUBQ HS [facility]; Protocol Stop: 06/21/18 20:59 Last Admin: 04/25/18 20:42 Dose: Not Given Lactobacillus Rhamnosus (Culturelle 15b) 1 each PO DAILY [facility] Stop: 06/22/18 13:59 Last Admin: 04/26/18 09:03 Dose: Not Given Lamotrigine (Lamictal) 25 mg PO HS [facility]; Protocol Stop: 06/21/18 20:59 Last Admin: 04/25/18 20:45 Dose: Not Given Memantine (Namenda) 10 mg PO BID [facility] Stop: 06/21/18 16:59 Last Admin: 04/26/18 09:03 Dose: Not Given Mirtazapine (Remeron) 15 mg PO HS [facility]; Protocol Stop: 06/21/18 20:59 Last Admin: 04/25/18 20:45 Dose: Not Given Miscellaneous (Vte Chemical Prophylaxis Screen/ Admission) 1 ea MC PRN PRN PRN Reason: PROTOCOL Stop: 06/21/18 07:44 Miscellaneous (Probiotic Screen) 1 ea MC PRN PRN PRN Reason: PROTOCOL Stop: 06/22/18 09:28 Morphine Sulfate (Morphine) 15 mg PO Q4H PRN PRN Reason: Pain (Moderate) Stop: 06/21/18 11:37 Multivitamins/Vitamin C (Theragran) 1 tab PO DAILY [facility] Stop: 06/22/18 08:59 Last Admin: 04/26/18 09:03 Dose: Not Given Nitroglycerin (Nitrostat) 0.4 mg SL Q5MIN PRN PRN Reason: Chest Pain Stop: 06/21/18 11:34 Sodium Phosphate (Fleet Enema) 135 ml RC PRN PRN PRN Reason: Constipation Stop: 06/23/18 02:08 Valsartan (Diovan) 320 mg PO DAILY [facility] Stop: 06/22/18 08:59 Last Admin: 04/26/18 09:03 Dose: Not Given General: no acute distress, well developed, well nourished HEENT: atraumatic, normocephalic, PERRLA, EOMI Neck: supple, no thyromegaly Cardiovascular: S1S2, regular Lungs: clear to auscultation bilaterally, clear to percussion Abdomen: soft, no tender, no distended, no rebound Extremities: no cyanosis, no clubbing, no edema Neurological: awake, alert, oriented Skin: intact - Procedures Procedures: Procedures Procedure Code Date EXCISION OF DUODENUM, ENDO, DIAGN [id number] 02/16/18 EXCISION OF ESOPHAGOGASTRIC JUNCTION, ENDO, DIAGN [id number] 02/16/18 EXCISION OF LEFT AXILLARY LYMPHATIC, OPEN APPROACH, DIAGN [id number] 04/22/18 EXCISION OF STOMACH, ENDO, DIAGN [id number] 02/16/18 RESECTION OF LEFT BREAST, OPEN APPROACH [id number] 04/22/18 Infectious Disease Assmt/Plan - Problem List Patient Problems: All Active Problems Constipation (Acute) K59.00 Constipation (Acute) K59.00 Dementia (Acute) F03.90 Diabetes (Acute) E11.9 Failure to thrive (Acute) [id number] - Assessment Assessment: 1. Proctitis. 2. Urinary tract infection. 3. Fecal impaction. 4. Breast nodule in the left. breast ca. 5. Anemia. 6. Diabetes mellitus type 2. 7. Hypertension. 8. Dementia. 9. Depression. 10. Arthritis. - Plan Plan: continue Rocephin. Nutritional Asmnt/Malnutr-PDOC - Dietary Evaluation Malnutrition Findings (Please click <Entered> for more info): Nutritional Asmnt/Malnutrition Start: 04/23/18 15: 42 Text: Status: Complete Freq: Protocol: Document 04/23/18 15:50 LCHENG (Rec: 04/23/18 16:18 LCHENG [email or web address]) Nutritional Asmnt/Malnutrition Patient General Information Nutritional Screening High Risk Consult Diagnosis proctitis, UTI, intermittent ALOC Pertinent Medical Hx/Surgical Hx HTN, DM, CVA/TIA, arthritis, depression Subjective Information Consult received for elevated BS. Pt was sent to OR for mastectomy surgery this morning. Pt kept on NPO. Current Diet Order/ Nutrition Support NPO Pertinent Medications aspirin, lipitor, vit D3, colace, novolog, novolin, culturelle, remeron, theragran Pertinent Labs 04/23 glucose 117, POC 123-163 8/ Na 134, glucose 141, POC 111-166, Ca 8.4 8/4 Na 130, Glucose 238, POC 133 Nutritional Hx/Data Height 1.63 m Height (Calculated Centimeters) 162.6 Current Weight (lbs) 79.379 kg Weight (Calculated Kilograms) 79.4 Weight (Calculated Grams) 53995.7 [place] Body Weight 120 Body Mass Index (BMI) 30.0 Weight Status Obese GI Symptoms GI Symptoms None Last BM 04/22 x 2 Difficult in: None Skin Integrity/Comment: BROWNISH DISCOLORATION/FADING ECCHYMOSIS Estimated Nutritional Goals Calories/Kcals/Kg 27-32 based on IBW 55kg Kcals Calculated 3077-9313 Protein g/k.2 Protein Calculated 66 Fluid: ml 1485-1760ml (1ml/kcal) Nutritional Problem 1. Problem Problem altered nutrition related labs Etiology hx of DM Signs/Symptoms: glucose 117-238, POC 123-166 Malnutrition Alert Is there a minimum of two criteria No selected? Query Text:Check all the applicable criteria. A minimum of two criteria are recommended for diagnosis of either severe or non-severe malnutrition. Malnutrition Related to Morbid Obesity Malnutrition related to morbid obesity No Intervention/Recommendation Comments 1. Monitor NPO status. Advance to [facility] diet when medically appropriate. 2. Monitor PO intake, wt, labs and skin integrity 3. F/U as high risk in 2-3 days, 04/25-04/26 Expected Outcomes/Goals Expected Outcomes/Goals 1. PO intake to meet at least 75% of nutritional needs. 2. Wt stability, skin to remain intact, labs to approach WNL.
--- NOTE | 2018-04-26 11:11 | General Progress Note ---
Subjective - Review of Systems Service Date: 04/26/18 Subjective: no new sxs Objective - Results Result Diagrams: 04/25/18 05:20 04/25/18 05:20 Recent Labs: Laboratory Last Values WBC 9.2 Th/cmm (4.8-10.8) 04/25/18 05:20 RBC 3.35 Mil/cmm (3.80-5.20) L 04/25/18 05:20 Hgb 9.8 gm/dL (12-16) L 04/25/18 05:20 Hct 29.3 % (41.0-60) L 04/25/18 05:20 MCV 87.3 fl (81-100) 04/25/18 05:20 MCH 29.2 pg (27.0-31.0) 04/25/18 05:20 MCHC Differential 33.4 pg (28.0-36.0) 04/25/18 05:20 RDW 15.0 % (11.5-20.0) 04/25/18 05:20 Plt Count 319 Th/cmm (150-400) 04/25/18 05:20 MPV 7.3 fl 04/25/18 05:20 Neutrophils % 49.6 % (40.0-80.0) 04/25/18 05:20 Lymphocytes % 35.4 % (20.0-50.0) 04/25/18 05:20 Monocytes % 8.3 % (2.0-10.0) 04/25/18 05:20 Eosinophils % 5.6 % (0.0-5.0) H 04/25/18 05:20 Basophils % 1.1 % (0.0-2.0) 04/25/18 05:20 PT 10.1 SECONDS (9.5-11.5) 04/26/18 05:40 INR 0.97 (0.5-1.4) 04/26/18 05:40 PTT (Actin FS) 27.9 SECONDS (26.0-38.0) 04/21/18 20:50 Sodium 135 mEq/L (136-145) L 04/25/18 05:20 Potassium 4.0 mEq/L (3.5-5.1) 04/25/18 05:20 Chloride 107 mEq/L (98-107) 04/25/18 05:20 Carbon Dioxide 22.5 mEq/L (21.0-31.0) 04/25/18 05:20 Anion Gap 9.5 (7.0-16.0) 04/25/18 05:20 BUN 12 mg/dL (7-25) 04/25/18 05:20 Creatinine 0.8 mg/dL (0.6-1.2) 04/25/18 05:20 Est GFR ( Amer) TNP 04/25/18 05:20 Est GFR (Non-Af Amer) TNP 04/25/18 05:20 BUN/Creatinine Ratio 15.0 04/25/18 05:20 Glucose 129 mg/dL (70-105) H 04/25/18 05:20 POC Glucose 153 MG/DL (70 - 105) H 04/26/18 05:20 Hemoglobin A1c % 6.9 % (4.0-6.0) H 04/21/18 20:50 Calcium 8.2 mg/dL (8.6-10.3) L 04/25/18 05:20 Total Bilirubin 0.4 mg/dL (0.3-1.0) 04/25/18 05:20 AST 20 U/L (13-39) 04/25/18 05:20 ALT 13 U/L (7-52) 04/25/18 05:20 Alkaline Phosphatase 60 U/L (34-104) 04/25/18 05:20 Troponin I < 0.01 ng/mL (0.01-0.05) L 04/21/18 20:50 B-Natriuretic Peptide 41.1 pg/mL (5.0-100.0) 04/23/18 04:45 Total Protein 5.6 gm/dL (6.0-8.3) L 04/25/18 05:20 Albumin 2.7 gm/dL (3.7-5.3) L 04/25/18 05:20 Globulin 2.9 gm/dL 04/25/18 05:20 Albumin/Globulin Ratio 0.9 (1.0-1.8) L 04/25/18 05:20 Triglycerides 54 mg/dL (<150) 04/22/18 06:00 Cholesterol 122 mg/dL (<200) 04/22/18 06:00 LDL Cholesterol Direct 85 mg/dL (75-193) 04/22/18 06:00 HDL Cholesterol 31 mg/dL (23-92) 04/22/18 06:00 TSH 1.25 uIU/ml (0.34-5.60) 04/22/18 06:00 Urine Source [place] 04/21/18 22:10 Urine Color YELLOW 04/21/18 22:10 Urine Clarity CLEAR (CLEAR) 04/21/18 22:10 Urine pH 5.5 (4.6 - 8.0) 04/21/18 22:10 Ur Specific [place] <= 1.005 (1.005-1.030) 04/21/18 22:10 Urine Protein NEGATIVE mg/dL (NEGATIVE) 04/21/18 22:10 Urine Glucose (UA) 100 mg/dL (NEGATIVE) H 04/21/18 22:10 Urine Ketones NEGATIVE mg/dL (NEGATIVE) 04/21/18 22:10 Urine Blood NEGATIVE (NEGATIVE) 04/21/18 22:10 Urine Nitrate NEGATIVE (NEGATIVE) 04/21/18 22:10 Urine Bilirubin NEGATIVE (NEGATIVE) 04/21/18 22:10 Urine Urobilinogen 0.2 E.U./dL (0.2 - 1.0) 04/21/18 22:10 Ur Leukocyte Esterase SMALL (NEGATIVE) H 04/21/18 22:10 Urine RBC 0-2 /hpf (0-5) 04/21/18 22:10 Urine WBC 2-5 /hpf (0-5) 04/21/18 22:10 Ur Epithelial Cells FEW /lpf (FEW) 04/21/18 22:10 Urine Bacteria OCCASIONAL /hpf (NONE SEEN) 04/21/18 22:10 - Physical Exam Vitals and I&O: Vital Signs Temp 98.9 F 04/26/18 09:27 Pulse 76 04/26/18 09:27 Resp 18 04/26/18 09:27 BP 159/53 04/26/18 09:27 Pulse Ox 100 04/26/18 09:27 Intake & Output 04/25/18 04/26/18 04/26/18 18:59 06:59 18:59 Intake Total 120 170 Output Total 630 3280 Balance -510 -3110 Weight (lbs) 74.707 kg 73.936 kg Intake: Intake, IV Amount 50 cefTRIAXone 1 gm In 50 Sodium Chloride 0.9% 50 ml @ 100 mls/hr IV Q24HR [facility] Rx#:[id number] Oral 120 120 Output: Drainage 30 30 Left Chest 30 30 Urine 600 1250 Other 2000 Other: # Bowel Movements 1 Stool Characteristics Liquid Weight Source Bedscale Bedscale Active Medications: Current Medications Acetaminophen (Tylenol) 650 mg PO Q6H PRN PRN Reason: Fever > 101 Stop: 06/21/18 11:32 Al Hydrox/Mg Hydrox/Simethicone (Maalox) 30 ml PO DAILY [facility] Stop: 06/23/18 09:59 Last Admin: 04/26/18 09:02 Dose: Not Given Amlodipine Besylate (Norvasc) 10 mg PO DAILY [facility] Stop: 06/22/18 08:59 Last Admin: 04/26/18 09:02 Dose: Not Given Aspirin (Aspirin Chewable) 81 mg PO DAILY [facility] Stop: 06/22/18 08:59 Last Admin: 04/26/18 09:02 Dose: Not Given Atorvastatin Calcium (Lipitor) 40 mg PO HS [facility]; Protocol Stop: 06/21/18 20:59 Last Admin: 04/25/18 20:45 Dose: Not Given Cholecalciferol (Vitamin D3) 1,000 iu PO DAILY [facility] Stop: 06/22/18 08:59 Last Admin: 04/26/18 09:02 Dose: Not Given Docusate Sodium (Colace) 100 mg PO BID [facility] Stop: 06/21/18 16:59 Last Admin: 04/26/18 09:02 Dose: Not Given Heparin Sodium (Porcine) (Heparin) 5,000 units SUBQ Q12HR [facility] Stop: 06/21/18 08:59 Last Admin: 04/26/18 09:03 Dose: Not Given Ceftriaxone Sodium 1 gm/ (Sodium Chloride) 50 mls @ 100 mls/hr IV Q24HR [facility] Stop: 06/21/18 03:59 Last Infusion: 04/26/18 04:30 Dose: Infused Dextrose/Sodium Chloride (D5-0.9%Ns) 1,000 mls @ 50 mls/hr IV .Q20H [facility] Stop: 06/24/18 20:59 Last Admin: 04/25/18 21:00 Dose: 50 mls/hr Insulin Aspart (Novolog Insulin Sliding Scale) 0 units SUBQ ACHS [facility]; Protocol Stop: 06/21/18 07:29 Last Admin: 04/26/18 06:31 Dose: Not Given Insulin Human NPH (Novolin N) 20 units SUBQ QDAC [facility]; Protocol Stop: 06/22/18 07:29 Last Admin: 04/26/18 06:31 Dose: Not Given Insulin Human NPH (Novolin N) 30 units SUBQ HS [facility]; Protocol Stop: 06/21/18 20:59 Last Admin: 04/25/18 20:42 Dose: Not Given Lactobacillus Rhamnosus (Culturelle 15b) 1 each PO DAILY [facility] Stop: 06/22/18 13:59 Last Admin: 04/26/18 09:03 Dose: Not Given Lamotrigine (Lamictal) 25 mg PO HS [facility]; Protocol Stop: 06/21/18 20:59 Last Admin: 04/25/18 20:45 Dose: Not Given Memantine (Namenda) 10 mg PO BID [facility] Stop: 06/21/18 16:59 Last Admin: 04/26/18 09:03 Dose: Not Given Mirtazapine (Remeron) 15 mg PO HS [facility]; Protocol Stop: 06/21/18 20:59 Last Admin: 04/25/18 20:45 Dose: Not Given Miscellaneous (Vte Chemical Prophylaxis Screen/ Admission) 1 ea PRN PRN PRN Reason: PROTOCOL Stop: 06/21/18 07:44 Miscellaneous (Probiotic Screen) 1 ea PRN PRN PRN Reason: PROTOCOL Stop: 06/22/18 09:28 Morphine Sulfate (Morphine) 15 mg PO Q4H PRN PRN Reason: Pain (Moderate) Stop: 06/21/18 11:37 Multivitamins/Vitamin C (Theragran) 1 tab PO DAILY [facility] Stop: 06/22/18 08:59 Last Admin: 04/26/18 09:03 Dose: Not Given Nitroglycerin (Nitrostat) 0.4 mg SL Q5MIN PRN PRN Reason: Chest Pain Stop: 06/21/18 11:34 Sodium Phosphate (Fleet Enema) 135 ml RC PRN PRN PRN Reason: Constipation Stop: 06/23/18 02:08 Valsartan (Diovan) 320 mg PO DAILY [facility] Stop: 06/22/18 08:59 Last Admin: 04/26/18 09:03 Dose: Not Given General: Alert, No acute distress, Mild distress HEENT: Atraumatic, PERRLA, EOMI Neck: Supple Cardiovascular: Regular rate, Normal S1, Normal S2 Lungs: Clear to auscultation, Normal air movement Abdomen: Bowel sounds Skin: Other (left chest dressing dry. minimal deniz drainage) - Procedures Procedures: Procedures Procedure Code Date EXCISION OF DUODENUM, ENDO, DIAGN [id number] 02/16/18 EXCISION OF ESOPHAGOGASTRIC JUNCTION, ENDO, DIAGN [id number] 02/16/18 EXCISION OF LEFT AXILLARY LYMPHATIC, OPEN APPROACH, DIAGN [id number] 04/22/18 EXCISION OF STOMACH, ENDO, DIAGN [id number] 02/16/18 RESECTION OF LEFT BREAST, OPEN APPROACH [id number] 04/22/18 Assessment/Plan - Problem List Patient Problems: All Active Problems Mass of colon (Acute) K63.9 - Assessment Assessment: * Left breast mass. s/p resection MRM / axillary LN dissection * rectal wall thickening and perirectal LN * Anemia awaiting pathology from mastectomy for colonoscopy today follow anemia pulido Nutritional Asmnt/Malnutr-PDOC - Dietary Evaluation Malnutrition Findings (Please click <Entered> for more info): Nutritional Asmnt/Malnutrition Start: 04/23/18 15: 42 Text: Status: Complete Freq: Protocol: Document 04/23/18 15:50 LCHENG (Rec: 04/23/18 16:18 [email or web address]) Nutritional Asmnt/Malnutrition Patient General Information Nutritional Screening High Risk Consult Diagnosis proctitis, UTI, intermittent ALOC Pertinent Medical Hx/Surgical Hx HTN, DM, CVA/TIA, arthritis, depression Subjective Information Consult received for elevated BS. Pt was sent to OR for mastectomy surgery this morning. Pt kept on NPO. Current Diet Order/ Nutrition Support NPO Pertinent Medications aspirin, lipitor, vit D3, colace, novolog, novolin, culturelle, remeron, theragran Pertinent Labs 8/6 glucose 117, POC 123-163 8/5 Na 134, glucose 141, POC 111-166, Ca 8.4 8/4 Na 130, Glucose 238, POC 133 Nutritional Hx/Data Height 1.63 m Height (Calculated Centimeters) 162.6 Current Weight (lbs) 79.379 kg Weight (Calculated Kilograms) 79.4 Weight (Calculated Grams) 63726.7 [facility] Body Weight 120 Body Mass Index (BMI) 30.0 Weight Status Obese GI Symptoms GI Symptoms None Last BM 8/5 x 2 Difficult in: None Skin Integrity/Comment: BROWNISH DISCOLORATION/FADING ECCHYMOSIS Estimated Nutritional Goals Calories/Kcals/Kg 27-32 based on IBW 55kg Kcals Calculated 0061-2943 Protein g/k.2 Protein Calculated 66 Fluid: ml 1485-1760ml (1ml/kcal) Nutritional Problem 1. Problem Problem altered nutrition related labs Etiology hx of DM Signs/Symptoms: glucose 117-238, POC 123-166 Malnutrition Alert Is there a minimum of two criteria No selected? Query Text:Check all the applicable criteria. A minimum of two criteria are recommended for diagnosis of either severe or non-severe malnutrition. Malnutrition Related to Morbid Obesity Malnutrition related to morbid obesity No Intervention/Recommendation Comments 1. Monitor NPO status. Advance to CCHO diet when medically appropriate. 2. Monitor PO intake, wt, labs and skin integrity 3. F/U as high risk in 2-3 days, 04/25-04/26 Expected Outcomes/Goals Expected Outcomes/Goals 1. PO intake to meet at least 75% of nutritional needs. 2. Wt stability, skin to remain intact, labs to approach WNL.
[2018-04-26] MEDS ORDERED: Lidocaine 2% Gel 5 mL TP ONE (12:35)
--- NOTE | 2018-04-26 15:59 | General Progress Note ---
Subjective - Review of Systems Subjective: no new change, NAD Objective - Results Result Diagrams: 04/25/18 05:20 04/25/18 05:20 Recent Labs: Laboratory Last Values WBC 9.2 Th/cmm (4.8-10.8) 04/25/18 05:20 RBC 3.35 Mil/cmm (3.80-5.20) L 04/25/18 05:20 Hgb 9.8 gm/dL (12-16) L 04/25/18 05:20 Hct 29.3 % (41.0-60) L 04/25/18 05:20 MCV 87.3 fl (81-100) 04/25/18 05:20 MCH 29.2 pg (27.0-31.0) 04/25/18 05:20 MCHC Differential 33.4 pg (28.0-36.0) 04/25/18 05:20 RDW 15.0 % (11.5-20.0) 04/25/18 05:20 Plt Count 319 Th/cmm (150-400) 04/25/18 05:20 MPV 7.3 fl 04/25/18 05:20 Neutrophils % 49.6 % (40.0-80.0) 04/25/18 05:20 Lymphocytes % 35.4 % (20.0-50.0) 04/25/18 05:20 Monocytes % 8.3 % (2.0-10.0) 04/25/18 05:20 Eosinophils % 5.6 % (0.0-5.0) H 04/25/18 05:20 Basophils % 1.1 % (0.0-2.0) 04/25/18 05:20 PT 10.1 SECONDS (9.5-11.5) 04/26/18 05:40 INR 0.97 (0.5-1.4) 04/26/18 05:40 PTT (Actin FS) 27.9 SECONDS (26.0-38.0) 04/21/18 20:50 Sodium 135 mEq/L (136-145) L 04/25/18 05:20 Potassium 4.0 mEq/L (3.5-5.1) 04/25/18 05:20 Chloride 107 mEq/L (98-107) 04/25/18 05:20 Carbon Dioxide 22.5 mEq/L (21.0-31.0) 04/25/18 05:20 Anion Gap 9.5 (7.0-16.0) 04/25/18 05:20 BUN 12 mg/dL (7-25) 04/25/18 05:20 Creatinine 0.8 mg/dL (0.6-1.2) 04/25/18 05:20 Est GFR ( Amer) TNP 04/25/18 05:20 Est GFR (Non-Af Amer) TNP 04/25/18 05:20 BUN/Creatinine Ratio 15.0 04/25/18 05:20 Glucose 129 mg/dL (70-105) H 04/25/18 05:20 POC Glucose 158 MG/DL (70 - 105) H 04/26/18 12:04 Hemoglobin A1c % 6.9 % (4.0-6.0) H 04/21/18 20:50 Calcium 8.2 mg/dL (8.6-10.3) L 04/25/18 05:20 Total Bilirubin 0.4 mg/dL (0.3-1.0) 04/25/18 05:20 AST 20 U/L (13-39) 04/25/18 05:20 ALT 13 U/L (7-52) 04/25/18 05:20 Alkaline Phosphatase 60 U/L (34-104) 04/25/18 05:20 Troponin I < 0.01 ng/mL (0.01-0.05) L 04/21/18 20:50 B-Natriuretic Peptide 41.1 pg/mL (5.0-100.0) 04/23/18 04:45 Total Protein 5.6 gm/dL (6.0-8.3) L 04/25/18 05:20 Albumin 2.7 gm/dL (3.7-5.3) L 04/25/18 05:20 Globulin 2.9 gm/dL 04/25/18 05:20 Albumin/Globulin Ratio 0.9 (1.0-1.8) L 04/25/18 05:20 Triglycerides 54 mg/dL (<150) 04/22/18 06:00 Cholesterol 122 mg/dL (<200) 04/22/18 06:00 LDL Cholesterol Direct 85 mg/dL (75-193) 04/22/18 06:00 HDL Cholesterol 31 mg/dL (23-92) 04/22/18 06:00 TSH 1.25 uIU/ml (0.34-5.60) 04/22/18 06:00 Urine Source [place] 04/21/18 22:10 Urine Color YELLOW 04/21/18 22:10 Urine Clarity CLEAR (CLEAR) 04/21/18 22:10 Urine pH 5.5 (4.6 - 8.0) 04/21/18 22:10 Ur Specific [place] <= 1.005 (1.005-1.030) 04/21/18 22:10 Urine Protein NEGATIVE mg/dL (NEGATIVE) 04/21/18 22:10 Urine Glucose (UA) 100 mg/dL (NEGATIVE) H 04/21/18 22:10 Urine Ketones NEGATIVE mg/dL (NEGATIVE) 04/21/18 22:10 Urine Blood NEGATIVE (NEGATIVE) 04/21/18 22:10 Urine Nitrate NEGATIVE (NEGATIVE) 04/21/18 22:10 Urine Bilirubin NEGATIVE (NEGATIVE) 04/21/18 22:10 Urine Urobilinogen 0.2 E.U./dL (0.2 - 1.0) 04/21/18 22:10 Ur Leukocyte Esterase SMALL (NEGATIVE) H 04/21/18 22:10 Urine RBC 0-2 /hpf (0-5) 04/21/18 22:10 Urine WBC 2-5 /hpf (0-5) 04/21/18 22:10 Ur Epithelial Cells FEW /lpf (FEW) 04/21/18 22:10 Urine Bacteria OCCASIONAL /hpf (NONE SEEN) 04/21/18 22:10 - Physical Exam Vitals and I&O: Vital Signs Temp 98.5 F 04/26/18 12:04 Pulse 68 04/26/18 12:04 Resp 18 04/26/18 12:04 BP 162/58 04/26/18 12:04 Pulse Ox 100 04/26/18 12:04 Intake & Output 04/25/18 04/26/18 04/26/18 18:59 06:59 18:59 Intake Total 120 170 Output Total 630 3280 Balance -510 -3110 Weight (lbs) 74.707 kg 73.936 kg Intake: Intake, IV Amount 50 cefTRIAXone 1 gm In 50 Sodium Chloride 0.9% 50 ml @ 100 mls/hr IV Q24HR [facility] Rx#:[id number] Oral 120 120 Output: Drainage 30 30 Left Chest 30 30 Urine 600 1250 Other 2000 Other: # Bowel Movements 1 Stool Characteristics Liquid Weight Source Bedscale Bedscale Active Medications: Current Medications Acetaminophen (Tylenol) 650 mg PO Q6H PRN PRN Reason: Fever > 101 Stop: 06/21/18 11:32 Al Hydrox/Mg Hydrox/Simethicone (Maalox) 30 ml PO DAILY [facility] Stop: 06/23/18 09:59 Last Admin: 04/26/18 09:02 Dose: Not Given Amlodipine Besylate (Norvasc) 10 mg PO DAILY [facility] Stop: 06/22/18 08:59 Last Admin: 04/26/18 09:02 Dose: Not Given Aspirin (Aspirin Chewable) 81 mg PO DAILY [facility] Stop: 06/22/18 08:59 Last Admin: 04/26/18 09:02 Dose: Not Given Atorvastatin Calcium (Lipitor) 40 mg PO HS [facility]; Protocol Stop: 06/21/18 20:59 Last Admin: 04/25/18 20:45 Dose: Not Given Cholecalciferol (Vitamin D3) 1,000 iu PO DAILY [facility] Stop: 06/22/18 08:59 Last Admin: 04/26/18 09:02 Dose: Not Given Docusate Sodium (Colace) 100 mg PO BID [facility] Stop: 06/21/18 16:59 Last Admin: 04/26/18 09:02 Dose: Not Given Heparin Sodium (Porcine) (Heparin) 5,000 units SUBQ Q12HR [facility] Stop: 06/21/18 08:59 Last Admin: 04/26/18 09:03 Dose: Not Given Ceftriaxone Sodium 1 gm/ (Sodium Chloride) 50 mls @ 100 mls/hr IV Q24HR [facility] Stop: 06/21/18 03:59 Last Infusion: 04/26/18 04:30 Dose: Infused Dextrose/Sodium Chloride (D5-0.9%Ns) 1,000 mls @ 50 mls/hr IV .Q20H [facility] Stop: 06/24/18 20:59 Last Admin: 04/25/18 21:00 Dose: 50 mls/hr Insulin Aspart (Novolog Insulin Sliding Scale) 0 units SUBQ [facility]; Protocol Stop: 06/21/18 07:29 Last Admin: 04/26/18 12:08 Dose: Not Given Insulin Human NPH (Novolin N) 20 units SUBQ QDAC [facility]; Protocol Stop: 06/22/18 07:29 Last Admin: 04/26/18 06:31 Dose: Not Given Insulin Human NPH (Novolin N) 30 units SUBQ HS [facility]; Protocol Stop: 06/21/18 20:59 Last Admin: 04/25/18 20:42 Dose: Not Given Lactobacillus Rhamnosus (Culturelle 15b) 1 each PO DAILY [facility] Stop: 06/22/18 13:59 Last Admin: 04/26/18 09:03 Dose: Not Given Lamotrigine (Lamictal) 25 mg PO HS [facility]; Protocol Stop: 06/21/18 20:59 Last Admin: 04/25/18 20:45 Dose: Not Given Memantine (Namenda) 10 mg PO BID [facility] Stop: 06/21/18 16:59 Last Admin: 04/26/18 09:03 Dose: Not Given Mirtazapine (Remeron) 15 mg PO HS [facility]; Protocol Stop: 06/21/18 20:59 Last Admin: 04/25/18 20:45 Dose: Not Given Miscellaneous (Vte Chemical Prophylaxis Screen/ Admission) 1 ea MC PRN PRN PRN Reason: PROTOCOL Stop: 06/21/18 07:44 Miscellaneous (Probiotic Screen) 1 ea PRN PRN PRN Reason: PROTOCOL Stop: 06/22/18 09:28 Morphine Sulfate (Morphine) 15 mg PO Q4H PRN PRN Reason: Pain (Moderate) Stop: 06/21/18 11:37 Multivitamins/Vitamin C (Theragran) 1 tab PO DAILY [facility] Stop: 06/22/18 08:59 Last Admin: 04/26/18 09:03 Dose: Not Given Nitroglycerin (Nitrostat) 0.4 mg SL Q5MIN PRN PRN Reason: Chest Pain Stop: 06/21/18 11:34 Sodium Phosphate (Fleet Enema) 135 ml RC PRN PRN PRN Reason: Constipation Stop: 06/23/18 02:08 Valsartan (Diovan) 320 mg PO DAILY [facility] Stop: 06/22/18 08:59 Last Admin: 04/26/18 09:03 Dose: Not Given General: Alert, No acute distress, Mild distress HEENT: Atraumatic, PERRLA, EOMI Neck: Supple Cardiovascular: Regular rate, Normal S1, Normal S2 Lungs: Clear to auscultation, Normal air movement Abdomen: Bowel sounds Skin: Other (left chest dressing dry. minimal deniz drainage) - Procedures Procedures: Procedures Procedure Code Date EXCISION OF DUODENUM, ENDO, DIAGN [id number] 02/16/18 EXCISION OF ESOPHAGOGASTRIC JUNCTION, ENDO, DIAGN [id number] 02/16/18 EXCISION OF LEFT AXILLARY LYMPHATIC, OPEN APPROACH, DIAGN [id number] 04/22/18 EXCISION OF STOMACH, ENDO, DIAGN [id number] 02/16/18 RESECTION OF LEFT BREAST, OPEN APPROACH [id number] 04/22/18 Assessment/Plan - Problem List Patient Problems: All Active Problems Mass of colon (Acute) K63.9 - Assessment Assessment: Proctitis UTI fecal impaction breast nodule in left breast anemia Type 2 Diabetes HTN Dementia Depression Arthritis - Plan Plan: cpm will monitor Nutritional Asmnt/Malnutr-PDOC - Dietary Evaluation Malnutrition Findings (Please click <Entered> for more info): Nutritional Asmnt/Malnutrition Start: 04/23/18 15: 42 Text: Status: Complete Freq: Protocol: Document 04/23/18 15:50 LCHENG (Rec: 04/23/18 16:18 LCHENG [email or web address]) Nutritional Asmnt/Malnutrition Patient General Information Nutritional Screening High Risk Consult Diagnosis proctitis, UTI, intermittent ALOC Pertinent Medical Hx/Surgical Hx HTN, DM, CVA/TIA, arthritis, depression Subjective Information Consult received for elevated BS. Pt was sent to OR for mastectomy surgery this morning. Pt kept on NPO. Current Diet Order/ Nutrition Support NPO Pertinent Medications aspirin, lipitor, vit D3, colace, novolog, novolin, culturelle, remeron, theragran Pertinent Labs 8/6 glucose 117, POC 123-163 8/5 Na 134, glucose 141, POC 111-166, Ca 8.4 8/4 Na 130, Glucose 238, POC 133 Nutritional Hx/Data Height 1.63 m Height (Calculated Centimeters) 162.6 Current Weight (lbs) 79.379 kg Weight (Calculated Kilograms) 79.4 Weight (Calculated Grams) 38338.7 [place] Body Weight 120 Body Mass Index (BMI) 30.0 Weight Status Obese GI Symptoms GI Symptoms None Last BM 8/5 x 2 Difficult in: None Skin Integrity/Comment: BROWNISH DISCOLORATION/FADING ECCHYMOSIS Estimated Nutritional Goals Calories/Kcals/Kg 27-32 based on IBW 55kg Kcals Calculated 6576-4681 Protein g/k.2 Protein Calculated 66 Fluid: ml 1485-1760ml (1ml/kcal) Nutritional Problem 1. Problem Problem altered nutrition related labs Etiology hx of DM Signs/Symptoms: glucose 117-238, POC 123-166 Malnutrition Alert Is there a minimum of two criteria No selected? Query Text:Check all the applicable criteria. A minimum of two criteria are recommended for diagnosis of either severe or non-severe malnutrition. Malnutrition Related to Morbid Obesity Malnutrition related to morbid obesity No Intervention/Recommendation Comments 1. Monitor NPO status. Advance to CCHO diet when medically appropriate. 2. Monitor PO intake, wt, labs and skin integrity 3. F/U as high risk in 2-3 days, 04/25-04/26 Expected Outcomes/Goals Expected Outcomes/Goals 1. PO intake to meet at least 75% of nutritional needs. 2. Wt stability, skin to remain intact, labs to approach WNL.
--- NOTE | 2018-04-26 16:29 | Operative Report ---
DATE OF SURGERY: 04/26/2018 PROCEDURES PERFORMED: 1. Flex sigmoidoscopy. 2. Sigmoidoscopy with manual disimpaction. PREOPERATIVE DIAGNOSES: 1. Rectal wall thickening concerning for inflammatory or neoplastic process. 2. Recent diagnosis of left breast mass with axillary lymph node dissection. 3. Advanced age and dementia. POSTOPERATIVE DIAGNOSES: 1. Large amount of solid stool within the rectal region, status post disimpaction. 2. Limited view of the sigmoid. However, scope advanced to 40 cm from the anal verge. 3. No obvious or definite masses seen during sigmoidoscopy. INDICATIONS: This is a 77-year-old female with history of dementia who presented to the hospital with weakness and nausea. The patient was found to have a left breast mass as well as axillary lymph nodes and went for a mastectomy as well as lymph node dissection earlier this week. She had a CT scan, which showed perirectal inflammation and lymph nodes and concerning for possible neoplastic process. A flexible sigmoidoscopy was chosen after informed consent was obtained from the family. The patient was given half a bottle of prep as well as enemas for this procedure. CONSENT: Informed consent was obtained from the patient's family after explaining the risks, benefits and alternatives of the procedure, which were understood and so stated. SEDATION: Per anesthesia. SIGMOIDOSCOPY: After the patient was sedated, a rectal exam was performed, which revealed large amount of solid stool in the rectal vault. There were no definite masses that were palpated. We performed a manual disimpaction. Afterwards, a well-lubricated colonoscope was inserted into the rectum and advanced up to about 40 cm from the anal verge. The scope was then withdrawn carefully examining the color, texture, anatomy and mucosa. There was a large amount of solid stool that was seen throughout. Thus visualization was obscured, but no gross or obvious masses that were seen. The scope was brought back into the rectum where retroflexion was unable to be performed by the amount of stool that was seen in the rectum. Again, no obvious masses were seen in this area or perirectal inflammation, just large gross amount of solid stool. The scope was then drawn out and the patient tolerated this procedure well. RECOMMENDATIONS: 1. We would recommend continuous daily bowel regimen for this patient. 2. If further workup is desired to rule out any colorectal cancer, the patient needs to be on a 2-day prep. This can be done as an outpatient. 3. For now, no obvious colorectal cancer has been seen; however, the prep was poor and views were limited. 4. Continue supportive care. Thank you for allowing us to participate. Please call or page GI if there are any further questions or concerns. JOB# [id number]
[2018-04-26] MEDS: D5-0.9%NS 1,000 ML IV SCH (17:39)
[2018-04-27] MEDS: cefTRIAXone 1 GM in Sodium Chloride 0.9% 50 ML IV SCH (03:57)
[2018-04-27 07:04] LABS: % BASOPHILS 0.6 % (0.0-2.0); % EOSINOPHILS 8.1 % (0.0-5.0); % LYMPHOCYTES 35.3 % (20.0-50.0); % MONOCYTES 9.1 % (2.0-10.0); % NEUTROPHILS 46.9 % (40.0-80.0); EOSINOPHILE ABSOLUTE 0.6 Th/cmm (0.1-0.4); HEMATOCRIT 28.8 % (41.0-60); HEMOGLOBIN 9.5 gm/dL (12-16); LYMPHOCYTE ABSOLUTE 2.6 Th/cmm (1.5-3.0); MEAN CELL VOLUME 88.3 fl (81-100); MEAN CORPUSCULAR HEMOGLOBIN 29.1 pg (27.0-31.0); MEAN PLATELET VOLUME 7.3 fl; MONOCYTE ABSOLUTE 0.7 Th/cmm (0.3-1.0); NEUTROPHILE ABSOLUTE 3.4 Th/cmm (1.8-8.0); PLATELET COUNT 344 Th/cmm (150-400); RED BLOOD COUNT 3.26 Mil/cmm (3.80-5.20); RED CELL DISTRIBUTION WIDTH 14.9 % (11.5-20.0); WHITE BLOOD COUNT 7.3 Th/cmm (4.8-10.8)
[2018-04-27] MEDS: Aspirin 81mg Chewable Tab PO SCH (09:15)
[2018-04-27] MEDS: INSULIN HUMAN ISOPHANE (NPH) 100 UNITS/ML SUBQ SCH ×2 (09:17→21:15)
[2018-04-27] MEDS: Lactobacillus Rhamnosus GG 15 Billion CFU CAP.SPRINK PO SCH (09:17)
[2018-04-27] MEDS: Multivitamin Tab PO SCH (09:17)
[2018-04-27] MEDS: Maalox 30 mL Cup PO SCH (09:21)
[2018-04-27] MEDS: INSULIN ASPART SLIDING SCALE 100 UNITS/ML UNIT SUBQ SCH ×4 (09:22→21:22)
--- NOTE | 2018-04-27 10:20 | General Progress Note ---
Subjective - Review of Systems Service Date: 04/27/18 Events since last encounter: DENIZ drainage 40 cc overnight colonoscopy report noted path report awaited Objective - Results Result Diagrams: 04/27/18 06:33 04/25/18 05:20 Recent Labs: Laboratory Last Values WBC 7.3 Th/cmm (4.8-10.8) 04/27/18 06:33 RBC 3.26 Mil/cmm (3.80-5.20) L 04/27/18 06:33 Hgb 9.5 gm/dL (12-16) L 04/27/18 06:33 Hct 28.8 % (41.0-60) L 04/27/18 06:33 MCV 88.3 fl (81-100) 04/27/18 06:33 MCH 29.1 pg (27.0-31.0) 04/27/18 06:33 MCHC Differential 33.0 pg (28.0-36.0) 04/27/18 06:33 RDW 14.9 % (11.5-20.0) 04/27/18 06:33 Plt Count 344 Th/cmm (150-400) 04/27/18 06:33 MPV 7.3 fl 04/27/18 06:33 Neutrophils % 46.9 % (40.0-80.0) 04/27/18 06:33 Lymphocytes % 35.3 % (20.0-50.0) 04/27/18 06:33 Monocytes % 9.1 % (2.0-10.0) 04/27/18 06:33 Eosinophils % 8.1 % (0.0-5.0) H 04/27/18 06:33 Basophils % 0.6 % (0.0-2.0) 04/27/18 06:33 PT 10.1 SECONDS (9.5-11.5) 04/26/18 05:40 INR 0.97 (0.5-1.4) 04/26/18 05:40 PTT (Actin FS) 27.9 SECONDS (26.0-38.0) 04/21/18 20:50 Sodium 135 mEq/L (136-145) L 04/25/18 05:20 Potassium 4.0 mEq/L (3.5-5.1) 04/25/18 05:20 Chloride 107 mEq/L (98-107) 04/25/18 05:20 Carbon Dioxide 22.5 mEq/L (21.0-31.0) 04/25/18 05:20 Anion Gap 9.5 (7.0-16.0) 04/25/18 05:20 BUN 12 mg/dL (7-25) 04/25/18 05:20 Creatinine 0.8 mg/dL (0.6-1.2) 04/25/18 05:20 Est GFR ( Amer) TNP 04/25/18 05:20 Est GFR (Non-Af Amer) TNP 04/25/18 05:20 BUN/Creatinine Ratio 15.0 04/25/18 05:20 Glucose 129 mg/dL (70-105) H 04/25/18 05:20 POC Glucose 164 MG/DL (70-105) H 04/27/18 07:15 Hemoglobin A1c % 6.9 % (4.0-6.0) H 04/21/18 20:50 Calcium 8.2 mg/dL (8.6-10.3) L 04/25/18 05:20 Total Bilirubin 0.4 mg/dL (0.3-1.0) 04/25/18 05:20 AST 20 U/L (13-39) 04/25/18 05:20 ALT 13 U/L (7-52) 04/25/18 05:20 Alkaline Phosphatase 60 U/L (34-104) 04/25/18 05:20 Troponin I < 0.01 ng/mL (0.01-0.05) L 04/21/18 20:50 B-Natriuretic Peptide 41.1 pg/mL (5.0-100.0) 04/23/18 04:45 Total Protein 5.6 gm/dL (6.0-8.3) L 04/25/18 05:20 Albumin 2.7 gm/dL (3.7-5.3) L 04/25/18 05:20 Globulin 2.9 gm/dL 04/25/18 05:20 Albumin/Globulin Ratio 0.9 (1.0-1.8) L 04/25/18 05:20 Triglycerides 54 mg/dL (<150) 04/22/18 06:00 Cholesterol 122 mg/dL (<200) 04/22/18 06:00 LDL Cholesterol Direct 85 mg/dL (75-193) 04/22/18 06:00 HDL Cholesterol 31 mg/dL (23-92) 04/22/18 06:00 TSH 1.25 uIU/ml (0.34-5.60) 04/22/18 06:00 Urine Source [place] 04/21/18 22:10 Urine Color YELLOW 04/21/18 22:10 Urine Clarity CLEAR (CLEAR) 04/21/18 22:10 Urine pH 5.5 (4.6 - 8.0) 04/21/18 22:10 Ur Specific [place] <= 1.005 (1.005-1.030) 04/21/18 22:10 Urine Protein NEGATIVE mg/dL (NEGATIVE) 04/21/18 22:10 Urine Glucose (UA) 100 mg/dL (NEGATIVE) H 04/21/18 22:10 Urine Ketones NEGATIVE mg/dL (NEGATIVE) 04/21/18 22:10 Urine Blood NEGATIVE (NEGATIVE) 04/21/18 22:10 Urine Nitrate NEGATIVE (NEGATIVE) 04/21/18 22:10 Urine Bilirubin NEGATIVE (NEGATIVE) 04/21/18 22:10 Urine Urobilinogen 0.2 E.U./dL (0.2 - 1.0) 04/21/18 22:10 Ur Leukocyte Esterase SMALL (NEGATIVE) H 04/21/18 22:10 Urine RBC 0-2 /hpf (0-5) 04/21/18 22:10 Urine WBC 2-5 /hpf (0-5) 04/21/18 22:10 Ur Epithelial Cells FEW /lpf (FEW) 04/21/18 22:10 Urine Bacteria OCCASIONAL /hpf (NONE SEEN) 04/21/18 22:10 - Physical Exam Vitals and I&O: Vital Signs Temp 97.5 F 04/27/18 04:00 Pulse 78 04/27/18 09:17 Resp 18 04/27/18 04:00 BP 125/55 04/27/18 09:17 Pulse Ox 98 04/27/18 04:00 Intake & Output 04/26/18 04/27/18 04/27/18 18:59 06:59 18:59 Intake Total 1550 240 240 Output Total 930 305 325 Balance 620 -65 -85 Weight (lbs) 73.936 kg 73.936 kg 73.936 kg Intake: Intake, IV Amount 1000 D5-0.9%Ns 1,000 ml @ 50 1000 mls/hr IV .Q20H [facility] Rx#: [id number] Oral 550 240 240 Output: Drainage 30 5 25 Left Chest 30 5 25 Urine 900 300 300 Other: # Bowel Movements 2 1 Stool Characteristics Liquid Liquid Liquid Weight Source Bedscale Bedscale Bedscale Active Medications: Current Medications Acetaminophen (Tylenol) 650 mg PO Q6H PRN PRN Reason: Fever > 101 Stop: 06/21/18 11:32 Al Hydrox/Mg Hydrox/Simethicone (Maalox) 30 ml PO DAILY [facility] Stop: 06/23/18 09:59 Last Admin: 04/27/18 09:21 Dose: Not Given Amlodipine Besylate (Norvasc) 10 mg PO DAILY [facility] Stop: 06/22/18 08:59 Last Admin: 04/27/18 09:16 Dose: 10 mg Aspirin (Aspirin Chewable) 81 mg PO DAILY [facility] Stop: 06/22/18 08:59 Last Admin: 04/27/18 09:15 Dose: 81 mg Atorvastatin Calcium (Lipitor) 40 mg PO HS [facility]; Protocol Stop: 06/21/18 20:59 Last Admin: 04/26/18 21:06 Dose: 40 mg Cholecalciferol (Vitamin D3) 1,000 iu PO DAILY [facility] Stop: 06/22/18 08:59 Last Admin: 04/27/18 09:16 Dose: 1,000 iu Docusate Sodium (Colace) 100 mg PO BID [facility] Stop: 06/21/18 16:59 Last Admin: 04/27/18 09:16 Dose: 100 mg Heparin Sodium (Porcine) (Heparin) 5,000 units SUBQ Q12HR [facility] Stop: 06/21/18 08:59 Last Admin: 04/27/18 09:19 Dose: 5,000 units Ceftriaxone Sodium 1 gm/ (Sodium Chloride) 50 mls @ 100 mls/hr IV Q24HR [facility] Stop: 06/21/18 03:59 Last Admin: 04/27/18 03:57 Dose: 100 mls/hr Dextrose/Sodium Chloride (D5-0.9%Ns) 1,000 mls @ 50 mls/hr IV .Q20H [facility] Stop: 06/24/18 20:59 Last Admin: 04/26/18 17:39 Dose: 50 mls/hr Insulin Aspart (Novolog Insulin Sliding Scale) 0 units SUBQ ACHS [facility]; Protocol Stop: 06/21/18 07:29 Last Admin: 04/27/18 09:22 Dose: Not Given Insulin Human NPH (Novolin N) 20 units SUBQ QDAC [facility]; Protocol Stop: 06/22/18 07:29 Last Admin: 04/27/18 09:17 Dose: 20 units Insulin Human NPH (Novolin N) 30 units SUBQ HS [facility]; Protocol Stop: 06/21/18 20:59 Last Admin: 04/26/18 21:06 Dose: Not Given Lactobacillus Rhamnosus (Culturelle 15b) 1 each PO DAILY [facility] Stop: 06/22/18 13:59 Last Admin: 04/27/18 09:17 Dose: 1 each Lamotrigine (Lamictal) 25 mg PO HS [facility]; Protocol Stop: 06/21/18 20:59 Last Admin: 04/26/18 21:06 Dose: 25 mg Memantine (Namenda) 10 mg PO BID [facility] Stop: 06/21/18 16:59 Last Admin: 04/27/18 09:17 Dose: 10 mg Mirtazapine (Remeron) 15 mg PO HS [facility]; Protocol Stop: 06/21/18 20:59 Last Admin: 04/26/18 21:05 Dose: 15 mg Miscellaneous (Vte Chemical Prophylaxis Screen/ Admission) 1 ea PRN PRN PRN Reason: PROTOCOL Stop: 06/21/18 07:44 Miscellaneous (Probiotic Screen) 1 ea PRN PRN PRN Reason: PROTOCOL Stop: 06/22/18 09:28 Morphine Sulfate (Morphine) 15 mg PO Q4H PRN PRN Reason: Pain (Moderate) Stop: 06/21/18 11:37 Multivitamins/Vitamin C (Theragran) 1 tab PO DAILY [facility] Stop: 06/22/18 08:59 Last Admin: 04/27/18 09:17 Dose: 1 tab Nitroglycerin (Nitrostat) 0.4 mg SL Q5MIN PRN PRN Reason: Chest Pain Stop: 06/21/18 11:34 Sodium Phosphate (Fleet Enema) 135 ml RC PRN PRN PRN Reason: Constipation Stop: 06/23/18 02:08 Valsartan (Diovan) 320 mg PO DAILY [facility] Stop: 06/22/18 08:59 Last Admin: 04/27/18 09:17 Dose: 320 mg General: Alert, No acute distress, Mild distress HEENT: Atraumatic, PERRLA, EOMI Neck: Supple Cardiovascular: Regular rate, Normal S1, Normal S2 Lungs: Clear to auscultation, Normal air movement Abdomen: Bowel sounds Skin: Other (left chest dressing dry. minimal deniz drainage) - Procedures Procedures: Procedures Procedure Code Date EXCISION OF DUODENUM, ENDO, DIAGN 5VS64AH 02/16/18 EXCISION OF ESOPHAGOGASTRIC JUNCTION, ENDO, DIAGN [id number] 02/16/18 EXCISION OF LEFT AXILLARY LYMPHATIC, OPEN APPROACH, DIAGN [id number] 04/22/18 EXCISION OF STOMACH, ENDO, DIAGN [id number] 02/16/18 RESECTION OF LEFT BREAST, OPEN APPROACH [id number] 04/22/18 Assessment/Plan - Problem List Patient Problems: All Active Problems Mass of colon (Acute) K63.9 Nutritional Asmnt/Malnutr-PDOC - Dietary Evaluation Malnutrition Findings (Please click <Entered> for more info): Nutritional Asmnt/Malnutrition Start: 04/23/18 15: 42 Text: Status: Complete Freq: Protocol: Document 04/23/18 15:50 LCHENG (Rec: 04/23/18 16:18 LCCAMILLAG [email or web address]) Nutritional Asmnt/Malnutrition Patient General Information Nutritional Screening High Risk Consult Diagnosis proctitis, UTI, intermittent ALOC Pertinent Medical Hx/Surgical Hx HTN, DM, CVA/TIA, arthritis, depression Subjective Information Consult received for elevated BS. Pt was sent to OR for mastectomy surgery this morning. Pt kept on NPO. Current Diet Order/ Nutrition Support NPO Pertinent Medications aspirin, lipitor, vit D3, colace, novolog, novolin, culturelle, remeron, theragran Pertinent Labs 8/6 glucose 117, POC 123-163 8/5 Na 134, glucose 141, POC 111-166, Ca 8.4 8/4 Na 130, Glucose 238, POC 133 Nutritional Hx/Data Height 1.63 m Height (Calculated Centimeters) 162.6 Current Weight (lbs) 79.379 kg Weight (Calculated Kilograms) 79.4 Weight (Calculated Grams) 18530.7 [place] Body Weight 120 Body Mass Index (BMI) 30.0 Weight Status Obese GI Symptoms GI Symptoms None Last BM 8/ x 2 Difficult in: None Skin Integrity/Comment: BROWNISH DISCOLORATION/FADING ECCHYMOSIS Estimated Nutritional Goals Calories/Kcals/Kg 27-32 based on IBW 55kg Kcals Calculated 6446-3216 Protein g/k.2 Protein Calculated 66 Fluid: ml 1485-1760ml (1ml/kcal) Nutritional Problem 1. Problem Problem altered nutrition related labs Etiology hx of DM Signs/Symptoms: glucose 117-238, POC 123-166 Malnutrition Alert Is there a minimum of two criteria No selected? Query Text:Check all the applicable criteria. A minimum of two criteria are recommended for diagnosis of either severe or non-severe malnutrition. Malnutrition Related to Morbid Obesity Malnutrition related to morbid obesity No Intervention/Recommendation Comments 1. Monitor NPO status. Advance to [facility] diet when medically appropriate. 2. Monitor PO intake, wt, labs and skin integrity 3. F/U as high risk in 2-3 days, 04/25-04/26 Expected Outcomes/Goals Expected Outcomes/Goals 1. PO intake to meet at least 75% of nutritional needs. 2. Wt stability, skin to remain intact, labs to approach WNL.
[2018-04-27 11:12] LABS: FERRITIN 24 ng/mL (15-150); FOLIC ACID 12.6 ng/mL (>3.0); IRON LC 22 ug/dL (27-139); TIBC (LC) 225 ug/dL (250-450); UIBC 203 ug/dL (118-369)
[2018-04-27] MEDS: D5-0.9%NS 1,000 ML IV SCH (15:29)
[2018-04-27] MEDS ORDERED: POLYETHYLENE GLYCOL 3350 17 GM PACK PO PRN (16:52)
--- NOTE | 2018-04-27 17:06 | General Progress Note ---
Subjective - Review of Systems Service Date: 04/27/18 Subjective: no new sxs Objective - Results Result Diagrams: 04/27/18 06:33 04/25/18 05:20 Recent Labs: Laboratory Last Values WBC 7.3 Th/cmm (4.8-10.8) 04/27/18 06:33 RBC 3.26 Mil/cmm (3.80-5.20) L 04/27/18 06:33 Hgb 9.5 gm/dL (12-16) L 04/27/18 06:33 Hct 28.8 % (41.0-60) L 04/27/18 06:33 MCV 88.3 fl (81-100) 04/27/18 06:33 MCH 29.1 pg (27.0-31.0) 04/27/18 06:33 MCHC Differential 33.0 pg (28.0-36.0) 04/27/18 06:33 RDW 14.9 % (11.5-20.0) 04/27/18 06:33 Plt Count 344 Th/cmm (150-400) 04/27/18 06:33 MPV 7.3 fl 04/27/18 06:33 Neutrophils % 46.9 % (40.0-80.0) 04/27/18 06:33 Lymphocytes % 35.3 % (20.0-50.0) 04/27/18 06:33 Monocytes % 9.1 % (2.0-10.0) 04/27/18 06:33 Eosinophils % 8.1 % (0.0-5.0) H 04/27/18 06:33 Basophils % 0.6 % (0.0-2.0) 04/27/18 06:33 PT 10.1 SECONDS (9.5-11.5) 04/26/18 05:40 INR 0.97 (0.5-1.4) 04/26/18 05:40 PTT (Actin FS) 27.9 SECONDS (26.0-38.0) 04/21/18 20:50 Sodium 135 mEq/L (136-145) L 04/25/18 05:20 Potassium 4.0 mEq/L (3.5-5.1) 04/25/18 05:20 Chloride 107 mEq/L (98-107) 04/25/18 05:20 Carbon Dioxide 22.5 mEq/L (21.0-31.0) 04/25/18 05:20 Anion Gap 9.5 (7.0-16.0) 04/25/18 05:20 BUN 12 mg/dL (7-25) 04/25/18 05:20 Creatinine 0.8 mg/dL (0.6-1.2) 04/25/18 05:20 Est GFR ( Amer) TNP 04/25/18 05:20 Est GFR (Non-Af Amer) TNP 04/25/18 05:20 BUN/Creatinine Ratio 15.0 04/25/18 05:20 Glucose 129 mg/dL (70-105) H 04/25/18 05:20 POC Glucose 211 MG/DL (70 - 105) H 04/27/18 11:59 Hemoglobin A1c % 6.9 % (4.0-6.0) H 04/21/18 20:50 Calcium 8.2 mg/dL (8.6-10.3) L 04/25/18 05:20 Iron 22 ug/dL (27-139) L 04/26/18 05:40 TIBC 225 ug/dL (250-450) L 04/26/18 05:40 Iron Saturation 10 % (15-55) L 04/26/18 05:40 Unsaturated IBC 203 ug/dL (118-369) 04/26/18 05:40 Ferritin 24 ng/mL (15-150) 04/26/18 05:40 Total Bilirubin 0.4 mg/dL (0.3-1.0) 04/25/18 05:20 AST 20 U/L (13-39) 04/25/18 05:20 ALT 13 U/L (7-52) 04/25/18 05:20 Alkaline Phosphatase 60 U/L (34-104) 04/25/18 05:20 Troponin I < 0.01 ng/mL (0.01-0.05) L 04/21/18 20:50 B-Natriuretic Peptide 41.1 pg/mL (5.0-100.0) 04/23/18 04:45 Total Protein 5.6 gm/dL (6.0-8.3) L 04/25/18 05:20 Albumin 2.7 gm/dL (3.7-5.3) L 04/25/18 05:20 Globulin 2.9 gm/dL 04/25/18 05:20 Albumin/Globulin Ratio 0.9 (1.0-1.8) L 04/25/18 05:20 Triglycerides 54 mg/dL (<150) 04/22/18 06:00 Cholesterol 122 mg/dL (<200) 04/22/18 06:00 LDL Cholesterol Direct 85 mg/dL (75-193) 04/22/18 06:00 HDL Cholesterol 31 mg/dL (23-92) 04/22/18 06:00 Vitamin B12 445 pg/mL (232-1245) 04/26/18 05:40 Folic Acid 12.6 ng/mL (>3.0) 04/26/18 05:40 TSH 1.25 uIU/ml (0.34-5.60) 04/22/18 06:00 Urine Source [place] 04/21/18 22:10 Urine Color YELLOW 04/21/18 22:10 Urine Clarity CLEAR (CLEAR) 04/21/18 22:10 Urine pH 5.5 (4.6 - 8.0) 04/21/18 22:10 Ur Specific [place] <= 1.005 (1.005-1.030) 04/21/18 22:10 Urine Protein NEGATIVE mg/dL (NEGATIVE) 04/21/18 22:10 Urine Glucose (UA) 100 mg/dL (NEGATIVE) H 04/21/18 22:10 Urine Ketones NEGATIVE mg/dL (NEGATIVE) 04/21/18 22:10 Urine Blood NEGATIVE (NEGATIVE) 04/21/18 22:10 Urine Nitrate NEGATIVE (NEGATIVE) 04/21/18 22:10 Urine Bilirubin NEGATIVE (NEGATIVE) 04/21/18 22:10 Urine Urobilinogen 0.2 E.U./dL (0.2 - 1.0) 04/21/18 22:10 Ur Leukocyte Esterase SMALL (NEGATIVE) H 04/21/18 22:10 Urine RBC 0-2 /hpf (0-5) 04/21/18 22:10 Urine WBC 2-5 /hpf (0-5) 04/21/18 22:10 Ur Epithelial Cells FEW /lpf (FEW) 04/21/18 22:10 Urine Bacteria OCCASIONAL /hpf (NONE SEEN) 04/21/18 22:10 - Physical Exam Vitals and I&O: Vital Signs Temp 97 F 04/27/18 12:00 Pulse 72 04/27/18 12:00 Resp 20 04/27/18 12:00 BP 120/68 04/27/18 12:00 Pulse Ox 98 04/27/18 12:00 Intake & Output 04/26/18 04/27/18 04/27/18 18:59 06:59 18:59 Intake Total 5769 284 1674 Output Total 930 305 325 Balance 620 -65 915 Weight (lbs) 73.936 kg 73.936 kg 73.936 kg Intake: Intake, IV Amount 1000 1000 D5-0.9%Ns 1,000 ml @ 50 1000 1000 mls/hr IV .Q20H [facility] Rx#: [id number] Oral 550 240 240 Output: Drainage 30 5 25 Left Chest 30 5 25 Urine 900 300 300 Other: # Bowel Movements 2 1 Stool Characteristics Liquid Liquid Liquid Weight Source Bedscale Bedscale Bedscale Active Medications: Current Medications Acetaminophen (Tylenol) 650 mg PO Q6H PRN PRN Reason: Fever > 101 Stop: 06/21/18 11:32 Al Hydrox/Mg Hydrox/Simethicone (Maalox) 30 ml PO DAILY [facility] Stop: 06/23/18 09:59 Last Admin: 04/27/18 09:21 Dose: Not Given Amlodipine Besylate (Norvasc) 10 mg PO DAILY [facility] Stop: 06/22/18 08:59 Last Admin: 04/27/18 09:16 Dose: 10 mg Aspirin (Aspirin Chewable) 81 mg PO DAILY [facility] Stop: 06/22/18 08:59 Last Admin: 04/27/18 09:15 Dose: 81 mg Atorvastatin Calcium (Lipitor) 40 mg PO HS [facility]; Protocol Stop: 06/21/18 20:59 Last Admin: 04/26/18 21:06 Dose: 40 mg Cholecalciferol (Vitamin D3) 1,000 iu PO DAILY [facility] Stop: 06/22/18 08:59 Last Admin: 04/27/18 09:16 Dose: 1,000 iu Docusate Sodium (Colace) 100 mg PO BID [facility] Stop: 06/21/18 16:59 Last Admin: 04/27/18 16:52 Dose: Not Given Heparin Sodium (Porcine) (Heparin) 5,000 units SUBQ Q12HR [facility] Stop: 06/21/18 08:59 Last Admin: 04/27/18 09:19 Dose: 5,000 units Ceftriaxone Sodium 1 gm/ (Sodium Chloride) 50 mls @ 100 mls/hr IV Q24HR [facility] Stop: 06/21/18 03:59 Last Admin: 04/27/18 03:57 Dose: 100 mls/hr Dextrose/Sodium Chloride (D5-0.9%Ns) 1,000 mls @ 50 mls/hr IV .Q20H [facility] Stop: 06/24/18 20:59 Last Admin: 04/27/18 15:29 Dose: 50 mls/hr Insulin Aspart (Novolog Insulin Sliding Scale) 0 units SUBQ ACHS [facility]; Protocol Stop: 06/21/18 07:29 Last Admin: 04/27/18 12:34 Dose: 4 units Insulin Human NPH (Novolin N) 20 units SUBQ QDAC [facility]; Protocol Stop: 06/22/18 07:29 Last Admin: 04/27/18 09:17 Dose: 20 units Insulin Human NPH (Novolin N) 30 units SUBQ HS [facility]; Protocol Stop: 06/21/18 20:59 Last Admin: 04/26/18 21:06 Dose: Not Given Lactobacillus Rhamnosus (Culturelle 15b) 1 each PO DAILY [facility] Stop: 06/22/18 13:59 Last Admin: 04/27/18 09:17 Dose: 1 each Lamotrigine (Lamictal) 25 mg PO HS [facility]; Protocol Stop: 06/21/18 20:59 Last Admin: 04/26/18 21:06 Dose: 25 mg Memantine (Namenda) 10 mg PO BID [facility] Stop: 06/21/18 16:59 Last Admin: 04/27/18 17:00 Dose: 10 mg Mirtazapine (Remeron) 15 mg PO HS [facility]; Protocol Stop: 06/21/18 20:59 Last Admin: 04/26/18 21:05 Dose: 15 mg Miscellaneous (Vte Chemical Prophylaxis Screen/ Admission) 1 ea MC PRN PRN PRN Reason: PROTOCOL Stop: 06/21/18 07:44 Miscellaneous (Probiotic Screen) 1 ea MC PRN PRN PRN Reason: PROTOCOL Stop: 06/22/18 09:28 Morphine Sulfate (Morphine) 15 mg PO Q4H PRN PRN Reason: Pain (Moderate) Stop: 06/21/18 11:37 Multivitamins/Vitamin C (Theragran) 1 tab PO DAILY [facility] Stop: 06/22/18 08:59 Last Admin: 04/27/18 09:17 Dose: 1 tab Nitroglycerin (Nitrostat) 0.4 mg SL Q5MIN PRN PRN Reason: Chest Pain Stop: 06/21/18 11:34 Polyethylene Glycol (Miralax) 17 gm PO DAILY PRN PRN Reason: Constipation Stop: 06/27/18 08:59 Sodium Phosphate (Fleet Enema) 135 ml RC PRN PRN PRN Reason: Constipation Stop: 06/23/18 02:08 Valsartan (Diovan) 320 mg PO DAILY [facility] Stop: 06/22/18 08:59 Last Admin: 04/27/18 09:17 Dose: 320 mg General: Alert, No acute distress, Mild distress HEENT: Atraumatic, PERRLA, EOMI Neck: Supple Cardiovascular: Regular rate, Normal S1, Normal S2 Lungs: Clear to auscultation, Normal air movement Abdomen: Bowel sounds Skin: Other (left chest dressing dry. minimal deniz drainage) - Procedures Procedures: Procedures Procedure Code Date EXCISION OF DUODENUM, ENDO, DIAGN [id number] 02/16/18 EXCISION OF ESOPHAGOGASTRIC JUNCTION, ENDO, DIAGN [id number] 02/16/18 EXCISION OF LEFT AXILLARY LYMPHATIC, OPEN APPROACH, DIAGN [id number] 04/22/18 EXCISION OF STOMACH, ENDO, DIAGN [id number] 02/16/18 RESECTION OF LEFT BREAST, OPEN APPROACH [id number] 04/22/18 Assessment/Plan - Problem List Patient Problems: All Active Problems Mass of colon (Acute) K63.9 - Assessment Assessment: * Left breast mass. s/p resection MRM / axillary LN dissection * rectal wall thickening and perirectal LN * Anemia suggestive of fe deficiency awaiting pathology from mastectomy colonoscopy poor prep no neoplasm seen Nutritional Asmnt/Malnutr-PDOC - Dietary Evaluation Malnutrition Findings (Please click <Entered> for more info): Nutritional Asmnt/Malnutrition Start: 04/23/18 15: 42 Text: Status: Complete Freq: Protocol: Document 04/23/18 15:50 LILIBETH (Rec: 04/23/18 16:18 LILIBETH COLTON-FN) Nutritional Asmnt/Malnutrition Patient General Information Nutritional Screening High Risk Consult Diagnosis proctitis, UTI, intermittent ALOC Pertinent Medical Hx/Surgical Hx HTN, DM, CVA/TIA, arthritis, depression Subjective Information Consult received for elevated BS. Pt was sent to OR for mastectomy surgery this morning. Pt kept on NPO. Current Diet Order/ Nutrition Support NPO Pertinent Medications aspirin, lipitor, vit D3, colace, novolog, novolin, culturelle, remeron, theragran Pertinent Labs 86 glucose 117, POC 123-163 8/5 Na 134, glucose 141, POC 111-166, Ca 8.4 8/4 Na 130, Glucose 238, POC 133 Nutritional Hx/Data Height 1.63 m Height (Calculated Centimeters) 162.6 Current Weight (lbs) 79.379 kg Weight (Calculated Kilograms) 79.4 Weight (Calculated Grams) 73651.7 [place] Body Weight 120 Body Mass Index (BMI) 30.0 Weight Status Obese GI Symptoms GI Symptoms None Last BM 04/22 x 2 Difficult in: None Skin Integrity/Comment: BROWNISH DISCOLORATION/FADING ECCHYMOSIS Estimated Nutritional Goals Calories/Kcals/Kg 27-32 based on IBW 55kg Kcals Calculated 1295-7652 Protein g/k.2 Protein Calculated 66 Fluid: ml 1485-1760ml (1ml/kcal) Nutritional Problem 1. Problem Problem altered nutrition related labs Etiology hx of DM Signs/Symptoms: glucose 117-238, POC 123-166 Malnutrition Alert Is there a minimum of two criteria No selected? Query Text:Check all the applicable criteria. A minimum of two criteria are recommended for diagnosis of either severe or non-severe malnutrition. Malnutrition Related to Morbid Obesity Malnutrition related to morbid obesity No Intervention/Recommendation Comments 1. Monitor NPO status. Advance to [facility] diet when medically appropriate. 2. Monitor PO intake, wt, labs and skin integrity 3. F/U as high risk in 2-3 days, 04/25-04/26 Expected Outcomes/Goals Expected Outcomes/Goals 1. PO intake to meet at least 75% of nutritional needs. 2. Wt stability, skin to remain intact, labs to approach WNL.
--- NOTE | 2018-04-27 17:13 | GI Progress Note ---
Subjective - Review of Systems Service Date: 04/27/18 Events since last encounter: No new events overnight. See sigmoidoscopy report, discussed plan with daughter Subjective: Pt appears comfortable, no events Objective - Results Result Diagrams: 04/27/18 06:33 04/25/18 05:20 Recent Labs: Laboratory Last Values WBC 7.3 Th/cmm (4.8-10.8) 04/27/18 06:33 RBC 3.26 Mil/cmm (3.80-5.20) L 04/27/18 06:33 Hgb 9.5 gm/dL (12-16) L 04/27/18 06:33 Hct 28.8 % (41.0-60) L 04/27/18 06:33 MCV 88.3 fl (81-100) 04/27/18 06:33 MCH 29.1 pg (27.0-31.0) 04/27/18 06:33 MCHC Differential 33.0 pg (28.0-36.0) 04/27/18 06:33 RDW 14.9 % (11.5-20.0) 04/27/18 06:33 Plt Count 344 Th/cmm (150-400) 04/27/18 06:33 MPV 7.3 fl 04/27/18 06:33 Neutrophils % 46.9 % (40.0-80.0) 04/27/18 06:33 Lymphocytes % 35.3 % (20.0-50.0) 04/27/18 06:33 Monocytes % 9.1 % (2.0-10.0) 04/27/18 06:33 Eosinophils % 8.1 % (0.0-5.0) H 04/27/18 06:33 Basophils % 0.6 % (0.0-2.0) 04/27/18 06:33 PT 10.1 SECONDS (9.5-11.5) 04/26/18 05:40 INR 0.97 (0.5-1.4) 04/26/18 05:40 PTT (Actin FS) 27.9 SECONDS (26.0-38.0) 04/21/18 20:50 Sodium 135 mEq/L (136-145) L 04/25/18 05:20 Potassium 4.0 mEq/L (3.5-5.1) 04/25/18 05:20 Chloride 107 mEq/L (98-107) 04/25/18 05:20 Carbon Dioxide 22.5 mEq/L (21.0-31.0) 04/25/18 05:20 Anion Gap 9.5 (7.0-16.0) 04/25/18 05:20 BUN 12 mg/dL (7-25) 04/25/18 05:20 Creatinine 0.8 mg/dL (0.6-1.2) 04/25/18 05:20 Est GFR ( Amer) TNP 04/25/18 05:20 Est GFR (Non-Af Amer) TNP 04/25/18 05:20 BUN/Creatinine Ratio 15.0 04/25/18 05:20 Glucose 129 mg/dL (70-105) H 04/25/18 05:20 POC Glucose 166 MG/DL (70 - 105) H 04/27/18 16:59 Hemoglobin A1c % 6.9 % (4.0-6.0) H 04/21/18 20:50 Calcium 8.2 mg/dL (8.6-10.3) L 04/25/18 05:20 Iron 22 ug/dL (27-139) L 04/26/18 05:40 TIBC 225 ug/dL (250-450) L 04/26/18 05:40 Iron Saturation 10 % (15-55) L 04/26/18 05:40 Unsaturated IBC 203 ug/dL (118-369) 04/26/18 05:40 Ferritin 24 ng/mL (15-150) 04/26/18 05:40 Total Bilirubin 0.4 mg/dL (0.3-1.0) 04/25/18 05:20 AST 20 U/L (13-39) 04/25/18 05:20 ALT 13 U/L (7-52) 04/25/18 05:20 Alkaline Phosphatase 60 U/L (34-104) 04/25/18 05:20 Troponin I < 0.01 ng/mL (0.01-0.05) L 04/21/18 20:50 B-Natriuretic Peptide 41.1 pg/mL (5.0-100.0) 04/23/18 04:45 Total Protein 5.6 gm/dL (6.0-8.3) L 04/25/18 05:20 Albumin 2.7 gm/dL (3.7-5.3) L 04/25/18 05:20 Globulin 2.9 gm/dL 04/25/18 05:20 Albumin/Globulin Ratio 0.9 (1.0-1.8) L 04/25/18 05:20 Triglycerides 54 mg/dL (<150) 04/22/18 06:00 Cholesterol 122 mg/dL (<200) 04/22/18 06:00 LDL Cholesterol Direct 85 mg/dL (75-193) 04/22/18 06:00 HDL Cholesterol 31 mg/dL (23-92) 04/22/18 06:00 Vitamin B12 445 pg/mL (232-1245) 04/26/18 05:40 Folic Acid 12.6 ng/mL (>3.0) 04/26/18 05:40 TSH 1.25 uIU/ml (0.34-5.60) 04/22/18 06:00 Urine Source [place] 04/21/18 22:10 Urine Color YELLOW 04/21/18 22:10 Urine Clarity CLEAR (CLEAR) 04/21/18 22:10 Urine pH 5.5 (4.6 - 8.0) 04/21/18 22:10 Ur Specific [place] <= 1.005 (1.005-1.030) 04/21/18 22:10 Urine Protein NEGATIVE mg/dL (NEGATIVE) 04/21/18 22:10 Urine Glucose (UA) 100 mg/dL (NEGATIVE) H 04/21/18 22:10 Urine Ketones NEGATIVE mg/dL (NEGATIVE) 04/21/18 22:10 Urine Blood NEGATIVE (NEGATIVE) 04/21/18 22:10 Urine Nitrate NEGATIVE (NEGATIVE) 04/21/18 22:10 Urine Bilirubin NEGATIVE (NEGATIVE) 04/21/18 22:10 Urine Urobilinogen 0.2 E.U./dL (0.2 - 1.0) 04/21/18 22:10 Ur Leukocyte Esterase SMALL (NEGATIVE) H 04/21/18 22:10 Urine RBC 0-2 /hpf (0-5) 04/21/18 22:10 Urine WBC 2-5 /hpf (0-5) 04/21/18 22:10 Ur Epithelial Cells FEW /lpf (FEW) 04/21/18 22:10 Urine Bacteria OCCASIONAL /hpf (NONE SEEN) 04/21/18 22:10 - Physical Exam Vitals and I&O: Vital Signs Temp 97 F 04/27/18 12:00 Pulse 72 04/27/18 12:00 Resp 20 04/27/18 12:00 BP 120/68 04/27/18 12:00 Pulse Ox 98 04/27/18 12:00 Intake & Output 04/26/18 04/27/18 04/27/18 18:59 06:59 18:59 Intake Total 2519 441 0935 Output Total 930 305 325 Balance 620 -65 915 Weight (lbs) 73.936 kg 73.936 kg 73.936 kg Intake: Intake, IV Amount 1000 1000 D5-0.9%Ns 1,000 ml @ 50 1000 1000 mls/hr IV .Q20H [facility] Rx#: [id number] Oral 550 240 240 Output: Drainage 30 5 25 Left Chest 30 5 25 Urine 900 300 300 Other: # Bowel Movements 2 1 Stool Characteristics Liquid Liquid Liquid Weight Source Bedscale Bedscale Bedscale Active Medications: Current Medications Acetaminophen (Tylenol) 650 mg PO Q6H PRN PRN Reason: Fever > 101 Stop: 06/21/18 11:32 Al Hydrox/Mg Hydrox/Simethicone (Maalox) 30 ml PO DAILY [facility] Stop: 06/23/18 09:59 Last Admin: 04/27/18 09:21 Dose: Not Given Amlodipine Besylate (Norvasc) 10 mg PO DAILY [facility] Stop: 06/22/18 08:59 Last Admin: 04/27/18 09:16 Dose: 10 mg Aspirin (Aspirin Chewable) 81 mg PO DAILY [facility] Stop: 06/22/18 08:59 Last Admin: 04/27/18 09:15 Dose: 81 mg Atorvastatin Calcium (Lipitor) 40 mg PO HS [facility]; Protocol Stop: 06/21/18 20:59 Last Admin: 04/26/18 21:06 Dose: 40 mg Cholecalciferol (Vitamin D3) 1,000 iu PO DAILY [facility] Stop: 06/22/18 08:59 Last Admin: 04/27/18 09:16 Dose: 1,000 iu Docusate Sodium (Colace) 100 mg PO BID [facility] Stop: 06/21/18 16:59 Last Admin: 08/10/18 16:52 Dose: Not Given Heparin Sodium (Porcine) (Heparin) 5,000 units SUBQ Q12HR [facility] Stop: 06/21/18 08:59 Last Admin: 04/27/18 09:19 Dose: 5,000 units Ceftriaxone Sodium 1 gm/ (Sodium Chloride) 50 mls @ 100 mls/hr IV Q24HR [facility] Stop: 06/21/18 03:59 Last Admin: 04/27/18 03:57 Dose: 100 mls/hr Dextrose/Sodium Chloride (D5-0.9%Ns) 1,000 mls @ 50 mls/hr IV .Q20H [facility] Stop: 06/24/18 20:59 Last Admin: 04/27/18 15:29 Dose: 50 mls/hr Insulin Aspart (Novolog Insulin Sliding Scale) 0 units SUBQ ACHS [facility]; Protocol Stop: 06/21/18 07:29 Last Admin: 04/27/18 12:34 Dose: 4 units Insulin Human NPH (Novolin N) 20 units SUBQ QDAC [facility]; Protocol Stop: 06/22/18 07:29 Last Admin: 04/27/18 09:17 Dose: 20 units Insulin Human NPH (Novolin N) 30 units SUBQ HS [facility]; Protocol Stop: 06/21/18 20:59 Last Admin: 04/26/18 21:06 Dose: Not Given Lactobacillus Rhamnosus (Culturelle 15b) 1 each PO DAILY [facility] Stop: 06/22/18 13:59 Last Admin: 04/27/18 09:17 Dose: 1 each Lamotrigine (Lamictal) 25 mg PO HS [facility]; Protocol Stop: 06/21/18 20:59 Last Admin: 04/26/18 21:06 Dose: 25 mg Memantine (Namenda) 10 mg PO BID [facility] Stop: 06/21/18 16:59 Last Admin: 04/27/18 17:00 Dose: 10 mg Mirtazapine (Remeron) 15 mg PO HS [facility]; Protocol Stop: 06/21/18 20:59 Last Admin: 04/26/18 21:05 Dose: 15 mg Miscellaneous (Vte Chemical Prophylaxis Screen/ Admission) 1 ea MC PRN PRN PRN Reason: PROTOCOL Stop: 06/21/18 07:44 Miscellaneous (Probiotic Screen) 1 ea MC PRN PRN PRN Reason: PROTOCOL Stop: 06/22/18 09:28 Morphine Sulfate (Morphine) 15 mg PO Q4H PRN PRN Reason: Pain (Moderate) Stop: 06/21/18 11:37 Multivitamins/Vitamin C (Theragran) 1 tab PO DAILY [facility] Stop: 06/22/18 08:59 Last Admin: 04/27/18 09:17 Dose: 1 tab Nitroglycerin (Nitrostat) 0.4 mg SL Q5MIN PRN PRN Reason: Chest Pain Stop: 06/21/18 11:34 Polyethylene Glycol (Miralax) 17 gm PO DAILY PRN PRN Reason: Constipation Stop: 06/27/18 08:59 Sodium Phosphate (Fleet Enema) 135 ml RC PRN PRN PRN Reason: Constipation Stop: 06/23/18 02:08 Valsartan (Diovan) 320 mg PO DAILY [facility] Stop: 06/22/18 08:59 Last Admin: 04/27/18 09:17 Dose: 320 mg General: Alert, No acute distress, Mild distress HEENT: Atraumatic, PERRLA, EOMI Neck: Supple Cardiovascular: Regular rate, Normal S1, Normal S2 Lungs: Clear to auscultation, Normal air movement Abdomen: Bowel sounds Skin: Other (left chest dressing dry. minimal deniz drainage) - Procedures Procedures: Procedures Procedure Code Date EXCISION OF DUODENUM, ENDO, DIAGN [id number] 02/16/18 EXCISION OF ESOPHAGOGASTRIC JUNCTION, ENDO, DIAGN [id number] 02/16/18 EXCISION OF LEFT AXILLARY LYMPHATIC, OPEN APPROACH, DIAGN [id number] 04/22/18 EXCISION OF STOMACH, ENDO, DIAGN [id number] 02/16/18 RESECTION OF LEFT BREAST, OPEN APPROACH [id number] 04/22/18 Assessment/Plan - Problem List Patient Problems: All Active Problems Constipation (Acute) K59.00 Constipation (Acute) K59.00 Dementia (Acute) F03.90 Diabetes (Acute) E11.9 Failure to thrive (Acute) [id number] - Assessment Assessment: pt needs to be on daily stool softeners and miralax as needed already manually disimpacted after procedure should feel better now still with lots of solid stool f/u as needed with GI if family wants further aggressive workup for CRC, discussed with daughter who states currently want to find out about breast diagnosis GI will sign off, thank you for allowing us to participate
--- NOTE | 2018-04-27 23:42 | Infectious Disease Prog Note ---
Infectious Disease Subjective - Review of Systems Service Date: 04/27/18 Subjective: There is no new change, no fever. Infectious Disease Objective - Results Result Diagrams: 04/27/18 06:33 04/25/18 05:20 Recent Labs: Laboratory Last Values WBC 7.3 Th/cmm (4.8-10.8) 04/27/18 06:33 RBC 3.26 Mil/cmm (3.80-5.20) L 04/27/18 06:33 Hgb 9.5 gm/dL (12-16) L 04/27/18 06:33 Hct 28.8 % (41.0-60) L 04/27/18 06:33 MCV 88.3 fl (81-100) 04/27/18 06:33 MCH 29.1 pg (27.0-31.0) 04/27/18 06:33 MCHC Differential 33.0 pg (28.0-36.0) 04/27/18 06:33 RDW 14.9 % (11.5-20.0) 04/27/18 06:33 Plt Count 344 Th/cmm (150-400) 04/27/18 06:33 MPV 7.3 fl 04/27/18 06:33 Neutrophils % 46.9 % (40.0-80.0) 04/27/18 06:33 Lymphocytes % 35.3 % (20.0-50.0) 04/27/18 06:33 Monocytes % 9.1 % (2.0-10.0) 04/27/18 06:33 Eosinophils % 8.1 % (0.0-5.0) H 04/27/18 06:33 Basophils % 0.6 % (0.0-2.0) 04/27/18 06:33 PT 10.1 SECONDS (9.5-11.5) 04/26/18 05:40 INR 0.97 (0.5-1.4) 04/26/18 05:40 PTT (Actin FS) 27.9 SECONDS (26.0-38.0) 04/21/18 20:50 Sodium 135 mEq/L (136-145) L 04/25/18 05:20 Potassium 4.0 mEq/L (3.5-5.1) 04/25/18 05:20 Chloride 107 mEq/L (98-107) 04/25/18 05:20 Carbon Dioxide 22.5 mEq/L (21.0-31.0) 04/25/18 05:20 Anion Gap 9.5 (7.0-16.0) 04/25/18 05:20 BUN 12 mg/dL (7-25) 04/25/18 05:20 Creatinine 0.8 mg/dL (0.6-1.2) 04/25/18 05:20 Est GFR ( Amer) TNP 04/25/18 05:20 Est GFR (Non-Af Amer) TNP 04/25/18 05:20 BUN/Creatinine Ratio 15.0 04/25/18 05:20 Glucose 129 mg/dL (70-105) H 04/25/18 05:20 POC Glucose 205 MG/DL (70 - 105) H 04/27/18 21:04 Hemoglobin A1c % 6.9 % (4.0-6.0) H 04/21/18 20:50 Calcium 8.2 mg/dL (8.6-10.3) L 04/25/18 05:20 Iron 22 ug/dL (27-139) L 04/26/18 05:40 TIBC 225 ug/dL (250-450) L 04/26/18 05:40 Iron Saturation 10 % (15-55) L 04/26/18 05:40 Unsaturated IBC 203 ug/dL (118-369) 04/26/18 05:40 Ferritin 24 ng/mL (15-150) 04/26/18 05:40 Total Bilirubin 0.4 mg/dL (0.3-1.0) 04/25/18 05:20 AST 20 U/L (13-39) 04/25/18 05:20 ALT 13 U/L (7-52) 04/25/18 05:20 Alkaline Phosphatase 60 U/L (34-104) 04/25/18 05:20 Troponin I < 0.01 ng/mL (0.01-0.05) L 04/21/18 20:50 B-Natriuretic Peptide 41.1 pg/mL (5.0-100.0) 04/23/18 04:45 Total Protein 5.6 gm/dL (6.0-8.3) L 04/25/18 05:20 Albumin 2.7 gm/dL (3.7-5.3) L 04/25/18 05:20 Globulin 2.9 gm/dL 04/25/18 05:20 Albumin/Globulin Ratio 0.9 (1.0-1.8) L 04/25/18 05:20 Triglycerides 54 mg/dL (<150) 04/22/18 06:00 Cholesterol 122 mg/dL (<200) 04/22/18 06:00 LDL Cholesterol Direct 85 mg/dL (75-193) 04/22/18 06:00 HDL Cholesterol 31 mg/dL (23-92) 04/22/18 06:00 Vitamin B12 445 pg/mL (232-1245) 04/26/18 05:40 Folic Acid 12.6 ng/mL (>3.0) 04/26/18 05:40 TSH 1.25 uIU/ml (0.34-5.60) 04/22/18 06:00 Urine Source [place] 04/21/18 22:10 Urine Color YELLOW 04/21/18 22:10 Urine Clarity CLEAR (CLEAR) 04/21/18 22:10 Urine pH 5.5 (4.6 - 8.0) 04/21/18 22:10 Ur Specific [place] <= 1.005 (1.005-1.030) 04/21/18 22:10 Urine Protein NEGATIVE mg/dL (NEGATIVE) 04/21/18 22:10 Urine Glucose (UA) 100 mg/dL (NEGATIVE) H 04/21/18 22:10 Urine Ketones NEGATIVE mg/dL (NEGATIVE) 04/21/18 22:10 Urine Blood NEGATIVE (NEGATIVE) 04/21/18 22:10 Urine Nitrate NEGATIVE (NEGATIVE) 04/21/18 22:10 Urine Bilirubin NEGATIVE (NEGATIVE) 04/21/18 22:10 Urine Urobilinogen 0.2 E.U./dL (0.2 - 1.0) 04/21/18 22:10 Ur Leukocyte Esterase SMALL (NEGATIVE) H 04/21/18 22:10 Urine RBC 0-2 /hpf (0-5) 04/21/18 22:10 Urine WBC 2-5 /hpf (0-5) 04/21/18 22:10 Ur Epithelial Cells FEW /lpf (FEW) 04/21/18 22:10 Urine Bacteria OCCASIONAL /hpf (NONE SEEN) 04/21/18 22:10 - Physical Exam Vitals and I&O: Vital Signs Temp 99.3 F 04/27/18 20:00 Pulse 81 04/27/18 20:00 Resp 18 04/27/18 20:00 BP 139/63 04/27/18 20:00 Pulse Ox 98 04/27/18 20:00 Intake & Output 04/27/18 04/27/18 04/28/18 06:59 18:59 06:59 Intake Total 240 1240 Output Total 305 325 760 Balance -65 915 -760 Weight (lbs) 73.936 kg 73.936 kg 73.936 kg Intake: Intake, IV Amount 1000 D5-0.9%Ns 1,000 ml @ 50 1000 mls/hr IV .Q20H [facility] Rx#: [id number] Oral 240 240 Output: Drainage 5 25 Left Chest 5 25 Urine 300 300 760 Other: # Bowel Movements 1 Stool Characteristics Liquid Liquid Weight Source Bedscale Bedscale Bedscale Active Medications: Current Medications Acetaminophen (Tylenol) 650 mg PO Q6H PRN PRN Reason: Fever > 101 Stop: 06/21/18 11:32 Al Hydrox/Mg Hydrox/Simethicone (Maalox) 30 ml PO DAILY [facility] Stop: 06/23/18 09:59 Last Admin: 04/27/18 09:21 Dose: Not Given Amlodipine Besylate (Norvasc) 10 mg PO DAILY [facility] Stop: 06/22/18 08:59 Last Admin: 04/27/18 09:16 Dose: 10 mg Aspirin (Aspirin Chewable) 81 mg PO DAILY [facility] Stop: 06/22/18 08:59 Last Admin: 04/27/18 09:15 Dose: 81 mg Atorvastatin Calcium (Lipitor) 40 mg PO HS [facility]; Protocol Stop: 06/21/18 20:59 Last Admin: 04/27/18 20:53 Dose: 40 mg Cholecalciferol (Vitamin D3) 1,000 iu PO DAILY [facility] Stop: 06/22/18 08:59 Last Admin: 04/27/18 09:16 Dose: 1,000 iu Docusate Sodium (Colace) 100 mg PO BID [facility] Stop: 06/21/18 16:59 Last Admin: 04/27/18 16:52 Dose: Not Given Heparin Sodium (Porcine) (Heparin) 5,000 units SUBQ Q12HR [facility] Stop: 06/21/18 08:59 Last Admin: 04/27/18 20:53 Dose: 5,000 units Ceftriaxone Sodium 1 gm/ (Sodium Chloride) 50 mls @ 100 mls/hr IV Q24HR [facility] Stop: 06/21/18 03:59 Last Admin: 04/27/18 03:57 Dose: 100 mls/hr Dextrose/Sodium Chloride (D5-0.9%Ns) 1,000 mls @ 50 mls/hr IV .Q20H [facility] Stop: 06/24/18 20:59 Last Admin: 04/27/18 15:29 Dose: 50 mls/hr Insulin Aspart (Novolog Insulin Sliding Scale) 0 units SUBQ ACHS [facility]; Protocol Stop: 06/21/18 07:29 Last Admin: 04/27/18 21:22 Dose: 4 units Insulin Human NPH (Novolin N) 20 units SUBQ QDAC [facility]; Protocol Stop: 06/22/18 07:29 Last Admin: 04/27/18 09:17 Dose: 20 units Insulin Human NPH (Novolin N) 30 units SUBQ HS [facility]; Protocol Stop: 06/21/18 20:59 Last Admin: 04/27/18 21:15 Dose: Not Given Lactobacillus Rhamnosus (Culturelle 15b) 1 each PO DAILY [facility] Stop: 06/22/18 13:59 Last Admin: 04/27/18 09:17 Dose: 1 each Lamotrigine (Lamictal) 25 mg PO HS [facility]; Protocol Stop: 06/21/18 20:59 Last Admin: 04/27/18 20:53 Dose: 25 mg Memantine (Namenda) 10 mg PO BID [facility] Stop: 06/21/18 16:59 Last Admin: 04/27/18 17:00 Dose: 10 mg Mirtazapine (Remeron) 15 mg PO HS [facility]; Protocol Stop: 06/21/18 20:59 Last Admin: 04/27/18 20:53 Dose: 15 mg Miscellaneous (Vte Chemical Prophylaxis Screen/ Admission) 1 ea MC PRN PRN PRN Reason: PROTOCOL Stop: 06/21/18 07:44 Miscellaneous (Probiotic Screen) 1 ea MC PRN PRN PRN Reason: PROTOCOL Stop: 06/22/18 09:28 Morphine Sulfate (Morphine) 15 mg PO Q4H PRN PRN Reason: Pain (Moderate) Stop: 06/21/18 11:37 Multivitamins/Vitamin C (Theragran) 1 tab PO DAILY [facility] Stop: 06/22/18 08:59 Last Admin: 04/27/18 09:17 Dose: 1 tab Nitroglycerin (Nitrostat) 0.4 mg SL Q5MIN PRN PRN Reason: Chest Pain Stop: 06/21/18 11:34 Polyethylene Glycol (Miralax) 17 gm PO DAILY PRN PRN Reason: Constipation Stop: 06/27/18 08:59 Polyethylene Glycol (Miralax) 17 gm PO DAILY [facility] Stop: 06/27/18 08:59 Sodium Phosphate (Fleet Enema) 135 ml RC PRN PRN PRN Reason: Constipation Stop: 06/23/18 02:08 Valsartan (Diovan) 320 mg PO DAILY [facility] Stop: 06/22/18 08:59 Last Admin: 04/27/18 09:17 Dose: 320 mg General: no acute distress, well developed, well nourished HEENT: atraumatic, normocephalic, PERRLA, EOMI Neck: supple, no thyromegaly Cardiovascular: S1S2, regular Lungs: clear to auscultation bilaterally, clear to percussion Abdomen: soft, no tender, no distended Extremities: no cyanosis, no clubbing, no edema Neurological: awake, alert Skin: intact - Procedures Procedures: Procedures Procedure Code Date EXCISION OF DUODENUM, ENDO, DIAGN [id number] 02/16/18 EXCISION OF ESOPHAGOGASTRIC JUNCTION, ENDO, DIAGN [id number] 02/16/18 EXCISION OF LEFT AXILLARY LYMPHATIC, OPEN APPROACH, DIAGN [id number] 04/22/18 EXCISION OF STOMACH, ENDO, DIAGN [id number] 02/16/18 RESECTION OF LEFT BREAST, OPEN APPROACH [id number] 04/22/18 Infectious Disease Assmt/Plan - Problem List Patient Problems: All Active Problems Constipation (Acute) K59.00 Constipation (Acute) K59.00 Dementia (Acute) F03.90 Diabetes (Acute) E11.9 Failure to thrive (Acute) [id number] - Assessment Assessment: 1. Proctitis. 2. Urinary tract infection. 3. Fecal impaction. 4. Breast nodule in the left. 5. Anemia. 6. Diabetes mellitus type 2. 7. Hypertension. 8. Dementia. 9. Depression. 10. Arthritis. - Plan Plan: continue Rocephin. Nutritional Asmnt/Malnutr-PDOC - Dietary Evaluation Malnutrition Findings (Please click <Entered> for more info): Nutritional Asmnt/Malnutrition Start: 04/23/18 15: 42 Text: Status: Complete Freq: Protocol: Document 04/23/18 15:50 LCHENG (Rec: 04/23/18 16:18 [email or web address]) Nutritional Asmnt/Malnutrition Patient General Information Nutritional Screening High Risk Consult Diagnosis proctitis, UTI, intermittent ALOC Pertinent Medical Hx/Surgical Hx HTN, DM, CVA/TIA, arthritis, depression Subjective Information Consult received for elevated BS. Pt was sent to OR for mastectomy surgery this morning. Pt kept on NPO. Current Diet Order/ Nutrition Support NPO Pertinent Medications aspirin, lipitor, vit D3, colace, novolog, novolin, culturelle, remeron, theragran Pertinent Labs 8/6 glucose 117, POC 123-163 8/5 Na 134, glucose 141, POC 111-166, Ca 8.4 8/4 Na 130, Glucose 238, POC 133 Nutritional Hx/Data Height 1.63 m Height (Calculated Centimeters) 162.6 Current Weight (lbs) 79.379 kg Weight (Calculated Kilograms) 79.4 Weight (Calculated Grams) 39356.7 [place] Body Weight 120 Body Mass Index (BMI) 30.0 Weight Status Obese GI Symptoms GI Symptoms None Last BM 8/5 x 2 Difficult in: None Skin Integrity/Comment: BROWNISH DISCOLORATION/FADING ECCHYMOSIS Estimated Nutritional Goals Calories/Kcals/Kg 27-32 based on IBW 55kg Kcals Calculated 1125-6052 Protein g/k.2 Protein Calculated 66 Fluid: ml 1485-1760ml (1ml/kcal) Nutritional Problem 1. Problem Problem altered nutrition related labs Etiology hx of DM Signs/Symptoms: glucose 117-238, POC 123-166 Malnutrition Alert Is there a minimum of two criteria No selected? Query Text:Check all the applicable criteria. A minimum of two criteria are recommended for diagnosis of either severe or non-severe malnutrition. Malnutrition Related to Morbid Obesity Malnutrition related to morbid obesity No Intervention/Recommendation Comments 1. Monitor NPO status. [facility] when medically appropriate. 2. Monitor PO intake, wt, labs and skin integrity 3. F/U as high risk in 2-3 days, 04/25-04/26 Expected Outcomes/Goals Expected Outcomes/Goals 1. PO intake to meet at least 75% of nutritional needs. 2. Wt stability, skin to remain intact, labs to approach WNL.
[2018-04-28] MEDS: cefTRIAXone 1 GM in Sodium Chloride 0.9% 50 ML IV SCH (04:30)
[2018-04-28] MEDS: INSULIN ASPART SLIDING SCALE 100 UNITS/ML UNIT SUBQ SCH ×3 (07:42→16:53)
[2018-04-28] MEDS: INSULIN HUMAN ISOPHANE (NPH) 100 UNITS/ML SUBQ SCH (07:42)
[2018-04-28] MEDS: Aspirin 81mg Chewable Tab PO SCH (08:47)
[2018-04-28] MEDS: Lactobacillus Rhamnosus GG 15 Billion CFU CAP.SPRINK PO SCH (08:48)
[2018-04-28] MEDS: D5-0.9%NS 1,000 ML IV SCH (08:48)
[2018-04-28] MEDS: Multivitamin Tab PO SCH (08:48)
[2018-04-28] MEDS: Maalox 30 mL Cup PO SCH (08:49)
[2018-04-28] MEDS ORDERED: POLYETHYLENE GLYCOL 3350 17 GM PACK PO SCH (09:00)
--- NOTE | 2018-04-28 10:19 | General Progress Note ---
Subjective - Review of Systems Service Date: 04/28/18 Events since last encounter: DENIZ removed redressed, incision clean and healing well May DC, sutures are absorbable may have sponge bath only change dressings as needed have SNF call me for instructions Objective - Results Result Diagrams: 04/27/18 06:33 04/25/18 05:20 Recent Labs: Laboratory Last Values WBC 7.3 Th/cmm (4.8-10.8) 04/27/18 06:33 RBC 3.26 Mil/cmm (3.80-5.20) L 04/27/18 06:33 Hgb 9.5 gm/dL (12-16) L 04/27/18 06:33 Hct 28.8 % (41.0-60) L 04/27/18 06:33 MCV 88.3 fl (81-100) 04/27/18 06:33 MCH 29.1 pg (27.0-31.0) 04/27/18 06:33 MCHC Differential 33.0 pg (28.0-36.0) 04/27/18 06:33 RDW 14.9 % (11.5-20.0) 04/27/18 06:33 Plt Count 344 Th/cmm (150-400) 04/27/18 06:33 MPV 7.3 fl 04/27/18 06:33 Neutrophils % 46.9 % (40.0-80.0) 04/27/18 06:33 Lymphocytes % 35.3 % (20.0-50.0) 04/27/18 06:33 Monocytes % 9.1 % (2.0-10.0) 04/27/18 06:33 Eosinophils % 8.1 % (0.0-5.0) H 04/27/18 06:33 Basophils % 0.6 % (0.0-2.0) 04/27/18 06:33 PT 10.1 SECONDS (9.5-11.5) 04/26/18 05:40 INR 0.97 (0.5-1.4) 04/26/18 05:40 PTT (Actin FS) 27.9 SECONDS (26.0-38.0) 04/21/18 20:50 Sodium 135 mEq/L (136-145) L 04/25/18 05:20 Potassium 4.0 mEq/L (3.5-5.1) 04/25/18 05:20 Chloride 107 mEq/L (98-107) 04/25/18 05:20 Carbon Dioxide 22.5 mEq/L (21.0-31.0) 04/25/18 05:20 Anion Gap 9.5 (7.0-16.0) 04/25/18 05:20 BUN 12 mg/dL (7-25) 04/25/18 05:20 Creatinine 0.8 mg/dL (0.6-1.2) 04/25/18 05:20 Est GFR ( Amer) TNP 04/25/18 05:20 Est GFR (Non-Af Amer) TNP 04/25/18 05:20 BUN/Creatinine Ratio 15.0 04/25/18 05:20 Glucose 129 mg/dL (70-105) H 04/25/18 05:20 POC Glucose 111 MG/DL (70 - 105) H 04/28/18 07:40 Hemoglobin A1c % 6.9 % (4.0-6.0) H 04/21/18 20:50 Calcium 8.2 mg/dL (8.6-10.3) L 04/25/18 05:20 Iron 22 ug/dL (27-139) L 04/26/18 05:40 TIBC 225 ug/dL (250-450) L 04/26/18 05:40 Iron Saturation 10 % (15-55) L 04/26/18 05:40 Unsaturated IBC 203 ug/dL (118-369) 04/26/18 05:40 Ferritin 24 ng/mL (15-150) 04/26/18 05:40 Total Bilirubin 0.4 mg/dL (0.3-1.0) 04/25/18 05:20 AST 20 U/L (13-39) 04/25/18 05:20 ALT 13 U/L (7-52) 04/25/18 05:20 Alkaline Phosphatase 60 U/L (34-104) 04/25/18 05:20 Troponin I < 0.01 ng/mL (0.01-0.05) L 04/21/18 20:50 B-Natriuretic Peptide 41.1 pg/mL (5.0-100.0) 04/23/18 04:45 Total Protein 5.6 gm/dL (6.0-8.3) L 04/25/18 05:20 Albumin 2.7 gm/dL (3.7-5.3) L 04/25/18 05:20 Globulin 2.9 gm/dL 04/25/18 05:20 Albumin/Globulin Ratio 0.9 (1.0-1.8) L 04/25/18 05:20 Triglycerides 54 mg/dL (<150) 04/22/18 06:00 Cholesterol 122 mg/dL (<200) 04/22/18 06:00 LDL Cholesterol Direct 85 mg/dL (75-193) 04/22/18 06:00 HDL Cholesterol 31 mg/dL (23-92) 04/22/18 06:00 Vitamin B12 445 pg/mL (232-1245) 04/26/18 05:40 Folic Acid 12.6 ng/mL (>3.0) 04/26/18 05:40 TSH 1.25 uIU/ml (0.34-5.60) 04/22/18 06:00 Urine Source [place] 04/21/18 22:10 Urine Color YELLOW 04/21/18 22:10 Urine Clarity CLEAR (CLEAR) 04/21/18 22:10 Urine pH 5.5 (4.6 - 8.0) 04/21/18 22:10 Ur Specific [place] <= 1.005 (1.005-1.030) 04/21/18 22:10 Urine Protein NEGATIVE mg/dL (NEGATIVE) 04/21/18 22:10 Urine Glucose (UA) 100 mg/dL (NEGATIVE) H 04/21/18 22:10 Urine Ketones NEGATIVE mg/dL (NEGATIVE) 04/21/18 22:10 Urine Blood NEGATIVE (NEGATIVE) 04/21/18 22:10 Urine Nitrate NEGATIVE (NEGATIVE) 04/21/18 22:10 Urine Bilirubin NEGATIVE (NEGATIVE) 04/21/18 22:10 Urine Urobilinogen 0.2 E.U./dL (0.2 - 1.0) 04/21/18 22:10 Ur Leukocyte Esterase SMALL (NEGATIVE) H 04/21/18 22:10 Urine RBC 0-2 /hpf (0-5) 04/21/18 22:10 Urine WBC 2-5 /hpf (0-5) 04/21/18 22:10 Ur Epithelial Cells FEW /lpf (FEW) 04/21/18 22:10 Urine Bacteria OCCASIONAL /hpf (NONE SEEN) 04/21/18 22:10 - Physical Exam Vitals and I&O: Vital Signs Temp 97.2 F 04/28/18 08:02 Pulse 72 04/28/18 08:47 Resp 18 04/28/18 08:02 BP 138/56 04/28/18 08:47 Pulse Ox 96 04/28/18 08:02 Intake & Output 04/27/18 04/28/18 04/28/18 18:59 06:59 18:59 Intake Total 1240 200 865.833 Output Total 325 2718 Balance 915 -2518 865.833 Weight (lbs) 73.936 kg 73.936 kg Intake: Intake, IV Amount 1000 865.833 D5-0.9%Ns 1,000 ml @ 50 1000 865.833 mls/hr IV .Q20H [facility] Rx#: [id number] Oral 240 200 Output: Drainage 25 33 Left Chest 25 33 Urine 300 2685 Other: # Bowel Movements 0 Stool Characteristics Liquid Liquid Weight Source Bedscale Bedscale Active Medications: Current Medications Acetaminophen (Tylenol) 650 mg PO Q6H PRN PRN Reason: Fever > 101 Stop: 06/21/18 11:32 Al Hydrox/Mg Hydrox/Simethicone (Maalox) 30 ml PO DAILY [facility] Stop: 06/23/18 09:59 Last Admin: 04/28/18 08:49 Dose: Not Given Amlodipine Besylate (Norvasc) 10 mg PO DAILY [facility] Stop: 06/22/18 08:59 Last Admin: 04/28/18 08:47 Dose: 10 mg Aspirin (Aspirin Chewable) 81 mg PO DAILY [facility] Stop: 06/22/18 08:59 Last Admin: 04/28/18 08:47 Dose: 81 mg Atorvastatin Calcium (Lipitor) 40 mg PO HS [facility]; Protocol Stop: 06/21/18 20:59 Last Admin: 04/27/18 20:53 Dose: 40 mg Cholecalciferol (Vitamin D3) 1,000 iu PO DAILY [facility] Stop: 06/22/18 08:59 Last Admin: 04/28/18 08:48 Dose: 1,000 iu Docusate Sodium (Colace) 100 mg PO BID [facility] Stop: 06/21/18 16:59 Last Admin: 04/28/18 08:48 Dose: 100 mg Heparin Sodium (Porcine) (Heparin) 5,000 units SUBQ Q12HR [facility] Stop: 06/21/18 08:59 Last Admin: 04/28/18 08:48 Dose: 5,000 units Ceftriaxone Sodium 1 gm/ (Sodium Chloride) 50 mls @ 100 mls/hr IV Q24HR [facility] Stop: 06/21/18 03:59 Last Admin: 04/28/18 04:30 Dose: 100 mls/hr Dextrose/Sodium Chloride (D5-0.9%Ns) 1,000 mls @ 50 mls/hr IV .Q20H [facility] Stop: 06/24/18 20:59 Last Admin: 04/28/18 08:48 Dose: 50 mls/hr Insulin Aspart (Novolog Insulin Sliding Scale) 0 units SUBQ ACHS [facility]; Protocol Stop: 06/21/18 07:29 Last Admin: 04/28/18 07:42 Dose: Not Given Insulin Human NPH (Novolin N) 20 units SUBQ QDAC [facility]; Protocol Stop: 06/22/18 07:29 Last Admin: 04/28/18 07:42 Dose: Not Given Insulin Human NPH (Novolin N) 30 units SUBQ HS [facility]; Protocol Stop: 06/21/18 20:59 Last Admin: 04/27/18 21:15 Dose: Not Given Lactobacillus Rhamnosus (Culturelle 15b) 1 each PO DAILY [facility] Stop: 06/22/18 13:59 Last Admin: 04/28/18 08:48 Dose: 1 each Lamotrigine (Lamictal) 25 mg PO HS [facility]; Protocol Stop: 06/21/18 20:59 Last Admin: 04/27/18 20:53 Dose: 25 mg Memantine (Namenda) 10 mg PO BID [facility] Stop: 06/21/18 16:59 Last Admin: 04/28/18 08:47 Dose: 10 mg Mirtazapine (Remeron) 15 mg PO HS [facility]; Protocol Stop: 06/21/18 20:59 Last Admin: 04/27/18 20:53 Dose: 15 mg Miscellaneous (Vte Chemical Prophylaxis Screen/ Admission) 1 ea MC PRN PRN PRN Reason: PROTOCOL Stop: 06/21/18 07:44 Miscellaneous (Probiotic Screen) 1 ea MC PRN PRN PRN Reason: PROTOCOL Stop: 06/22/18 09:28 Morphine Sulfate (Morphine) 15 mg PO Q4H PRN PRN Reason: Pain (Moderate) Stop: 06/21/18 11:37 Multivitamins/Vitamin C (Theragran) 1 tab PO DAILY [facility] Stop: 06/22/18 08:59 Last Admin: 04/28/18 08:48 Dose: 1 tab Nitroglycerin (Nitrostat) 0.4 mg SL Q5MIN PRN PRN Reason: Chest Pain Stop: 06/21/18 11:34 Polyethylene Glycol (Miralax) 17 gm PO DAILY PRN PRN Reason: Constipation Stop: 06/27/18 08:59 Polyethylene Glycol (Miralax) 17 gm PO DAILY [facility] Stop: 06/27/18 08:59 Last Admin: 04/28/18 08:49 Dose: Not Given Sodium Phosphate (Fleet Enema) 135 ml RC PRN PRN PRN Reason: Constipation Stop: 06/23/18 02:08 Valsartan (Diovan) 320 mg PO DAILY [facility] Stop: 06/22/18 08:59 Last Admin: 04/28/18 08:47 Dose: 320 mg General: Alert, No acute distress, Mild distress HEENT: Atraumatic, PERRLA, EOMI Neck: Supple Cardiovascular: Regular rate, Normal S1, Normal S2 Lungs: Clear to auscultation, Normal air movement Abdomen: Bowel sounds Skin: Other (left chest dressing dry. minimal deniz drainage) - Procedures Procedures: Procedures Procedure Code Date EXCISION OF DUODENUM, ENDO, DIAGN [id number] 02/16/18 EXCISION OF ESOPHAGOGASTRIC JUNCTION, ENDO, DIAGN [id number] 02/16/18 EXCISION OF LEFT AXILLARY LYMPHATIC, OPEN APPROACH, DIAGN [id number] 04/22/18 EXCISION OF STOMACH, ENDO, DIAGN [id number] 02/16/18 RESECTION OF LEFT BREAST, OPEN APPROACH [id number] 04/22/18 Assessment/Plan - Problem List Patient Problems: All Active Problems Constipation (Acute) K59.00 Constipation (Acute) K59.00 Dementia (Acute) F03.90 Diabetes (Acute) E11.9 Failure to thrive (Acute) [id number] Nutritional Asmnt/Malnutr-PDOC - Dietary Evaluation Malnutrition Findings (Please click <Entered> for more info): Nutritional Asmnt/Malnutrition Start: 04/23/18 15: 42 Text: Status: Complete Freq: Protocol: Document 04/23/18 15:50 LCCAMILLAG (Rec: 04/23/18 16:18 LILIBETH [email or web address]) Nutritional Asmnt/Malnutrition Patient General Information Nutritional Screening High Risk Consult Diagnosis proctitis, UTI, intermittent ALOC Pertinent Medical Hx/Surgical Hx HTN, DM, CVA/TIA, arthritis, depression Subjective Information Consult received for elevated BS. Pt was sent to OR for mastectomy surgery this morning. Pt kept on NPO. Current Diet Order/ Nutrition Support NPO Pertinent Medications aspirin, lipitor, vit D3, colace, novolog, novolin, culturelle, remeron, theragran Pertinent Labs 8 glucose 117, POC 123-163 8 Na 134, glucose 141, POC 111-166, Ca 8.4 8/4 Na 130, Glucose 238, POC 133 Nutritional Hx/Data Height 1.63 m Height (Calculated Centimeters) 162.6 Current Weight (lbs) 79.379 kg Weight (Calculated Kilograms) 79.4 Weight (Calculated Grams) 81276.7 [place] Body Weight 120 Body Mass Index (BMI) 30.0 Weight Status Obese GI Symptoms GI Symptoms None Last BM 04/22 x 2 Difficult in: None Skin Integrity/Comment: BROWNISH DISCOLORATION/FADING ECCHYMOSIS Estimated Nutritional Goals Calories/Kcals/Kg 27-32 based on IBW 55kg Kcals Calculated 0697-0658 Protein g/k.2 Protein Calculated 66 Fluid: ml 1485-1760ml (1ml/kcal) Nutritional Problem 1. Problem Problem altered nutrition related labs Etiology hx of DM Signs/Symptoms: glucose 117-238, POC 123-166 Malnutrition Alert Is there a minimum of two criteria No selected? Query Text:Check all the applicable criteria. A minimum of two criteria are recommended for diagnosis of either severe or non-severe malnutrition. Malnutrition Related to Morbid Obesity Malnutrition related to morbid obesity No Intervention/Recommendation Comments 1. Monitor NPO status. Advance to [facility] diet when medically appropriate. 2. Monitor PO intake, wt, labs and skin integrity 3. F/U as high risk in 2-3 days, 04/25-04/26 Expected Outcomes/Goals Expected Outcomes/Goals 1. PO intake to meet at least 75% of nutritional needs. 2. Wt stability, skin to remain intact, labs to approach WNL.
--- NOTE | 2018-04-28 14:55 | General Progress Note ---
Subjective - Review of Systems Service Date: 04/28/18 Subjective: no new sxs Objective - Results Result Diagrams: 04/27/18 06:33 04/25/18 05:20 Recent Labs: Laboratory Last Values WBC 7.3 Th/cmm (4.8-10.8) 04/27/18 06:33 RBC 3.26 Mil/cmm (3.80-5.20) L 04/27/18 06:33 Hgb 9.5 gm/dL (12-16) L 04/27/18 06:33 Hct 28.8 % (41.0-60) L 04/27/18 06:33 MCV 88.3 fl (81-100) 04/27/18 06:33 MCH 29.1 pg (27.0-31.0) 04/27/18 06:33 MCHC Differential 33.0 pg (28.0-36.0) 04/27/18 06:33 RDW 14.9 % (11.5-20.0) 04/27/18 06:33 Plt Count 344 Th/cmm (150-400) 04/27/18 06:33 MPV 7.3 fl 04/27/18 06:33 Neutrophils % 46.9 % (40.0-80.0) 04/27/18 06:33 Lymphocytes % 35.3 % (20.0-50.0) 04/27/18 06:33 Monocytes % 9.1 % (2.0-10.0) 04/27/18 06:33 Eosinophils % 8.1 % (0.0-5.0) H 04/27/18 06:33 Basophils % 0.6 % (0.0-2.0) 04/27/18 06:33 PT 10.1 SECONDS (9.5-11.5) 04/26/18 05:40 INR 0.97 (0.5-1.4) 04/26/18 05:40 PTT (Actin FS) 27.9 SECONDS (26.0-38.0) 04/21/18 20:50 Sodium 135 mEq/L (136-145) L 04/25/18 05:20 Potassium 4.0 mEq/L (3.5-5.1) 04/25/18 05:20 Chloride 107 mEq/L (98-107) 04/25/18 05:20 Carbon Dioxide 22.5 mEq/L (21.0-31.0) 04/25/18 05:20 Anion Gap 9.5 (7.0-16.0) 04/25/18 05:20 BUN 12 mg/dL (7-25) 04/25/18 05:20 Creatinine 0.8 mg/dL (0.6-1.2) 04/25/18 05:20 Est GFR ( Amer) TNP 04/25/18 05:20 Est GFR (Non-Af Amer) TNP 04/25/18 05:20 BUN/Creatinine Ratio 15.0 04/25/18 05:20 Glucose 129 mg/dL (70-105) H 04/25/18 05:20 POC Glucose 197 MG/DL (70 - 105) H 04/28/18 12:03 Hemoglobin A1c % 6.9 % (4.0-6.0) H 04/21/18 20:50 Calcium 8.2 mg/dL (8.6-10.3) L 04/25/18 05:20 Iron 22 ug/dL (27-139) L 04/26/18 05:40 TIBC 225 ug/dL (250-450) L 04/26/18 05:40 Iron Saturation 10 % (15-55) L 04/26/18 05:40 Unsaturated IBC 203 ug/dL (118-369) 04/26/18 05:40 Ferritin 24 ng/mL (15-150) 04/26/18 05:40 Total Bilirubin 0.4 mg/dL (0.3-1.0) 04/25/18 05:20 AST 20 U/L (13-39) 04/25/18 05:20 ALT 13 U/L (7-52) 04/25/18 05:20 Alkaline Phosphatase 60 U/L (34-104) 04/25/18 05:20 Troponin I < 0.01 ng/mL (0.01-0.05) L 04/21/18 20:50 B-Natriuretic Peptide 41.1 pg/mL (5.0-100.0) 04/23/18 04:45 Total Protein 5.6 gm/dL (6.0-8.3) L 04/25/18 05:20 Albumin 2.7 gm/dL (3.7-5.3) L 04/25/18 05:20 Globulin 2.9 gm/dL 04/25/18 05:20 Albumin/Globulin Ratio 0.9 (1.0-1.8) L 04/25/18 05:20 Triglycerides 54 mg/dL (<150) 04/22/18 06:00 Cholesterol 122 mg/dL (<200) 04/22/18 06:00 LDL Cholesterol Direct 85 mg/dL (75-193) 04/22/18 06:00 HDL Cholesterol 31 mg/dL (23-92) 04/22/18 06:00 Vitamin B12 445 pg/mL (232-1245) 04/26/18 05:40 Folic Acid 12.6 ng/mL (>3.0) 04/26/18 05:40 TSH 1.25 uIU/ml (0.34-5.60) 04/22/18 06:00 Urine Source [place] 04/21/18 22:10 Urine Color YELLOW 04/21/18 22:10 Urine Clarity CLEAR (CLEAR) 04/21/18 22:10 Urine pH 5.5 (4.6 - 8.0) 04/21/18 22:10 Ur Specific [place] <= 1.005 (1.005-1.030) 04/21/18 22:10 Urine Protein NEGATIVE mg/dL (NEGATIVE) 04/21/18 22:10 Urine Glucose (UA) 100 mg/dL (NEGATIVE) H 04/21/18 22:10 Urine Ketones NEGATIVE mg/dL (NEGATIVE) 04/21/18 22:10 Urine Blood NEGATIVE (NEGATIVE) 04/21/18 22:10 Urine Nitrate NEGATIVE (NEGATIVE) 04/21/18 22:10 Urine Bilirubin NEGATIVE (NEGATIVE) 04/21/18 22:10 Urine Urobilinogen 0.2 E.U./dL (0.2 - 1.0) 04/21/18 22:10 Ur Leukocyte Esterase SMALL (NEGATIVE) H 04/21/18 22:10 Urine RBC 0-2 /hpf (0-5) 04/21/18 22:10 Urine WBC 2-5 /hpf (0-5) 04/21/18 22:10 Ur Epithelial Cells FEW /lpf (FEW) 04/21/18 22:10 Urine Bacteria OCCASIONAL /hpf (NONE SEEN) 04/21/18 22:10 - Physical Exam Vitals and I&O: Vital Signs Temp 97.2 F 04/28/18 14:39 Pulse 72 04/28/18 14:39 Resp 18 04/28/18 14:39 BP 138/56 04/28/18 14:39 Pulse Ox 96 04/28/18 14:39 Intake & Output 04/27/18 04/28/18 04/28/18 18:59 06:59 18:59 Intake Total 1240 200 865.833 Output Total 325 2718 Balance 915 -2518 865.833 Weight (lbs) 73.936 kg 73.936 kg Intake: Intake, IV Amount 1000 865.833 D5-0.9%Ns 1,000 ml @ 50 1000 865.833 mls/hr IV .Q20H [facility] Rx#: [id number] Oral 240 200 Output: Drainage 25 33 Left Chest 25 33 Urine 300 2685 Other: # Bowel Movements 0 Stool Characteristics Liquid Liquid Soft Weight Source Bedscale Bedscale Active Medications: Current Medications Acetaminophen (Tylenol) 650 mg PO Q6H PRN PRN Reason: Fever > 101 Stop: 06/21/18 11:32 Al Hydrox/Mg Hydrox/Simethicone (Maalox) 30 ml PO DAILY [facility] Stop: 06/23/18 09:59 Last Admin: 04/28/18 08:49 Dose: Not Given Amlodipine Besylate (Norvasc) 10 mg PO DAILY [facility] Stop: 06/22/18 08:59 Last Admin: 04/28/18 08:47 Dose: 10 mg Aspirin (Aspirin Chewable) 81 mg PO DAILY [facility] Stop: 06/22/18 08:59 Last Admin: 04/28/18 08:47 Dose: 81 mg Atorvastatin Calcium (Lipitor) 40 mg PO HS [facility]; Protocol Stop: 06/21/18 20:59 Last Admin: 04/27/18 20:53 Dose: 40 mg Cholecalciferol (Vitamin D3) 1,000 iu PO DAILY [facility] Stop: 06/22/18 08:59 Last Admin: 04/28/18 08:48 Dose: 1,000 iu Docusate Sodium (Colace) 100 mg PO BID [facility] Stop: 06/21/18 16:59 Last Admin: 04/28/18 08:48 Dose: 100 mg Heparin Sodium (Porcine) (Heparin) 5,000 units SUBQ Q12HR [facility] Stop: 06/21/18 08:59 Last Admin: 04/28/18 08:48 Dose: 5,000 units Ceftriaxone Sodium 1 gm/ (Sodium Chloride) 50 mls @ 100 mls/hr IV Q24HR [facility] Stop: 06/21/18 03:59 Last Admin: 04/28/18 04:30 Dose: 100 mls/hr Dextrose/Sodium Chloride (D5-0.9%Ns) 1,000 mls @ 50 mls/hr IV .Q20H [facility] Stop: 06/24/18 20:59 Last Admin: 04/28/18 08:48 Dose: 50 mls/hr Insulin Aspart (Novolog Insulin Sliding Scale) 0 units SUBQ ACHS [facility]; Protocol Stop: 06/21/18 07:29 Last Admin: 04/28/18 12:54 Dose: 2 units Insulin Human NPH (Novolin N) 20 units SUBQ QDAC [facility]; Protocol Stop: 06/22/18 07:29 Last Admin: 04/28/18 07:42 Dose: Not Given Insulin Human NPH (Novolin N) 30 units SUBQ HS [facility]; Protocol Stop: 06/21/18 20:59 Last Admin: 04/27/18 21:15 Dose: Not Given Lactobacillus Rhamnosus (Culturelle 15b) 1 each PO DAILY [facility] Stop: 06/22/18 13:59 Last Admin: 04/28/18 08:48 Dose: 1 each Lamotrigine (Lamictal) 25 mg PO HS [facility]; Protocol Stop: 06/21/18 20:59 Last Admin: 04/27/18 20:53 Dose: 25 mg Memantine (Namenda) 10 mg PO BID [facility] Stop: 06/21/18 16:59 Last Admin: 04/28/18 08:47 Dose: 10 mg Mirtazapine (Remeron) 15 mg PO HS [facility]; Protocol Stop: 06/21/18 20:59 Last Admin: 04/27/18 20:53 Dose: 15 mg Miscellaneous (Vte Chemical Prophylaxis Screen/ Admission) 1 ea MC PRN PRN PRN Reason: PROTOCOL Stop: 06/21/18 07:44 Miscellaneous (Probiotic Screen) 1 ea MC PRN PRN PRN Reason: PROTOCOL Stop: 06/22/18 09:28 Morphine Sulfate (Morphine) 15 mg PO Q4H PRN PRN Reason: Pain (Moderate) Stop: 06/21/18 11:37 Multivitamins/Vitamin C (Theragran) 1 tab PO DAILY [facility] Stop: 06/22/18 08:59 Last Admin: 04/28/18 08:48 Dose: 1 tab Nitroglycerin (Nitrostat) 0.4 mg SL Q5MIN PRN PRN Reason: Chest Pain Stop: 06/21/18 11:34 Polyethylene Glycol (Miralax) 17 gm PO DAILY PRN PRN Reason: Constipation Stop: 06/27/18 08:59 Polyethylene Glycol (Miralax) 17 gm PO DAILY [facility] Stop: 06/27/18 08:59 Last Admin: 04/28/18 08:49 Dose: Not Given Sodium Phosphate (Fleet Enema) 135 ml RC PRN PRN PRN Reason: Constipation Stop: 06/23/18 02:08 Valsartan (Diovan) 320 mg PO DAILY [facility] Stop: 06/22/18 08:59 Last Admin: 04/28/18 08:47 Dose: 320 mg General: Alert, No acute distress, Mild distress HEENT: Atraumatic, PERRLA, EOMI Neck: Supple Cardiovascular: Regular rate, Normal S1, Normal S2 Lungs: Clear to auscultation, Normal air movement Abdomen: Bowel sounds Skin: Other (left chest dressing dry. minimal deniz drainage) - Procedures Procedures: Procedures Procedure Code Date EXCISION OF DUODENUM, ENDO, DIAGN [id number] 02/16/18 EXCISION OF ESOPHAGOGASTRIC JUNCTION, ENDO, DIAGN [id number] 02/16/18 EXCISION OF LEFT AXILLARY LYMPHATIC, OPEN APPROACH, DIAGN [id number] 04/22/18 EXCISION OF STOMACH, ENDO, DIAGN [id number] 02/16/18 RESECTION OF LEFT BREAST, OPEN APPROACH [id number] 04/22/18 Assessment/Plan - Problem List Patient Problems: All Active Problems Constipation (Acute) K59.00 Constipation (Acute) K59.00 Dementia (Acute) F03.90 Diabetes (Acute) E11.9 Failure to thrive (Acute) [id number] - Assessment Assessment: * Left breast mass. s/p resection MRM / axillary LN dissection * rectal wall thickening and perirectal LN * Anemia suggestive of fe deficiency awaiting pathology from mastectomy colonoscopy poor prep no neoplasm seen Nutritional Asmnt/Malnutr-PDOC - Dietary Evaluation Malnutrition Findings (Please click <Entered> for more info): Nutritional Asmnt/Malnutrition Start: 04/23/18 15: 42 Text: Status: Complete Freq: Protocol: Document 04/23/18 15:50 [facility]AG (Rec: 04/23/18 16:18 LILIBETH [email or web address]) Nutritional Asmnt/Malnutrition Patient General Information Nutritional Screening High Risk Consult Diagnosis proctitis, UTI, intermittent ALOC Pertinent Medical Hx/Surgical Hx HTN, DM, CVA/TIA, arthritis, depression Subjective Information Consult received for elevated BS. Pt was sent to OR for mastectomy surgery this morning. Pt kept on NPO. Current Diet Order/ Nutrition Support NPO Pertinent Medications aspirin, lipitor, vit D3, colace, novolog, novolin, culturelle, remeron, theragran Pertinent Labs 04/23 glucose 117, POC 123-163 8/ Na 134, glucose 141, POC 111-166, Ca 8.4 8/ Na 130, Glucose 238, POC 133 Nutritional Hx/Data Height 1.63 m Height (Calculated Centimeters) 162.6 Current Weight (lbs) 79.379 kg Weight (Calculated Kilograms) 79.4 Weight (Calculated Grams) 75848.7 [place] Body Weight 120 Body Mass Index (BMI) 30.0 Weight Status Obese GI Symptoms GI Symptoms None Last BM 04/22 x 2 Difficult in: None Skin Integrity/Comment: BROWNISH DISCOLORATION/FADING ECCHYMOSIS Estimated Nutritional Goals Calories/Kcals/Kg 27-32 based on IBW 55kg Kcals Calculated 4380-1174 Protein g/k.2 Protein Calculated 66 Fluid: ml 1485-1760ml (1ml/kcal) Nutritional Problem 1. Problem Problem altered nutrition related labs Etiology hx of DM Signs/Symptoms: glucose 117-238, POC 123-166 Malnutrition Alert Is there a minimum of two criteria No selected? Query Text:Check all the applicable criteria. A minimum of two criteria are recommended for diagnosis of either severe or non-severe malnutrition. Malnutrition Related to Morbid Obesity Malnutrition related to morbid obesity No Intervention/Recommendation Comments 1. Monitor NPO status. Advance to [facility] diet when medically appropriate. 2. Monitor PO intake, wt, labs and skin integrity 3. F/U as high risk in 2-3 days, 04/25-04/26 Expected Outcomes/Goals Expected Outcomes/Goals 1. PO intake to meet at least 75% of nutritional needs. 2. Wt stability, skin to remain intact, labs to approach WNL.
--- NOTE | 2018-04-28 23:24 | Progress Notes ---
DATE: 04/28/2018 SUBJECTIVE: The patient was seen in her room. The patient is asleep, but easily arousable. The patient is a poor historian due to medical condition. Family member at bedside. The patient appears to be comfortable, in no acute distress. Dressing was evaluated without any significant drainage noted. Otherwise, the patient is in no acute distress. OBJECTIVE: VITAL SIGNS: Temperature 97.2, heart rate 72, blood pressure 138/56, respirations of 18, 96% on room air. HEENT: Head is atraumatic and normocephalic. Eyes: Bilateral conjunctivae are clear. Bilateral pupils equal, round and reactive. NECK: Supple. No JVD. CARDIOVASCULAR: S1 and S2, without murmur. PULMONARY: Clear to auscultation. GASTROINTESTINAL: Soft and nontender without guarding. Positive bowel sounds. MUSCULOSKELETAL: No clubbing. No cyanosis noted. ASSESSMENT: 1. Left breast nodule. 2. Status post modified left radical mastectomy. 3. Urinary tract infection. 4. Anemia. 5. Hypertension. 6. Dementia. 7. Diabetes. 8. Osteoarthritis. PLAN: We will keep the patient inpatient and we will check with ID doctor if patient could be discharged with IV antibiotics or it could be changed to oral form. Treatment plans were discussed with the patient's nurse. Treatment plans were discussed with Dr. Cisneros. JOB# [id number]
--- NOTE | 2018-04-29 05:59 | History & Physical ---
ADMIT DATE: 04/22/2018 HISTORY OF PRESENT ILLNESS: The patient was sent from a retirement because the patient was very dizzy and the patient is chronically ill from diabetes and extreme weakness. She was also complaining of breast mass. The patient's old chart was reviewed. Nurses' notes were reviewed. She was complaining of no fever, no chills, no other problems and basically complaining of severe weakness. PAST MEDICAL HISTORY: Included history of hypertension, diabetes, CVA, arthritis. FAMILY HISTORY: Unremarkable. PHYSICAL EXAMINATION: GENERAL: The patient is awake, alert, oriented. HEAD: Normal. ENT: Normal. NECK: Supple. BREASTS: Left breast mass. LUNGS: Clear. CARDIOVASCULAR SYSTEM: S1, S2 heard. ABDOMEN: Soft. Bowel sounds are heard. CENTRAL NERVOUS SYSTEM: Grossly nonfocal. LABORATORY DATA: EKG was normal. The patient was having diarrhea. CAT scan showed colitis. DIAGNOSES: Colitis, proctitis, urinary tract infection, intermittent ____, left breast mass, history of hypertension, history of diabetes, history of cerebrovascular accident, history of arthritis. PLAN: The patient is being admitted. I will go ahead and give her IV antibiotics. We will have GI doctor see the patient as well as ID doctor and also I will follow on surgical consult. JOB# [id number]
== END 2018-04-28 18:45 | DRG 580 ==
LOC: ER 20:31 → MSI 04-22 00:30
PROVIDERS: ADMIT Internal Medicine; ATTEND Internal Medicine
PROC: 0HTU0ZZ Resection of Left Breast, Open Approach (ICD-10-PCS; principal; 2018-04-23)
PROC: 07B60ZX Excision of Left Axillary Lymphatic, Open Approach, Diagnostic (ICD-10-PCS; 2018-04-23)
PROC: 0D9QXZZ Drainage of Anus, External Approach (ICD-10-PCS; 2018-04-26)
PROC: 0DJD8ZZ Inspection of Lower Intestinal Tract, Via Natural or Artificial Opening Endoscopic (ICD-10-PCS; 2018-04-26)
DX: C50.912 Malignant neoplasm of unspecified site of left female breast (principal); N39.0 Urinary tract infection, site not specified; E87.1 Hypo-osmolality and hyponatremia; C77.3 Secondary and unspecified malignant neoplasm of axilla and upper limb lymph nodes; N63.20 Unspecified lump in the left breast, unspecified quadrant; E11.9 Type 2 diabetes mellitus without complications; I10 Essential (primary) hypertension; M81.0 Age-related osteoporosis without current pathological fracture; K59.09 Other constipation; K63.9 Disease of intestine, unspecified; K52.9 Noninfective gastroenteritis and colitis, unspecified; D50.9 Iron deficiency anemia, unspecified; K62.9 Disease of anus and rectum, unspecified; F03.90 Unspecified dementia, unspecified severity, without behavioral disturbance, psychotic disturbance, mood disturbance, and anxiety; R62.7 Adult failure to thrive; F32.9 Major depressive disorder, single episode, unspecified; M19.90 Unspecified osteoarthritis, unspecified site; Z68.30 Body mass index [BMI] 30.0-30.9, adult; Z91.041 Radiographic dye allergy status; Z86.73 Personal history of transient ischemic attack (TIA), and cerebral infarction without residual deficits
CPT/HCPCS: 36415-UA; 70450-TC; 71045-TC; 76642; 76770-TC; 80048-TC; 80053-TC; 80061-TC; 81001-TC; 82607-90; 82728-90; 82746-90; 82948-90; 83036-90; 83540-90; 83550-90; 83880-TC; 84443-TC; 84484-TC; 85025-TC; 85610-TC; 85730-TC; 88305-90; 90799; 93005; J0360; J0696; J1170; J1644; J1650; J1815; J1885; J2001; J2405; J2543; J2704; J3010; J7030; J7040; J7042; X7704; Z7506; Z7610

== ENCOUNTER 2018-05-28 17:28 | Inpatient (IN) | payer MEDICARE, MEDICAID ==
[2018-05-28] MEDS ORDERED: D5-0.45NS 1,000 ML IV ONE (18:22)
[2018-05-28 18:48] VITALS: BP 143/68
[2018-05-28 18:52] LABS: % BASOPHILS 0.3 % (0.0-2.0); % EOSINOPHILS 4.7 % (0.0-5.0); % LYMPHOCYTES 29.6 % (20.0-50.0); % MONOCYTES 8.8 % (2.0-10.0); % NEUTROPHILS 56.6 % (40.0-80.0); EOSINOPHILE ABSOLUTE 0.4 Th/cmm (0.1-0.4); HEMATOCRIT 29.7 % (41.0-60); HEMOGLOBIN 9.9 gm/dL (12-16); LYMPHOCYTE ABSOLUTE 2.7 Th/cmm (1.5-3.0); MEAN CELL VOLUME 85.3 fl (81-100); MEAN CORPUSCULAR HEMOGLOBIN 28.3 pg (27.0-31.0); MEAN CORPUSCULAR HGB CONC 33.2 pg (28.0-36.0); MEAN PLATELET VOLUME 6.9 fl; MONOCYTE ABSOLUTE 0.8 Th/cmm (0.3-1.0); NEUTROPHILE ABSOLUTE 5.3 Th/cmm (1.8-8.0); PLATELET COUNT 429 Th/cmm (150-400); RED BLOOD COUNT 3.48 Mil/cmm (3.80-5.20); RED CELL DISTRIBUTION WIDTH 14.5 % (11.5-20.0); WHITE BLOOD COUNT 9.2 Th/cmm (4.8-10.8)
[2018-05-28 19:04] LABS: INR 0.96 (0.5-1.4)
[2018-05-28 19:09] LABS: ALBUMIN 3.3 gm/dL (3.7-5.3); ALKALINE PHOSPHATASE 60 U/L (34-104); ANION GAP 10.3 (7.0-16.0); BILIRUBIN,TOTAL 0.3 mg/dL (0.3-1.0); BUN - UREA NITROGEN 23 mg/dL (7-25); CARBON DIOXIDE 24.6 mEq/L (21.0-31.0); CHLORIDE 106 mEq/L (98-107); CREATININE - SERUM 1.2 mg/dL (0.6-1.2); GLUCOSE 95 mg/dL (70-105); POTASSIUM SERUM 3.9 mEq/L (3.5-5.1); SGOT 20 U/L (13-39); SGPT/ALT 9 U/L (7-52); SODIUM SERUM 137 mEq/L (136-145); TOTAL PROTEIN,SERUM 6.6 gm/dL (6.0-8.3)
--- NOTE | 2018-05-29 06:33 | History & Physical ---
ADMIT DATE: 05/28/2018 A 77-year-old female patient who came from [facility]. Dr. Sandoval put in a Akao-N-Xkpxreet for her chemotherapy, recently diagnosed to have CA of the breast and mastectomy done as on the last visit. HISTORY OF PRESENT ILLNESS: The patient resides at [place] [place] complains always of weakness, numbness, tingling, dizziness etc. The patient is known to have history of hypertension, history of diabetes, and history of neuropathy. MEDICATIONS: See the reconciliation sheet. PHYSICAL EXAMINATION: GENERAL: Alert, oriented, elderly female. VITAL SIGNS: As noted in the chart. HEAD: Normal. ENT: Normal. NECK: Supple, nontender. LUNGS: Clear. CARDIOVASCULAR SYSTEM: S1, S2 heard. ABDOMEN: Soft. Bowel sounds are heard. CENTRAL NERVOUS SYSTEM: Decreased. DIAGNOSES: Status post breast mastectomy, history of breast cancer, history of hypertension, history of diabetes, history of diabetic neuropathy and history of some mild dementia. PLAN: The patient to continue all her medications from the alf and Dr. Sandoval is going to do the surgery for her to do the [id number] and the patient is cleared for surgery. JOB# [id number]
[2018-05-29] MEDS: INSULIN HUMAN ISOPHANE (NPH) 100 UNITS/ML SUBQ SCH (06:39)
[2018-05-29] MEDS ORDERED: Lidocaine 2% Vial 20 mL Vial ONE (07:14)
--- NOTE | 2018-05-29 07:39 | Diagnostic Imaging Report ---
Portable chest x-ray HISTORY: Cough, preoperative Compared with the prior exam of April 21, 2018, there remains a degree of elevation the right hemidiaphragm. Allowing for a poor inspiration, no acute focal pulmonary processes are seen. The overall heart size is difficult to assess. IMPRESSION: 1. Allowing for a poor inspiration, no acute pulmonary processes
[2018-05-29] MEDS ORDERED: fentaNYL Citrate 100 mcg/2mL Vial ONE ×2 (08:54)
[2018-05-29] MEDS ORDERED: Propofol **SURGERY USE ONLY** 20 ML IV ONE (09:35)
[2018-05-29] MEDS: Enoxaparin 40 mg/0.4 mL 0.4mL Syr SUBQ SCH (09:35)
[2018-05-29] MEDS: Multivitamin Tab PO SCH (09:35)
[2018-05-29] MEDS: Aspirin 81mg Chewable Tab PO SCH (09:35)
--- NOTE | 2018-05-29 12:33 | Diagnostic Imaging Report ---
Portable chest x-ray HISTORY: Shortness of breath, vascular catheter placement Compared with prior exam of 05/28/2018, a right-sided vascular catheter has been inserted. The tip is in the region of the superior vena cava. No acute pulmonary processes. No pneumothorax. IMPRESSION: 1. New vascular catheter placement 2. No change in pulmonary status with no acute abnormalities
--- NOTE | 2018-05-29 12:34 | Diagnostic Imaging Report ---
Vascular catheter placement (intraoperative fluoroscopic images and services) HISTORY: Vascular catheter placement 21 seconds fluoroscopy time was utilized.
--- NOTE | 2018-05-29 13:35 | Operative Report ---
DATE OF SURGERY: 05/29/2018 PREOPERATIVE DIAGNOSIS: Metastatic carcinoma, left breast. POSTOPERATIVE DIAGNOSIS: Metastatic carcinoma, left breast. OPERATION DONE: Insertion of MediPort, right subclavian vein under ultrasound and fluoroscopy. SURGEON: Lois Sandoval MD ANESTHESIA: MAC. ANESTHESIOLOGIST: Emma Toro MD DESCRIPTION OF PROCEDURE: The patient was given IV sedation. The right chest was prepped with ChloraPrep and draped in appropriate manner. A 1% lidocaine was used to infiltrate the area identified on ultrasound. An incision was made and a size 18 needle was used to locate the vein. Guide was inserted under fluoroscopy. The length of the catheter was then measured, so it would be in the superior vena cava. The introducer was placed over the guidewire and then the catheter, which was connected to the reservoir. There was good aspiration of blood; this was flushed with saline solution and 7 mL of heparin 1:1000 was instilled into the port. Incision was closed with 4-0 Vicryl. The patient tolerated the procedure well. JOB# [id number]
--- NOTE | 2018-05-29 20:25 | Internal Medicine Prog Note ---
Internal Medicine Subjective - Subjective Service Date: 05/29/18 Patient seen and examined:: with staff Patient is:: awake Per staff patient has:: tolerating meds Internal Medicine Objective - Results Result Diagrams: 05/28/18 18:45 05/28/18 18:45 Recent Labs: Laboratory Last Values WBC 9.2 Th/cmm (4.8-10.8) 05/28/18 18:45 RBC 3.48 Mil/cmm (3.80-5.20) L 05/28/18 18:45 Hgb 9.9 gm/dL (12-16) L 05/28/18 18:45 Hct 29.7 % (41.0-60) L 05/28/18 18:45 MCV 85.3 fl (81-100) 05/28/18 18:45 MCH 28.3 pg (27.0-31.0) 05/28/18 18:45 MCHC Differential 33.2 pg (28.0-36.0) 05/28/18 18:45 RDW 14.5 % (11.5-20.0) 05/28/18 18:45 Plt Count 429 Th/cmm (150-400) H 05/28/18 18:45 MPV 6.9 fl 05/28/18 18:45 Neutrophils % 56.6 % (40.0-80.0) 05/28/18 18:45 Lymphocytes % 29.6 % (20.0-50.0) 05/28/18 18:45 Monocytes % 8.8 % (2.0-10.0) 05/28/18 18:45 Eosinophils % 4.7 % (0.0-5.0) 05/28/18 18:45 Basophils % 0.3 % (0.0-2.0) 05/28/18 18:45 PT 10.0 SECONDS (9.5-11.5) 05/28/18 18:45 INR 0.96 (0.5-1.4) 05/28/18 18:45 PTT (Actin FS) 26.4 SECONDS (26.0-38.0) 05/28/18 18:45 Sodium 137 mEq/L (136-145) 05/28/18 18:45 Potassium 3.9 mEq/L (3.5-5.1) 05/28/18 18:45 Chloride 106 mEq/L (98-107) 05/28/18 18:45 Carbon Dioxide 24.6 mEq/L (21.0-31.0) 05/28/18 18:45 Anion Gap 10.3 (7.0-16.0) 05/28/18 18:45 BUN 23 mg/dL (7-25) 05/28/18 18:45 Creatinine 1.2 mg/dL (0.6-1.2) 05/28/18 18:45 Est GFR ( Amer) TNP 05/28/18 18:45 Est GFR (Non-Af Amer) TNP 05/28/18 18:45 BUN/Creatinine Ratio 19.2 05/28/18 18:45 Glucose 95 mg/dL (70-105) 05/28/18 18:45 POC Glucose 105 MG/DL (70 - 105) 05/29/18 05:42 Calcium 9.0 mg/dL (8.6-10.3) 05/28/18 18:45 Total Bilirubin 0.3 mg/dL (0.3-1.0) 05/28/18 18:45 AST 20 U/L (13-39) 05/28/18 18:45 ALT 9 U/L (7-52) 05/28/18 18:45 Alkaline Phosphatase 60 U/L (34-104) 05/28/18 18:45 Total Protein 6.6 gm/dL (6.0-8.3) 05/28/18 18:45 Albumin 3.3 gm/dL (3.7-5.3) L 05/28/18 18:45 Globulin 3.3 gm/dL 05/28/18 18:45 Albumin/Globulin Ratio 1.0 (1.0-1.8) 05/28/18 18:45 - Physical Exam Vitals and I&O: Vital Signs Temp 98.7 F 05/29/18 16:00 Pulse 89 05/29/18 16:00 Resp 18 05/29/18 16:00 BP 165/69 05/29/18 16:00 Pulse Ox 98 05/29/18 16:00 Intake & Output 05/29/18 05/29/18 05/30/18 06:59 18:59 06:59 Intake Total 50 Balance 50 Weight (lbs) 174 lb Intake: Oral 50 Other: # Voids 1 # Bowel Movements 1 Stool Characteristics Soft Soft Brown Brown Weight Source Bedscale Active Medications: Current Medications Acetaminophen (Tylenol) 650 mg PO Q6HR PRN PRN Reason: Pain (Mild) Stop: 07/27/18 23:42 Amlodipine Besylate (Norvasc) 10 mg PO DAILY [facility] Stop: 07/28/18 08:59 Last Admin: 05/29/18 09:34 Dose: Not Given Aspirin (Aspirin Chewable) 81 mg PO DAILY [facility] Stop: 07/28/18 08:59 Last Admin: 05/29/18 09:35 Dose: Not Given Atorvastatin Calcium (Lipitor) 40 mg PO HS [facility] Stop: 07/28/18 20:59 Cholecalciferol (Vitamin D3) 5,000 iu PO DAILY [facility] Stop: 07/28/18 08:59 Last Admin: 05/29/18 09:35 Dose: Not Given Enoxaparin Sodium (Lovenox) 40 mg SUBQ DAILY [facility] Stop: 07/28/18 08:59 Last Admin: 05/29/18 09:35 Dose: Not Given Insulin Human NPH (Novolin N) 20 units SUBQ QDAC [facility]; Protocol Stop: 07/28/18 07:29 Last Admin: 05/29/18 06:39 Dose: Not Given Insulin Human NPH (Novolin N) 30 units SUBQ HS [facility]; Protocol Stop: 07/28/18 20:59 Lamotrigine (Lamictal) 25 mg PO [facility]; Protocol Stop: 07/28/18 20:59 Memantine (Namenda) 10 mg PO BID [facility] Stop: 07/28/18 08:59 Last Admin: 05/29/18 17:04 Dose: 10 mg Mirtazapine (Remeron) 15 mg PO HS [facility]; Protocol Stop: 07/28/18 20:59 Morphine Sulfate (Morphine Ir) 15 mg PO Q4H PRN PRN Reason: Pain (Severe) Stop: 07/27/18 23:42 Multivitamins/Vitamin C (Theragran) 1 tab PO DAILY [facility] Stop: 07/28/18 08:59 Last Admin: 05/29/18 09:35 Dose: Not Given Nitroglycerin (Nitrostat) 0.4 mg SL Q5MIN PRN PRN Reason: Chest Pain Stop: 07/27/18 23:42 Valsartan (Diovan) 320 mg PO DAILY [facility] Stop: 07/28/18 08:59 Last Admin: 05/29/18 09:35 Dose: Not Given General: weak HEENT: NC/AT, PERRLA Neck: Supple Lungs: CTAB Cardiovascular: RRR Abdomen: soft, non-tender, non-distended, positive bowel sound Neurological: no change - Procedures Procedures: Procedures Procedure Code Date DRAINAGE OF ANUS, EXTERNAL APPROACH [id number] 04/22/18 EXCISION OF DUODENUM, ENDO, DIAGN [id number] 02/16/18 EXCISION OF ESOPHAGOGASTRIC JUNCTION, ENDO, DIAGN [id number] 02/16/18 EXCISION OF LEFT AXILLARY LYMPHATIC, OPEN APPROACH, DIAGN [id number] 04/22/18 EXCISION OF STOMACH, ENDO, DIAGN [id number] 02/16/18 INSPECTION OF LOWER INTESTINAL TRACT, ENDO [id number] 04/22/18 RESECTION OF LEFT BREAST, OPEN APPROACH [id number] 04/22/18 Internal Medicine Assmt/Plan - Assessment Assessment: s/p mastectomy hx breast ca htn diabetic neuropathy s/p portacath - Plan Plan: continue current plan of care Nutritional Asmnt/Malnutr-PDOC - Dietary Evaluation Malnutrition Findings (Please click <Entered> for more info): Nutritional Asmnt/Malnutrition Start: 05/29/18 14: 42 Text: Status: Complete Freq: Protocol: Document 05/29/18 14:43 LCHENG (Rec: 05/29/18 15:00 LCHENG [email or web address]) Nutritional Asmnt/Malnutrition Patient General Information Nutritional Screening High Risk Diagnosis CA LT breast metastatic Pertinent Medical Hx/Surgical Hx s/p breast mastectomy, breast CA, HTN, DM, diabetic neuropathy, mild dementia Subjective Information Pt admitted for port-a- catheter placement. Pt was sent to OR this morning. dorothy score 12 noted. Current Diet Order/ Nutrition Support NPO Pertinent Medications lipitor, vit D3, novolin, remeron, theragran Pertinent Labs 05/28 glucose 95, alb 3.3 Nutritional Hx/Data Height 5 ft 4 in Height (Calculated Centimeters) 162.6 Current Weight (lbs) 174 lb Weight (Calculated Kilograms) 78.9 Weight (Calculated Grams) 43882.1 [place] Body Weight 120 Body Mass Index (BMI) 29.8 Weight Status Overweight GI Symptoms GI Symptoms None Last BM not indicated Difficult in: None Skin Integrity/Comment: surgical incision on L breast Current %PO Negligible < 25% Estimated Nutritional Goals BEE in Kcals: Adj wt of IBW Calories/Kcals/Kg 25-30 Kcals Calculated 4138-6865 Protein: Adj wt of IBW Protein g/k.2 Protein Calculated 73 Fluid: ml 1525-1830ml (1ml/kcal) Nutritional Problem No current Nutrition Prob Problem N/A Malnutrition Alert Is there a minimum of two criteria No selected? Query Text:Check all the applicable criteria. A minimum of two criteria are recommended for diagnosis of either severe or non-severe malnutrition. Malnutrition Related to Morbid Obesity Malnutrition related to morbid obesity No Intervention/Recommendation Comments 1. Start oral diet after surgery 2. Monitor PO intake, wt, labs and skin integrity 3. F/U as high risk in 2-3 days, 05/31-06/01 Expected Outcomes/Goals Expected Outcomes/Goals 1. PO intake to meet at least 75% of nutritional needs. 2. Wt stability, skin to remain intact, labs to approach WNL.
[2018-05-29] MEDS ORDERED: INSULIN HUMAN ISOPHANE (NPH) 100 UNITS/ML SUBQ SCH (21:00)
[2018-05-29] MEDS ORDERED: Atorvastatin Calcium 10 MG TAB PO SCH (21:00)
[2018-05-30] MEDS: INSULIN HUMAN ISOPHANE (NPH) 100 UNITS/ML SUBQ SCH (09:11)
[2018-05-30] MEDS: Aspirin 81mg Chewable Tab PO SCH (09:12)
[2018-05-30] MEDS: Multivitamin Tab PO SCH (09:12)
[2018-05-30] MEDS: Enoxaparin 40 mg/0.4 mL 0.4mL Syr SUBQ SCH (09:12)
--- NOTE | 2018-05-30 12:44 | General Progress Note ---
Subjective - Review of Systems Events since last encounter: in no distress Objective - Results Result Diagrams: 05/28/18 18:45 05/28/18 18:45 Recent Labs: Laboratory Last Values WBC 9.2 Th/cmm (4.8-10.8) 05/28/18 18:45 RBC 3.48 Mil/cmm (3.80-5.20) L 05/28/18 18:45 Hgb 9.9 gm/dL (12-16) L 05/28/18 18:45 Hct 29.7 % (41.0-60) L 05/28/18 18:45 MCV 85.3 fl (81-100) 05/28/18 18:45 MCH 28.3 pg (27.0-31.0) 05/28/18 18:45 MCHC Differential 33.2 pg (28.0-36.0) 05/28/18 18:45 RDW 14.5 % (11.5-20.0) 05/28/18 18:45 Plt Count 429 Th/cmm (150-400) H 05/28/18 18:45 MPV 6.9 fl 05/28/18 18:45 Neutrophils % 56.6 % (40.0-80.0) 05/28/18 18:45 Lymphocytes % 29.6 % (20.0-50.0) 05/28/18 18:45 Monocytes % 8.8 % (2.0-10.0) 05/28/18 18:45 Eosinophils % 4.7 % (0.0-5.0) 05/28/18 18:45 Basophils % 0.3 % (0.0-2.0) 05/28/18 18:45 PT 10.0 SECONDS (9.5-11.5) 05/28/18 18:45 INR 0.96 (0.5-1.4) 05/28/18 18:45 PTT (Actin FS) 26.4 SECONDS (26.0-38.0) 05/28/18 18:45 Sodium 137 mEq/L (136-145) 05/28/18 18:45 Potassium 3.9 mEq/L (3.5-5.1) 05/28/18 18:45 Chloride 106 mEq/L (98-107) 05/28/18 18:45 Carbon Dioxide 24.6 mEq/L (21.0-31.0) 05/28/18 18:45 Anion Gap 10.3 (7.0-16.0) 05/28/18 18:45 BUN 23 mg/dL (7-25) 05/28/18 18:45 Creatinine 1.2 mg/dL (0.6-1.2) 05/28/18 18:45 Est GFR ( Amer) TNP 05/28/18 18:45 Est GFR (Non-Af Amer) TNP 05/28/18 18:45 BUN/Creatinine Ratio 19.2 05/28/18 18:45 Glucose 95 mg/dL (70-105) 05/28/18 18:45 POC Glucose 107 MG/DL (70 - 105) H 05/30/18 07:03 Calcium 9.0 mg/dL (8.6-10.3) 05/28/18 18:45 Total Bilirubin 0.3 mg/dL (0.3-1.0) 05/28/18 18:45 AST 20 U/L (13-39) 05/28/18 18:45 ALT 9 U/L (7-52) 05/28/18 18:45 Alkaline Phosphatase 60 U/L (34-104) 05/28/18 18:45 Total Protein 6.6 gm/dL (6.0-8.3) 05/28/18 18:45 Albumin 3.3 gm/dL (3.7-5.3) L 05/28/18 18:45 Globulin 3.3 gm/dL 05/28/18 18:45 Albumin/Globulin Ratio 1.0 (1.0-1.8) 05/28/18 18:45 - Physical Exam Vitals and I&O: Vital Signs Temp 98.9 F 05/30/18 11:49 Pulse 78 05/30/18 11:49 Resp 18 05/30/18 11:49 BP 140/63 05/30/18 11:49 Pulse Ox 98 05/30/18 11:49 Intake & Output 05/29/18 05/30/18 05/30/18 18:59 06:59 18:59 Weight (lbs) 78.471 kg Other: Stool Characteristics Soft Brown Weight Source Bedscale Active Medications: Current Medications Acetaminophen (Tylenol) 650 mg PO Q6HR PRN PRN Reason: Pain (Mild) Stop: 07/27/18 23:42 Amlodipine Besylate (Norvasc) 10 mg PO DAILY [facility] Stop: 07/28/18 08:59 Last Admin: 05/30/18 09:12 Dose: Not Given Aspirin (Aspirin Chewable) 81 mg PO DAILY [facility] Stop: 07/28/18 08:59 Last Admin: 05/30/18 09:12 Dose: Not Given Atorvastatin Calcium (Lipitor) 40 mg PO HS [facility] Stop: 07/28/18 20:59 Last Admin: 05/29/18 21:24 Dose: 40 mg Cholecalciferol (Vitamin D3) 5,000 iu PO DAILY [facility] Stop: 07/28/18 08:59 Last Admin: 05/30/18 09:12 Dose: Not Given Enoxaparin Sodium (Lovenox) 40 mg SUBQ DAILY [facility] Stop: 07/28/18 08:59 Last Admin: 05/30/18 09:12 Dose: Not Given Insulin Human NPH (Novolin N) 20 units SUBQ QDAC [facility]; Protocol Stop: 07/28/18 07:29 Last Admin: 05/30/18 09:11 Dose: Not Given Insulin Human NPH (Novolin N) 30 units SUBQ HS [facility]; Protocol Stop: 07/28/18 20:59 Last Admin: 05/29/18 21:24 Dose: 30 units Lamotrigine (Lamictal) 25 mg PO HS [facility]; Protocol Stop: 07/28/18 20:59 Last Admin: 05/29/18 21:24 Dose: 25 mg Memantine (Namenda) 10 mg PO BID [facility] Stop: 07/28/18 08:59 Last Admin: 05/30/18 09:12 Dose: Not Given Mirtazapine (Remeron) 15 mg PO HS [facility]; Protocol Stop: 07/28/18 20:59 Morphine Sulfate (Morphine Ir) 15 mg PO Q4H PRN PRN Reason: Pain (Severe) Stop: 07/27/18 23:42 Multivitamins/Vitamin C (Theragran) 1 tab PO DAILY [facility] Stop: 07/28/18 08:59 Last Admin: 05/30/18 09:12 Dose: Not Given Nitroglycerin (Nitrostat) 0.4 mg SL Q5MIN PRN PRN Reason: Chest Pain Stop: 07/27/18 23:42 Valsartan (Diovan) 320 mg PO DAILY [facility] Stop: 07/28/18 08:59 Last Admin: 05/30/18 09:12 Dose: Not Given General: No acute distress HEENT: Atraumatic Cardiovascular: Regular rate, Normal S1 - Procedures Procedures: Procedures Procedure Code Date DRAINAGE OF ANUS, EXTERNAL APPROACH [id number] 04/22/18 EXCISION OF DUODENUM, ENDO, DIAGN [id number] 02/16/18 EXCISION OF ESOPHAGOGASTRIC JUNCTION, ENDO, DIAGN [id number] 02/16/18 EXCISION OF LEFT AXILLARY LYMPHATIC, OPEN APPROACH, DIAGN [id number] 04/22/18 EXCISION OF STOMACH, ENDO, DIAGN [id number] 02/16/18 INSPECTION OF LOWER INTESTINAL TRACT, ENDO [id number] 04/22/18 RESECTION OF LEFT BREAST, OPEN APPROACH [id number] 04/22/18 Assessment/Plan - Plan Plan: cpm Nutritional Asmnt/Malnutr-PDOC - Dietary Evaluation Malnutrition Findings (Please click <Entered> for more info): Nutritional Asmnt/Malnutrition Start: 05/29/18 14: 42 Text: Status: Complete Freq: Protocol: Document 05/29/18 14:43 LCCAMILLAG (Rec: 05/29/18 15:00 [email or web address] [email or web address]) Nutritional Asmnt/Malnutrition Patient General Information Nutritional Screening High Risk Diagnosis CA LT breast metastatic Pertinent Medical Hx/Surgical Hx s/p breast mastectomy, breast CA, HTN, DM, diabetic neuropathy, mild dementia Subjective Information Pt admitted for port-a- catheter placement. Pt was sent to OR this morning. dorothy score 12 noted. Current Diet Order/ Nutrition Support NPO Pertinent Medications lipitor, vit D3, novolin, remeron, theragran Pertinent Labs 05/28 glucose 95, alb 3.3 Nutritional Hx/Data Height 1.63 m Height (Calculated Centimeters) 162.6 Current Weight (lbs) 78.925 kg Weight (Calculated Kilograms) 78.9 Weight (Calculated Grams) 86426.1 [place] Body Weight 120 Body Mass Index (BMI) 29.8 Weight Status Overweight GI Symptoms GI Symptoms None Last BM not indicated Difficult in: None Skin Integrity/Comment: surgical incision on L breast Current %PO Negligible < 25% Estimated Nutritional Goals BEE in Kcals: Adj wt of IBW Calories/Kcals/Kg 25-30 Kcals Calculated 5135-7861 Protein: Adj wt of IBW Protein g/k.2 Protein Calculated 73 Fluid: ml 1525-1830ml (1ml/kcal) Nutritional Problem No current Nutrition Prob Problem N/A Malnutrition Alert Is there a minimum of two criteria No selected? Query Text:Check all the applicable criteria. A minimum of two criteria are recommended for diagnosis of either severe or non-severe malnutrition. Malnutrition Related to Morbid Obesity Malnutrition related to morbid obesity No Intervention/Recommendation Comments 1. Start oral diet after surgery 2. Monitor PO intake, wt, labs and skin integrity 3. F/U as high risk in 2-3 days, 05/31-06/01 Expected Outcomes/Goals Expected Outcomes/Goals 1. PO intake to meet at least 75% of nutritional needs. 2. Wt stability, skin to remain intact, labs to approach WNL.
--- NOTE | 2018-05-30 14:33 | General Progress Note ---
Subjective - Review of Systems Service Date: 05/30/18 Events since last encounter: dressing clean may DC and use mediport Objective - Results Result Diagrams: 05/28/18 18:45 05/28/18 18:45 Recent Labs: Laboratory Last Values WBC 9.2 Th/cmm (4.8-10.8) 05/28/18 18:45 RBC 3.48 Mil/cmm (3.80-5.20) L 05/28/18 18:45 Hgb 9.9 gm/dL (12-16) L 05/28/18 18:45 Hct 29.7 % (41.0-60) L 05/28/18 18:45 MCV 85.3 fl (81-100) 05/28/18 18:45 MCH 28.3 pg (27.0-31.0) 05/28/18 18:45 MCHC Differential 33.2 pg (28.0-36.0) 05/28/18 18:45 RDW 14.5 % (11.5-20.0) 05/28/18 18:45 Plt Count 429 Th/cmm (150-400) H 05/28/18 18:45 MPV 6.9 fl 05/28/18 18:45 Neutrophils % 56.6 % (40.0-80.0) 05/28/18 18:45 Lymphocytes % 29.6 % (20.0-50.0) 05/28/18 18:45 Monocytes % 8.8 % (2.0-10.0) 05/28/18 18:45 Eosinophils % 4.7 % (0.0-5.0) 05/28/18 18:45 Basophils % 0.3 % (0.0-2.0) 05/28/18 18:45 PT 10.0 SECONDS (9.5-11.5) 05/28/18 18:45 INR 0.96 (0.5-1.4) 05/28/18 18:45 PTT (Actin FS) 26.4 SECONDS (26.0-38.0) 05/28/18 18:45 Sodium 137 mEq/L (136-145) 05/28/18 18:45 Potassium 3.9 mEq/L (3.5-5.1) 05/28/18 18:45 Chloride 106 mEq/L (98-107) 05/28/18 18:45 Carbon Dioxide 24.6 mEq/L (21.0-31.0) 05/28/18 18:45 Anion Gap 10.3 (7.0-16.0) 05/28/18 18:45 BUN 23 mg/dL (7-25) 05/28/18 18:45 Creatinine 1.2 mg/dL (0.6-1.2) 05/28/18 18:45 Est GFR ( Amer) TNP 05/28/18 18:45 Est GFR (Non-Af Amer) TNP 05/28/18 18:45 BUN/Creatinine Ratio 19.2 05/28/18 18:45 Glucose 95 mg/dL (70-105) 05/28/18 18:45 POC Glucose 107 MG/DL (70 - 105) H 05/30/18 07:03 Calcium 9.0 mg/dL (8.6-10.3) 05/28/18 18:45 Total Bilirubin 0.3 mg/dL (0.3-1.0) 05/28/18 18:45 AST 20 U/L (13-39) 05/28/18 18:45 ALT 9 U/L (7-52) 05/28/18 18:45 Alkaline Phosphatase 60 U/L (34-104) 05/28/18 18:45 Total Protein 6.6 gm/dL (6.0-8.3) 05/28/18 18:45 Albumin 3.3 gm/dL (3.7-5.3) L 05/28/18 18:45 Globulin 3.3 gm/dL 05/28/18 18:45 Albumin/Globulin Ratio 1.0 (1.0-1.8) 05/28/18 18:45 - Physical Exam Vitals and I&O: Vital Signs Temp 98.9 F 05/30/18 11:49 Pulse 78 05/30/18 11:49 Resp 18 05/30/18 11:49 BP 140/63 05/30/18 11:49 Pulse Ox 98 05/30/18 11:49 Intake & Output 05/29/18 05/30/18 09 18:59 06:59 18:59 Weight (lbs) 78.471 kg Other: Stool Characteristics Soft Brown Weight Source Bedscale Active Medications: Current Medications Acetaminophen (Tylenol) 650 mg PO Q6HR PRN PRN Reason: Pain (Mild) Stop: 07/27/18 23:42 Amlodipine Besylate (Norvasc) 10 mg PO DAILY [facility] Stop: 07/28/18 08:59 Last Admin: 05/30/18 09:12 Dose: Not Given Aspirin (Aspirin Chewable) 81 mg PO DAILY [facility] Stop: 07/28/18 08:59 Last Admin: 05/30/18 09:12 Dose: Not Given Atorvastatin Calcium (Lipitor) 40 mg PO HS [facility] Stop: 07/28/18 20:59 Last Admin: 05/29/18 21:24 Dose: 40 mg Cholecalciferol (Vitamin D3) 5,000 iu PO DAILY [facility] Stop: 07/28/18 08:59 Last Admin: 05/30/18 09:12 Dose: Not Given Enoxaparin Sodium (Lovenox) 40 mg SUBQ DAILY [facility] Stop: 07/28/18 08:59 Last Admin: 05/30/18 09:12 Dose: Not Given Insulin Human NPH (Novolin N) 20 units SUBQ QDAC [facility]; Protocol Stop: 07/28/18 07:29 Last Admin: 05/30/18 09:11 Dose: Not Given Insulin Human NPH (Novolin N) 30 units SUBQ HS [facility]; Protocol Stop: 07/28/18 20:59 Last Admin: 05/29/18 21:24 Dose: 30 units Lamotrigine (Lamictal) 25 mg PO HS [facility]; Protocol Stop: 07/28/18 20:59 Last Admin: 05/29/18 21:24 Dose: 25 mg Memantine (Namenda) 10 mg PO BID [facility] Stop: 07/28/18 08:59 Last Admin: 05/30/18 09:12 Dose: Not Given Mirtazapine (Remeron) 15 mg PO HS [facility]; Protocol Stop: 07/28/18 20:59 Morphine Sulfate (Morphine Ir) 15 mg PO Q4H PRN PRN Reason: Pain (Severe) Stop: 07/27/18 23:42 Multivitamins/Vitamin C (Theragran) 1 tab PO DAILY [facility] Stop: 07/28/18 08:59 Last Admin: 05/30/18 09:12 Dose: Not Given Nitroglycerin (Nitrostat) 0.4 mg SL Q5MIN PRN PRN Reason: Chest Pain Stop: 07/27/18 23:42 Valsartan (Diovan) 320 mg PO DAILY [facility] Stop: 07/28/18 08:59 Last Admin: 05/30/18 09:12 Dose: Not Given General: No acute distress HEENT: Atraumatic Cardiovascular: Regular rate, Normal S1 - Procedures Procedures: Procedures Procedure Code Date DRAINAGE OF ANUS, EXTERNAL APPROACH [id number] 04/22/18 EXCISION OF DUODENUM, ENDO, DIAGN [id number] 02/16/18 EXCISION OF ESOPHAGOGASTRIC JUNCTION, ENDO, DIAGN [id number] 02/16/18 EXCISION OF LEFT AXILLARY LYMPHATIC, OPEN APPROACH, DIAGN [id number] 04/22/18 EXCISION OF STOMACH, ENDO, DIAGN [id number] 02/16/18 INSPECTION OF LOWER INTESTINAL TRACT, ENDO [id number] 04/22/18 RESECTION OF LEFT BREAST, OPEN APPROACH [id number] 04/22/18 Nutritional Asmnt/Malnutr-PDOC - Dietary Evaluation Malnutrition Findings (Please click <Entered> for more info): Nutritional Asmnt/Malnutrition Start: 05/29/18 14: 42 Text: Status: Complete Freq: Protocol: Document 05/29/18 14:43 LCHENG (Rec: 05/29/18 15:00 [email or web address] [email or web address]) Nutritional Asmnt/Malnutrition Patient General Information Nutritional Screening High Risk Diagnosis CA LT breast metastatic Pertinent Medical Hx/Surgical Hx s/p breast mastectomy, breast CA, HTN, DM, diabetic neuropathy, mild dementia Subjective Information Pt admitted for port-a- catheter placement. Pt was sent to OR this morning. dorothy score 12 noted. Current Diet Order/ Nutrition Support NPO Pertinent Medications lipitor, vit D3, novolin, remeron, theragran Pertinent Labs 05/28 glucose 95, alb 3.3 Nutritional Hx/Data Height 1.63 m Height (Calculated Centimeters) 162.6 Current Weight (lbs) 78.925 kg Weight (Calculated Kilograms) 78.9 Weight (Calculated Grams) 12814.1 [place] Body Weight 120 Body Mass Index (BMI) 29.8 Weight Status Overweight GI Symptoms GI Symptoms None Last BM not indicated Difficult in: None Skin Integrity/Comment: surgical incision on L breast Current %PO Negligible < 25% Estimated Nutritional Goals BEE in Kcals: Adj wt of IBW Calories/Kcals/Kg 25-30 Kcals Calculated 0668-7970 Protein: Adj wt of IBW Protein g/k.2 Protein Calculated 73 Fluid: ml 1525-1830ml (1ml/kcal) Nutritional Problem No current Nutrition Prob Problem N/A Malnutrition Alert Is there a minimum of two criteria No selected? Query Text:Check all the applicable criteria. A minimum of two criteria are recommended for diagnosis of either severe or non-severe malnutrition. Malnutrition Related to Morbid Obesity Malnutrition related to morbid obesity No Intervention/Recommendation Comments 1. Start oral diet after surgery 2. Monitor PO intake, wt, labs and skin integrity 3. F/U as high risk in 2-3 days, 05/31-06/01 Expected Outcomes/Goals Expected Outcomes/Goals 1. PO intake to meet at least 75% of nutritional needs. 2. Wt stability, skin to remain intact, labs to approach WNL.
--- NOTE | 2018-06-11 18:26 | Discharge Summary ---
DATE OF DISCHARGE: 05/30/2018 HOSPITAL COURSE: The patient was admitted on 05/28/2018 to [facility] and discharged on 05/30/2018 ____. This patient came from [place] and back to [facility]. The patient is well known to me. The patient is known to have history of breast cancer, recently had mastectomy, and history of hypertension, diabetes, diabetic nephropathy, and dementia. The patient came in because she needed Gcho-Y-Iurkurhn for chemotherapy. Dr. Sandoval did the [id number]-Lygucdzo. The patient was in stable condition on 05/30/2018 and was discharged back to [place] and further followup with the chemo doctor for chemotherapy through the [id number]. FINAL DIAGNOSIS: Status post [id number]-Xbmxzula reinsertion, history of diabetes, history of ____, status post recent mastectomy for breast cancer. JOB# [id number]
== END 2018-05-30 17:15 | DRG 580 ==
LOC: MSI 17:28
PROVIDERS: ADMIT Internal Medicine; ATTEND Internal Medicine
PROC: 0JH63WZ Insertion of Totally Implantable Vascular Access Device into Chest Subcutaneous Tissue and Fascia, Percutaneous Approach (ICD-10-PCS; principal; 2018-05-29)
PROC: 02HV33Z Insertion of Infusion Device into Superior Vena Cava, Percutaneous Approach (ICD-10-PCS; 2018-05-29)
PROC: B5181ZA Fluoroscopy of Superior Vena Cava using Low Osmolar Contrast, Guidance (ICD-10-PCS; 2018-05-29)
DX: C50.912 Malignant neoplasm of unspecified site of left female breast (principal); C79.9 Secondary malignant neoplasm of unspecified site; I10 Essential (primary) hypertension; E11.40 Type 2 diabetes mellitus with diabetic neuropathy, unspecified; F03.90 Unspecified dementia, unspecified severity, without behavioral disturbance, psychotic disturbance, mood disturbance, and anxiety; Z79.4 Long term (current) use of insulin
CPT/HCPCS: 36415-UA; 71045-TC; 76000-TC; 80053-TC; 82948-90; 85025-TC; 85610-TC; 93005; J1644; J1650; J1815; J2704; J3010; X6494; Z7610